=== PATIENT | female | born 1935 | race Caucasian/White ===

== ENCOUNTER 2016-12-07 15:43 | Inpatient (IN) | payer OTHER, BC ==
[2016-12-07 16:00] VITALS: BMI 21.5
[2016-12-07] MEDS ORDERED: ASPIRIN 81 MG CHEWABLE TABLETS PO ONE (16:05)
--- NOTE | 2016-12-07 16:05 | PDOC ---
History of Present Illness - History of Present Illness Initial Comments: 12/07/16 16:34 Patient is an 81 year old female with significant medical hx of paroxysmal AFib s/p ablations x 4 (currently on tikosynm, xeralto, and metropolol), HTN, and thyroid disease who has been sent to the ED from PMD's office for AFib. Today the patient was seen at her PMD's office for a regularly scheduled follow up appointment and was found to be in rapid AFib. The patient is s/p echocardiogram three weeks ago that revealed normal heart rate and rhythm. The patient denies any chest pain but endorses shortness of breath, lower extremity swelling, and dyspnea on exertion. Patient fevers, chills, cough, nausea, vomiting, diarrhea. <Karine Malave - Last Filed: 12/07/16 16:34> - General History Source: Patient Exam Limitations: No Limitations <Virginia Strickland - Last Filed: 12/08/16 13:00> - General Chief Complaint: Shortness of Breath Stated Complaint: SOB, CARDIAC (PCP SENT) Time Seen by Provider: 12/07/16 16:04 Past History <Karine Malave - Last Filed: 12/07/16 16:34> - Past Medical History Anemia: No Asthma: No Cancer: No Cardiac Disorders: Yes (ATRIAL FIBRILLATION) CVA: No COPD: No CHF: No Dementia: No Diabetes: No GI Disorders: No Disorders: No HTN: Yes Hypercholesterolemia: No Liver Disease: No Suicide Attempt (Hx): No Seizures: No Thyroid Disease: Yes (OFF MEDICINE) - Surgical History Abdominal Surgery: Yes (HERNIA REPAIR-RIGHT?) Appendectomy: Yes Cardiac Surgery: Yes (CARDIOVERSION) Cholecystectomy: No Lung Surgery: No Neurologic Surgery: No Orthopedic Surgery: No - Psycho/Social/Smoking Cessation Hx Anxiety: No Suicidal Ideation: No Smoking Status: Yes Smoking History: Former smoker Have you smoked in the past 12 months: No Number of Cigarettes Smoked Daily: 0 If you are a former smoker, when did you quit?: 15 years ago Information on smoking cessation initiated: No Hx Alcohol Use: No Drug/Substance Use Hx: No Substance Use Type: None Hx Substance Use Treatment: No <Virginia Strickland - Last Filed: 12/08/16 13:00> - Past Medical History Allergies/Adverse Reactions: Allergies Allergy/AdvReac Type Severity Reaction Status Date / Time Penicillins AdvReac Verified 12/07/16 15:55 Home Medications: Ambulatory Orders Acetaminophen/Caffeine/Butalb [Fioricet -] 1 tab PO Q4H 02/10/16 Albuterol Sulfate Inhaler - [Ventolin HFA Inhaler -] 1 - 2 inh PO QID 02/10/16 Alprazolam [Xanax] 0.25 mg PO QID 02/10/16 Dofetilide [Tikosyn] 500 mcg PO BID 02/10/16 Eplerenone 25 mg PO DAILY 02/10/16 Furosemide [Lasix -] 40 mg PO DAILY 02/10/16 Metoprolol Tartrate [Lopressor -] 50 mg PO BID 02/10/16 Quinapril HCl [Accupril -] 40 mg PO DAILY 02/10/16 Rivaroxaban [Xarelto -] 20 mg PO DAILY 02/10/16 Sodium Chloride Tablet - 452 mg PO TID 02/10/16 Review of Systems - Review of Systems Comments:: 12/07/16 16:37 GENERAL/CONSTITUTIONAL: No: fever, chills, weakness, loss of appetite. HEAD, EYES, EARS, NOSE AND THROAT: No: change in vision, ear pain, discharge, sore throat, throat swelling. CARDIOVASCULAR: No: chest pain, lightheadedness, palpitations, syncope RESPIRATORY: Yes: shortness of breath, dyspnea on exertion No: cough, wheezing, hemoptysis, stridor. GASTROINTESTINAL: No: nausea, vomiting, abdominal cramping, diarrhea, rectal bleeding, constipation. GENITOURINARY: No: dysuria, hematuria, frequency, urgency, flank pain. MUSCULOSKELETAL: Yes: lower extremity edema No: back pain, neck pain, joint pain , muscle pain SKIN AND BREASTS: No: lesions, pallor, rash or easy bruising. NEUROLOGIC: No: headache, vertigo, paresthesias, weakness ENDOCRINE: No: unexplained weight gain or loss HEMATOLOGIC/LYMPHATIC: No: anemia, easy bleeding, swelling nodes <Ananda,Karine - Last Filed: 12/07/16 16:34> *Physical Exam - Vital Signs Last Vital Signs Temp Pulse Resp BP Pulse Ox 123 H 20 141/66 94 L 12/07/16 15:55 12/07/16 15:55 12/07/16 15:55 12/07/16 15:55 - Physical Exam Comments: 12/07/16 16:39 GENERAL: The patient is in no acute distress. HEAD: Normal with no signs of trauma. EYES: PERRLA, EOMI, sclera anicteric, conjunctiva clear. ENT: Ears normal, nares patent, oropharynx clear without exudates. Moist mucous membranes. NECK: Normal range of motion, supple without lymphadenopathy, JVD, or masses. LUNGS: Bibasilar crackles. No wheezes. HEART: Irregularly irregular, normal S1 and S2 without murmur, rub or gallop. ABDOMEN: Soft, nontender, normoactive bowel sounds. No guarding, no rebound. EXTREMITIES: Normal range of motion. 3+ pitting edema lower extremities bilaterally. No clubbing or cyanosis. No erythema, or tenderness. NEUROLOGICAL: AAOx3. Cranial nerves II through XII grossly intact. Normal speech. No focal neurological deficits. MUSCULOSKELETAL: Back non-tender to palpation, no CVA tenderness SKIN: Warm, Dry, normal turgor, no rashes or lesions noted. <Karine Malave - Last Filed: 12/07/16 16:34> - Vital Signs Last Vital Signs Temp Pulse Resp BP Pulse Ox 123 H 20 141/66 94 L 12/07/16 15:55 12/07/16 15:55 12/07/16 15:55 12/07/16 15:55 <Virginia Strickland - Last Filed: 12/08/16 13:00> ED Treatment Course - LABORATORY CBC & Chemistry Diagram: 12/07/16 16:14 12/07/16 16:14 <Karine Malave - Last Filed: 12/07/16 16:34> - LABORATORY CBC & Chemistry Diagram: 12/08/16 09:20 12/08/16 09:20 <Virginia Strickland - Last Filed: 12/08/16 13:00> Medical Decision Making - Critical Care Time Total Critical Care Time (minutes): 35 Critical Care Statement: The care of this patient involved high complexity decision making to prevent further life threatening deterioration of the patient 's condition and/or to evalute & treat vital organ system(s) failure or risk of failure. - Medical Decision Making 12/07/16 16:05 A portion of this note was documented by scribe services under my direction. I have reviewed the details of the note, within reason, and agree with the documentation with the following case summary and management plan written by me. Nursing documentation reviewed and incorporated into medical decision making 12/08/16 12:56 This is an 81 yo F h/o paroxysmal AFib s/p ablations x 4 (currently on tikosynm , xeralto, and metropolol), HTN, and thyroid disease who has been sent to the ED from Director Translational's office due to AFib with RVR. She denies chest pain. Has noted shortness of breath and bilateral lower extremity edema. Patient fevers, chills, cough, nausea, vomiting, diarrhea. Will do labs Will do EKG Will do CXR Will re assess Will admit Laboratory Tests 12/07/16 16:14 WBC 8.6 Hgb 14.7 D Hct 43.1 Plt Count 223 Neutrophils % 70.6 Lymphocytes % 14.2 CMP: hemolyzed Will resend Pt seen in the ER by Dr Molina PT seen by Dr Barragan Given Lopressor 5mg IV PT remains tachycardiac Will give Cardizem 10 mg IV Pt admitted to Tele Dr Cooper to follow up CMP Pt remains tachycardiac, may need additional Cardizem or Cardizem drip <Virginia Strickland - Last Filed: 12/08/16 13:00> *DC/Admit/Observation/Transfer - Attestations Scribe Attestion: 12/07/16 16:41 Documentation prepared by Karine Malave, acting as medical supervisor for Virginia Strikcland MD. <Karine Malave - Last Filed: 12/07/16 16:34> - Discharge Dispostion Admit: Yes <Vigrinia Strickland - Last Filed: 12/08/16 13:00> Diagnosis at time of Disposition: Atrial fibrillation Qualifiers: Atrial fibrillation type: paroxysmal Qualified Code(s): I48.0 - Paroxysmal atrial fibrillation - Discharge Dispostion Condition at time of disposition: Stable - Referrals
[2016-12-07] MEDS ORDERED: ASPIRIN 81 MG CHEWABLE TABLETS ONE (16:31)
[2016-12-07 16:36] LABS: BASOPHIL 0.7 % (0-2.0); EOSINOPHIL 2.7 % (0-4.5); MCH 32.1 pg (25.7-33.7); MCHC 34.1 g/dl (32.0-36.0); MEAN CELL VOLUME 94.2 fl (80-96); NEUTROPHILS 70.6 % (42.8-82.8); PLATELET COUNT 223 K/MM3 (134-434); RDW 14.2 % (11.6-15.6); WHITE BLOOD COUNT 8.6 K/mm3 (4.0-10.0)
[2016-12-07 16:47] LABS: INR 1.38 (0.82-1.09); PROTHROMBIN TIME (PATIENT) 15.3 SEC (9.98-11.88)
--- NOTE | 2016-12-07 17:15 | CON.CARD ---
Consult Consult Specialty:: Cardiology Referred by:: Weston Molina MD Reason for Consultation:: Dyspnea, LE edema - History of Present Illness Chief Complaint: Dyspnea, LE edema, palpitations History of Present Illness: Patient is a 81 year old female with underlying history of atrial fibrillation with previous failed antiarrhythmic therapy (Sotalol) currently on Tikosyn, previous history of cardioversion, compliant with chronic anticoagulation, [id number] score of 4, ASHD, angina pectoris, HTN/HCVD, pulmonary HTN ( moderate in severity), hyponatremia related to SIADH, COPD, DJD and anxiety referred to ER for palpitations, dyspnea on exertion, fatigue, exercise intolerance, orthopnea and worsening lower extremity edema referable to recurrent AF with periods of rapid ventricular response and diastolic failure. She reports orthopnea, progressive bilateral LE edema, denies chest pain, near or true syncope, reports medication compliance. 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 Cardio/Vascular: Yes: AFIB, Pulmonary Hypertension, CAD, CHF, HTN Pulmonary: Yes: COPD Renal/: Yes: Other (hyponatremia due to SIADH) Psych: Yes: Anxiety - Past Surgical History Past Surgical History: Yes: Cataract Removal, , Hernia Repair, Appendectomy, Tonsillectomy - Alcohol/Substance Use Hx Alcohol Use: No History of Substance Use: reports: None - Smoking History Smoking history: Former smoker Have you smoked in the past 12 months: No Aproximately how many cigarettes per day: 0 If you are a former smoker, when did you quit?: 15 years ago - Social History ADL: Independent History of Recent Travel: No Home Medications - Allergies Allergies/Adverse Reactions: Allergies Allergy/AdvReac Type Severity Reaction Status Date / Time Penicillins AdvReac Verified 12/07/16 15:55 - Home Medications Home Medications: Ambulatory Orders Acetaminophen/Caffeine/Butalb [Fioricet -] 1 tab PO Q4H 02/10/16 Albuterol Sulfate Inhaler - [Ventolin HFA Inhaler -] 1 - 2 inh PO QID 02/10/16 Alprazolam [Xanax] 0.25 mg PO QID 02/10/16 Dofetilide [Tikosyn] 500 mcg PO BID 02/10/16 Eplerenone 25 mg PO DAILY 02/10/16 Furosemide [Lasix -] 40 mg PO DAILY 02/10/16 Metoprolol Tartrate [Lopressor -] 50 mg PO BID 02/10/16 Quinapril HCl [Accupril -] 40 mg PO DAILY 02/10/16 Rivaroxaban [Xarelto -] 20 mg PO DAILY 02/10/16 Sodium Chloride Tablet - 452 mg PO DAILY 02/10/16 Acetaminophen [Tylenol .Regular Strength -] 650 mg PO Q4H PRN #0 tablet Family Disease History - Family Disease History Family Disease History: Heart Disease: Mother, [place]: Father Review of Systems - Review of Systems Cardiovascular: reports: Chest Pain, Edema, Palpitations Respiratory: reports: Orthopnea, SOB on Exertion Vital Signs: Vital Signs Temperature 97.5 F L 12/07/16 16:55 Pulse Rate 111 H 12/07/16 16:55 Respiratory Rate 16 12/07/16 16:55 Blood Pressure 143/109 12/07/16 16:55 O2 Sat by Pulse Oximetry (%) 100 12/07/16 16:55 Constitutional: Yes: No Distress, Calm Neck: Yes: Supple Respiratory: Yes: Regular, Diminished Gastrointestinal: Yes: Normal Bowel Sounds, Soft Cardiovascular: Yes: Tachycardia, Pulse Irregular JVD: No Carotid Bruit: No Heart Sounds: Yes: S1, S2 Edema: Yes Edema: LLE: 3+, RLE: 3+ - Other Data Labs, Other Data: CBC, BMP 12/07/16 16:14 12/07/16 16:14 INR, PTT INR 1.38 (0.82-1.09) H 12/07/16 16:14 Troponin, BNP 12/07/16 16:14 Troponin I Cancelled B-Natriuretic Peptide Cancelled Troponin, BNP 12/07/16 16:14 Troponin I Cancelled B-Natriuretic Peptide Cancelled Afib @ 123 PVC Problem List - Problems (1) Atrial fibrillation Code(s): I48.91 - UNSPECIFIED ATRIAL FIBRILLATION Qualifiers: Atrial fibrillation type: paroxysmal Qualified Code(s): I48.0 - Paroxysmal atrial fibrillation (2) Coronary artery disease Code(s): I25.10 - ATHSCL HEART DISEASE OF [place] CORONARY ARTERY W/O ANG PCTRS Qualifiers: Coronary Disease-Associated Artery/Lesion type: [place] artery [place] vs. transplanted heart: [place] heart Associated angina: without angina Qualified Code(s): I25.10 - Atherosclerotic heart disease of [place] coronary artery without angina pectoris (3) Hypertensive cardiovascular disease Code(s): I11.9 - HYPERTENSIVE HEART DISEASE WITHOUT HEART FAILURE Qualifiers: Heart failure presence: with heart failure Qualified Code(s): I11.0 - Hypertensive heart disease with heart failure (4) Hyponatremia Code(s): E87.1 - HYPO-OSMOLALITY AND HYPONATREMIA (5) Pulmonary hypertension Code(s): I27.2 - OTHER SECONDARY PULMONARY HYPERTENSION (7) Acute on chronic diastolic heart failure Code(s): I50.33 - ACUTE ON CHRONIC DIASTOLIC (CONGESTIVE) HEART FAILURE Assessment/Plan 10/07/2015 Echo: Normal LV size and fxn, mild-mod MR, mod TR, mod pulm HTN, RVSP 53 mmHg 11/09/2016 Normal LV size with mild-mod decreased (global HK), biatrial enlargement, mild mitral valve prolapse, mod MR, mod-severe TR RVSP 51 mmHg 05/16/2016 Lexiscan MPI: Small anteroapical mild ischemia, normal LV fxn 1. Palpitations referable to recurrent paroxysmal atrial fibrillation with periods of rapid ventricular response [id number] score of 4, previous cardioversions 2. Acute on chronic LV diastolic dysfunction 3. Hyponatremia due to SIADH 4. CAD angina pectoris 5. HTN/HCVD 6. Pulmonary HTN (moderate) 7. COPD 8. Anxiety disorder PLAN: 1. Start Lasix 40 IV bid with monitor diuretic response, renal fxn and electrolytes 2. Continue Lopressor 50 bid 3. Continue Accupril 40 qd and Inspra 25 qd (not on hospital formulary) with monitor potassium levels 4. Continue Xarelto 20 qd (patient reports continued compliance), wrap legs 5. Continue Tikosyn 0.5 bid 6. Consider DCCV on Tikosyn if afib persists despite rate-control (confirms compliance with NOAC so YURI-guidance not required) 7. O2 to maintain saO2, BD 8. Thank you for consultative opportunity
[2016-12-07] MEDS ORDERED: METOPROLOL TARTRATE 5 MG/5 ML VIAL IVPUSH ONE (17:50)
--- NOTE | 2016-12-07 18:12 | HP ---
[id number] Complaint: Weakness, palpitations, atrial fibrillation History of Present Illness: 81 year old female with longstanding h/o AFib post several attempts at cardioversion (06/17/12, 10/28/13, 03/23/15/and last 02/11/16) on chronic anticoagulation with Xarelto and antiarrhythmic/rate control therapy with Tikosyn and Metoprolol. Was seen today by Dr Frank with complaints of weakness, fatigue and HERNÁNDEZ, and was found to be back in AFib with RVR. Sent to ER and is to be admitted for evaluation and therapy, including rate control, and possible re-attempt at cardioversion and possible eventual transfer for ablation therapy. No new chest discomfort, or pre-syncope. 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 Cardiovascular: Yes: AFIB, CAD, CHF (diastolic), HTN, Hyperlipdemia, Mitral Insufficiency, Pulmonary Hypertension, Other Pulmonary: Yes: COPD (former smoker) Renal/: Yes: Other (hyponatremia due to SIADH) Psych: Yes: Anxiety Musculoskeletal: Yes: Chronic low back pain, Osteoarthritis Endocrine: Yes: Hypothyroidism (borderline), SIADH - Past Surgical History Past Surgical History: Yes: Cataract Removal, , Hernia Repair, Appendectomy, Tonsillectomy - Smoking History Smoking history: Former smoker Have you smoked in the past 12 months: No Aproximately how many cigarettes per day: 0 If you are a former smoker, when did you quit?: 15 years ago - Alcohol/Substance Use Hx Alcohol Use: No History of Substance Use: reports: None - Social History ADL: Independent History of Recent Travel: No Home Medications - Allergies Allergies/Adverse Reactions: Allergies Allergy/AdvReac Type Severity Reaction Status Date / Time Penicillins AdvReac Verified 12/07/16 15:55 - Home Medications Home Medications: Ambulatory Orders Acetaminophen/Caffeine/Butalb [Fioricet -] 1 tab PO Q4H 02/10/16 Albuterol Sulfate Inhaler - [Ventolin HFA Inhaler -] 1 - 2 inh PO QID 02/10/16 Alprazolam [Xanax] 0.25 mg PO QID 02/10/16 Dofetilide [Tikosyn] 500 mcg PO BID 02/10/16 Eplerenone 25 mg PO DAILY 02/10/16 Furosemide [Lasix -] 40 mg PO DAILY 02/10/16 Metoprolol Tartrate [Lopressor -] 50 mg PO BID 02/10/16 Quinapril HCl [Accupril -] 40 mg PO DAILY 02/10/16 Rivaroxaban [Xarelto -] 20 mg PO DAILY 02/10/16 Sodium Chloride Tablet - 452 mg PO TID 02/10/16 Family Disease History - Family Disease History Family Disease History: Heart Disease: Mother, [place]: Father Review of Systems - Review of Systems Constitutional: reports: Lethargy, Weakness. denies: Fever, Night Sweats Eyes: reports: No Symptoms Cardiovascular: reports: Palpitations Respiratory: reports: SOB on Exertion Gastrointestinal: denies: Abdominal Pain Genitourinary: reports: No Symptoms Breasts: reports: No Symptoms Reported Musculoskeletal: reports: Back Pain Neurological: reports: Headache (chronic stable) Psychiatric: reports: Anxiety, Depression Physical Examination Vital Signs: Vital Signs Temperature 97.5 F L 12/07/16 16:55 Pulse Rate 111 H 12/07/16 16:55 Respiratory Rate 16 12/07/16 16:55 Blood Pressure 143/109 12/07/16 16:55 O2 Sat by Pulse Oximetry (%) 100 12/07/16 16:55 Constitutional: Yes: Well Nourished, Anxious Eyes: Yes: Other (pupils respond to light). No: Sclera Icterus HENT: Yes: WNL Neck: Yes: Supple Cardiovascular: Yes: Pulse Irregular (rapid rate) Respiratory: Yes: CTA Bilaterally. No: Rhonchi, Wheezes Gastrointestinal: Yes: Normal Bowel Sounds, Soft. No: Tenderness ...Rectal Exam: Yes: Deferred Edema: Yes (chronic mostlynon-pitting) Neurological: Yes: Alert, Oriented Labs: CBC, BMP 12/07/16 16:14 12/07/16 16:14 Imaging - Results Chest X-ray: Image Reviewed EKG: Image Reviewed Problem List - Problems (1) Atrial fibrillation Assessment/Plan: Rate control with pharmacologic intervention as per cardiology. Rhythm change with cardioversion and possible eventual ablation procedure Code(s): I48.91 - UNSPECIFIED ATRIAL FIBRILLATION Qualifiers: Atrial fibrillation type: paroxysmal Qualified Code(s): I48.0 - Paroxysmal atrial fibrillation (2) Acute on chronic diastolic heart failure Assessment/Plan: Chronic stable Little evidence for left sided CHF Edema is chronic and mostly non-pitting. May benefit from cautious increase in diuretic therapy. Pulmonary hypertension of note in regard to right sided CHF Code(s): I50.33 - ACUTE ON CHRONIC DIASTOLIC (CONGESTIVE) HEART FAILURE (3) Anxiety Assessment/Plan: Alprazolam as needed Code(s): F41.9 - ANXIETY DISORDER, UNSPECIFIED (4) COPD (chronic obstructive pulmonary disease) Assessment/Plan: Chronic stable Former smoker Code(s): J44.9 - CHRONIC OBSTRUCTIVE PULMONARY DISEASE, UNSPECIFIED (5) Coronary artery disease Assessment/Plan: Chronic stable Code(s): I25.10 - ATHSCL HEART DISEASE OF [place] CORONARY ARTERY W/O ANG PCTRS Qualifiers: Coronary Disease-Associated Artery/Lesion type: [place] artery [place] vs. transplanted heart: [place] heart Associated angina: without angina Qualified Code(s): I25.10 - Atherosclerotic heart disease of [place] coronary artery without angina pectoris (6) Edema extremities Assessment/Plan: As above Has chronic non-pitting edema as baseline. Possible new addition of edema from right sided CHF Code(s): R60.0 - LOCALIZED EDEMA (7) Hypertension Assessment/Plan: Stable Code(s): I10 - ESSENTIAL (PRIMARY) HYPERTENSION (8) Migraine Assessment/Plan: Chronic Will order Fioricet as needed Code(s): G43.909 - MIGRAINE, UNSP, NOT INTRACTABLE, WITHOUT STATUS MIGRAINOSUS (9) Pulmonary hypertension Assessment/Plan: Chronic finding To discuss with product manufacturing professional Code(s): I27.2 - OTHER SECONDARY PULMONARY HYPERTENSION (10) SIADH (syndrome of inappropriate ADH production) Assessment/Plan: Chronic stable Is on furosemide and oral NaCl pills (11) Tricuspid valve insufficiency, non-rheumatic Assessment/Plan: Monitor Code(s): I36.1 - NONRHEUMATIC TRICUSPID (VALVE) INSUFFICIENCY Assessment/Plan Plan as outlined above Full extensive problem list as per office records and old charts
[2016-12-07] MEDS ORDERED: METOPROLOL TARTRATE 5 MG/5 ML VIAL ONE (18:16)
[2016-12-07] MEDS ORDERED: METOPROLOL TARTRATE 50 MG TABLET (FP) ONE ×2 (18:16→22:11)
[2016-12-07] MEDS ORDERED: METOPROLOL TARTRATE 50 MG TABLET (FP) PO ONE (18:24)
[2016-12-07] MEDS ORDERED: ALBUTEROL SO4 6.7 GM HFA INHALER IH PRN (18:36)
[2016-12-07] MEDS ORDERED: dilTIAZem HCL 50 MG/10 ML - 10 ML VIAL IVPUSH ONE (18:36)
[2016-12-07 18:44] LABS: ALBUMIN 3.4 g/dl (3.4-5.0); ANION GAP 11 (8-16); BILIRUBIN,TOTAL 0.4 mg/dL (0.2-1.0); CALCIUM 8.4 mg/dL (8.5-10.1); CO2 31 mmol/L (21-32); CREATININE 0.6 mg/dL (0.55-1.02); GLUCOSE,RANDOM 110 mg/dL (74-106); SGOT/AST 51 U/L (15-37); SGPT/ALT 84 U/L (12-78); TOT PROT 5.8 g/dl (6.4-8.2)
[2016-12-07 18:47] LABS: ALK PHOS 85 U/L (45-117); TROPONIN I < 0.02 ng/ml (0.00-0.05)
[2016-12-07] MEDS ORDERED: dilTIAZem HCL 125 MG/25 ML - 25 ML VIAL ONE (19:36)
[2016-12-07] MEDS ORDERED: ALPRAZolam 0.25 MG TABLET ONE (22:11)
[2016-12-07] MEDS ORDERED: ACETAMINOPHEN/CAFFEINE/BUTALBITAL 1 TAB ONE (22:14)
[2016-12-07] MEDS ORDERED: ALBUTEROL SO4 2.5/IPRATROPIUM 0.5 INH SOL 3 ML VIAL.NEB. NEB ONE (22:16)
[2016-12-07] MEDS: ACETAMINOPHEN/CAFFEINE/BUTALBITAL 1 TAB PO PRN (22:17)
[2016-12-07] MEDS: METOPROLOL TARTRATE 50 MG TABLET (FP) PO SCH (22:17)
[2016-12-07] MEDS: ALPRAZolam 0.25 MG TABLET PO PRN (22:18)
[2016-12-08] MEDS ORDERED: ACETAMINOPHEN/CAFFEINE/BUTALBITAL 1 TAB ONE ×2 (06:25→11:29)
[2016-12-08] MEDS ORDERED: ALPRAZolam 0.25 MG TABLET ONE ×2 (06:26→11:30)
[2016-12-08] MEDS: SODIUM CHLORIDE 1 GM TABLET PO SCH ×3 (07:08→22:51)
[2016-12-08] MEDS: ACETAMINOPHEN/CAFFEINE/BUTALBITAL 1 TAB PO PRN ×4 (07:08→21:00)
[2016-12-08] MEDS: ALPRAZolam 0.25 MG TABLET PO PRN ×4 (07:08→20:59)
[2016-12-08] MEDS: DOFETILIDE 0.25 MG CAPSULE PO SCH ×3 (07:09→22:51)
[2016-12-08] MEDS: FUROSEMIDE 40 MG/4 ML INJECTABLE VIAL IVPB SCH ×2 (07:20→15:37)
[2016-12-08] MEDS ORDERED: FUROSEMIDE 40 MG/4 ML INJECTABLE VIAL ONE (07:23)
--- NOTE | 2016-12-08 09:20 | PN ---
Progress Note, Physician Chief Complaint: Dyspnea, weakness, palpitations, peripheral edema History of Present Illness: Please refer to initial HPI of Admission note. 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 Was sent to ER for admission to control rate and for possible cardioversion, and possible eventual transfer for ablation procedure therapy. Currently sitting up in bed, feeling better overall. Denies new chest discomfort, increased SOB or pre-syncope. Telemetry reveals persistence of AFib with RVR. - Current Medication List Current Medications: Active Medications Acetaminophen/Butalbital/Caffeine (Fioricet -) 1 tablet PO Q4H PRN PRN Reason: HEADACHE Last Admin: 12/08/16 07:08 Dose: 1 tablet Albuterol Sulfate (Ventolin Hfa Inhaler -) 2 puff IH Q6H PRN PRN Reason: SHORT OF BREATH/WHEEZING Last Admin: 12/07/16 23:33 Dose: 2 sprays(dnu) Alprazolam (Xanax -) 0.25 mg PO Q4H PRN PRN Reason: ANXIETY Last Admin: 12/08/16 07:08 Dose: 0.25 mg Dofetilide (Tikosyn (Restricted To Cardiology) -) 0.5 mg PO BID [facility] Last Admin: 12/08/16 07:09 Dose: Not Given Eplerenone (Eplerenone) 25 mg PO DAILY [facility] Furosemide (Lasix Injection -) 40 mg IVPB BIDLASIX [facility] Last Admin: 12/08/16 07:20 Dose: 40 mg Metoprolol Tartrate (Lopressor -) 50 mg PO BID [facility] Last Admin: 12/07/16 22:17 Dose: 50 mg Quinapril HCl (Accupril -) 40 mg PO DAILY [facility] Rivaroxaban (Xarelto -) 20 mg PO DAILY [facility] Sodium Chloride (Sodium Chloride Tablet -) 1 gm PO BID [facility] Last Admin: 12/08/16 07:08 Dose: Not Given - Objective Vital Signs: Vital Signs Temperature 98.2 F 12/08/16 06:13 Pulse Rate 107 H 12/08/16 07:20 Respiratory Rate 18 12/08/16 07:20 Blood Pressure 138/87 12/08/16 07:20 O2 Sat by Pulse Oximetry (%) 99 12/08/16 07:20 Constitutional: Yes: No Distress, Calm Eyes: No: Sclera Icterus Neck: Yes: Supple Cardiovascular: Yes: Pulse Irregular (with increased rate) Respiratory: Yes: Other (minimal dry rales at bases). No: Accessory Muscle Use , Cough, Rhonchi, Wheezes Gastrointestinal: Yes: Normal Bowel Sounds, Soft. No: Tenderness Edema: Yes (b/l mostly non-pitting) Neurological: Yes: Alert, Oriented Labs: INR, PTT INR 1.38 (0.82-1.09) H 12/07/16 16:14 - ....Imaging Chest X-ray: Image Reviewed Other: Other (telemetry reviewed) Problem List - Problems (1) Atrial fibrillation Assessment/Plan: Rate control with pharmacologic intervention as per cardiology. Rhythm change with cardioversion and possible eventual ablation procedure Discuss use of additional agents to control rate Code(s): I48.91 - UNSPECIFIED ATRIAL FIBRILLATION Qualifiers: Atrial fibrillation type: paroxysmal Qualified Code(s): I48.0 - Paroxysmal atrial fibrillation (2) Acute on chronic diastolic heart failure Assessment/Plan: Chronic stable Little evidence for left sided CHF Edema is chronic and mostly non-pitting. Continue cautious increase in diuretic therapy, with close monitoring of serum Na concentration in light of SIADH Pulmonary hypertension of note in regard to right sided CHF Elevated BNP at 1968 noted Code(s): I50.33 - ACUTE ON CHRONIC DIASTOLIC (CONGESTIVE) HEART FAILURE (3) Anxiety Assessment/Plan: Alprazolam as needed Appears calmer this AM Code(s): F41.9 - ANXIETY DISORDER, UNSPECIFIED (4) COPD (chronic obstructive pulmonary disease) Assessment/Plan: Chronic stable Former smoker O2 saturation excellent on supplemental O2 Code(s): J44.9 - CHRONIC OBSTRUCTIVE PULMONARY DISEASE, UNSPECIFIED (5) Coronary artery disease Assessment/Plan: Chronic stable Code(s): I25.10 - ATHSCL HEART DISEASE OF [place] CORONARY ARTERY W/O ANG PCTRS Qualifiers: Coronary Disease-Associated Artery/Lesion type: [place] artery [place] vs. transplanted heart: [place] heart Associated angina: without angina Qualified Code(s): I25.10 - Atherosclerotic heart disease of [place] coronary artery without angina pectoris (6) Edema extremities Assessment/Plan: As above Has chronic non-pitting edema as baseline. Possible new addition of edema from right sided CHF Monitor daily weights, I/O Monitor {Na+} Code(s): R60.0 - LOCALIZED EDEMA (7) Hypertension Assessment/Plan: Stable Code(s): I10 - ESSENTIAL (PRIMARY) HYPERTENSION (8) Migraine Assessment/Plan: Chronic Ordered Fioricet as needed Code(s): G43.909 - MIGRAINE, UNSP, NOT INTRACTABLE, WITHOUT STATUS MIGRAINOSUS (9) Pulmonary hypertension Assessment/Plan: Chronic finding To discuss with scrap shear operator Code(s): I27.2 - OTHER SECONDARY PULMONARY HYPERTENSION (10) SIADH (syndrome of inappropriate ADH production) Assessment/Plan: Chronic stable Is on furosemide and oral NaCl pills Monitor {Na+} daily (11) Tricuspid valve insufficiency, non-rheumatic Assessment/Plan: Monitor Code(s): I36.1 - NONRHEUMATIC TRICUSPID (VALVE) INSUFFICIENCY (12) Elevated LFTs Assessment/Plan: AST/ALT 51/84 Continue to monitor Possible passive congestion of the liver or drug reaction Mild decrease in albumin noted at 3.4 Code(s): R94.5 - ABNORMAL RESULTS OF LIVER FUNCTION STUDIES Assessment/Plan Continue current Rx. Cardiologic follow-up in regard to cardioversion and/or possible transfer for ablation therapy Full extensive problem list as per office notes and old charts
[2016-12-08] MEDS: METOPROLOL TARTRATE 50 MG TABLET (FP) PO SCH ×2 (09:27→22:51)
[2016-12-08] MEDS: RIVAROXABAN 20 MG TABLET PO SCH (09:28)
[2016-12-08] MEDS: QUINAPRIL HCL 40 MG TABLET (FP) PO SCH (09:28)
[2016-12-08] MEDS: EPLERENONE 25 MG TABLET PO SCH (09:28)
--- NOTE | 2016-12-08 09:28 | EKG ---
Test Reason : Blood Pressure : / mmHG Vent. Rate : 123 BPM Atrial Rate : 102 BPM P-R Int : 000 ms QRS Dur : 086 ms QT Int : 314 ms P-R-T Axes : 000 072 009 degrees QTc Int : 449 ms ATRIAL FIBRILLATION WITH RAPID VENTRICULAR RESPONSE ABNORMAL ECG Confirmed by RODNEY MORAN MD ([id number]) on 12/08/2016 9:28:24 AM Referred By: Confirmed By:RODNEY MORAN MD
[2016-12-08 09:34] LABS: BASOPHIL 0.5 % (0-2.0); MCH 32.4 pg (25.7-33.7); MCHC 34.1 g/dl (32.0-36.0); MEAN CELL VOLUME 95.2 fl (80-96); MEAN PLT VOLUME 7.4 fl (7.5-11.1); NEUTROPHILS 65.3 % (42.8-82.8); PLATELET COUNT 180 K/MM3 (134-434); WHITE BLOOD COUNT 6.4 K/mm3 (4.0-10.0)
[2016-12-08 09:56] LABS: ALBUMIN 3.7 g/dl (3.4-5.0); ANION GAP 5 (8-16); CALCIUM 8.4 mg/dL (8.5-10.1); CO2 33 mmol/L (21-32); GLUCOSE,RANDOM 175 mg/dL (74-106); MAGNESIUM 1.8 mg/dL (1.8-2.4)
[2016-12-08 10:00] LABS: ALK PHOS 95 U/L (45-117); BILIRUBIN,TOTAL 0.7 mg/dL (0.2-1.0); CREATININE 0.6 mg/dL (0.55-1.02); SGOT/AST 49 U/L (15-37); SGPT/ALT 90 U/L (12-78); TOT PROT 6.4 g/dl (6.4-8.2)
--- NOTE | 2016-12-08 10:57 | PN ---
Progress Note, Physician History of Present Illness: Palpitations, dyspnea, and orthopnea improving and lower extremity edema persists with diuresis and rate-control, currently afib in 90s. - Current Medication List Current Medications: Active Medications Acetaminophen/Butalbital/Caffeine (Fioricet -) 1 tablet PO Q4H PRN PRN Reason: HEADACHE Last Admin: 12/08/16 07:08 Dose: 1 tablet Albuterol Sulfate (Ventolin Hfa Inhaler -) 2 puff IH Q6H PRN PRN Reason: SHORT OF BREATH/WHEEZING Last Admin: 12/07/16 23:33 Dose: 2 sprays(dnu) Alprazolam (Xanax -) 0.25 mg PO Q4H PRN PRN Reason: ANXIETY Last Admin: 12/08/16 07:08 Dose: 0.25 mg Dofetilide (Tikosyn (Restricted To Cardiology) -) 0.5 mg PO BID [facility] Last Admin: 12/08/16 09:28 Dose: 0.5 mg Eplerenone (Eplerenone) 25 mg PO DAILY [facility] Last Admin: 12/08/16 09:28 Dose: 25 mg Furosemide (Lasix Injection -) 40 mg IVPB BIDLASIX [facility] Last Admin: 12/08/16 07:20 Dose: 40 mg Metoprolol Tartrate (Lopressor -) 50 mg PO BID [facility] Last Admin: 12/08/16 09:27 Dose: 50 mg Quinapril HCl (Accupril -) 40 mg PO DAILY [facility] Last Admin: 12/08/16 09:28 Dose: 40 mg Rivaroxaban (Xarelto -) 20 mg PO DAILY [facility] Last Admin: 12/08/16 09:28 Dose: 20 mg Sodium Chloride (Sodium Chloride Tablet -) 1 gm PO BID [facility] Last Admin: 12/08/16 09:28 Dose: 1 gm - Objective Vital Signs: Vital Signs Temperature 98.2 F 12/08/16 06:13 Pulse Rate 99 H 12/08/16 09:20 Respiratory Rate 18 12/08/16 09:20 Blood Pressure 121/79 12/08/16 09:20 O2 Sat by Pulse Oximetry (%) 97 12/08/16 09:20 Constitutional: Yes: No Distress, Calm Neck: Yes: Supple Cardiovascular: Yes: Pulse Irregular, Murmur (2/6 SM) Respiratory: Yes: Regular, Diminished, On Nasal O2, Rales Gastrointestinal: Yes: Normal Bowel Sounds, Soft Edema: Yes Edema: LLE: 3+, RLE: 3+ Labs: CBC, BMP 12/08/16 09:20 12/08/16 09:20 INR, PTT INR 1.38 (0.82-1.09) H 12/07/16 16:14 Problem List - Problems (1) Atrial fibrillation Code(s): I48.91 - UNSPECIFIED ATRIAL FIBRILLATION Qualifiers: Atrial fibrillation type: paroxysmal Qualified Code(s): I48.0 - Paroxysmal atrial fibrillation (2) Coronary artery disease Code(s): I25.10 - ATHSCL HEART DISEASE OF [place] CORONARY ARTERY W/O ANG PCTRS Qualifiers: Coronary Disease-Associated Artery/Lesion type: [place] artery [place] vs. transplanted heart: [place] heart Associated angina: without angina Qualified Code(s): I25.10 - Atherosclerotic heart disease of [place] coronary artery without angina pectoris (3) Hypertensive cardiovascular disease Code(s): I11.9 - HYPERTENSIVE HEART DISEASE WITHOUT HEART FAILURE Qualifiers: Heart failure presence: with heart failure Qualified Code(s): I11.0 - Hypertensive heart disease with heart failure (4) Hyponatremia Code(s): E87.1 - HYPO-OSMOLALITY AND HYPONATREMIA (5) Pulmonary hypertension Code(s): I27.2 - OTHER SECONDARY PULMONARY HYPERTENSION (7) Acute on chronic diastolic heart failure Code(s): I50.33 - ACUTE ON CHRONIC DIASTOLIC (CONGESTIVE) HEART FAILURE Assessment/Plan 10/07/2015 Echo: Normal LV size and fxn, mild-mod MR, mod TR, mod pulm HTN, RVSP 53 mmHg 11/09/2016 Normal LV size with mild-mod decreased (global HK), biatrial enlargement, mild mitral valve prolapse, mod MR, mod-severe TR RVSP 51 mmHg 05/16/2016 Lexiscan MPI: Small anteroapical mild ischemia, normal LV fxn 1. Palpitations referable to recurrent paroxysmal atrial fibrillation with periods of rapid ventricular response [id number] score of 4, previous cardioversions improving 2. Acute on chronic LV diastolic dysfunction improving 3. Hyponatremia due to SIADH 4. CAD angina pectoris 5. HTN/HCVD 6. Pulmonary HTN (moderate) 7. COPD 8. Anxiety disorder PLAN: 1. Continue Lasix 40 IV bid with monitor diuretic response, renal fxn and electrolytes 2. Continue Lopressor 50 bid 3. Continue Accupril 40 qd and Inspra 25 qd with monitor potassium levels 4. Continue Xarelto 20 qd (patient reports continued compliance), wrap legs 5. Continue Tikosyn 0.5 bid 6. Consider repeat DCCV on Tikosyn if afib persists despite rate-control ( confirms compliance with NOAC so YURI-guidance not required), eventual pulmonary vein isolation referral for more definitive solution 7. O2 to maintain saO2, BD as needed
[2016-12-09] MEDS: ACETAMINOPHEN/CAFFEINE/BUTALBITAL 1 TAB PO PRN ×4 (01:46→20:07)
[2016-12-09] MEDS: ALPRAZolam 0.25 MG TABLET PO PRN ×3 (01:46→14:47)
[2016-12-09] MEDS: FUROSEMIDE 40 MG/4 ML INJECTABLE VIAL IVPB SCH ×2 (06:20→13:23)
[2016-12-09 08:13] LABS: BASOPHIL 0.7 % (0-2.0); EOSINOPHIL 7.1 % (0-4.5); MCH 32.5 pg (25.7-33.7); MCHC 34.1 g/dl (32.0-36.0); MEAN CELL VOLUME 95.3 fl (80-96); MEAN PLT VOLUME 7.9 fl (7.5-11.1); NEUTROPHILS 51.5 % (42.8-82.8); PLATELET COUNT 180 K/MM3 (134-434); RDW 13.8 % (11.6-15.6); WHITE BLOOD COUNT 6.2 K/mm3 (4.0-10.0)
[2016-12-09 08:36] LABS: ALBUMIN 3.3 g/dl (3.4-5.0); ANION GAP 8 (8-16); BILIRUBIN,TOTAL 0.4 mg/dL (0.2-1.0); CALCIUM 8.3 mg/dL (8.5-10.1); CO2 34 mmol/L (21-32); CREATININE 0.7 mg/dL (0.55-1.02); GLUCOSE,RANDOM 91 mg/dL (74-106); SGOT/AST 47 U/L (15-37); SGPT/ALT 83 U/L (12-78); TOT PROT 5.8 g/dl (6.4-8.2)
[2016-12-09 08:37] LABS: ALK PHOS 88 U/L (45-117)
[2016-12-09] MEDS ORDERED: PT OWN MED DRAWER 7, Y5N ONE ×2 (09:52→21:04)
[2016-12-09] MEDS: QUINAPRIL HCL 40 MG TABLET (FP) PO SCH (09:56)
[2016-12-09] MEDS: RIVAROXABAN 20 MG TABLET PO SCH (09:58)
[2016-12-09] MEDS: SODIUM CHLORIDE 1 GM TABLET PO SCH ×2 (09:59→21:05)
[2016-12-09] MEDS: DOFETILIDE 0.25 MG CAPSULE PO SCH ×2 (10:07→21:06)
[2016-12-09] MEDS: EPLERENONE 25 MG TABLET PO SCH (11:06)
[2016-12-09] MEDS: METOPROLOL TARTRATE 50 MG TABLET (FP) PO SCH ×2 (11:06→21:05)
--- NOTE | 2016-12-09 12:01 | PN ---
Progress Note (short form) - Note Progress Note: Chief Complaint: Events noted, notes reviewed, dyspnea persists but improved, denies any chest pain, remains in atrial fibrillation with periods of rapid ventricular response History of Present Illness: Seen and examined on telemetry. Events noted, notes reviewed, dyspnea persists but improved, denies any chest pain, remains in atrial fibrillation with periods of rapid ventricular response Long discussion with the patient in reference to options of intervention including repeat cardioversion with continuation of current anti-arrhythmic therapy and outpatient evaluation for RFA, vs. proceeding with RFA evaluation at this point, patient prefers the initial approach Echocardiography 10/07/2015 revealed Normal LV size and function, mild-moderate MR, moderate TR, moderate degree of pulmonary HTN, RVSP 53 mmHg Echocardiography 11/09/2016 Normal LV size with mild-moderate decrease in LV-EF ( global HK), bi-atrial enlargement, mild mitral valve prolapse, moderate MR, moderate-severe TR, RVSP 51 mmHg Lexiscan MPI study 05/16/2016 revealed Small size dorota-apical defect mild ischemia, normal LV function - Current Medication List Current Medications Acetaminophen/Butalbital/Caffeine (Fioricet -) 1 tablet PO Q4H PRN PRN Reason: HEADACHE Last Admin: 12/09/16 09:57 Dose: 1 tablet Albuterol Sulfate (Ventolin Hfa Inhaler -) 2 puff IH Q6H PRN PRN Reason: SHORT OF BREATH/WHEEZING Last Admin: 12/07/16 23:33 Dose: 2 sprays(dnu) Alprazolam (Xanax -) 0.25 mg PO Q4H PRN PRN Reason: ANXIETY Last Admin: 12/09/16 09:57 Dose: 0.25 mg Dofetilide (Tikosyn (Restricted To Cardiology) -) 0.5 mg PO BID [facility] Last Admin: 12/09/16 10:07 Dose: 0.5 mg Eplerenone (Eplerenone) 25 mg PO DAILY [facility] Last Admin: 12/09/16 11:06 Dose: 25 mg Furosemide (Lasix Injection -) 40 mg IVPB BIDLASIX [facility] Last Admin: 12/09/16 06:20 Dose: 40 mg Metoprolol Tartrate (Lopressor -) 50 mg PO BID [facility] Last Admin: 12/09/16 11:06 Dose: 50 mg Quinapril HCl (Accupril -) 40 mg PO DAILY [facility] Last Admin: 12/09/16 09:56 Dose: Not Given Rivaroxaban (Xarelto -) 20 mg PO DAILY [facility] Last Admin: 12/09/16 09:58 Dose: 20 mg Sodium Chloride (Sodium Chloride Tablet -) 1 gm PO BID [facility] Last Admin: 12/09/16 09:59 Dose: 1 gm - Objective Vital Signs: Last Vital Signs Temp Pulse Resp BP Pulse Ox 97.3 F L 111 H 20 106/65 98 12/09/16 08:41 12/09/16 08:41 12/09/16 08:41 12/09/16 08:41 12/08/16 21:00 Constitutional: No Distress, Calm Neck: Supple Negative JVD No Bruit Cardiovascular: S1 S2 Irregularly Irregular Grade 2/6 SM Respiratory: Diminished Breath Sounds at the Bases Gastrointestinal: Soft Benign Normal Bowel Sounds Ext: 2-3 + Bilateral Edema Labs: CBC, BMP 12/09/16 06:05 12/09/16 06:05 INR, PTT INR 1.38 (0.82-1.09) H 12/07/16 16:14 Assessment/Plan ASSESSMENT: 1. Palpitations referable to recurrent paroxysmal atrial fibrillation with periods of rapid ventricular response [id number] score of 4, previous cardioversions 2. Acute on chronic class I-II NYHA classification LV failure related to LV diastolic/systolic dysfunction, resolving 3. CAD angina pectoris 4. HTN 5. Pulmonary HTN (moderate) 6. 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 Continue IV Lasix 40 IV with close monitoring of renal function 2. Continue Lopressor and may titrate dose as tolerated, hemodynamics permitting 3. Continue Accupril, hemodynamics permitting 4. Continue Inspra and tiatrate dosage as tolerated 5. Continue Xarelto 6. Continue Tikosyn with close monitoring of QTc 7. Plan to proceed with DCCV on Tikosyn if atrial fibrillation persists despite rate-control (confirms compliance with NOAC's so YURI-guidance not required) this coming week, eventual pulmonary vein isolation RFA referral for more definitive solution as outpatient Prosper Frank MD
--- NOTE | 2016-12-09 12:52 | PN ---
Progress Note, Physician History of Present Illness: Feeling a little better. Heart rate still tachy, but feeling less shortness of breath. Still with leg swelling, but states cannot wear antonietta stockings due to them cutting into her varicose veins when they only come up to her lower legs. - Current Medication List Current Medications: Active Medications Acetaminophen/Butalbital/Caffeine (Fioricet -) 1 tablet PO Q4H PRN PRN Reason: HEADACHE Last Admin: 12/09/16 09:57 Dose: 1 tablet Albuterol Sulfate (Ventolin Hfa Inhaler -) 2 puff IH Q6H PRN PRN Reason: SHORT OF BREATH/WHEEZING Last Admin: 12/07/16 23:33 Dose: 2 sprays(dnu) Alprazolam (Xanax -) 0.25 mg PO Q4H PRN PRN Reason: ANXIETY Last Admin: 12/09/16 09:57 Dose: 0.25 mg Dofetilide (Tikosyn (Restricted To Cardiology) -) 0.5 mg PO BID [facility] Last Admin: 12/09/16 10:07 Dose: 0.5 mg Eplerenone (Eplerenone) 25 mg PO DAILY [facility] Last Admin: 12/09/16 11:06 Dose: 25 mg Furosemide (Lasix Injection -) 40 mg IVPB BIDLASIX [facility] Last Admin: 12/09/16 06:20 Dose: 40 mg Metoprolol Tartrate (Lopressor -) 50 mg PO BID [facility] Last Admin: 12/09/16 11:06 Dose: 50 mg Quinapril HCl (Accupril -) 40 mg PO DAILY [facility] Last Admin: 12/09/16 09:56 Dose: Not Given Rivaroxaban (Xarelto -) 20 mg PO DAILY [facility] Last Admin: 12/09/16 09:58 Dose: 20 mg Sodium Chloride (Sodium Chloride Tablet -) 1 gm PO BID [facility] Last Admin: 12/09/16 09:59 Dose: 1 gm - Objective Vital Signs: Vital Signs Temperature 97.3 F L 12/09/16 08:41 Pulse Rate 111 H 12/09/16 08:41 Respiratory Rate 20 12/09/16 08:41 Blood Pressure 106/65 12/09/16 08:41 O2 Sat by Pulse Oximetry (%) 98 12/08/16 21:00 Constitutional: Yes: No Distress, Calm Eyes: Yes: Conjunctiva Clear, EOM Intact Neck: Yes: Supple, Trachea Midline Cardiovascular: Yes: Pulse Irregular, S1, S2. No: Murmur Respiratory: Yes: Regular, CTA Bilaterally. No: Rales, Rhonchi, Wheezes Gastrointestinal: Yes: Normal Bowel Sounds, Soft. No: Distention, Tenderness Edema: Yes Edema: LLE: 2+, RLE: 2+ Neurological: Yes: Alert, Oriented Labs: CBC, BMP 12/09/16 06:05 12/09/16 06:05 INR, PTT INR 1.38 (0.82-1.09) H 12/07/16 16:14 Assessment/Plan All Active Problems Acute on chronic diastolic heart failure (Acute) Elevated LFTs (Acute) Tricuspid valve insufficiency (Acute) Tricuspid valve insufficiency, non-rheumatic (Acute) Atrial fibrillation (Chronic) with RVR Anxiety (Chronic) COPD (chronic obstructive pulmonary disease) (Chronic) Coronary artery disease (Chronic) Diastolic dysfunction without heart failure (Chronic) Edema extremities (Chronic) Hypertension (Chronic) Hypertensive cardiovascular disease (Chronic) Hyponatremia (Chronic) Migraine (Chronic) Pulmonary hypertension (Chronic) SIADH (syndrome of inappropriate ADH production) (Chronic) -cont on diuretics, Tikosyn -possible cardioversion while here
[2016-12-10] MEDS: ACETAMINOPHEN/CAFFEINE/BUTALBITAL 1 TAB PO PRN ×6 (00:09→22:53)
[2016-12-10] MEDS: ALPRAZolam 0.25 MG TABLET PO PRN ×5 (06:00→22:54)
[2016-12-10] MEDS: FUROSEMIDE 40 MG/4 ML INJECTABLE VIAL IVPB SCH ×2 (06:00→14:27)
[2016-12-10] MEDS ORDERED: QUINAPRIL HCL 20 MG TABLET (FP) ONE (09:07)
[2016-12-10] MEDS ORDERED: PT OWN MED DRAWER 7, Y5N ONE (09:07)
[2016-12-10 09:10] LABS: ALBUMIN 3.7 g/dl (3.4-5.0); ALK PHOS 89 U/L (45-117); ANION GAP 10 (8-16); BILIRUBIN,TOTAL 0.6 mg/dL (0.2-1.0); CALCIUM 8.6 mg/dL (8.5-10.1); CO2 37 mmol/L (21-32); CREATININE 0.6 mg/dL (0.55-1.02); GLUCOSE,RANDOM 95 mg/dL (74-106); SGOT/AST 38 U/L (15-37); SGPT/ALT 75 U/L (12-78); TOT PROT 6.4 g/dl (6.4-8.2)
[2016-12-10] MEDS: QUINAPRIL HCL 40 MG TABLET (FP) PO SCH (09:33)
[2016-12-10] MEDS: EPLERENONE 25 MG TABLET PO SCH (09:34)
[2016-12-10] MEDS: SODIUM CHLORIDE 1 GM TABLET PO SCH ×2 (09:34→22:55)
[2016-12-10] MEDS: DOFETILIDE 0.25 MG CAPSULE PO SCH ×2 (09:34→22:55)
[2016-12-10] MEDS: RIVAROXABAN 20 MG TABLET PO SCH (09:34)
[2016-12-10] MEDS: METOPROLOL TARTRATE 50 MG TABLET (FP) PO SCH ×2 (09:42→22:54)
--- NOTE | 2016-12-10 09:42 | PN ---
Progress Note (short form) - Note Progress Note: Chief Complaint: Events noted, notes reviewed, dyspnea persists but improved, denies any chest pain, remains in atrial fibrillation with periods of rapid ventricular response History of Present Illness: Seen and examined on telemetry. Events noted, notes reviewed, dyspnea persists but improved, denies any chest pain, remains in atrial fibrillation with periods of rapid ventricular response Hypotension noted, asymptomatic Will plan to proceed with synchronized cardioversion in AM Endoscopy suite schedule permitting As outlined in yesterday's note plan to proceed with cardioversion with continuation of current anti-arrhythmic therapy and outpatient evaluation for RFA Echocardiography 10/07/2015 revealed Normal LV size and function, mild-moderate MR, moderate TR, moderate degree of pulmonary HTN, RVSP 53 mmHg Echocardiography 11/09/2016 Normal LV size with mild-moderate decrease in LV-EF ( global HK), bi-atrial enlargement, mild mitral valve prolapse, moderate MR, moderate-severe TR, RVSP 51 mmHg Lexiscan MPI study 05/16/2016 revealed Small size dorota-apical defect mild ischemia, normal LV function - Current Medication List Current Medications Acetaminophen/Butalbital/Caffeine (Fioricet -) 1 tablet PO Q4H PRN PRN Reason: HEADACHE Last Admin: 12/10/16 06:00 Dose: 1 tablet Albuterol Sulfate (Ventolin Hfa Inhaler -) 2 puff IH Q6H PRN PRN Reason: SHORT OF BREATH/WHEEZING Last Admin: 12/07/16 23:33 Dose: 2 sprays(dnu) Alprazolam (Xanax -) 0.25 mg PO Q4H PRN PRN Reason: ANXIETY Last Admin: 12/10/16 06:00 Dose: 0.25 mg Dofetilide (Tikosyn (Restricted To Cardiology) -) 0.5 mg PO BID [facility] Last Admin: 12/09/16 21:06 Dose: 0.5 mg Eplerenone (Eplerenone) 25 mg PO DAILY [facility] Last Admin: 12/09/16 11:06 Dose: 25 mg Furosemide (Lasix Injection -) 40 mg IVPB BIDLASIX [facility] Last Admin: 12/10/16 06:00 Dose: 40 mg Metoprolol Tartrate (Lopressor -) 50 mg PO BID [facility] Last Admin: 12/09/16 21:05 Dose: 50 mg Quinapril HCl (Accupril -) 40 mg PO DAILY [facility] Last Admin: 12/09/16 09:56 Dose: Not Given Rivaroxaban (Xarelto -) 20 mg PO DAILY [facility] Last Admin: 12/09/16 09:58 Dose: 20 mg Sodium Chloride (Sodium Chloride Tablet -) 1 gm PO BID [facility] Last Admin: 12/09/16 21:05 Dose: 1 gm Review of Systems Constitutional: denies Chills or Fever Respiratory: reports: Dyspnea but improved Cardiovascular: As noted above Gastrointestinal: denies Nausea, Vomiting, Diarrhea or Constipation or Abdominal Discomfort Genitourinary: No Symptoms Reported Musculoskeletal: No Symptoms Reported - Objective Vital Signs: Last Vital Signs Temp Pulse Resp BP Pulse Ox 98 F 108 H 20 112/67 98 12/10/16 05:38 12/10/16 05:38 12/10/16 05:38 12/10/16 05:38 12/09/16 20:46 Intake & Output 12/07/16 12/08/16 12/09/16 12/10/16 23:59 23:59 23:59 23:59 Intake Total 120 520 100 Balance 120 520 100 Weight 150 lb 150 lb Constitutional: No Distress, Calm Neck: Supple Negative JVD No Bruit Cardiovascular: S1 S2 Irregularly Irregular Grade 2/6 SM Respiratory: Diminished Breath Sounds at the Bases Gastrointestinal: Soft Benign Normal Bowel Sounds Ext: 2 + Bilateral Edema Labs: CBC, BMP 12/09/16 06:05 12/10/16 06:20 INR, PTT INR 1.38 (0.82-1.09) H 12/07/16 16:14 Assessment/Plan ASSESSMENT: 1. Palpitations referable to recurrent paroxysmal atrial fibrillation with periods of rapid ventricular response [id number] score of 4, previous cardioversions 2. Acute on chronic class I-II NYHA classification LV failure related to LV diastolic/systolic dysfunction, resolving 3. CAD angina pectoris 4. HTN, hypotension asymptomatic 5. Pulmonary HTN (moderate) 6. 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 Continue IV Lasix with close monitoring of renal function 2. Continue Lopressor 3. Continue Accupril but decrease dosage, administer hemodynamics permitting 4. Continue Inspra 5. Continue Xarelto 6. Continue Tikosyn with close monitoring of QTc 7. Plan to proceed with DCCV on Tikosyn since atrial fibrillation persists ( confirms compliance with NOAC's so YURI-guidance not required) this coming week, eventual pulmonary vein isolation RFA referral for more definitive solution as outpatient Prosper Frank MD
--- NOTE | 2016-12-10 10:10 | PN ---
Progress Note, Physician History of Present Illness: Feeling a little better, with less palpitations, improved shortness of breath. Legs still edematous - Current Medication List Current Medications: Active Medications Acetaminophen/Butalbital/Caffeine (Fioricet -) 1 tablet PO Q4H PRN PRN Reason: HEADACHE Last Admin: 12/10/16 06:00 Dose: 1 tablet Albuterol Sulfate (Ventolin Hfa Inhaler -) 2 puff IH Q6H PRN PRN Reason: SHORT OF BREATH/WHEEZING Last Admin: 12/07/16 23:33 Dose: 2 sprays(dnu) Alprazolam (Xanax -) 0.25 mg PO Q4H PRN PRN Reason: ANXIETY Last Admin: 12/10/16 06:00 Dose: 0.25 mg Dofetilide (Tikosyn (Restricted To Cardiology) -) 0.5 mg PO BID [facility] Last Admin: 12/10/16 09:34 Dose: 0.5 mg Eplerenone (Eplerenone) 25 mg PO DAILY [facility] Last Admin: 12/10/16 09:34 Dose: 25 mg Furosemide (Lasix Injection -) 40 mg IVPB BIDLASIX [facility] Last Admin: 12/10/16 06:00 Dose: 40 mg Metoprolol Tartrate (Lopressor -) 50 mg PO BID [facility] Quinapril HCl (Accupril -) 20 mg PO DAILY [facility] Rivaroxaban (Xarelto -) 20 mg PO DAILY [facility] Last Admin: 12/10/16 09:34 Dose: 20 mg Sodium Chloride (Sodium Chloride Tablet -) 1 gm PO BID [facility] Last Admin: 12/10/16 09:34 Dose: 1 gm - Objective Vital Signs: Vital Signs Temperature 98 F 12/10/16 05:38 Pulse Rate 108 H 12/10/16 05:38 Respiratory Rate 20 12/10/16 05:38 Blood Pressure 112/67 12/10/16 05:38 O2 Sat by Pulse Oximetry (%) 98 12/09/16 20:46 Constitutional: Yes: No Distress Cardiovascular: Yes: Pulse Irregular, S1, S2. No: Murmur Respiratory: Yes: Regular, CTA Bilaterally. No: Rales, Rhonchi, Wheezes Gastrointestinal: Yes: Normal Bowel Sounds, Soft. No: Distention, Tenderness Edema: Yes Edema: LLE: 2+, RLE: 2+ Neurological: Yes: Alert, Oriented Labs: CBC, BMP 12/09/16 06:05 12/10/16 06:20 INR, PTT INR 1.38 (0.82-1.09) H 12/07/16 16:14 Assessment/Plan All Active Problems Acute on chronic diastolic heart failure (Acute) Elevated LFTs (Acute) Tricuspid valve insufficiency (Acute) Tricuspid valve insufficiency, non-rheumatic (Acute) Atrial fibrillation (Chronic) with RVR Anxiety (Chronic) COPD (chronic obstructive pulmonary disease) (Chronic) Coronary artery disease (Chronic) Diastolic dysfunction without heart failure (Chronic) Edema extremities (Chronic) Hypertension (Chronic) Hypertensive cardiovascular disease (Chronic) Hyponatremia (Chronic) Migraine (Chronic) Pulmonary hypertension (Chronic) SIADH (syndrome of inappropriate ADH production) (Chronic) -cont on diuretics, Tikosyn -plan for DCCV per cardio
[2016-12-11] MEDS: FUROSEMIDE 40 MG/4 ML INJECTABLE VIAL IVPB SCH ×2 (06:12→13:07)
[2016-12-11] MEDS: ACETAMINOPHEN/CAFFEINE/BUTALBITAL 1 TAB PO PRN ×5 (06:23→23:59)
[2016-12-11] MEDS: ALPRAZolam 0.25 MG TABLET PO PRN ×5 (06:23→23:58)
--- NOTE | 2016-12-11 07:47 | PN ---
Progress Note (short form) - Note Progress Note: Chief Complaint: Events noted, notes reviewed, dyspnea persists but continues to improve, denies any chest pain, remains in atrial fibrillation with periods of rapid ventricular response History of Present Illness: Seen and examined on telemetry. Events noted, notes reviewed, dyspnea persists but continues to improve, denies any chest pain, remains in atrial fibrillation with periods of rapid ventricular response Unable to proceed with synchronized cardioversion this AM related to scheduling conflicts in the Endoscopy suite, will plan for tomorrow AM (Plan to proceed with cardioversion with continuation of current anti-arrhythmic therapy and outpatient evaluation for pulmonary vein isolation RFA) Echocardiography 10/07/2015 revealed Normal LV size and function, mild-moderate MR, moderate TR, moderate degree of pulmonary HTN, RVSP 53 mmHg Echocardiography 11/09/2016 Normal LV size with mild-moderate decrease in LV-EF ( global HK), bi-atrial enlargement, mild mitral valve prolapse, moderate MR, moderate-severe TR, RVSP 51 mmHg Lexiscan MPI study 05/16/2016 revealed Small size dorota-apical defect mild ischemia, normal LV function - Current Medication List Current Medications Acetaminophen/Butalbital/Caffeine (Fioricet -) 1 tablet PO Q4H PRN PRN Reason: HEADACHE Last Admin: 12/11/16 06:23 Dose: 1 tablet Albuterol Sulfate (Ventolin Hfa Inhaler -) 2 puff IH Q6H PRN PRN Reason: SHORT OF BREATH/WHEEZING Last Admin: 12/07/16 23:33 Dose: 2 sprays(dnu) Alprazolam (Xanax -) 0.25 mg PO Q4H PRN PRN Reason: ANXIETY Last Admin: 12/11/16 06:23 Dose: 0.25 mg Dofetilide (Tikosyn (Restricted To Cardiology) -) 0.5 mg PO BID [facility] Last Admin: 12/10/16 22:55 Dose: 0.5 mg Eplerenone (Eplerenone) 25 mg PO DAILY [facility] Last Admin: 12/10/16 09:34 Dose: 25 mg Furosemide (Lasix Injection -) 40 mg IVPB BIDLASIX [facility] Last Admin: 12/11/16 06:12 Dose: Not Given Metoprolol Tartrate (Lopressor -) 50 mg PO BID [facility] Last Admin: 12/10/16 22:54 Dose: 50 mg Quinapril HCl (Accupril -) 20 mg PO DAILY [facility] Rivaroxaban (Xarelto -) 20 mg PO DAILY [facility] Last Admin: 12/10/16 09:34 Dose: 20 mg Sodium Chloride (Sodium Chloride Tablet -) 1 gm PO BID [facility] Last Admin: 12/10/16 22:55 Dose: 1 gm Review of Systems Constitutional: denies Chills or Fever Respiratory: reports: Dyspnea Cardiovascular: As noted above Gastrointestinal: denies Nausea, Vomiting, Diarrhea or Constipation or Abdominal Discomfort Genitourinary: No Symptoms Reported Musculoskeletal: No Symptoms Reported - Objective Vital Signs: Last Vital Signs Temp Pulse Resp BP Pulse Ox 98.5 F 60 20 117/58 94 L 12/11/16 05:37 12/11/16 05:37 12/11/16 05:37 12/11/16 05:37 12/10/16 21:00 Intake & Output 12/08/16 12/09/16 12/10/16 12/11/16 23:59 23:59 23:59 23:59 Intake Total 120 520 900 50 Balance 120 520 900 50 Weight 150 lb Constitutional: No Distress, Calm Neck: Supple Negative JVD No Bruit Cardiovascular: S1 S2 Irregularly Irregular Grade 2/6 SM Respiratory: Diminished Breath Sounds at the Bases Gastrointestinal: Soft Benign Normal Bowel Sounds Ext: 2 + Bilateral Edema Labs: CBC, BMP 12/09/16 06:05 BMP pending from this AM Assessment/Plan ASSESSMENT: 1. Palpitations referable to recurrent paroxysmal atrial fibrillation with periods of rapid ventricular response [id number] score of 5, (prior cardioversions) 2. Acute on chronic class I-II NYHA classification LV failure related to LV diastolic/systolic dysfunction, resolving 3. CAD angina pectoris 4. HTN 5. Pulmonary HTN (moderate) 6. 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 Continue IV Lasix with close monitoring of renal function 2. Continue Lopressor 3. Continue Accupril, hemodynamics permitting 4. Continue Inspra and attempt to increase dosage as tolerated 5. Continue Xarelto 6. Continue Tikosyn with close monitoring of QTc 7. As outlined plan to proceed with DCCV on Tikosyn since atrial fibrillation persists (confirms compliance with NOAC's so YURI-guidance not required) tomorrow morning, eventual pulmonary vein isolation RFA referral for more definitive solution as outpatient Prosper Frank MD
[2016-12-11 07:53] LABS: ALBUMIN 3.4 g/dl (3.4-5.0); ALK PHOS 82 U/L (45-117); ANION GAP 8 (8-16); BILIRUBIN,TOTAL 0.4 mg/dL (0.2-1.0); CALCIUM 8.6 mg/dL (8.5-10.1); CO2 36 mmol/L (21-32); CREATININE 0.6 mg/dL (0.55-1.02); GLUCOSE,RANDOM 90 mg/dL (74-106); SGOT/AST 33 U/L (15-37); SGPT/ALT 62 U/L (12-78); TOT PROT 5.9 g/dl (6.4-8.2)
--- NOTE | 2016-12-11 08:15 | PN ---
Progress Note, Physician Chief Complaint: Dyspnea, weakness, palpitations, peripheral edema History of Present Illness: Please refer to initial HPI of Admission note. 81 year old female with h/o AFib , COPD dCHF with chronic non-pitting peripheral edema, pulmonary hypertension, post previous cardioversions, was found to be back in AFib at [employer] office, associated with fatigue increased HERNÁNDEZ and increased peripheral edema. Was sent to ER for admission to control rate and for possible cardioversion, and possible eventual transfer for ablation procedure therapy. Currently sitting up in bed, feeling better overall. Denies new chest discomfort, increased SOB or pre-syncope. Telemetry reveals persistence of AFib with improved control of ventricular response. Labs and cardiology notes reviewed. Cardioversion scheduled for tomorrow AM. - Current Medication List Current Medications: Active Medications Acetaminophen/Butalbital/Caffeine (Fioricet -) 1 tablet PO Q4H PRN PRN Reason: HEADACHE Last Admin: 12/11/16 06:23 Dose: 1 tablet Albuterol Sulfate (Ventolin Hfa Inhaler -) 2 puff IH Q6H PRN PRN Reason: SHORT OF BREATH/WHEEZING Last Admin: 12/07/16 23:33 Dose: 2 sprays(dnu) Alprazolam (Xanax -) 0.25 mg PO Q4H PRN PRN Reason: ANXIETY Last Admin: 12/11/16 06:23 Dose: 0.25 mg Dofetilide (Tikosyn (Restricted To Cardiology) -) 0.5 mg PO BID [facility] Last Admin: 12/10/16 22:55 Dose: 0.5 mg Eplerenone (Eplerenone) 25 mg PO BID [facility] Furosemide (Lasix Injection -) 40 mg IVPB BIDLASIX [facility] Last Admin: 12/11/16 06:12 Dose: Not Given Metoprolol Tartrate (Lopressor -) 50 mg PO BID [facility] Last Admin: 12/10/16 22:54 Dose: 50 mg Quinapril HCl (Accupril -) 20 mg PO DAILY [facility] Rivaroxaban (Xarelto -) 20 mg PO DAILY [facility] Last Admin: 12/10/16 09:34 Dose: 20 mg Sodium Chloride (Sodium Chloride Tablet -) 1 gm PO BID [facility] Last Admin: 12/10/16 22:55 Dose: 1 gm - Objective Vital Signs: Vital Signs Temperature 98.5 F 12/11/16 05:37 Pulse Rate 60 12/11/16 05:37 Respiratory Rate 20 12/11/16 05:37 Blood Pressure 117/58 12/11/16 05:37 O2 Sat by Pulse Oximetry (%) 94 L 12/10/16 21:00 Constitutional: Yes: No Distress, Calm Eyes: No: Sclera Icterus Neck: Yes: Supple Cardiovascular: Yes: Pulse Irregular Respiratory: Yes: Other (dry rales at bases). No: Rhonchi, Wheezes Gastrointestinal: Yes: Normal Bowel Sounds, Soft. No: Tenderness Edema: Yes (mostly non-pitting) Neurological: Yes: Alert, Oriented Labs: CBC, BMP 12/09/16 06:05 INR, PTT INR 1.38 (0.82-1.09) H 12/07/16 16:14 - ....Imaging Other: Other (telemetry reviewed) Problem List - Problems (1) Atrial fibrillation Assessment/Plan: Rate control with pharmacologic intervention as per cardiology. Rhythm change with cardioversion and possible eventual ablation procedure Discuss use of additional agents to control rate Code(s): I48.91 - UNSPECIFIED ATRIAL FIBRILLATION Qualifiers: Atrial fibrillation type: paroxysmal Qualified Code(s): I48.0 - Paroxysmal atrial fibrillation (2) Acute on chronic diastolic heart failure Assessment/Plan: Chronic stable Little evidence for left sided CHF Edema is chronic and mostly non-pitting. Continue cautious increase in diuretic therapy, with close monitoring of serum Na concentration in light of SIADH Pulmonary hypertension of note in regard to right sided CHF Elevated BNP at 1968 noted To consider increasing Inspra dose to mobilize more "third space" fluid. Quinapril dose decreased based on lower BP readings Code(s): I50.33 - ACUTE ON CHRONIC DIASTOLIC (CONGESTIVE) HEART FAILURE (3) Anxiety Assessment/Plan: Alprazolam as needed Remains calm this AM Code(s): F41.9 - ANXIETY DISORDER, UNSPECIFIED (4) COPD (chronic obstructive pulmonary disease) Assessment/Plan: Chronic stable Former smoker O2 saturation excellent on supplemental O2 Code(s): J44.9 - CHRONIC OBSTRUCTIVE PULMONARY DISEASE, UNSPECIFIED (5) Coronary artery disease Assessment/Plan: Chronic stable Code(s): I25.10 - ATHSCL HEART DISEASE OF [place] CORONARY ARTERY W/O ANG PCTRS Qualifiers: Coronary Disease-Associated Artery/Lesion type: [place] artery [place] vs. transplanted heart: [place] heart Associated angina: without angina Qualified Code(s): I25.10 - Atherosclerotic heart disease of [place] coronary artery without angina pectoris (6) Edema extremities Assessment/Plan: As above Has chronic non-pitting edema as baseline. Possible new addition of edema from right sided CHF Monitor daily weights, I/O Monitor {Na+} Code(s): R60.0 - LOCALIZED EDEMA (7) Hypertension Assessment/Plan: BPs low normal Quinapril dose halved 40>>20mg po daily Code(s): I10 - ESSENTIAL (PRIMARY) HYPERTENSION (8) Migraine Assessment/Plan: Chronic Ordered Fioricet as needed Code(s): G43.909 - MIGRAINE, UNSP, NOT INTRACTABLE, WITHOUT STATUS MIGRAINOSUS (9) Pulmonary hypertension Assessment/Plan: Chronic finding To discuss with electric gas appliances demonstrator Code(s): I27.2 - OTHER SECONDARY PULMONARY HYPERTENSION (10) SIADH (syndrome of inappropriate ADH production) Assessment/Plan: Chronic stable Is on furosemide and oral NaCl pills Monitor {Na+} daily (11) Tricuspid valve insufficiency, non-rheumatic Assessment/Plan: Monitor Code(s): I36.1 - NONRHEUMATIC TRICUSPID (VALVE) INSUFFICIENCY (12) Elevated LFTs Assessment/Plan: AST/ALT 51/84 Continue to monitor Possible passive congestion of the liver or drug reaction Follow closely Code(s): R94.5 - ABNORMAL RESULTS OF LIVER FUNCTION STUDIES Assessment/Plan Continue current Rx. Cardiologic follow-up in regard to cardioversion and/or possible transfer for ablation therapy Full extensive problem list as per office notes and old charts
[2016-12-11] MEDS: METOPROLOL TARTRATE 50 MG TABLET (FP) PO SCH ×2 (09:39→22:13)
[2016-12-11] MEDS: QUINAPRIL HCL 20 MG TABLET (FP) PO SCH (09:39)
[2016-12-11] MEDS: RIVAROXABAN 20 MG TABLET PO SCH (09:39)
[2016-12-11] MEDS: EPLERENONE 25 MG TABLET PO SCH ×2 (09:39→22:13)
[2016-12-11] MEDS: DOFETILIDE 0.25 MG CAPSULE PO SCH ×2 (09:40→22:14)
[2016-12-11] MEDS: SODIUM CHLORIDE 1 GM TABLET PO SCH ×2 (09:40→22:14)
[2016-12-12] MEDS: ACETAMINOPHEN/CAFFEINE/BUTALBITAL 1 TAB PO PRN ×2 (04:15→09:52)
[2016-12-12] MEDS: ALPRAZolam 0.25 MG TABLET PO PRN ×2 (04:15→09:52)
--- NOTE | 2016-12-12 07:18 | PN ---
Progress Note (short form) - Note Progress Note: Chief Complaint: Events noted, notes reviewed, dyspnea continues to improve, denies any chest pain, remains in atrial fibrillation with periods of rapid ventricular response History of Present Illness: Seen and examined on telemetry. Events noted, notes reviewed, dyspnea continues to improve, denies any chest pain, remains in atrial fibrillation with periods of rapid ventricular response Plan to proceed with synchronized cardioversion this AM (cardioversion with continuation of current anti-arrhythmic therapy and outpatient evaluation for pulmonary vein isolation RFA) Echocardiography 10/07/2015 revealed Normal LV size and function, mild-moderate MR, moderate TR, moderate degree of pulmonary HTN, RVSP 53 mmHg Echocardiography 11/09/2016 Normal LV size with mild-moderate decrease in LV-EF ( global HK), bi-atrial enlargement, mild mitral valve prolapse, moderate MR, moderate-severe TR, RVSP 51 mmHg Lexiscan MPI study 05/16/2016 revealed Small size dorota-apical defect mild ischemia, normal LV function - Current Medication List Current Medications Acetaminophen/Butalbital/Caffeine (Fioricet -) 1 tablet PO Q4H PRN PRN Reason: HEADACHE Last Admin: 12/12/16 04:15 Dose: 1 tablet Albuterol Sulfate (Ventolin Hfa Inhaler -) 2 puff IH Q6H PRN PRN Reason: SHORT OF BREATH/WHEEZING Last Admin: 12/07/16 23:33 Dose: 2 sprays(dnu) Alprazolam (Xanax -) 0.25 mg PO Q4H PRN PRN Reason: ANXIETY Last Admin: 12/12/16 04:15 Dose: 0.25 mg Dofetilide (Tikosyn (Restricted To Cardiology) -) 0.5 mg PO BID [facility] Last Admin: 12/11/16 22:14 Dose: 0.5 mg Eplerenone (Eplerenone) 25 mg PO BID [facility] Last Admin: 12/11/16 22:13 Dose: 25 mg Furosemide (Lasix Injection -) 40 mg IVPB BIDLASIX [facility] Last Admin: 12/11/16 13:07 Dose: 40 mg Metoprolol Tartrate (Lopressor -) 50 mg PO BID [facility] Last Admin: 12/11/16 22:13 Dose: 50 mg Quinapril HCl (Accupril -) 20 mg PO DAILY [facility] Last Admin: 12/11/16 09:39 Dose: 20 mg Rivaroxaban (Xarelto -) 20 mg PO DAILY [facility] Last Admin: 12/11/16 09:39 Dose: 20 mg Sodium Chloride (Sodium Chloride Tablet -) 1 gm PO BID [facility] Last Admin: 12/11/16 22:14 Dose: 1 gm Review of Systems Constitutional: denies Chills or Fever Respiratory: reports: Dyspnea Cardiovascular: As noted above Gastrointestinal: denies Nausea, Vomiting, Diarrhea or Constipation or Abdominal Discomfort Genitourinary: No Symptoms Reported Musculoskeletal: No Symptoms Reported - Objective Vital Signs: Last Vital Signs Temp Pulse Resp BP Pulse Ox 98.2 F 106 H 20 99/59 94 L 12/12/16 04:19 12/12/16 04:19 12/12/16 04:19 12/12/16 04:19 12/11/16 21:00 Intake & Output 12/09/16 12/10/16 12/11/16 12/12/16 23:59 23:59 23:59 23:59 Intake Total 520 900 290 30 Balance 520 900 290 30 Constitutional: No Distress, Calm Neck: Supple Negative JVD No Bruit Cardiovascular: S1 S2 Irregularly Irregular Grade 2/6 SM Respiratory: Diminished Breath Sounds at the Bases Gastrointestinal: Soft Benign Normal Bowel Sounds Ext: 2 + Bilateral Edema Labs: Blood test pending from this AM Assessment/Plan ASSESSMENT: 1. Palpitations referable to recurrent paroxysmal atrial fibrillation with periods of rapid ventricular response [id number] score of 5, (prior cardioversions) for repeat cardioversion 2. Acute on chronic class I-II NYHA classification LV failure related to LV diastolic/systolic dysfunction, resolving 3. CAD angina pectoris 4. HTN 5. Pulmonary HTN (moderate) 6. 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 Continue IV Lasix and PO Inspra with close monitoring of renal function 2. Continue Lopressor 3. Continue Accupril, hemodynamics permitting 4. Continue Xarelto 5. Continue Tikosyn with close monitoring of QTc 6. As outlined plan to proceed with DCCV on Tikosyn since atrial fibrillation persists (confirms compliance with NOAC's so YURI-guidance not required) today, eventual pulmonary vein isolation RFA referral for more definitive solution as outpatient Prosper Frank MD
[2016-12-12 07:21] LABS: ALBUMIN 3.1 g/dl (3.4-5.0); ANION GAP 6 (8-16); BILIRUBIN,TOTAL 0.5 mg/dL (0.2-1.0); CALCIUM 8.5 mg/dL (8.5-10.1); CO2 36 mmol/L (21-32); CREATININE 0.6 mg/dL (0.55-1.02); GLUCOSE,RANDOM 93 mg/dL (74-106); SGOT/AST 38 U/L (15-37); SGPT/ALT 66 U/L (12-78); TOT PROT 5.5 g/dl (6.4-8.2)
[2016-12-12 07:22] LABS: ALK PHOS 79 U/L (45-117)
[2016-12-12 07:24] LABS: BASOPHIL 0.8 % (0-2.0); EOSINOPHIL 7.4 % (0-4.5); MCH 32.6 pg (25.7-33.7); MCHC 34.2 g/dl (32.0-36.0); MEAN CELL VOLUME 95.2 fl (80-96); MEAN PLT VOLUME 8.1 fl (7.5-11.1); PLATELET COUNT 171 K/MM3 (134-434); WHITE BLOOD COUNT 5.8 K/mm3 (4.0-10.0)
[2016-12-12 08:43] VITALS: TEMP 97.5
--- NOTE | 2016-12-12 08:51 | DS ---
Physical Examination Vital Signs: Vital Signs Temperature 97.5 F L 12/12/16 08:34 Pulse Rate 67 12/12/16 08:34 Respiratory Rate 16 12/12/16 08:34 Blood Pressure 104/62 12/12/16 08:34 O2 Sat by Pulse Oximetry (%) 100 12/12/16 08:34 Constitutional: Yes: Well Nourished, Calm Eyes: No: Sclera Icterus Cardiovascular: Yes: Regular Rate and Rhythm Respiratory: Yes: CTA Bilaterally Gastrointestinal: Yes: Normal Bowel Sounds, Soft Edema: Yes (chronic non-pitting) Neurological: Yes: Alert, Oriented Labs: CBC, BMP 12/12/16 05:35 12/12/16 05:35 Discharge Summary Reason For Visit: ATRIAL FIBRILATION Current Active Problems Acute on chronic diastolic heart failure (Chronic) Atrial fibrillation (Chronic) Tricuspid valve insufficiency (Chronic) Tricuspid valve insufficiency, non-rheumatic (Chronic) Hospital Course: Please refer to daily n otes Admitted with recurrence of AFib (post 4 previous cardioversions) with associated symptoms of dyspnea fatigue and increased peripheral edema. Successful cardioversion this AM Back in [facility]. Stable for discharge To consider evaluation for RFA procedure as outpatient Condition: Good - Instructions Diet, Activity, Other Instructions: Regular diet as tolerated Follow-up with forensic social worker Referrals: Renny Molina MD [Primary Care Provider] - Disposition: HOME - Home Medications Comprehensive Discharge Medication List: Ambulatory Orders Acetaminophen/Caffeine/Butalb [Fioricet -] 1 tab PO Q4H 02/10/16 Albuterol Sulfate Inhaler - [Ventolin HFA Inhaler -] 1 - 2 inh PO QID 02/10/16 Alprazolam [Xanax] 0.25 mg PO QID 02/10/16 Dofetilide [Tikosyn] 500 mcg PO BID 02/10/16 Eplerenone 25 mg PO DAILY 02/10/16 Furosemide [Lasix -] 40 mg PO DAILY 02/10/16 Metoprolol Tartrate [Lopressor -] 50 mg PO BID 02/10/16 Quinapril HCl [Accupril -] 40 mg PO DAILY 02/10/16 Rivaroxaban [Xarelto -] 20 mg PO DAILY 02/10/16 Sodium Chloride Tablet - 452 mg PO TID 02/10/16
[2016-12-12] MEDS ORDERED: PT OWN MED DRAWER 7, Y5N ONE (09:19)
[2016-12-12 09:49] VITALS: BP 134/68; PULSE 76
[2016-12-12] MEDS: FUROSEMIDE 40 MG/4 ML INJECTABLE VIAL IVPB SCH (09:50)
[2016-12-12] MEDS: RIVAROXABAN 20 MG TABLET PO SCH (09:52)
[2016-12-12] MEDS: QUINAPRIL HCL 20 MG TABLET (FP) PO SCH (09:52)
[2016-12-12] MEDS: SODIUM CHLORIDE 1 GM TABLET PO SCH (09:53)
[2016-12-12] MEDS: EPLERENONE 25 MG TABLET PO SCH (09:53)
[2016-12-12] MEDS: METOPROLOL TARTRATE 50 MG TABLET (FP) PO SCH (09:53)
[2016-12-12] MEDS: DOFETILIDE 0.25 MG CAPSULE PO SCH (09:54)
--- NOTE | 2016-12-12 12:41 | EKG ---
Test Reason : Blood Pressure : / mmHG Vent. Rate : 068 BPM Atrial Rate : 068 BPM P-R Int : 150 ms QRS Dur : 084 ms QT Int : 400 ms P-R-T Axes : 080 062 057 degrees QTc Int : 425 ms NORMAL SINUS RHYTHM POSSIBLE LEFT ATRIAL ENLARGEMENT BORDERLINE ECG WHEN COMPARED WITH ECG OF 07-DEC-2016 15:52, SINUS RHYTHM HAS REPLACED ATRIAL FIBRILLATION VENT. RATE HAS DECREASED BY 55 BPM NON-SPECIFIC CHANGE IN ST SEGMENT IN INFERIOR LEADS CLINICAL CORRELATION IS RECOMMENDED Confirmed by SOFIYA SMITH, HUA ([id number]) on 12/12/2016 12:41:10 PM Referred By: Confirmed By:HUA ARRIAZA MD
== END 2016-12-12 12:02 | disposition home or self-care (01) | DRG 308 ==
LOC: JER 15:43 → JERBED 18:39 → UNDOADMIN 18:39 → J4W 12-08 13:55
PROVIDERS: ADMIT Internal Medicine; ATTEND Internal Medicine
PROC: 5A2204Z Restoration of Cardiac Rhythm, Single (ICD-10-PCS; principal; 2016-12-12 08:00)
DX: I48.0 Paroxysmal atrial fibrillation (principal); I50.33 Acute on chronic diastolic (congestive) heart failure; E87.1 Hypo-osmolality and hyponatremia; I11.0 Hypertensive heart disease with heart failure; I25.119 Atherosclerotic heart disease of native coronary artery with unspecified angina pectoris; I27.2 Other secondary pulmonary hypertension; J44.9 Chronic obstructive pulmonary disease, unspecified; F41.9 Anxiety disorder, unspecified; Z87.891 Personal history of nicotine dependence; I36.1 Nonrheumatic tricuspid (valve) insufficiency
CPT/HCPCS: 36415; 71010-TC; 80053; 82550; 83735; 83880; 84484; 85025; 85610; 93005; 93010; 99284-25

== ENCOUNTER 2017-04-12 11:41 | Inpatient (IN) | payer OTHER, BC ==
--- NOTE | 2017-04-12 12:07 | PDOC ---
Attending Attestation - Resident Resident Name: Lyle Field - ED Attending Attestation I have performed the following: I have examined & evaluated the patient, The case was reviewed & discussed with the resident, I agree w/resident's findings & plan, Exceptions are as noted - HPI HPI: 04/12/17 12:52 81yo F hx AF on xarelto, dofetilide, and metoprolol s/p multiple cardioversion attempts (most recently 11/2016), dCHF, CAD, COPD on 2L at night, former smoker, hypothyroid p/w SOB x 3 days. SOB is at rest and exertional. ET is reduced to walking to the bathroom. Denies coughing, CP, palpitations, fevers, chills, N/V/ D, dysuria. Has LE edema at baseline but feels it is now worse. Has been using home O2 throughout the day. Reports compliance with medications including lasix. No recent medication changes. Cards: Dr. Jha PMD: Dr. Alcantara - Physicial Exam PE: 04/12/17 12:58 GENERAL: Awake, alert, and fully oriented, in no acute distress. Speaking in full sentences. HEAD: No signs of trauma EYES: PERRLA, EOMI, sclera anicteric, conjunctiva clear ENT: Auricles normal inspection, hearing grossly normal, nares patent, oropharynx clear without exudates. Moist mucosa NECK: Normal ROM, supple, no lymphadenopathy, JVD, or masses LUNGS: Breath sounds mildly diminished throughout, clear to auscultation bilaterally. No wheezes, and no crackles. No work of breathing HEART: Regular rate and rhythm, normal S1 and S2, no murmurs, rubs or gallops ABDOMEN: Soft, nontender, normoactive bowel sounds. No guarding, no rebound. No masses EXTREMITIES: Normal range of motion, no edema. No clubbing or cyanosis. No cords, erythema, or tenderness. 2+ LE edema, symmetrically to the knees b/l NEUROLOGICAL: Normal speech, cranial nerves intact, negative pronator drift, 5/ 5 strength in all 4 extremities, normal sensation to light touch in all 4 extremities, normal cerebellar exam, normal gait, normal reflexes and tone SKIN: Warm, Dry, normal turgor, no rashes or lesions noted. 04/12/17 15:18 Twelve-lead EKG was performed and reviewed by me. Normal sinus rhythm rate of 65.+ Respiratory variation however P wave precedes every QRS. Normal axis. No ST elevations. No T-wave inversions. - Medical Decision Making 04/12/17 12:59 81yo F hx AF on xarelto s/p multiple cardioversion attempts, dCHF, CAD, COPD on 2L at night, former smoker, hypothyroid p/w SOB. Concern for COPD exacerbation + /- CHF exacerbation -labs -CXR -likely admit
--- NOTE | 2017-04-12 13:07 | PDOC ---
History of Present Illness - General Chief Complaint: Shortness of Breath Stated Complaint: SOB, CHEST PAIN Time Seen by Provider: 04/12/17 12:01 - History of Present Illness Initial Comments: 04/12/17 12:52 81F w/ hx of a-fib on xarelto, dofetilide, and metoprolol s/p multiple attempts at cardioversion (most recently 11/2016), diastolic heart failure, CAD, HTN, and COPD presenting with several days of dyspnea. She reports being in her USOH until a few days ago when she became SOB at rest, she had to use her home O2 (2L ) for a longer period of time, and her lower extremity edema has worsened. She denies chest pain, palpitations, cough, wheezing, fevers, chills, recent medication changes, sick contacts, n/v/d/c, dysuria, and frequency. Of note, she had a UTI 3 weeks ago, for which she was treated with 5 days of an antibiotic (pt does not know its name) with resolution of symptoms. 04/12/17 13:13 Past History - Past Medical History Allergies/Adverse Reactions: Allergies Allergy/AdvReac Type Severity Reaction Status Date / Time Penicillins AdvReac Verified 04/12/17 11:47 Home Medications: Ambulatory Orders Acetaminophen/Caffeine/Butalb [Fioricet -] 1 tab PO Q4H PRN 02/10/16 Albuterol Sulfate Inhaler - [Ventolin HFA Inhaler -] 1 - 2 inh PO QID PRN Alprazolam [Xanax] 0.25 mg PO QID PRN 02/10/16 Dofetilide [Tikosyn] 500 mcg PO BID 02/10/16 Eplerenone 25 mg PO BID 02/10/16 Furosemide [Lasix -] 40 mg PO DAILY 02/10/16 Metoprolol Tartrate [Lopressor -] 50 mg PO BID 02/10/16 Quinapril HCl [Accupril -] 40 mg PO BID 02/10/16 Rivaroxaban [Xarelto -] 20 mg PO DAILY 02/10/16 Sodium Chloride Tablet - 452 mg PO TID 02/10/16 Timolol 0.5% [Timoptic 0.5%] 1 drop OD AM 04/12/17 Anemia: No Asthma: No Cancer: No Cardiac Disorders: Yes (ATRIAL FIBRILLATION, CARDIOVERSIONS) CVA: No COPD: No CHF: No Dementia: No Diabetes: No GI Disorders: No Disorders: No HTN: Yes Hypercholesterolemia: No Liver Disease: No Suicide Attempt (Hx): No Seizures: No Thyroid Disease: Yes (OFF MEDICINE) Other medical history: LOW NA Comment:: 04/12/17 13:07 PMH: migraine, anxiety, OA, hypothyroidism, HLD PSH: cataract removal, , hernia repair, appendectomy, tonsillectomy Meds: as shown in triage report Allergies: PCN and ciprofloxacin Social Hx: 40 pack year smoking history, denies alcohol and drug use - Surgical History Abdominal Surgery: Yes (HERNIA REPAIR-RIGHT) Appendectomy: Yes Cardiac Surgery: No (CARDIOVERSION) Cholecystectomy: No Lung Surgery: No Neurologic Surgery: No Orthopedic Surgery: No - Psycho/Social/Smoking Cessation Hx Anxiety: No Suicidal Ideation: No Smoking Status: Yes Smoking History: Former smoker Have you smoked in the past 12 months: No Number of Cigarettes Smoked Daily: 0 If you are a former smoker, when did you quit?: 15 years ago Information on smoking cessation initiated: No Hx Alcohol Use: No Drug/Substance Use Hx: No Substance Use Type: None Hx Substance Use Treatment: No Review of Systems - Review of Systems Comments:: 04/12/17 13:09 GENERAL: No fever, chills, night sweats, or weakness. HEAD, EYES, EARS, NOSE AND THROAT: No change in vision, ear pain, or sore throat CARDIOVASCULAR: No chest pain or palpitations RESPIRATORY: No cough, wheezing, or hemoptysis. GASTROINTESTINAL: No nausea, vomiting, diarrhea, constipation, or blood in the stool. GENITOURINARY: No dysuria, frequency, or urgency MUSCULOSKELETAL: No joint or muscle swelling or pain. SKIN: No rashes or pruritis ENDOCRINE: No increased thirst. No abnormal weight change NEUROLOGIC: No headache, dizziness, loss of consciousness, or change in strength /sensation. *Physical Exam - Vital Signs Last Vital Signs Temp Pulse Resp BP Pulse Ox 97.5 F L 62 18 128/51 94 L 04/12/17 11:50 04/12/17 11:50 04/12/17 11:50 04/12/17 11:50 04/12/17 11:50 - Physical Exam Comments: 04/12/17 13:11 GENERAL: Awake, alert, and fully oriented, in no acute distress HEAD: normocephalic, atraumatic HEENT: PERRLA, EOMI, sclera anicteric, conjunctiva clear, hearing grossly normal , nares patent, oropharynx clear without exudate, moist mucosa NECK: Normal ROM, supple, no lymphadenopathy, JVD, or masses HEART: Regular rate and rhythm, no murmurs, rubs or gallops, peripheral pulses normal and equal bilaterally. LUNGS: decreased air flow diffusely, no wheezing or rales heard ABDOMEN: Soft, nontender, nondistended, normoactive bowel sounds. No guarding, no rebound. No masses EXTREMITIES: 2+ pitting edema b/l in the lower extremities SKIN: Warm, dry, no rashes or lesions noted. NEUROLOGICAL: Cranial nerves II through XII grossly intact. Normal speech, normal gait, no focal sensorimotor deficits ED Treatment Course - LABORATORY CBC & Chemistry Diagram: 04/12/17 13:12 04/12/17 14:14 - RADIOLOGY Radiology Studies Ordered: Category Date Time Status CHEST X-RAY PORTABLE* [RAD] Stat Radiology 04/12/17 12:40 Ordered Medical Decision Making - Medical Decision Making 04/12/17 13:13 81F w/ hx of a-fib on xarelto, dofetilide, and metoprolol s/p multiple attempts at cardioversion (most recently 11/2016), diastolic heart failure, CAD, HTN, and COPD presenting with acute dyspnea and increased LE edema. Exam notable for LE edema and decreased lung sounds. Differential includes CHF exacerbation vs. COPD exacerbation vs. a-fib CBC: wnl CMP: hyponatremia, hypochloremia EkG: possible left atrial enlargement troponin: negative BNP: 500 CXR: no acute pathology UA: negative TSH: pending 04/12/17 15:27 04/12/17 18:10 *DC/Admit/Observation/Transfer Diagnosis at time of Disposition: Hyponatremia - Discharge Dispostion Condition at time of disposition: Stable Admit: Yes Decision to Admit order Date/Time: 04/12/17 18:07 - Referrals Referrals: Renny Molina MD [Primary Care Provider] - - Attestations Physician Attestion: 04/12/17 18:08 I, Dr. Lyle Field, attest that this document has been prepared under my direction and personally reviewed by me in its entirety. I further attest, that it accurately reflects all work, treatment, procedures and medical decision -making performed by me.
[2017-04-12 13:30] LABS: BASOPHIL 0.7 % (0-2.0); EOSINOPHIL 6.9 % (0-4.5); MCH 32.3 pg (25.7-33.7); MCHC 34.5 g/dl (32.0-36.0); MEAN CELL VOLUME 93.8 fl (80-96); MEAN PLT VOLUME 8.1 fl (7.5-11.1); NEUTROPHILS 65.5 % (42.8-82.8); PLATELET COUNT 257 K/MM3 (134-434); RDW 14.4 % (11.6-15.6); WHITE BLOOD COUNT 9.9 K/mm3 (4.0-10.0)
--- NOTE | 2017-04-12 15:05 | EKG ---
Test Reason : Blood Pressure : / mmHG Vent. Rate : 065 BPM Atrial Rate : 065 BPM P-R Int : 120 ms QRS Dur : 082 ms QT Int : 418 ms P-R-T Axes : 079 055 060 degrees QTc Int : 434 ms SINUS RHYTHM WITH MARKED SINUS ARRHYTHMIA POSSIBLE LEFT ATRIAL ENLARGEMENT BORDERLINE ECG WHEN COMPARED WITH ECG OF 12-DEC-2016 08:34, NONSPECIFIC T WAVE ABNORMALITY NO LONGER EVIDENT IN INFERIOR LEADS Confirmed by DMITRY SMITH, SURAJ ([id number]) on 04/12/2017 3:04:42 PM Referred By: Confirmed By:SURAJ ANDRES MD
[2017-04-12 15:29] LABS: ALBUMIN 3.6 g/dl (3.4-5.0); ANION GAP 5 (8-16); BILIRUBIN,TOTAL 0.5 mg/dL (0.2-1.0); CALCIUM 8.8 mg/dL (8.5-10.1); CO2 35 mmol/L (21-32); CREATININE 0.5 mg/dL (0.55-1.02); GLUCOSE,RANDOM 101 mg/dL (74-106); SGOT/AST 24 U/L (15-37); SGPT/ALT 26 U/L (12-78)
[2017-04-12 15:33] LABS: ALK PHOS 90 U/L (45-117); CPK 94 IU/L (26-192); TOT PROT 6.7 g/dl (6.4-8.2); TROPONIN I < 0.02 ng/ml (0.00-0.05)
[2017-04-12] MEDS ORDERED: SODIUM CHLORIDE 500 ML IV STA (16:09)
[2017-04-12] MEDS ORDERED: ALPRAZolam 0.25 MG TABLET PO ONE (16:54)
[2017-04-12] MEDS ORDERED: ALPRAZolam 0.25 MG TABLET ONE (17:50)
[2017-04-12] MEDS ORDERED: ACETAMINOPHEN/CAFFEINE/BUTALBITAL 1 TAB PO PRN ×2 (18:46→20:36)
--- NOTE | 2017-04-12 20:15 | HP ---
Admitting History and Physical - Primary Care Physician PCP: Renny Molina - Admission Chief Complaint: Can't breathe History of Present Illness: 81 year old female with h/o a-fib, dCHF, COPD on home O2 2L admitted to med- surg for worsening shortness of breath x 2 days. Patient states she's short of breath at baseline due to underlying COPD and CHF and normally uses 2 L O2 at night. However, her symptom has been progressively getting worse in the last 2 days in that she's been using 2L O2 during the day but still no relief. Denies chest pain, palpitation, fever, chills, cough, dizziness, syncope, urinary or bowel symptom. 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 Cardiovascular: Yes: AFIB, CAD, CHF (diastolic), HTN, Hyperlipdemia, Mitral Insufficiency, Pulmonary Hypertension, Other Pulmonary: Yes: COPD (former smoker) Renal/: Yes: Other (hyponatremia due to SIADH) Psych: Yes: Anxiety Musculoskeletal: Yes: Chronic low back pain, Osteoarthritis Endocrine: Yes: Hypothyroidism (borderline), SIADH - Past Surgical History Past Surgical History: Yes: Cataract Removal, , Hernia Repair, Appendectomy, Tonsillectomy - Smoking History Smoking history: Former smoker Have you smoked in the past 12 months: No Aproximately how many cigarettes per day: 0 If you are a former smoker, when did you quit?: 15 years ago - Alcohol/Substance Use Hx Alcohol Use: No History of Substance Use: reports: None - Social History ADL: Independent History of Recent Travel: No Home Medications - Allergies Allergies/Adverse Reactions: Allergies Allergy/AdvReac Type Severity Reaction Status Date / Time Penicillins AdvReac Verified 04/12/17 11:47 - Home Medications Home Medications: Ambulatory Orders Acetaminophen/Caffeine/Butalb [Fioricet -] 1 tab PO Q4H PRN 02/10/16 Albuterol Sulfate Inhaler - [Ventolin HFA Inhaler -] 1 - 2 inh PO QID PRN Alprazolam [Xanax] 0.25 mg PO QID PRN 02/10/16 Dofetilide [Tikosyn] 500 mcg PO BID 02/10/16 Eplerenone 25 mg PO BID 02/10/16 Furosemide [Lasix -] 40 mg PO DAILY 02/10/16 Metoprolol Tartrate [Lopressor -] 50 mg PO BID 02/10/16 Quinapril HCl [Accupril -] 40 mg PO BID 02/10/16 Rivaroxaban [Xarelto -] 20 mg PO DAILY 02/10/16 Sodium Chloride Tablet - 452 mg PO TID 02/10/16 Timolol 0.5% [Timoptic 0.5%] 1 drop OD AM 04/12/17 Family Disease History - Family Disease History Family Disease History: Heart Disease: Mother, [place]: Father Review of Systems - Review of Systems Constitutional: reports: Lethargy, Loss of Appetite Eyes: reports: No Symptoms HENT: reports: No Symptoms Neck: reports: No Symptoms Cardiovascular: reports: Shortness of Breath. denies: Chest Pain Respiratory: reports: Orthopnea, SOB, SOB on Exertion Gastrointestinal: reports: No Symptoms Genitourinary: reports: No Symptoms Breasts: reports: No Symptoms Reported Musculoskeletal: reports: Other (LE swelling) Neurological: reports: No Symptoms Endocrine: reports: No Symptoms Hematology/Lymphatic: reports: No Symptoms Psychiatric: reports: No Symptoms Physical Examination Vital Signs: Vital Signs Temperature 97.5 F L 04/12/17 11:50 Pulse Rate 62 04/12/17 11:50 Respiratory Rate 18 04/12/17 11:50 Blood Pressure 128/51 04/12/17 11:50 O2 Sat by Pulse Oximetry (%) 97 04/12/17 13:30 Constitutional: Yes: Anxious, Mild Distress Eyes: Yes: WNL Cardiovascular: Yes: Regular Rate and Rhythm, S1, S2. No: JVD Respiratory: Yes: CTA Bilaterally, On Nasal O2 (2L), Poor Air Entry Gastrointestinal: Yes: WNL, Normal Bowel Sounds, Soft Edema: Yes Edema: LLE: 1+, RLE: 1+ Peripheral Pulses WNL: No Integumentary: Yes: Venous Stasis Changes Neurological: Yes: Alert, Oriented Imaging - Results Chest X-ray: Image Reviewed EKG: Image Reviewed Assessment/Plan COPD exacerbation - Cont. supplemental O2 - Albuterol neb Q4H CHARMAINE + Q6H PRN - Solumedrol 40mg IV Q6H - Azithromycin 500mg PO daily A-fib - Rate and rhythm controlled - s/p multiple cardioversions - Cont. xarelto and tikosyn CHF, diastolic - Stable - Hold lasix and eplernone h/o CAD - Fully anti-coagulated HTN - Cont. diuretics Migraine - Cont. fioricet Anxiety - Cont. xanax SIADH - Hold lasix and eplernone due to worsening hyponatremia - Cont. oral salt pills FEN - No IVF - Chronic hyponatremia, cont. to monitor lytes - Regular diet Prophylaxis - DVT: on ac - GI: not indicated Dispo - Med-surg observation Javier Lopez, Medicine PGY2 Pager: [phone] Visit type - Emergency Visit Emergency Visit: Yes ED Registration Date: 04/12/17 Care time: The patient presented to the Emergency Department on the above date and was hospitalized for further evaluation of their emergent condition. - New Patient This patient is new to me today: Yes Date on this admission: 04/12/17 - Critical Care Critical Care patient: No
[2017-04-12] MEDS ORDERED: ALBUTEROL SO4 6.7 GM HFA INHALER IH PRN (20:36)
[2017-04-12] MEDS ORDERED: ALPRAZolam 0.25 MG TABLET PO PRN (20:36)
[2017-04-12] MEDS ORDERED: ALBUTEROL SO4 0.083% IH SOL 2.5 MG/3 ML VIAL.NEB. NEB PRN ×2 (20:37→21:01)
[2017-04-12] MEDS ORDERED: ACETAMINOPHEN 325 MG TABLET (FP) PO PRN (20:37)
[2017-04-12] MEDS ORDERED: FUROSEMIDE 40 MG TABLET (FP) PO SCH (20:45)
[2017-04-12] MEDS ORDERED: AZITHROMYCIN 250 MG TABLET (FP) ONE (20:59)
[2017-04-12] MEDS ORDERED: FUROSEMIDE 40 MG TABLET (FP) ONE (20:59)
[2017-04-12] MEDS ORDERED: ALBUTEROL SO4 2.5/IPRATROPIUM 0.5 INH SOL 3 ML VIAL.NEB. NEB PRN (21:01)
[2017-04-12] MEDS: AZITHROMYCIN 250 MG TABLET (FP) PO SCH (21:02)
[2017-04-12] MEDS ORDERED: ALBUTEROL SO4 0.083% IH SOL 2.5 MG/3 ML VIAL.NEB. NEB SCH (22:00)
[2017-04-12] MEDS ORDERED: DOFETILIDE 0.5 MG CAPSULE PO SCH (22:00)
--- NOTE | 2017-04-12 22:12 | PN ---
Teaching Attending Note Name of Resident: Javier Lopez ATTENDING PHYSICIAN STATEMENT I saw and evaluated the patient. I reviewed the resident's note and discussed the case with the resident. I agree with the resident's findings and plan as documented. SUBJECTIVE: 81 yo female presenting to ED with complaint of persistent/progressive dyspnea over the past 2 days and admitted with Acute Exacerbation of COPD complicated by acute on chronic hyponatremia in the setting of known multiple comorbidities including chronic atrial fibrillation, diastolic CHF, CAD, and HTN. OBJECTIVE: - Vital Signs Temp: 97.5F BP: 128/51 HR: 62 RR: 18 spO2: 94-97% 2L NC - Physical Examination General: Alert in NAD. Speaking in full sentences. HEENT: Atraumatic ; No oropharyngeal lesions noted Neck: No JVD or thyromegaly CV: Irregularly irregular, S1 and S2 Pulm: Diminished bilaterally w/ slight expiratory wheezing noted in right upper lobe Abd: NTTP, ND, BS+ Ext: Symmetrical 1-2+ edema bilateral lower extremities - Imaging CXR reviewed ( No infiltrate or evidence of volume overload ) - Labs Renal function normal and at baseline Na: 126 ( Baseline 130-132 ) H/H: 13.5/39 ; Mild eosinophilia on differential 6-7% BNP < 500 Troponin, TSH, LFTs unremarkable ASSESSMENT: Acute Exacerbation of COPD ( No ABG performed on admission so unclear if acute on chronic respiratory failure ) Acute on Chronic Hyponatremia in setting of hx SIADH Chronic Atrial Fibrillation - NOAC chronic AC Diastolic CHF - Not currently decompensated Essential HTN - Controlled Chronic Hypothyroidism - Controlled h/o CAD PLAN: Admit to telemetry for observation and management of above. Confirm and continue home medication regimen holding outpatient lasix at this time Supplemental O2 to maintain spO2 91-92% given patient presumed chronic retainer of CO2 ( Current O2 demand c/w baseline 2L NC ) Duonebs q4h scheduled and Albuterol q2h prn ; Azithromycin PO for duration of 7- 10d ; PO Prednisone 40mg qD for total of 5 days Compression stockings for bilateral LE's , OOB to chair as tolerated Trend electrolytes ; Obtain ABG if O2 demand suddenly increases DISPOSITION: Anticipate discharge in 24-48h assuming continual improvement of respiratory status w/ treatment plan as above and per primary attending discretion. Ensure patient has no need for additional home services Update Vaccinations
[2017-04-12 22:13] VITALS: BMI 20.9
[2017-04-12] MEDS: methylPREDNISolone NA SUCC 40 MG/1 ML VIAL IVPB SCH (22:25)
[2017-04-12] MEDS: METOPROLOL TARTRATE 50 MG TABLET (FP) PO SCH (22:25)
[2017-04-12] MEDS: QUINAPRIL HCL 40 MG TABLET (FP) PO SCH (22:26)
[2017-04-12] MEDS: SODIUM CHLORIDE 1 GM TABLET PO SCH (22:27)
[2017-04-12] MEDS: DOFETILIDE 0.25 MG CAPSULE PO SCH (22:29)
[2017-04-13] MEDS: ALPRAZolam 0.25 MG TABLET PO PRN ×5 (00:15→22:13)
[2017-04-13] MEDS: methylPREDNISolone NA SUCC 40 MG/1 ML VIAL IVPB SCH ×2 (02:43→09:43)
[2017-04-13] MEDS: SODIUM CHLORIDE 1 GM TABLET PO SCH ×3 (06:02→22:14)
[2017-04-13 06:17] LABS: URINE APPEARANCE CLEAR; URINE BILIRUBIN NEGATIVE (NEGATIVE); URINE BLOOD 1+ (NEGATIVE); URINE COLOR LTYELLOW; URINE GLUCOSE (UA) NEGATIVE (NEGATIVE); URINE KETONE NEGATIVE (NEGATIVE); URINE LEUK ESTERASE NEGATIVE (NEGATIVE); URINE NITRITE NEGATIVE (NEGATIVE); URINE PROTEIN NEGATIVE (NEGATIVE); URINE UROBILINOGEN NEGATIVE mg/dL (0.2-1.0)
[2017-04-13 06:30] LABS: URINE MUCUS RARE; URINE RBC 2 /hpf (0-3); URINE WBC 1 /hpf (3-5)
[2017-04-13] MEDS ORDERED: PT OWN MED DRAWER 7, Y5N ONE ×4 (06:32→21:49)
[2017-04-13] MEDS ORDERED: TIMOLOL 0.5% OPHTHALMIC SOL 5 ML BOTTLE OD SCH (07:00)
[2017-04-13 08:31] LABS: ALBUMIN 3.4 g/dl (3.4-5.0); ANION GAP 6 (8-16); CALCIUM 8.8 mg/dL (8.5-10.1); CO2 34 mmol/L (21-32); GLUCOSE,RANDOM 162 mg/dL (74-106)
[2017-04-13 08:34] LABS: ALK PHOS 88 U/L (45-117); BILIRUBIN,TOTAL 0.5 mg/dL (0.2-1.0); CREATININE 0.5 mg/dL (0.55-1.02); PHOSPHOROUS 3.2 mg/dL (2.5-4.9); SGOT/AST 21 U/L (15-37); SGPT/ALT 26 U/L (12-78); TOT PROT 6.3 g/dl (6.4-8.2)
[2017-04-13] MEDS: ACETAMINOPHEN/CAFFEINE/BUTALBITAL 1 TAB PO PRN ×3 (09:43→22:14)
[2017-04-13] MEDS: METOPROLOL TARTRATE 50 MG TABLET (FP) PO SCH ×2 (09:46→22:13)
[2017-04-13] MEDS: QUINAPRIL HCL 40 MG TABLET (FP) PO SCH ×2 (09:46→22:14)
[2017-04-13] MEDS: DOFETILIDE 0.25 MG CAPSULE PO SCH ×2 (09:47→22:15)
--- NOTE | 2017-04-13 09:58 | CON.CARD ---
Consult Consult Specialty:: Cardiology Referred by:: Manuel Sanchez MD Reason for Consultation:: Paroxysmal afib - History of Present Illness Chief Complaint: Dyspnea History of Present Illness: Patient is a 81 year old female with underlying history of atrial fibrillation with previous failed antiarrhythmic therapy (Sotalol) currently on Tikosyn, previous history of cardioversion, compliant with chronic anticoagulation, [id number] score of 4, ASHD, angina pectoris, HTN/HCVD, pulmonary HTN ( moderate in severity), hyponatremia related to SIADH, COPD with h/o flares, DJD and anxiety referred to ER for progressive dyspnea over the past 2 days referable to Acute Exacerbation of COPD complicated by acute on chronic hyponatremia. She denies chest pain, palpitations, fatigue, orthopnea or worsening lower extremity edema, near or true syncope, she reports medication compliance. 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 Cardio/Vascular: Yes: AFIB, CAD, CHF (diastolic), HTN, Hyperlipdemia, Mitral Insufficiency, Pulmonary Hypertension, Other Pulmonary: Yes: COPD (former smoker) Renal/: Yes: Other (hyponatremia due to SIADH) Psych: Yes: Anxiety Musculoskeletal: Yes: Chronic low back pain, Osteoarthritis Endocrine: Yes: Hypothyroidism (borderline), SIADH - Past Surgical History Past Surgical History: Yes: Cataract Removal, , Hernia Repair, Appendectomy, Tonsillectomy - Alcohol/Substance Use Hx Alcohol Use: No History of Substance Use: reports: None - Smoking History Smoking history: Former smoker Have you smoked in the past 12 months: No Aproximately how many cigarettes per day: 0 If you are a former smoker, when did you quit?: 15 years ago - Social History ADL: Independent History of Recent Travel: No Home Medications - Allergies Allergies/Adverse Reactions: Allergies Allergy/AdvReac Type Severity Reaction Status Date / Time Penicillins AdvReac Verified 04/12/17 11:47 - Home Medications Home Medications: Ambulatory Orders Acetaminophen/Caffeine/Butalb [Fioricet -] 1 tab PO Q4H PRN 02/10/16 Albuterol Sulfate Inhaler - [Ventolin HFA Inhaler -] 1 - 2 inh PO QID PRN Alprazolam [Xanax] 0.25 mg PO QID PRN 02/10/16 Dofetilide [Tikosyn] 500 mcg PO BID 02/10/16 Eplerenone 25 mg PO BID 02/10/16 Furosemide [Lasix -] 40 mg PO DAILY 02/10/16 Metoprolol Tartrate [Lopressor -] 50 mg PO BID 02/10/16 Quinapril HCl [Accupril -] 40 mg PO BID 02/10/16 Rivaroxaban [Xarelto -] 20 mg PO DAILY 02/10/16 Sodium Chloride Tablet - 452 mg PO TID 02/10/16 Timolol 0.5% [Timoptic 0.5%] 1 drop OD AM 04/12/17 Family Disease History - Family Disease History Family Disease History: Heart Disease: Mother, [place]: Father Review of Systems - Review of Systems Cardiovascular: reports: Shortness of Breath Respiratory: reports: SOB Vital Signs: Vital Signs Temperature 97.6 F 04/13/17 08:31 Pulse Rate 83 04/13/17 08:31 Respiratory Rate 20 04/13/17 08:31 Blood Pressure 151/74 04/13/17 08:31 O2 Sat by Pulse Oximetry (%) 98 04/13/17 04:38 Constitutional: Yes: No Distress, Calm Neck: Yes: Supple Respiratory: Yes: Regular, Diminished, On Nasal O2 Gastrointestinal: Yes: Normal Bowel Sounds, Soft Cardiovascular: Yes: Regular Rate and Rhythm JVD: No Carotid Bruit: No Heart Sounds: Yes: S1, S2 Murmur: Yes: Systolic Murmur, Grade 2 Edema: Yes Edema: LLE: 1+, RLE: 1+ - Other Data Labs, Other Data: CBC, BMP 04/13/17 06:40 NSR @ 65 LAE Problem List - Problems (1) Hyponatremia Code(s): E87.1 - HYPO-OSMOLALITY AND HYPONATREMIA (2) Atrial fibrillation Code(s): I48.91 - UNSPECIFIED ATRIAL FIBRILLATION Qualifiers: Atrial fibrillation type: paroxysmal Qualified Code(s): I48.0 - Paroxysmal atrial fibrillation (3) COPD (chronic obstructive pulmonary disease) Code(s): J44.9 - CHRONIC OBSTRUCTIVE PULMONARY DISEASE, UNSPECIFIED Qualifiers : COPD type: COPD with acute exacerbation Qualified Code(s): J44.1 - Chronic obstructive pulmonary disease with (acute) exacerbation (4) Coronary artery disease Code(s): I25.10 - ATHSCL HEART DISEASE OF [place] CORONARY ARTERY W/O ANG PCTRS Qualifiers: Coronary Disease-Associated Artery/Lesion type: [place] artery [place] vs. transplanted heart: [place] heart Associated angina: without angina Qualified Code(s): I25.10 - Atherosclerotic heart disease of [place] coronary artery without angina pectoris (5) Diastolic dysfunction without heart failure Code(s): I51.9 - HEART DISEASE, UNSPECIFIED (6) Edema extremities Code(s): R60.0 - LOCALIZED EDEMA (7) Hypertensive cardiovascular disease Code(s): I11.9 - HYPERTENSIVE HEART DISEASE WITHOUT HEART FAILURE Qualifiers: Heart failure presence: without heart failure Qualified Code(s): I11.9 - Hypertensive heart disease without heart failure (8) Pulmonary hypertension Code(s): I27.2 - OTHER SECONDARY PULMONARY HYPERTENSION Assessment/Plan 10/07/2015 Echo: Normal LV size and fxn, mild-mod MR, mod TR, mod pulm HTN, RVSP 53 mmHg 11/09/2016 Normal LV size with mild-mod decreased (global HK), biatrial enlargement, mild mitral valve prolapse, mod MR, mod-severe TR RVSP 51 mmHg 05/16/2016 Lexiscan MPI: Small anteroapical mild ischemia, normal LV fxn 1. Acute Exacerbation of COPD 2. Paroxysmal atrial fibrillation with periods of rapid ventricular response [id number] score of 5, (prior cardioversions) 3. Chronic LV diastolic/systolic dysfunction 4. CAD angina pectoris 5. HTN 6. Pulmonary HTN (moderate) 7. Acute on Chronic Hyponatremia in setting of SIADH PLAN: 1. BD, IV steroids with GI protection, empiric abx, O2 to maintain saO2>90%, compression therapy of legs 2. Continue Lopressor 50 bid, Accupril 40 bid, Xarelto 20 qd, Aldactone 25 bid, Tikosyn 500 bid (QTc 434 msec), hold Lasix for now and monitor sodium levels 3. Continue Accupril, hemodynamics permitting 4. Eventual pulmonary vein isolation RFA referral for more definitive solution of PAF as outpatient 5. Thank you for consultative opportunity
[2017-04-13] MEDS: RIVAROXABAN 20 MG TABLET PO SCH (12:08)
[2017-04-13] MEDS: PANTOPRAZOLE 20 MG TABLET (FP) PO SCH (12:08)
[2017-04-13] MEDS: AZITHROMYCIN 250 MG TABLET (FP) PO SCH (12:08)
--- NOTE | 2017-04-13 12:34 | CON.PULM ---
Consult Consult Specialty:: PULMONARY Referred by:: FRANCOISE Reason for Consultation:: COPD - History of Present Illness Chief Complaint: SOB History of Present Illness: 81yo F hx AF on xarelto, dofetilide, and metoprolol s/p multiple cardioversion attempts (most recently 11/2016), dCHF, CAD, COPD on 2L at night, former smoker, hypothyroid p/w SOB x 3 days. SOB is at rest and exertional. Denies coughing, CP, palpitations, fevers, chills, N/V/D, dysuria. Has LE edema at baseline but feels it is now worse. Has been using home O2 throughout the day. Reports compliance with medications including lasix. No recent medication changes. Uses only ventolin inhaler. - History Source History Provided By: Patient, Medical Record Limitations to Obtaining History: No Limitations - Past Medical History [employer]: Yes: Migraine. No: Alzheimer's Cardio/Vascular: Yes: AFIB, CAD, CHF (diastolic), HTN, Hyperlipdemia, Mitral Insufficiency, Pulmonary Hypertension, Other Pulmonary: Yes: COPD (former smoker) Renal/: Yes: Other (hyponatremia due to SIADH) Psych: Yes: Anxiety Musculoskeletal: Yes: Chronic low back pain, Osteoarthritis Endocrine: Yes: Hypothyroidism (borderline), SIADH - Past Surgical History Past Surgical History: Yes: Cataract Removal, , Hernia Repair, Appendectomy, Tonsillectomy - Alcohol/Substance Use Hx Alcohol Use: No History of Substance Use: reports: None - Smoking History Smoking history: Former smoker Have you smoked in the past 12 months: No Aproximately how many cigarettes per day: 0 If you are a former smoker, when did you quit?: 15 years ago - Social History ADL: Independent History of Recent Travel: No Home Medications - Allergies Allergies/Adverse Reactions: Allergies Allergy/AdvReac Type Severity Reaction Status Date / Time Penicillins AdvReac Verified 04/12/17 11:47 - Home Medications Home Medications: Ambulatory Orders Acetaminophen/Caffeine/Butalb [Fioricet -] 1 tab PO Q4H PRN 02/10/16 Albuterol Sulfate Inhaler - [Ventolin HFA Inhaler -] 1 - 2 inh PO QID PRN Alprazolam [Xanax] 0.25 mg PO QID PRN 02/10/16 Dofetilide [Tikosyn] 500 mcg PO BID 02/10/16 Eplerenone 25 mg PO BID 02/10/16 Furosemide [Lasix -] 40 mg PO DAILY 02/10/16 Metoprolol Tartrate [Lopressor -] 50 mg PO BID 02/10/16 Quinapril HCl [Accupril -] 40 mg PO BID 02/10/16 Rivaroxaban [Xarelto -] 20 mg PO DAILY 02/10/16 Sodium Chloride Tablet - 452 mg PO TID 02/10/16 Timolol 0.5% [Timoptic 0.5%] 1 drop OD AM 04/12/17 Family Disease History - Family Disease History Family Disease History: Heart Disease: Mother, CA: Father Review of Systems - Review of Systems Constitutional: denies: Fever Eyes: denies: Blurred Vision HENT: denies: Difficult Swallowing Neck: denies: Decreased ROM Cardiovascular: denies: Chest Pain Respiratory: reports: Cough, Exercise Intolerance, SOB on Exertion. denies: Hemoptysis, Wheezing Gastrointestinal: denies: Abdominal Pain Genitourinary: denies: Burning Breasts: reports: No Symptoms Reported Musculoskeletal: reports: No Symptoms Neurological: reports: No Symptoms Physical Exam Vital Sings: Vital Signs Temperature 97.6 F 04/13/17 08:31 Pulse Rate 83 04/13/17 08:31 Respiratory Rate 20 04/13/17 12:00 Blood Pressure 151/74 04/13/17 08:31 O2 Sat by Pulse Oximetry (%) 98 04/13/17 12:00 Constitutional: Yes: Calm Eyes: Yes: EOM Intact HENT: Yes: Normocephalic Neck: Yes: Trachea Midline Cardiovascular: Yes: S1, S2 Respiratory: Yes: Diminished Gastrointestinal: Yes: Normal Bowel Sounds Edema: LLE: 3+, RLE: 3+ Neurological: Yes: Alert Psychiatric: Yes: Alert Labs: CBC, BMP 04/13/17 06:40 rest reviewed Imaging - Results Chest X-ray: Report Reviewed, Image Reviewed EKG: Report Reviewed, Image Reviewed Problem List - Problems (1) Hyponatremia Code(s): E87.1 - HYPO-OSMOLALITY AND HYPONATREMIA (2) Acute on chronic diastolic heart failure Code(s): I50.33 - ACUTE ON CHRONIC DIASTOLIC (CONGESTIVE) HEART FAILURE (3) Atrial fibrillation Code(s): I48.91 - UNSPECIFIED ATRIAL FIBRILLATION Qualifiers: Atrial fibrillation type: paroxysmal Qualified Code(s): I48.0 - Paroxysmal atrial fibrillation (4) COPD (chronic obstructive pulmonary disease) Code(s): J44.9 - CHRONIC OBSTRUCTIVE PULMONARY DISEASE, UNSPECIFIED Qualifiers : COPD type: COPD with acute exacerbation Qualified Code(s): J44.1 - Chronic obstructive pulmonary disease with (acute) exacerbation (5) Coronary artery disease Code(s): I25.10 - ATHSCL HEART DISEASE OF [place] CORONARY ARTERY W/O ANG PCTRS Qualifiers: Coronary Disease-Associated Artery/Lesion type: [place] artery [place] vs. transplanted heart: [place] heart Associated angina: without angina Qualified Code(s): I25.10 - Atherosclerotic heart disease of [place] coronary artery without angina pectoris (6) Diastolic dysfunction without heart failure Code(s): I51.9 - HEART DISEASE, UNSPECIFIED Assessment/Plan A/E COPD HYPONATREMIA PULMONARY HTN AF/ANTICOAGULATION/ASHD/DJD WILL ADD DALIRESP/DAILY SPIRIVA/CONTINUE YOLANDA/ADD ICS/LABA. TAPER SOLUMEDROL WILL FOLLOW Mirna BHATTI MD
--- NOTE | 2017-04-13 13:52 | PN ---
Progress Note, Physician Chief Complaint: Patient complains of shortness of breath. No cp or n/v. - Current Medication List Current Medications: Active Medications Acetaminophen (Tylenol -) 650 mg PO Q4H PRN PRN Reason: FEVER OR PAIN Acetaminophen/Butalbital/Caffeine (Fioricet -) 1 tablet PO Q4H PRN PRN Reason: HEADACHE Last Admin: 04/13/17 09:43 Dose: 1 tablet Albuterol Sulfate (Ventolin Hfa Inhaler -) 2 puff IH QID PRN PRN Reason: ASTHMA Albuterol Sulfate (Ventolin 0.083% Nebulizer Soln -) 1 amp NEB Q2H PRN PRN Reason: SHORT OF BREATH/WHEEZING Alprazolam (Xanax -) 0.25 mg PO Q4H PRN PRN Reason: ANXIETY Last Admin: 04/13/17 09:43 Dose: 0.25 mg Azithromycin (Zithromax -) 500 mg PO DAILY [facility] Last Admin: 04/13/17 12:08 Dose: 500 mg Dofetilide (Tikosyn (Restricted To Cardiology) -) 0.5 mg PO BID [facility] Last Admin: 04/13/17 09:47 Dose: 0.5 mg Eplerenone (Eplerenone) 25 mg PO BID [facility] Methylprednisolone Sodium Succinate (Solu-Medrol -) 40 mg IVPB Q8H-IV [facility] Metoprolol Tartrate (Lopressor -) 50 mg PO BID [facility] Last Admin: 04/13/17 09:46 Dose: 50 mg Pantoprazole Sodium (Protonix -) 20 mg PO DAILY [facility] Last Admin: 04/13/17 12:08 Dose: 20 mg Quinapril HCl (Accupril -) 40 mg PO BID [facility] Last Admin: 04/13/17 09:46 Dose: 40 mg Rivaroxaban (Xarelto -) 20 mg PO DAILY [facility] Last Admin: 04/13/17 12:08 Dose: 20 mg Fluticasone/Salmeterol (Advair 100mcg/50mcg -) 1 puff IH BID [facility] Sodium Chloride (Sodium Chloride Tablet -) 0.5 gm PO TID [facility] Last Admin: 04/13/17 06:02 Dose: 0.5 gm Timolol Maleate (Timoptic 0.5%) 1 drop OD AM [facility] Last Admin: 04/13/17 06:03 Dose: 1 drop Tiotropium [place] (Spiriva -) 1 puff IH DAILY [facility] - Objective Vital Signs: Vital Signs Temperature 36.4 C 04/13/17 08:31 Pulse Rate 83 04/13/17 08:31 Respiratory Rate 20 04/13/17 12:00 Blood Pressure 151/74 04/13/17 08:31 O2 Sat by Pulse Oximetry (%) 98 04/13/17 12:00 Constitutional: Yes: Well Nourished, No Distress, Calm Cardiovascular: Yes: Regular Rate and Rhythm. No: Gallop, Murmur, Rub Respiratory: Yes: Regular, CTA Bilaterally, On Nasal O2, Poor Air Entry. No: Rales, Rhonchi, Wheezes Gastrointestinal: Yes: Normal Bowel Sounds, Soft. No: Distention, Tenderness Extremities: Yes: WNL Edema: No Labs: CBC, BMP 04/13/17 06:40 Problem List - Problems (1) COPD (chronic obstructive pulmonary disease) Assessment/Plan: -appreciate pulmonary assistance -placed on solumedrol -continue zithromax -continue bronchodilators Code(s): J44.9 - CHRONIC OBSTRUCTIVE PULMONARY DISEASE, UNSPECIFIED Qualifiers : COPD type: COPD with acute exacerbation Qualified Code(s): J44.1 - Chronic obstructive pulmonary disease with (acute) exacerbation (2) Diastolic dysfunction without heart failure Assessment/Plan: -appreciate cardiology assistance -not in exacerbation -continue eplerenone Code(s): I51.9 - HEART DISEASE, UNSPECIFIED (3) SIADH (syndrome of inappropriate ADH production) Assessment/Plan: -low sodium -on salt tablets -monitor -if does not improve, consult nephrology (4) Atrial fibrillation Assessment/Plan: -continue lopressor and xarelto Code(s): I48.91 - UNSPECIFIED ATRIAL FIBRILLATION Qualifiers: Atrial fibrillation type: paroxysmal Qualified Code(s): I48.0 - Paroxysmal atrial fibrillation (5) Coronary artery disease Assessment/Plan: -quiescent -continue home regimen Code(s): I25.10 - ATHSCL HEART DISEASE OF [place] CORONARY ARTERY W/O ANG PCTRS Qualifiers: Coronary Disease-Associated Artery/Lesion type: [place] artery [place] vs. transplanted heart: [place] heart Associated angina: without angina Qualified Code(s): I25.10 - Atherosclerotic heart disease of [place] coronary artery without angina pectoris (6) Hypertension Assessment/Plan: -controlled Code(s): I10 - ESSENTIAL (PRIMARY) HYPERTENSION
[2017-04-13] MEDS: FLUTICASONE/SALMETEROL 100 MCG/50 MCG DISKUS IH SCH ×2 (15:14→22:13)
[2017-04-13] MEDS: TIOTROPIUM BROMIDE 18 MCG/INH (DEVICE W/ 5 CAPSULES) IH SCH (15:16)
[2017-04-14] MEDS: methylPREDNISolone NA SUCC 40 MG/1 ML VIAL IVPB SCH ×3 (02:17→21:45)
[2017-04-14] MEDS: ALPRAZolam 0.25 MG TABLET PO PRN ×5 (02:17→21:45)
[2017-04-14] MEDS: ACETAMINOPHEN/CAFFEINE/BUTALBITAL 1 TAB PO PRN ×5 (02:17→21:45)
[2017-04-14] MEDS ORDERED: PT OWN MED DRAWER 7, Y5N ONE ×4 (05:56→21:42)
[2017-04-14] MEDS: TIMOLOL 0.5% OPHTHALMIC SOL 5 ML BOTTLE OU SCH (06:27)
[2017-04-14] MEDS: SODIUM CHLORIDE 1 GM TABLET PO SCH ×3 (06:28→21:46)
[2017-04-14 09:05] LABS: BASOPHIL 0.2 % (0-2.0); MCH 32.2 pg (25.7-33.7); MCHC 34.1 g/dl (32.0-36.0); MEAN CELL VOLUME 94.5 fl (80-96); MEAN PLT VOLUME 7.8 fl (7.5-11.1); NEUTROPHILS 83.8 % (42.8-82.8); PLATELET COUNT 233 K/MM3 (134-434); WHITE BLOOD COUNT 9.9 K/mm3 (4.0-10.0)
[2017-04-14 09:22] LABS: ANION GAP 6 (8-16); CALCIUM 8.8 mg/dL (8.5-10.1); CO2 36 mmol/L (21-32); CREATININE 0.5 mg/dL (0.55-1.02); GLUCOSE,RANDOM 128 mg/dL (74-106); MAGNESIUM 2.2 mg/dL (1.8-2.4); PHOSPHOROUS 3.1 mg/dL (2.5-4.9)
[2017-04-14] MEDS: METOPROLOL TARTRATE 50 MG TABLET (FP) PO SCH ×2 (09:34→21:45)
[2017-04-14] MEDS: PANTOPRAZOLE 20 MG TABLET (FP) PO SCH (09:34)
[2017-04-14] MEDS: EPLERENONE 25 MG TABLET PO SCH ×2 (09:35→21:46)
[2017-04-14] MEDS: QUINAPRIL HCL 40 MG TABLET (FP) PO SCH ×2 (09:37→21:46)
[2017-04-14] MEDS: TIOTROPIUM BROMIDE 18 MCG/INH (DEVICE W/ 5 CAPSULES) IH SCH (09:38)
[2017-04-14] MEDS: FLUTICASONE/SALMETEROL 100 MCG/50 MCG DISKUS IH SCH ×2 (09:38→21:46)
[2017-04-14] MEDS: RIVAROXABAN 20 MG TABLET PO SCH (09:39)
[2017-04-14] MEDS: AZITHROMYCIN 250 MG TABLET (FP) PO SCH (09:40)
[2017-04-14] MEDS: DOFETILIDE 0.25 MG CAPSULE PO SCH ×2 (09:42→21:46)
--- NOTE | 2017-04-14 11:23 | PN ---
Physical Exam: SUBJECTIVE: Patient seen and examined OBJECTIVE: Vital Signs Period Temp Pulse Resp BP Sys/[place] Pulse Ox Last 24 Hr 97.2 F-98 F 60-91 17-20 112-135/60-75 95-97 GENERAL: The patient is awake, alert, and fully oriented, in no acute distress. HEAD: Normal with no signs of trauma. EYES: PERRL, extraocular movements intact, sclera anicteric, conjunctiva clear. No ptosis. ENT: Ears normal, nares patent, oropharynx clear without exudates, moist mucous membranes. NECK: Trachea midline, full range of motion, supple. LUNGS: Breath sounds equal, clear to auscultation bilaterally, no wheezes, no crackles, no accessory muscle use. HEART: Regular rate and rhythm, S1, S2 without murmur, rub or gallop. ABDOMEN: Soft, nontender, nondistended, normoactive bowel sounds, no guarding, no rebound, no hepatosplenomegaly, no masses. EXTREMITIES: 2+ pulses, warm, well-perfused, no edema. NEUROLOGICAL: Cranial nerves II through XII grossly intact. Normal speech, gait not observed. PSYCH: Normal mood, normal affect. SKIN: Warm, dry, normal turgor, no rashes or lesions noted Laboratory Results - last 24 hr 04/14/17 04/14/17 07:46 07:46 WBC 9.9 RBC 4.07 Hgb 13.1 Hct 38.5 MCV 94.5 MCH 32.2 MCHC 34.1 RDW 14.0 Plt Count 233 MPV 7.8 Neutrophils % 83.8 H D Lymphocytes % 8.5 D Monocytes % 7.5 Eosinophils % 0.0 D Basophils % 0.2 Sodium 128 L Potassium 4.9 Chloride 86 L Carbon Dioxide 36 H Anion Gap 6 L BUN 15 Creatinine 0.5 L Random Glucose 128 H D Calcium 8.8 Phosphorus 3.1 Magnesium 2.2 Active Medications Generic Name Dose Route Start Last Admin Trade Name Freq PRN Reason Stop Dose Admin Acetaminophen 650 mg 04/12/17 20:37 Tylenol - PO Q4H PRN FEVER OR PAIN Acetaminophen/Butalbital/Caffeine 1 tablet 04/13/17 07:51 04/14/17 10:35 Fioricet - PO 1 tablet Q4H PRN Administration HEADACHE Albuterol Sulfate 2 puff 04/12/17 20:36 Ventolin Hfa Inhaler - IH QID PRN ASTHMA Albuterol Sulfate 1 amp 04/12/17 21:01 Ventolin 0.083% Nebulizer Soln - NEB Q2H PRN SHORT OF BREATH/WHEEZING Alprazolam 0.25 mg 04/12/17 18:46 04/14/17 10:35 Xanax - PO 0.25 mg Q4H PRN Administration ANXIETY Azithromycin 500 mg 04/12/17 20:45 04/14/17 09:40 Zithromax - PO 500 mg DAILY [facility] Administration Dofetilide 0.5 mg 04/12/17 22:00 04/14/17 09:42 Tikosyn (Restricted To Cardiology) - PO 0.5 mg BID [facility] Administration Eplerenone 25 mg 04/12/17 22:00 04/14/17 09:35 Eplerenone PO 25 mg BID [facility] Administration Methylprednisolone Sodium Succinate 40 mg 04/13/17 18:00 04/14/17 09:36 Solu-Medrol - IVPB 04/14/17 22:00 40 mg Q8H-IV [facility] Administration Methylprednisolone Sodium Succinate 40 mg 04/15/17 10:00 Solu-Medrol - IVPB BID [facility] Metoprolol Tartrate 50 mg 04/12/17 22:00 04/14/17 09:34 Lopressor - PO 50 mg BID [facility] Administration Pantoprazole Sodium 20 mg 04/13/17 11:00 04/14/17 09:34 Protonix - PO 20 mg DAILY [facility] Administration Quinapril HCl 40 mg 04/12/17 22:00 04/14/17 09:37 Accupril - PO 40 mg BID [facility] Administration Rivaroxaban 20 mg 04/13/17 10:00 04/14/17 09:39 Xarelto - PO 20 mg DAILY [facility] Administration Fluticasone/Salmeterol 1 puff 04/13/17 13:45 04/14/17 09:38 Advair 100mcg/50mcg - IH 1 puff BID [facility] Administration Sodium Chloride 0.5 gm 04/12/17 22:00 04/14/17 06:28 Sodium Chloride Tablet - PO 0.5 gm TID [facility] Administration Timolol Maleate 1 drop 04/13/17 20:40 04/14/17 06:27 Timoptic 0.5% OU 1 drop AM [facility] Administration Tiotropium [place] 1 puff 04/13/17 13:00 04/14/17 09:38 Spiriva - IH 1 puff DAILY [facility] Administration ASSESSMENT/PLAN: This 81 year old female with initial presentatin with SOB and oxygen demand requirements, having an uneventful night. States she feels much better although she is frustrated with leaving on the nasal cannula continiously. Problem List - Problems (1) COPD (chronic obstructive pulmonary disease) Assessment/Plan: -appreciate pulmonary assistance -placed on solumedrol and weaning from Q8 to Q12 started tomorrow -continue zithromax (day 2/5) -continue oxygen and monitor pulse ox -continue bronchodilators Code(s): J44.9 - CHRONIC OBSTRUCTIVE PULMONARY DISEASE, UNSPECIFIED Qualifiers : COPD type: COPD with acute exacerbation Qualified Code(s): J44.1 - Chronic obstructive pulmonary disease with (acute) exacerbation (2) Diastolic dysfunction without heart failure Assessment/Plan: -appreciate cardiology assistance -not in exacerbation -continue eplerenone Code(s): I51.9 - HEART DISEASE, UNSPECIFIED (3) SIADH (syndrome of inappropriate ADH production) Assessment/Plan: -low sodium -on salt tablets (trending upward Na) -monitor -if does not improve, consult nephrology (4) Atrial fibrillation Assessment/Plan: -continue lopressor and xarelto Code(s): I48.91 - UNSPECIFIED ATRIAL FIBRILLATION Qualifiers: Atrial fibrillation type: paroxysmal Qualified Code(s): I48.0 - Paroxysmal atrial fibrillation (5) Coronary artery disease Assessment/Plan: -quiescent -continue home regimen Code(s): I25.10 - ATHSCL HEART DISEASE OF [place] CORONARY ARTERY W/O ANG PCTRS Qualifiers: Coronary Disease-Associated Artery/Lesion type: [place] artery [place] vs. transplanted heart: [place] heart Associated angina: without angina Qualified Code(s): I25.10 - Atherosclerotic heart disease of [place] coronary artery without angina pectoris (6) Hypertension Assessment/Plan: -controlled Code(s): I10 - ESSENTIAL (PRIMARY) HYPERTENSION Visit type - Emergency Visit Emergency Visit: No - New Patient This patient is new to me today: Yes Date on this admission: 04/14/17 - Critical Care Critical Care patient: No - Discharge Referral Referred to [facility] Med P.C.: No
--- NOTE | 2017-04-14 13:27 | PN ---
Progress Note (short form) - Note Progress Note: PULMONARY States breathing is improving but not at baseline. No cough or wheezing. Last Vital Signs Temp Pulse Resp BP Pulse Ox 97.2 F L 80 18 112/68 97 04/14/17 08:05 04/14/17 08:05 04/14/17 08:05 04/14/17 08:05 04/14/17 08:20 Gen: NAD at rest Heart: RRR Lung: distant breath sounds, no wheezes Abd: soft, nontender Ext: no edema CBC, BMP 04/14/17 07:46 04/14/17 07:46 Active Medications Acetaminophen (Tylenol -) 650 mg PO Q4H PRN PRN Reason: FEVER OR PAIN Acetaminophen/Butalbital/Caffeine (Fioricet -) 1 tablet PO Q4H PRN PRN Reason: HEADACHE Last Admin: 04/14/17 10:35 Dose: 1 tablet Albuterol Sulfate (Ventolin Hfa Inhaler -) 2 puff IH QID PRN PRN Reason: ASTHMA Albuterol Sulfate (Ventolin 0.083% Nebulizer Soln -) 1 amp NEB Q2H PRN PRN Reason: SHORT OF BREATH/WHEEZING Alprazolam (Xanax -) 0.25 mg PO Q4H PRN PRN Reason: ANXIETY Last Admin: 04/14/17 10:35 Dose: 0.25 mg Azithromycin (Zithromax -) 500 mg PO DAILY [facility] Last Admin: 04/14/17 09:40 Dose: 500 mg Dofetilide (Tikosyn (Restricted To Cardiology) -) 0.5 mg PO BID [facility] Last Admin: 04/14/17 09:42 Dose: 0.5 mg Eplerenone (Eplerenone) 25 mg PO BID [facility] Last Admin: 04/14/17 09:35 Dose: 25 mg Methylprednisolone Sodium Succinate (Solu-Medrol -) 40 mg IVPB Q8H-IV [facility] Stop: 04/14/17 22:00 Last Admin: 04/14/17 09:36 Dose: 40 mg Methylprednisolone Sodium Succinate (Solu-Medrol -) 40 mg IVPB BID [facility] Metoprolol Tartrate (Lopressor -) 50 mg PO BID [facility] Last Admin: 04/14/17 09:34 Dose: 50 mg Pantoprazole Sodium (Protonix -) 20 mg PO DAILY [facility] Last Admin: 04/14/17 09:34 Dose: 20 mg Quinapril HCl (Accupril -) 40 mg PO BID [facility] Last Admin: 04/14/17 09:37 Dose: 40 mg Rivaroxaban (Xarelto -) 20 mg PO DAILY [facility] Last Admin: 04/14/17 09:39 Dose: 20 mg Fluticasone/Salmeterol (Advair 100mcg/50mcg -) 1 puff IH BID [facility] Last Admin: 04/14/17 09:38 Dose: 1 puff Sodium Chloride (Sodium Chloride Tablet -) 0.5 gm PO TID [facility] Last Admin: 04/14/17 06:28 Dose: 0.5 gm Timolol Maleate (Timoptic 0.5%) 1 drop OU AM [facility] Last Admin: 04/14/17 06:27 Dose: 1 drop Tiotropium [place] (Spiriva -) 1 puff IH DAILY [facility] Last Admin: 04/14/17 09:38 Dose: 1 puff A/P Acute COPD Exacerbation Hyponatremia Atrial Fibrillation LV Diastolic Dysfunction CAD - will decrease medrol to q12h - if continues to improve, can change medrol to prednisone 40mg daily and taper as outpt - inhaled bronchodilators - O2 as needed - rate controlled - continue anticoagulation - PFTs as outpt
[2017-04-15] MEDS: ACETAMINOPHEN/CAFFEINE/BUTALBITAL 1 TAB PO PRN ×5 (02:51→22:15)
[2017-04-15] MEDS: ALPRAZolam 0.25 MG TABLET PO PRN ×5 (02:51→22:13)
[2017-04-15] MEDS: TIMOLOL 0.5% OPHTHALMIC SOL 5 ML BOTTLE OU SCH (06:13)
[2017-04-15] MEDS: SODIUM CHLORIDE 1 GM TABLET PO SCH ×3 (06:13→22:11)
[2017-04-15 08:54] LABS: BASOPHIL 0.2 % (0-2.0); EOSINOPHIL 0.3 % (0-4.5); MCHC 33.9 g/dl (32.0-36.0); MEAN CELL VOLUME 94.4 fl (80-96); MEAN PLT VOLUME 7.8 fl (7.5-11.1); NEUTROPHILS 72.7 % (42.8-82.8); PLATELET COUNT 238 K/MM3 (134-434); RDW 14.3 % (11.6-15.6); WHITE BLOOD COUNT 9.9 K/mm3 (4.0-10.0)
[2017-04-15 09:19] LABS: ALBUMIN 3.3 g/dl (3.4-5.0); ALK PHOS 77 U/L (45-117); ANION GAP 6 (8-16); BILIRUBIN,TOTAL 0.7 mg/dL (0.2-1.0); CALCIUM 8.8 mg/dL (8.5-10.1); CO2 35 mmol/L (21-32); CREATININE 0.5 mg/dL (0.55-1.02); GLUCOSE,RANDOM 93 mg/dL (74-106); SGOT/AST 25 U/L (15-37); SGPT/ALT 28 U/L (12-78); TOT PROT 6.1 g/dl (6.4-8.2)
[2017-04-15] MEDS: PANTOPRAZOLE 20 MG TABLET (FP) PO SCH (09:48)
[2017-04-15] MEDS: FLUTICASONE/SALMETEROL 100 MCG/50 MCG DISKUS IH SCH ×2 (09:48→22:11)
[2017-04-15] MEDS: methylPREDNISolone NA SUCC 40 MG/1 ML VIAL IVPB SCH ×2 (09:48→22:12)
[2017-04-15] MEDS: METOPROLOL TARTRATE 50 MG TABLET (FP) PO SCH ×2 (09:48→22:12)
[2017-04-15] MEDS: QUINAPRIL HCL 40 MG TABLET (FP) PO SCH ×2 (09:49→22:12)
[2017-04-15] MEDS: RIVAROXABAN 20 MG TABLET PO SCH (09:50)
[2017-04-15] MEDS: AZITHROMYCIN 250 MG TABLET (FP) PO SCH (09:50)
[2017-04-15] MEDS: DOFETILIDE 0.25 MG CAPSULE PO SCH ×2 (09:51→22:13)
[2017-04-15] MEDS: TIOTROPIUM BROMIDE 18 MCG/INH (DEVICE W/ 5 CAPSULES) IH SCH (09:52)
[2017-04-15] MEDS: EPLERENONE 25 MG TABLET PO SCH ×2 (09:53→22:14)
[2017-04-15] MEDS ORDERED: methylPREDNISolone NA SUCC 40 MG/1 ML VIAL IVPB SCH (10:00)
[2017-04-15] MEDS ORDERED: PT OWN MED DRAWER 7, Y5N ONE ×3 (10:19→22:10)
--- NOTE | 2017-04-15 11:12 | PN ---
Progress Note (short form) - Note Progress Note: PULMONARY Feels better. No cough or wheezing. Wants to go home. Last Vital Signs Temp Pulse Resp BP Pulse Ox 97.8 F 66 20 157/59 95 04/15/17 08:45 04/15/17 08:45 04/15/17 08:45 04/15/17 08:45 04/15/17 00:00 Gen: NAD at rest Heart: RRR Lung: distant breath sounds, no wheezes Abd: soft, nontender Ext: no edema CBC, BMP 04/15/17 07:35 04/15/17 07:35 Active Medications Acetaminophen (Tylenol -) 650 mg PO Q4H PRN PRN Reason: FEVER OR PAIN Acetaminophen/Butalbital/Caffeine (Fioricet -) 1 tablet PO Q4H PRN PRN Reason: HEADACHE Last Admin: 04/15/17 07:43 Dose: 1 tablet Albuterol Sulfate (Ventolin Hfa Inhaler -) 2 puff IH QID PRN PRN Reason: ASTHMA Albuterol Sulfate (Ventolin 0.083% Nebulizer Soln -) 1 amp NEB Q2H PRN PRN Reason: SHORT OF BREATH/WHEEZING Alprazolam (Xanax -) 0.25 mg PO Q4H PRN PRN Reason: ANXIETY Last Admin: 04/15/17 07:44 Dose: 0.25 mg Azithromycin (Zithromax -) 500 mg PO DAILY [facility] Last Admin: 04/15/17 09:50 Dose: 500 mg Dofetilide (Tikosyn (Restricted To Cardiology) -) 0.5 mg PO BID [facility] Last Admin: 04/15/17 09:51 Dose: 0.5 mg Eplerenone (Eplerenone) 25 mg PO BID [facility] Last Admin: 04/15/17 09:53 Dose: 25 mg Methylprednisolone Sodium Succinate (Solu-Medrol -) 40 mg IVPB BID [facility] Last Admin: 04/15/17 09:48 Dose: 40 mg Metoprolol Tartrate (Lopressor -) 50 mg PO BID [facility] Last Admin: 04/15/17 09:48 Dose: 50 mg Pantoprazole Sodium (Protonix -) 20 mg PO DAILY [facility] Last Admin: 04/15/17 09:48 Dose: 20 mg Quinapril HCl (Accupril -) 40 mg PO BID [facility] Last Admin: 04/15/17 09:49 Dose: 40 mg Rivaroxaban (Xarelto -) 20 mg PO DAILY [facility] Last Admin: 04/15/17 09:50 Dose: 20 mg Fluticasone/Salmeterol (Advair 100mcg/50mcg -) 1 puff IH BID [facility] Last Admin: 04/15/17 09:48 Dose: 1 puff Sodium Chloride (Sodium Chloride Tablet -) 0.5 gm PO TID [facility] Last Admin: 04/15/17 06:13 Dose: 0.5 gm Timolol Maleate (Timoptic 0.5%) 1 drop OU AM [facility] Last Admin: 04/15/17 06:13 Dose: 1 drop Tiotropium [place] (Spiriva -) 1 puff IH DAILY [facility] Last Admin: 04/15/17 09:52 Dose: 1 puff A/P Acute COPD Exacerbation Hyponatremia Atrial Fibrillation LV Diastolic Dysfunction CAD - will change steroids to PO prednisone 40mg daily, taper by 10mg q3 days until off - inhaled bronchodilators - O2 as needed - rate controlled - continue anticoagulation - will need PFTs as outpt - can discharge home from pulmonary standpoint but may need f/u for hyponatremia
--- NOTE | 2017-04-15 14:06 | PN ---
Physical Exam: SUBJECTIVE: Patient seen and examined. Feels well. Admits to drinking too much tea today and not restricting her fluids. OBJECTIVE: Vital Signs Period Temp Pulse Resp BP Sys/[place] Pulse Ox Last 24 Hr 97.5 F-98.3 F 65-75 18-20 119-157/58-75 95-95 GENERAL: The patient is awake, alert, and fully oriented, in no acute distress. HEAD: Normal with no signs of trauma. LUNGS: Breath sounds equal, clear to auscultation bilaterally, no wheezes, no crackles, no accessory muscle use. HEART: Regular rate and rhythm, S1, S2 without murmur, rub or gallop. ABDOMEN: Soft, nontender, nondistended, normoactive bowel sounds, no guarding, no rebound EXTREMITIES: 2+ pulses, warm, well-perfused, no edema. NEUROLOGICAL: Cranial nerves II through XII grossly intact. Normal speech, gait not observed. Laboratory Results - last 24 hr 04/15/17 04/15/17 07:35 07:35 WBC 9.9 RBC 3.95 Hgb 12.7 Hct 37.3 MCV 94.4 MCH 32.0 MCHC 33.9 RDW 14.3 Plt Count 238 MPV 7.8 Neutrophils % 72.7 Lymphocytes % 15.3 D Monocytes % 11.5 H Eosinophils % 0.3 D Basophils % 0.2 Sodium 129 L Potassium 4.7 Chloride 88 L Carbon Dioxide 35 H Anion Gap 6 L BUN 20 H D Creatinine 0.5 L Creat Clearance w eGFR > 60 Random Glucose 93 D Calcium 8.8 Total Bilirubin 0.7 D AST 25 ALT 28 Alkaline Phosphatase 77 Total Protein 6.1 L Albumin 3.3 L Active Medications Generic Name Dose Route Start Last Admin Trade Name Freq PRN Reason Stop Dose Admin Acetaminophen 650 mg 04/12/17 20:37 Tylenol - PO Q4H PRN FEVER OR PAIN Acetaminophen/Butalbital/Caffeine 1 tablet 04/13/17 07:51 04/15/17 13:31 Fioricet - PO 1 tablet Q4H PRN Administration HEADACHE Albuterol Sulfate 2 puff 04/12/17 20:36 Ventolin Hfa Inhaler - IH QID PRN ASTHMA Albuterol Sulfate 1 amp 04/12/17 21:01 Ventolin 0.083% Nebulizer Soln - NEB Q2H PRN SHORT OF BREATH/WHEEZING Alprazolam 0.25 mg 04/12/17 18:46 04/15/17 13:31 Xanax - PO 0.25 mg Q4H PRN Administration ANXIETY Azithromycin 500 mg 04/12/17 20:45 04/15/17 09:50 Zithromax - PO 500 mg DAILY CHARMAINE Administration Dofetilide 0.5 mg 04/12/17 22:00 04/15/17 09:51 Tikosyn (Restricted To Cardiology) - PO 0.5 mg BID CHARMAINE Administration Eplerenone 25 mg 04/12/17 22:00 04/15/17 09:53 Eplerenone PO 25 mg BID CHARMAINE Administration Methylprednisolone Sodium Succinate 40 mg 04/14/17 22:00 04/15/17 09:48 Solu-Medrol - IVPB 40 mg BID CHARMAINE Administration Metoprolol Tartrate 50 mg 04/12/17 22:00 04/15/17 09:48 Lopressor - PO 50 mg BID CHARMAINE Administration Pantoprazole Sodium 20 mg 04/13/17 11:00 04/15/17 09:48 Protonix - PO 20 mg DAILY CHARMAINE Administration Quinapril HCl 40 mg 04/12/17 22:00 04/15/17 09:49 Accupril - PO 40 mg BID CHARMAINE Administration Rivaroxaban 20 mg 04/13/17 10:00 04/15/17 09:50 Xarelto - PO 20 mg DAILY CHARMAINE Administration Fluticasone/Salmeterol 1 puff 04/13/17 13:45 04/15/17 09:48 Advair 100mcg/50mcg - IH 1 puff BID CHARMAINE Administration Sodium Chloride 0.5 gm 04/12/17 22:00 04/15/17 13:32 Sodium Chloride Tablet - PO 0.5 gm TID CHARMAINE Administration Timolol Maleate 1 drop 04/13/17 20:40 04/15/17 06:13 Timoptic 0.5% OU 1 drop AM CHARMAINE Administration Tiotropium [place] 1 puff 04/13/17 13:00 04/15/17 09:52 Spiriva - IH 1 puff DAILY CHARMAINE Administration ASSESSMENT/PLAN 81 year-old female with a PMH of HTN,HLD, CAD, afib, diastolic heart failure, COPD on home O2, hyponatremia secondary to SIADH, hypothyroidism, and anxiety. Admitted for COPD exacerbation and hyponatremia. Acute on chronic COPD --Solumedrol decreased to BID; if continues to improve, can change medrol to prednisone 40mg daily and taper as outpatient --continue inhaled bronchodilators, nebs --finish 5 day course azithromycin (04/16 last dose) Chronic diastolic/systolic heart dysfunction --continue lopressor, eplerone Paroxysmal afib with periods of RVR --continue lopressor, dofetilide --continue Xarelto Hyponatremia secondary to SIADH --Na 129 --continue sodium tabs --reinforced fluid restriction with patient Hypertension --continue lopressor, quinapril, eplerone Hyperlipidemia --not on statin at home Coronary artery disease --continue lopressor, quinapril Hypothyroidism --TSH wnl --on mo meds Anxiety --continue Xanax DVT prophylaxis: on Xarelto Visit type - Emergency Visit Emergency Visit: Yes ED Registration Date: 04/13/17 Care time: The patient presented to the Emergency Department on the above date and was hospitalized for further evaluation of their emergent condition. - New Patient This patient is new to me today: Yes Date on this admission: 04/15/17 - Critical Care Critical Care patient: No
--- NOTE | 2017-04-15 14:47 | PN ---
Progress Note, Physician History of Present Illness: Dyspnea improving, denies cough or wheezing. - Current Medication List Current Medications: Active Medications Acetaminophen (Tylenol -) 650 mg PO Q4H PRN PRN Reason: FEVER OR PAIN Acetaminophen/Butalbital/Caffeine (Fioricet -) 1 tablet PO Q4H PRN PRN Reason: HEADACHE Last Admin: 04/15/17 13:31 Dose: 1 tablet Albuterol Sulfate (Ventolin Hfa Inhaler -) 2 puff IH QID PRN PRN Reason: ASTHMA Albuterol Sulfate (Ventolin 0.083% Nebulizer Soln -) 1 amp NEB Q2H PRN PRN Reason: SHORT OF BREATH/WHEEZING Alprazolam (Xanax -) 0.25 mg PO Q4H PRN PRN Reason: ANXIETY Last Admin: 04/15/17 13:31 Dose: 0.25 mg Azithromycin (Zithromax -) 500 mg PO DAILY [facility] Last Admin: 04/15/17 09:50 Dose: 500 mg Dofetilide (Tikosyn (Restricted To Cardiology) -) 0.5 mg PO BID [facility] Last Admin: 04/15/17 09:51 Dose: 0.5 mg Eplerenone (Eplerenone) 25 mg PO BID [facility] Last Admin: 04/15/17 09:53 Dose: 25 mg Methylprednisolone Sodium Succinate (Solu-Medrol -) 40 mg IVPB BID [facility] Last Admin: 04/15/17 09:48 Dose: 40 mg Metoprolol Tartrate (Lopressor -) 50 mg PO BID [facility] Last Admin: 04/15/17 09:48 Dose: 50 mg Pantoprazole Sodium (Protonix -) 20 mg PO DAILY [facility] Last Admin: 04/15/17 09:48 Dose: 20 mg Quinapril HCl (Accupril -) 40 mg PO BID [facility] Last Admin: 04/15/17 09:49 Dose: 40 mg Rivaroxaban (Xarelto -) 20 mg PO DAILY [facility] Last Admin: 04/15/17 09:50 Dose: 20 mg Fluticasone/Salmeterol (Advair 100mcg/50mcg -) 1 puff IH BID [facility] Last Admin: 04/15/17 09:48 Dose: 1 puff Sodium Chloride (Sodium Chloride Tablet -) 0.5 gm PO TID [facility] Last Admin: 04/15/17 13:32 Dose: 0.5 gm Timolol Maleate (Timoptic 0.5%) 1 drop OU AM [facility] Last Admin: 04/15/17 06:13 Dose: 1 drop Tiotropium [place] (Spiriva -) 1 puff IH DAILY [facility] Last Admin: 04/15/17 09:52 Dose: 1 puff - Objective Vital Signs: Vital Signs Temperature 97.8 F 04/15/17 08:45 Pulse Rate 66 04/15/17 08:45 Respiratory Rate 20 04/15/17 08:45 Blood Pressure 157/59 04/15/17 08:45 O2 Sat by Pulse Oximetry (%) 95 04/15/17 08:00 Constitutional: Yes: No Distress, Calm Neck: Yes: Supple Cardiovascular: Yes: Regular Rate and Rhythm Respiratory: Yes: Regular, Diminished Gastrointestinal: Yes: Normal Bowel Sounds, Soft Edema: No Labs: CBC, BMP 04/15/17 07:35 04/15/17 07:35 Problem List - Problems (1) Hyponatremia Code(s): E87.1 - HYPO-OSMOLALITY AND HYPONATREMIA (2) Atrial fibrillation Code(s): I48.91 - UNSPECIFIED ATRIAL FIBRILLATION Qualifiers: Atrial fibrillation type: paroxysmal Qualified Code(s): I48.0 - Paroxysmal atrial fibrillation (3) COPD (chronic obstructive pulmonary disease) Code(s): J44.9 - CHRONIC OBSTRUCTIVE PULMONARY DISEASE, UNSPECIFIED Qualifiers : COPD type: COPD with acute exacerbation Qualified Code(s): J44.1 - Chronic obstructive pulmonary disease with (acute) exacerbation (4) Coronary artery disease Code(s): I25.10 - ATHSCL HEART DISEASE OF [place] CORONARY ARTERY W/O ANG PCTRS Qualifiers: Coronary Disease-Associated Artery/Lesion type: [place] artery [place] vs. transplanted heart: [place] heart Associated angina: without angina Qualified Code(s): I25.10 - Atherosclerotic heart disease of [place] coronary artery without angina pectoris (5) Diastolic dysfunction without heart failure Code(s): I51.9 - HEART DISEASE, UNSPECIFIED (6) Edema extremities Code(s): R60.0 - LOCALIZED EDEMA (7) Hypertensive cardiovascular disease Code(s): I11.9 - HYPERTENSIVE HEART DISEASE WITHOUT HEART FAILURE Qualifiers: Heart failure presence: without heart failure Qualified Code(s): I11.9 - Hypertensive heart disease without heart failure (8) Pulmonary hypertension Code(s): I27.2 - OTHER SECONDARY PULMONARY HYPERTENSION Assessment/Plan 10/07/2015 Echo: Normal LV size and fxn, mild-mod MR, mod TR, mod pulm HTN, RVSP 53 mmHg 11/09/2016 Normal LV size with mild-mod decreased (global HK), biatrial enlargement, mild mitral valve prolapse, mod MR, mod-severe TR RVSP 51 mmHg 05/16/2016 Lexiscan MPI: Small anteroapical mild ischemia, normal LV fxn 1. Acute Exacerbation of COPD improving 2. Paroxysmal atrial fibrillation with periods of rapid ventricular response [id number] score of 5, (prior cardioversions) 3. Chronic LV diastolic/systolic dysfunction 4. CAD angina pectoris 5. HTN 6. Pulmonary HTN (moderate) 7. Acute on Chronic Hyponatremia in setting of SIADH PLAN: 1. BD, oral steroid taper with GI protection, empiric abx, O2 to maintain saO2> 90%, compression therapy of legs 2. Continue Lopressor 50 bid, Accupril 40 bid, Xarelto 20 qd, Eplerenone 25 bid , Tikosyn 500 bid (QTc 434 msec), hold Lasix for now and monitor sodium levels 3. Eventual pulmonary vein isolation RFA referral for more definitive solution of PAF as outpatient 4. PFTs as outpatient, d/c planning
[2017-04-16] MEDS: ALPRAZolam 0.25 MG TABLET PO PRN ×2 (05:21→09:17)
[2017-04-16] MEDS: SODIUM CHLORIDE 1 GM TABLET PO SCH (05:22)
[2017-04-16] MEDS: ACETAMINOPHEN/CAFFEINE/BUTALBITAL 1 TAB PO PRN (05:22)
[2017-04-16] MEDS: TIMOLOL 0.5% OPHTHALMIC SOL 5 ML BOTTLE OU SCH (06:03)
[2017-04-16 06:16] VITALS: TEMP 97.6
[2017-04-16] MEDS ORDERED: ACETAMINOPHEN/CAFFEINE/BUTALBITAL 1 TAB PO PRN (09:09)
[2017-04-16] MEDS: PANTOPRAZOLE 20 MG TABLET (FP) PO SCH (09:17)
[2017-04-16] MEDS: METOPROLOL TARTRATE 50 MG TABLET (FP) PO SCH (09:17)
[2017-04-16] MEDS: EPLERENONE 25 MG TABLET PO SCH (09:18)
[2017-04-16] MEDS: RIVAROXABAN 20 MG TABLET PO SCH (09:19)
[2017-04-16] MEDS: DOFETILIDE 0.25 MG CAPSULE PO SCH (09:19)
[2017-04-16] MEDS: FLUTICASONE/SALMETEROL 100 MCG/50 MCG DISKUS IH SCH (09:20)
[2017-04-16] MEDS: TIOTROPIUM BROMIDE 18 MCG/INH (DEVICE W/ 5 CAPSULES) IH SCH (09:20)
[2017-04-16] MEDS: QUINAPRIL HCL 40 MG TABLET (FP) PO SCH (09:20)
[2017-04-16] MEDS: methylPREDNISolone NA SUCC 40 MG/1 ML VIAL IVPB SCH (09:20)
[2017-04-16 10:20] LABS: ANION GAP 8 (8-16); CALCIUM 9.1 mg/dL (8.5-10.1); CO2 35 mmol/L (21-32); CREATININE 0.6 mg/dL (0.55-1.02); GLUCOSE,RANDOM 165 mg/dL (74-106)
--- NOTE | 2017-04-16 10:55 | DS ---
Physical Examination Vital Signs: Vital Signs Temperature 36.4 C 04/16/17 06:00 Pulse Rate 68 04/16/17 06:00 Respiratory Rate 18 04/16/17 06:00 Blood Pressure 114/76 04/16/17 06:00 O2 Sat by Pulse Oximetry (%) 96 04/16/17 00:00 Labs: CBC, BMP 04/15/17 07:35 04/16/17 08:50 Discharge Summary Reason For Visit: HYPONATREMIA Current Active Problems Hyponatremia (Chronic) Condition: Good - Instructions Diet, Activity, Other Instructions: resume previous diet and activity. begin prednisone and spiriva on 04/17 Referrals: Eddie Guy MD [Staff Physician] - Renny Molina MD [Primary Care Provider] - Disposition: HOME - Home Medications Comprehensive Discharge Medication List: Ambulatory Orders Acetaminophen/Caffeine/Butalb [Fioricet -] 1 tab PO Q4H PRN 02/10/16 Albuterol Sulfate Inhaler - [Ventolin HFA Inhaler -] 1 - 2 inh PO QID PRN Alprazolam [Xanax] 0.25 mg PO QID PRN 02/10/16 Dofetilide [Tikosyn] 500 mcg PO BID 02/10/16 Eplerenone 25 mg PO BID 02/10/16 Furosemide [Lasix -] 40 mg PO DAILY 02/10/16 Metoprolol Tartrate [Lopressor -] 50 mg PO BID 02/10/16 Quinapril HCl [Accupril -] 40 mg PO BID 02/10/16 Rivaroxaban [Xarelto -] 20 mg PO DAILY 02/10/16 Sodium Chloride Tablet - 452 mg PO TID 02/10/16 Timolol 0.5% [Timoptic 0.5%] 1 drop OD AM 04/12/17 Prednisone [Deltasone -] 5 mg PO ASDIR #32 tab 04/16/17 Salmeterol/Fluticasone [Advair 100Mcg/50Mcg -] 1 puff IH BID #1 inhaler Tiotropium [place] [Spiriva] 1 puff IH DAILY #1 inh 04/16/17
--- NOTE | 2017-04-16 11:42 | PN ---
Progress Note, Physician History of Present Illness: Dyspnea improving, denies cough or wheezing. - Current Medication List Current Medications: Active Medications Acetaminophen (Tylenol -) 650 mg PO Q4H PRN PRN Reason: FEVER OR PAIN Acetaminophen/Butalbital/Caffeine (Fioricet -) 1 tablet PO Q4H PRN PRN Reason: FEVER OR PAIN Last Admin: 04/16/17 09:16 Dose: 1 tablet Albuterol Sulfate (Ventolin Hfa Inhaler -) 2 puff IH QID PRN PRN Reason: ASTHMA Albuterol Sulfate (Ventolin 0.083% Nebulizer Soln -) 1 amp NEB Q2H PRN PRN Reason: SHORT OF BREATH/WHEEZING Alprazolam (Xanax -) 0.25 mg PO Q4H PRN PRN Reason: ANXIETY Last Admin: 04/16/17 09:17 Dose: 0.25 mg Dofetilide (Tikosyn (Restricted To Cardiology) -) 0.5 mg PO BID [facility] Last Admin: 04/16/17 09:19 Dose: 0.5 mg Eplerenone (Eplerenone) 25 mg PO BID [facility] Last Admin: 04/16/17 09:18 Dose: 25 mg Methylprednisolone Sodium Succinate (Solu-Medrol -) 40 mg IVPB BID [facility] Last Admin: 04/16/17 09:20 Dose: 40 mg Metoprolol Tartrate (Lopressor -) 50 mg PO BID [facility] Last Admin: 04/16/17 09:17 Dose: 50 mg Pantoprazole Sodium (Protonix -) 20 mg PO DAILY [facility] Last Admin: 04/16/17 09:17 Dose: 20 mg Quinapril HCl (Accupril -) 40 mg PO BID [facility] Last Admin: 04/16/17 09:20 Dose: 40 mg Rivaroxaban (Xarelto -) 20 mg PO DAILY [facility] Last Admin: 04/16/17 09:19 Dose: 20 mg Fluticasone/Salmeterol (Advair 100mcg/50mcg -) 1 puff IH BID [facility] Last Admin: 04/16/17 09:20 Dose: 1 puff Sodium Chloride (Sodium Chloride Tablet -) 0.5 gm PO TID [facility] Last Admin: 04/16/17 05:22 Dose: 0.5 gm Timolol Maleate (Timoptic 0.5%) 1 drop OU AM [facility] Last Admin: 04/16/17 06:03 Dose: 1 drop Tiotropium [place] (Spiriva -) 1 puff IH DAILY [facility] Last Admin: 04/16/17 09:20 Dose: 1 puff - Objective Vital Signs: Vital Signs Temperature 97.6 F 04/16/17 06:00 Pulse Rate 68 04/16/17 06:00 Respiratory Rate 18 04/16/17 06:00 Blood Pressure 114/76 04/16/17 06:00 O2 Sat by Pulse Oximetry (%) 96 04/16/17 00:00 Constitutional: Yes: No Distress, Calm, Thin Neck: Yes: Supple Cardiovascular: Yes: Regular Rate and Rhythm Respiratory: Yes: Regular, Diminished, On Nasal O2 Gastrointestinal: Yes: Normal Bowel Sounds, Soft Edema: No Labs: CBC, BMP 04/15/17 07:35 04/16/17 08:50 Problem List - Problems (1) Hyponatremia Code(s): E87.1 - HYPO-OSMOLALITY AND HYPONATREMIA (2) Atrial fibrillation Code(s): I48.91 - UNSPECIFIED ATRIAL FIBRILLATION Qualifiers: Atrial fibrillation type: paroxysmal Qualified Code(s): I48.0 - Paroxysmal atrial fibrillation (3) COPD (chronic obstructive pulmonary disease) Code(s): J44.9 - CHRONIC OBSTRUCTIVE PULMONARY DISEASE, UNSPECIFIED Qualifiers : COPD type: COPD with acute exacerbation Qualified Code(s): J44.1 - Chronic obstructive pulmonary disease with (acute) exacerbation (4) Coronary artery disease Code(s): I25.10 - ATHSCL HEART DISEASE OF [place] CORONARY ARTERY W/O ANG PCTRS Qualifiers: Coronary Disease-Associated Artery/Lesion type: [place] artery [place] vs. transplanted heart: [place] heart Associated angina: without angina Qualified Code(s): I25.10 - Atherosclerotic heart disease of [place] coronary artery without angina pectoris (5) Diastolic dysfunction without heart failure Code(s): I51.9 - HEART DISEASE, UNSPECIFIED (6) Edema extremities Code(s): R60.0 - LOCALIZED EDEMA (7) Hypertensive cardiovascular disease Code(s): I11.9 - HYPERTENSIVE HEART DISEASE WITHOUT HEART FAILURE Qualifiers: Heart failure presence: without heart failure Qualified Code(s): I11.9 - Hypertensive heart disease without heart failure (8) Pulmonary hypertension Code(s): I27.2 - OTHER SECONDARY PULMONARY HYPERTENSION Assessment/Plan 10/07/2015 Echo: Normal LV size and fxn, mild-mod MR, mod TR, mod pulm HTN, RVSP 53 mmHg 11/09/2016 Normal LV size with mild-mod decreased (global HK), biatrial enlargement, mild mitral valve prolapse, mod MR, mod-severe TR RVSP 51 mmHg 05/16/2016 Lexiscan MPI: Small anteroapical mild ischemia, normal LV fxn 1. Acute Exacerbation of COPD improving 2. Paroxysmal atrial fibrillation with periods of rapid ventricular response [id number] score of 5, (prior cardioversions) 3. Chronic LV diastolic/systolic dysfunction 4. CAD angina pectoris 5. HTN 6. Pulmonary HTN (moderate) 7. Acute on Chronic Hyponatremia in setting of SIADH PLAN: 1. BD, oral steroid taper with GI protection, empiric abx, O2 to maintain saO2> 90%, compression therapy of legs 2. Continue Lopressor 50 bid, Accupril 40 bid, Xarelto 20 qd, Eplerenone 25 bid , Tikosyn 500 bid (QTc 434 msec), hold Lasix for now and monitor sodium levels 3. Eventual pulmonary vein isolation RFA referral for more definitive solution of PAF as outpatient 4. PFTs as outpatient, d/c planning
[2017-04-16 12:43] VITALS: BP 162/91; PULSE 71
[2017-04-17] MEDS ORDERED: predniSONE 20 MG TABLET (UD) PO SCH (10:00)
== END 2017-04-16 12:20 | disposition home health service (06) | DRG 644 ==
LOC: JER 11:41 → JERBED 18:08 → J6S 21:47 → OBSVTOIN 04-13 13:50
PROVIDERS: ADMIT Internal Medicine; ATTEND Internal Medicine
DX: E22.2 Syndrome of inappropriate secretion of antidiuretic hormone (principal); J44.1 Chronic obstructive pulmonary disease with (acute) exacerbation; I25.110 Atherosclerotic heart disease of native coronary artery with unstable angina pectoris; I50.32 Chronic diastolic (congestive) heart failure; G43.809 Other migraine, not intractable, without status migrainosus; F41.8 Other specified anxiety disorders; I48.0 Paroxysmal atrial fibrillation; E78.5 Hyperlipidemia, unspecified; I08.1 Rheumatic disorders of both mitral and tricuspid valves; I27.2 Other secondary pulmonary hypertension; M54.5 Low back pain; E03.9 Hypothyroidism, unspecified; R60.0 Localized edema; E87.8 Other disorders of electrolyte and fluid balance, not elsewhere classified; M19.90 Unspecified osteoarthritis, unspecified site; I11.0 Hypertensive heart disease with heart failure; Z87.891 Personal history of nicotine dependence; Z99.81 Dependence on supplemental oxygen; Z79.01 Long term (current) use of anticoagulants
CPT/HCPCS: 36415; 71010-TC; 80048; 80053; 81003; 81015; 83735; 83880; 84100; 84443; 84484; 85025; 93005; 93010; 99283-25; G0378

== ENCOUNTER 2018-02-28 06:57 | Day surgery (SDC) | payer OTHER, BC ==
[2018-02-26 15:22] VITALS: BMI 22.9
[2018-02-28] MEDS ORDERED: ePHEDrine SULFATE 50 MG/1 ML AMPULE ONE (08:07)
[2018-02-28] MEDS ORDERED: PROPOFOL 20 ML ONE ×4 (08:07→08:08)
[2018-02-28 09:10] VITALS: TEMP 97.7
[2018-02-28 09:47] VITALS: BP 108/63; PULSE 61
--- NOTE | 2018-02-28 11:25 | EKG ---
Test Reason : Blood Pressure : / mmHG Vent. Rate : 062 BPM Atrial Rate : 062 BPM P-R Int : 144 ms QRS Dur : 088 ms QT Int : 428 ms P-R-T Axes : 082 048 054 degrees QTc Int : 434 ms NORMAL SINUS RHYTHM POSSIBLE LEFT ATRIAL ENLARGEMENT BORDERLINE ECG WHEN COMPARED WITH ECG OF 12-APR-2017 11:51, NO SIGNIFICANT CHANGE WAS FOUND Confirmed by SURAJ ANDRES MD ([id number]) on 02/28/2018 11:25:35 AM Referred By: Confirmed By:SURAJ ANDRES MD
== END 2018-02-28 10:07 | disposition home or self-care (01) ==
LOC: JASU-ENDO 06:57
PROVIDERS: ATTEND Internal Medicine
PROC: 5A2204Z Restoration of Cardiac Rhythm, Single (ICD-10-PCS; 2018-02-28)
PROC: B246ZZ4 Ultrasonography of Right and Left Heart, Transesophageal (ICD-10-PCS; principal; 2018-02-28 08:00)
DX: I48.91 Unspecified atrial fibrillation (principal)
CPT/HCPCS: 92960; 93005; 93010; 93312

== ENCOUNTER 2018-04-23 09:55 | Inpatient (IN) | payer OTHER, BC ==
--- NOTE | 2018-04-23 16:47 | HP ---
Admitting History and Physical - Primary Care Physician PCP: Renny Molina - Admission Chief Complaint: med adjustment History of Present Illness: Ms. Hoffman is an 82 year old female with pmh of HTN, CHF, CAD, Mitral/ tricuspid regugitation, COPD, pulmonary htn(moderate), hyponatremia related to SIADH, Anxiety, Afib s/p multiple failed cardioversions (06/17/12, 10/28/13, , 02/11/16. 12/12/16, 02/28/18) on Xarelto, previous failed antiarrhythmic therapy (Sotalol) currently on Tikosyn and Metoprolol. Pt was sent over today for direct admission by Dr. Frank for adjusting medications for afib and siadh. Per outpt records by cardiology, considering to initiate amiodarone and correction of hyponatremia utilizing Samsca/Tolvaptan therapy. Pt reports she feels well, denies any chest pain/discomfort, sob, n/v/d, unilateral weakness, fever/chills, rash, recent medication changes. She has severe non pitting edema of her lower extremities, which she's had for over a year per pt. Otherwise, denies any current complaints. History Source: Patient Limitations to Obtaining History: No Limitations - Past Medical History MOLD HOISTER: Yes: Migraine. No: Alzheimer's Cardiovascular: Yes: AFIB, CAD, CHF (diastolic), HTN, Hyperlipdemia, Mitral Insufficiency, Pulmonary Hypertension, Other Pulmonary: Yes: COPD (former smoker) Renal/: Yes: Other (hyponatremia due to SIADH) Psych: Yes: Anxiety Musculoskeletal: Yes: Chronic low back pain, Osteoarthritis Endocrine: Yes: Hypothyroidism (borderline), SIADH - Past Surgical History Past Surgical History: Yes: Cataract Removal, , Hernia Repair, Appendectomy, Tonsillectomy - Smoking History Smoking history: Former smoker Have you smoked in the past 12 months: No Aproximately how many cigarettes per day: 0 If you are a former smoker, when did you quit?: 15 years ago - Alcohol/Substance Use Hx Alcohol Use: No History of Substance Use: reports: None - Social History Usual Living Arrangement: Yes: With Spouse ADL: Independent History of Recent Travel: No Home Medications - Allergies Allergies/Adverse Reactions: Allergies Allergy/AdvReac Type Severity Reaction Status Date / Time lidocaine Allergy Verified 02/26/18 15:03 Penicillins AdvReac Verified 04/12/17 11:47 - Home Medications Home Medications: Ambulatory Orders Acetaminophen/Caffeine/Butalb [Fioricet -] 1 tab PO Q4H PRN 02/10/16 Albuterol Sulfate Inhaler - [Ventolin HFA Inhaler -] 1 - 2 inh PO QID PRN Alprazolam [Xanax] 0.25 mg PO QID PRN 02/10/16 Dofetilide [Tikosyn] 500 mcg PO BID 02/10/16 Eplerenone 25 mg PO DAILY 02/10/16 Furosemide [Lasix -] 40 mg PO DAILY 02/10/16 Metoprolol Tartrate [Lopressor -] 100 mg PO TID 02/10/16 Quinapril HCl [Accupril -] 40 mg PO BID 02/10/16 Rivaroxaban [Xarelto -] 20 mg PO DAILY 02/10/16 Sodium Chloride Tablet - 452 mg PO TID 02/10/16 Salmeterol/Fluticasone [Advair 100Mcg/50Mcg -] 1 puff IH BID #1 inhaler Tiotropium [place] [Spiriva] 1 puff IH DAILY #1 inh 04/16/17 L.acidoph,Paracasei, B.lactis [Probiotic] 1 each PO DAILY 02/26/18 Fred-3/Dha/Epa/Fish Oil [Fred-3 EC Softgel] 1 each PO DAILY 02/26/18 Travoprost [Travatan Z] 2.5 ml OU DAILY 02/28/18 Family Disease History - Family Disease History Family Disease History: Heart Disease: Mother, CA: Father Review of Systems Findings/Remarks: as per hpi Physical Examination Vital Signs: Vital Signs Temperature 97.7 F 04/23/18 15:55 Pulse Rate 118 H 04/23/18 15:55 Respiratory Rate 22 04/23/18 15:55 Blood Pressure 118/70 04/23/18 15:55 O2 Sat by Pulse Oximetry (%) Constitutional: Yes: Well Nourished, No Distress, Calm Cardiovascular: Yes: Pulse Irregular, Murmur Respiratory: Yes: Regular, CTA Bilaterally. No: Accessory Muscle Use, Rales, SOB, Tachypnea, Wheezes Gastrointestinal: Yes: WNL, Normal Bowel Sounds, Soft. No: Distention, Tenderness Renal/: Yes: WNL Musculoskeletal: Yes: WNL Edema: Yes (severe, non pitting ) Integumentary: Yes: WNL Neurological: Yes: WNL, Alert, Oriented Psychiatric: Yes: WNL, Alert, Oriented Imaging - Results Chest X-ray: Report Reviewed Problem List - Problems (1) SIADH (syndrome of inappropriate ADH production) Assessment/Plan: presents w/ chronic hyponatremia, severe b/l LE edema continue lasix serum osm low/urine osm pending plan to start Samsca per cardiology nephrology consulted monitor (2) Hyponatremia Assessment/Plan: hypervolemic hypotonic hyponatremia 2/2 SIADH pt asymptomatic continue Na tablets nephrology following as above Code(s): E87.1 - HYPO-OSMOLALITY AND HYPONATREMIA (3) Edema extremities Assessment/Plan: chronic continue lasix Code(s): R60.0 - LOCALIZED EDEMA (4) CAD (coronary artery disease) Assessment/Plan: no acute ACS cardiology following Code(s): I25.10 - ATHSCL HEART DISEASE OF [place] CORONARY ARTERY W/O ANG PCTRS Qualifiers: [place] vs. transplanted heart: [place] heart (5) CHF (congestive heart failure) Assessment/Plan: stable continue lasix, eplerenone O2 prn Code(s): I50.9 - HEART FAILURE, UNSPECIFIED Qualifiers: Heart failure type: combined systolic and diastolic Heart failure chronicity: chronic Qualified Code(s): I50.42 - Chronic combined systolic ( congestive) and diastolic (congestive) heart failure (6) Afib Assessment/Plan: [id number] 5 Anticoagulated on xarelto rate control- metoprolol, tokosyn cardiology following Code(s): I48.91 - UNSPECIFIED ATRIAL FIBRILLATION Qualifiers: Atrial fibrillation type: paroxysmal Qualified Code(s): I48.0 - Paroxysmal atrial fibrillation (7) COPD (chronic obstructive pulmonary disease) Assessment/Plan: stable continue inhalers O2 prn monitor Code(s): J44.9 - CHRONIC OBSTRUCTIVE PULMONARY DISEASE, UNSPECIFIED (8) Anxiety Assessment/Plan: controlled xanax prn Code(s): F41.9 - ANXIETY DISORDER, UNSPECIFIED (9) Pulmonary hypertension Assessment/Plan: chronic followed by cardiology Code(s): I27.2 - OTHER SECONDARY PULMONARY HYPERTENSION * DO NOT USE * (10) Tricuspid valve insufficiency Assessment/Plan: moderate in severity cardiology following monitor Code(s): I07.1 - RHEUMATIC TRICUSPID INSUFFICIENCY Qualifiers: Cardiac valve disease etiology: nonrheumatic Qualified Code(s): I36.1 - Nonrheumatic tricuspid (valve) insufficiency (11) Hypertension Assessment/Plan: controlled continue current management Code(s): I10 - ESSENTIAL (PRIMARY) HYPERTENSION Qualifiers: Hypertension type: essential hypertension Qualified Code(s): I10 - Essential (primary) hypertension (12) Degenerative disc disease Assessment/Plan: chronic ambulate as tolerated Code(s): [id number] - Qualifiers: Spinal region: lumbosacral Qualified Code(s): M51.37 - Other intervertebral disc degeneration, lumbosacral region (13) Migraine Assessment/Plan: chronic fiorecet prn Code(s): G43.909 - MIGRAINE, UNSP, NOT INTRACTABLE, WITHOUT STATUS MIGRAINOSUS
[2018-04-23] MEDS ORDERED: ALPRAZolam 0.25 MG TABLET PO PRN (16:49)
[2018-04-23] MEDS ORDERED: ALBUTEROL SO4 8 GM HFA INHALER IH PRN (16:49)
[2018-04-23] MEDS: ACETAMINOPHEN/CAFFEINE/BUTALBITAL 1 TAB PO PRN ×2 (17:41→21:42)
[2018-04-23] MEDS: RIVAROXABAN 20 MG TABLET PO SCH (17:52)
[2018-04-23] MEDS ORDERED: SODIUM CHLORIDE 1 GM TABLET PO ONE (18:45)
[2018-04-23 19:54] LABS: BASO % 0.5 % (0-2.0); EOS % 2.9 % (0-4.5); HEMATOCRIT 39.6 % (32.4-45.2); HEMOGLOBIN 13.5 GM/dL (10.7-15.3); LYMPH % 23.3 % (8-40); MCH 31.8 pg (25.7-33.7); MCHC 34.1 g/dl (32.0-36.0); MEAN CELL VOLUME 93.4 fl (80-96); MEAN PLT VOLUME 7.7 fl (7.5-11.1); NEUT % 57.3 % (42.8-82.8); PLATELET COUNT 235 K/MM3 (134-434); RBC 4.24 M/mm3 (3.60-5.2); RDW 14.6 % (11.6-15.6); WHITE BLOOD COUNT 6.4 K/mm3 (4.0-10.0)
[2018-04-23 20:08] LABS: INR 1.16 (0.83-1.09); PROTHROMBIN TIME (PATIENT) 13.1 SEC (9.7-13.0)
[2018-04-23 20:20] LABS: PHOSPHOROUS 2.9 mg/dL (2.5-4.9)
[2018-04-23 20:28] LABS: N-TERMINAL BNP 1703.79 pg/ml (5-450)
[2018-04-23 20:29] LABS: ALBUMIN 3.4 g/dl (3.4-5.0); ALK PHOS 77 U/L (45-117); ANION GAP 7 MMOL/L (8-16); BILIRUBIN,TOTAL 0.4 mg/dL (0.2-1.0); BLOOD UREA NITROGEN 17 mg/dL (7-18); CALCIUM 8.7 mg/dL (8.5-10.1); CHLORIDE 88 mmol/L (98-107); CO2 32 mmol/L (21-32); CREATININE 0.7 mg/dL (0.55-1.02); GLUCOSE,RANDOM 132 mg/dL (74-106); POTASSIUM 4.2 mmol/L (3.5-5.1); SGOT/AST 29 U/L (15-37); SGPT/ALT 48 U/L (12-78); SODIUM 127 mmol/L (136-145)
[2018-04-23] MEDS ORDERED: QUINAPRIL HCL 20 MG TABLET (FP) ONE (21:28)
[2018-04-23] MEDS: QUINAPRIL HCL 40 MG TABLET (FP) PO SCH (21:33)
[2018-04-23] MEDS: METOPROLOL TARTRATE 50 MG TABLET (FP) PO SCH (21:34)
[2018-04-23] MEDS: FLUTICASONE/SALMETEROL 100 MCG/50 MCG DISKUS IH SCH (21:34)
[2018-04-23] MEDS: DOFETILIDE 0.125 MG CAPSULE PO SCH (21:35)
[2018-04-23] MEDS: LATANOPROST 0.005% OPHTH SOLN 2.5ML BOTTLE OU SCH (21:36)
[2018-04-23] MEDS: ALPRAZolam 0.25 MG TABLET PO PRN (21:42)
[2018-04-23] MEDS ORDERED: SODIUM CHLORIDE 1 GM TABLET PO SCH (22:00)
[2018-04-24] MEDS: ALPRAZolam 0.25 MG TABLET PO PRN ×7 (01:59→23:04)
[2018-04-24] MEDS: ACETAMINOPHEN/CAFFEINE/BUTALBITAL 1 TAB PO PRN ×6 (01:59→23:03)
[2018-04-24] MEDS: METOPROLOL TARTRATE 50 MG TABLET (FP) PO SCH ×3 (06:41→22:43)
[2018-04-24 06:42] LABS: BASO % 0.9 % (0-2.0); EOS % 4.6 % (0-4.5); HEMATOCRIT 40.4 % (32.4-45.2); HEMOGLOBIN 13.7 GM/dL (10.7-15.3); LYMPH % 23.6 % (8-40); MCH 31.6 pg (25.7-33.7); MCHC 33.9 g/dl (32.0-36.0); MEAN CELL VOLUME 93.2 fl (80-96); MEAN PLT VOLUME 7.9 fl (7.5-11.1); NEUT % 53.9 % (42.8-82.8); PLATELET COUNT 207 K/MM3 (134-434); RBC 4.33 M/mm3 (3.60-5.2); RDW 14.4 % (11.6-15.6)
[2018-04-24 07:19] LABS: ANION GAP 6 MMOL/L (8-16); BLOOD UREA NITROGEN 17 mg/dL (7-18); CALCIUM 8.7 mg/dL (8.5-10.1); CHLORIDE 88 mmol/L (98-107); CO2 32 mmol/L (21-32); CREATININE 0.6 mg/dL (0.55-1.02); GLUCOSE,RANDOM 97 mg/dL (74-106); POTASSIUM 4.2 mmol/L (3.5-5.1); SODIUM 126 mmol/L (136-145)
[2018-04-24] MEDS ORDERED: EPLERENONE 25 MG TABLET PO SCH (08:00)
[2018-04-24] MEDS ORDERED: QUINAPRIL HCL 20 MG TABLET (FP) ONE (08:53)
[2018-04-24] MEDS ORDERED: POLYETHYLENE GLYCOL 3350 119 GM BTL PO PRN (09:05)
[2018-04-24] MEDS: QUINAPRIL HCL 40 MG TABLET (FP) PO SCH ×2 (09:16→22:44)
[2018-04-24] MEDS: DOFETILIDE 0.125 MG CAPSULE PO SCH (09:17)
[2018-04-24] MEDS: FUROSEMIDE 40 MG TABLET (FP) PO SCH (09:18)
[2018-04-24] MEDS: FLUTICASONE/SALMETEROL 100 MCG/50 MCG DISKUS IH SCH ×2 (09:21→22:42)
[2018-04-24] MEDS ORDERED: SODIUM CHLORIDE 1 GM TABLET PO SCH (10:00)
[2018-04-24] MEDS ORDERED: TIOTROPIUM BROMIDE 2.5 MCG (SPIRIVA) RESPIMAT INHALER IH SCH (10:00)
--- NOTE | 2018-04-24 10:46 | EKG ---
Test Reason : Blood Pressure : / mmHG Vent. Rate : 103 BPM Atrial Rate : 187 BPM P-R Int : 000 ms QRS Dur : 084 ms QT Int : 348 ms P-R-T Axes : 000 046 001 degrees QTc Int : 455 ms ATRIAL FIBRILLATION WITH RAPID VENTRICULAR RESPONSE ABNORMAL ECG WHEN COMPARED WITH ECG OF 28-FEB-2018 08:42, ATRIAL FIBRILLATION HAS REPLACED SINUS RHYTHM VENT. RATE HAS INCREASED BY 41 BPM NONSPECIFIC T WAVE ABNORMALITY NOW EVIDENT IN INFERIOR LEADS Confirmed by OLIVE LARSEN MD ([id number]) on 04/24/2018 10:46:37 AM Referred By: Confirmed By:OLIVE LARSEN MD
--- NOTE | 2018-04-24 11:35 | PN ---
Progress Note, Physician Chief Complaint: Pt sitting in chair in no acute distress. Inquires regarding plan. Denies any chest pain, sob, n/v/d - Current Medication List Current Medications: Active Medications Acetaminophen/Butalbital/Caffeine (Fioricet -) 1 tablet PO Q4H PRN PRN Reason: HEADACHE Last Admin: 04/24/18 10:48 Dose: 1 tablet Albuterol Sulfate (Ventolin Hfa Inhaler -) 2 puff IH Q6H PRN PRN Reason: ASTHMA Alprazolam (Xanax -) 0.5 mg PO Q4H PRN PRN Reason: ANXIETY Dofetilide (Tikosyn (Restricted To Cardiology) -) 0.5 mg PO BID [facility] Last Admin: 04/24/18 09:17 Dose: 0.5 mg Eplerenone (Eplerenone) 25 mg PO DAILY@0800 [facility] Last Admin: 04/24/18 09:15 Dose: 25 mg Furosemide (Lasix -) 40 mg PO DAILY [facility] Last Admin: 04/24/18 09:18 Dose: 40 mg Latanoprost (Xalatan 0.005% Eye Drops -) 1 drop OU HS [facility] Last Admin: 04/23/18 21:36 Dose: Not Given Metoprolol Tartrate (Lopressor -) 100 mg PO TID [facility] Last Admin: 04/24/18 06:41 Dose: 100 mg Polyethylene Glycol (Miralax (For Daily Use) -) 17 gm PO DAILY PRN PRN Reason: CONSTIPATION Last Admin: 04/24/18 09:20 Dose: 17 gm Quinapril HCl (Accupril -) 40 mg PO BID [facility] Last Admin: 04/24/18 09:16 Dose: 40 mg Rivaroxaban (Xarelto -) 20 mg PO DAILY@1800 [facility] Last Admin: 04/23/18 17:52 Dose: Not Given Fluticasone/Salmeterol (Advair 100mcg/50mcg -) 1 puff IH BID [facility] Last Admin: 04/24/18 09:21 Dose: 1 puff Sodium Chloride (Sodium Chloride Tablet -) 1 gm PO DAILY [facility] Last Admin: 04/24/18 09:15 Dose: 1 gm Tiotropium [place] (Spiriva Respimat) 2 puff IH DAILY [facility] Last Admin: 04/24/18 09:15 Dose: Not Given - Objective Vital Signs: Vital Signs Temperature 97.4 F L 04/24/18 06:00 Pulse Rate 98 H 04/24/18 06:00 Respiratory Rate 20 04/24/18 06:00 Blood Pressure 138/75 04/24/18 06:00 O2 Sat by Pulse Oximetry (%) 99 04/23/18 21:00 Constitutional: Yes: Well Nourished, No Distress, Calm Cardiovascular: Yes: Pulse Irregular, Murmur Respiratory: Yes: WNL, Regular, CTA Bilaterally. No: Rales, Rhonchi, SOB, Tachypnea, Wheezes Gastrointestinal: Yes: WNL, Normal Bowel Sounds, Soft. No: Distention, Tenderness Genitourinary: Yes: WNL Edema: Yes (severe non pitting les ) Integumentary: Yes: WNL Neurological: Yes: WNL, Alert, Oriented Psychiatric: Yes: WNL, Alert, Oriented Labs: CBC, BMP 04/24/18 05:30 04/24/18 05:30 INR, PTT INR 1.16 (0.83-1.09) H 04/23/18 19:00 Problem List - Problems (2) Edema extremities Code(s): R60.0 - LOCALIZED EDEMA (3) CAD (coronary artery disease) Code(s): I25.10 - ATHSCL HEART DISEASE OF [place] CORONARY ARTERY W/O ANG PCTRS Qualifiers: [place] vs. transplanted heart: [place] heart (4) CHF (congestive heart failure) Code(s): I50.9 - HEART FAILURE, UNSPECIFIED Qualifiers: Heart failure type: combined systolic and diastolic Heart failure chronicity: chronic Qualified Code(s): I50.42 - Chronic combined systolic ( congestive) and diastolic (congestive) heart failure (5) Afib Code(s): I48.91 - UNSPECIFIED ATRIAL FIBRILLATION Qualifiers: Atrial fibrillation type: paroxysmal Qualified Code(s): I48.0 - Paroxysmal atrial fibrillation (6) COPD (chronic obstructive pulmonary disease) Code(s): J44.9 - CHRONIC OBSTRUCTIVE PULMONARY DISEASE, UNSPECIFIED Qualifiers: COPD type: unspecified COPD Qualified Code(s): J44.9 - Chronic obstructive pulmonary disease, unspecified (7) Hyponatremia Code(s): E87.1 - HYPO-OSMOLALITY AND HYPONATREMIA (8) Anxiety Code(s): F41.9 - ANXIETY DISORDER, UNSPECIFIED (9) Pulmonary hypertension Code(s): I27.2 - OTHER SECONDARY PULMONARY HYPERTENSION * DO NOT USE * (10) Tricuspid valve insufficiency Code(s): I07.1 - RHEUMATIC TRICUSPID INSUFFICIENCY Qualifiers: Cardiac valve disease etiology: nonrheumatic Qualified Code(s): I36.1 - Nonrheumatic tricuspid (valve) insufficiency (11) Hypertension Code(s): I10 - ESSENTIAL (PRIMARY) HYPERTENSION Qualifiers: Hypertension type: essential hypertension Qualified Code(s): I10 - Essential (primary) hypertension (12) Degenerative disc disease Code(s): [id number] - Qualifiers: Spinal region: lumbosacral Qualified Code(s): M51.37 - Other intervertebral disc degeneration, lumbosacral region (13) Migraine Code(s): G43.909 - MIGRAINE, UNSP, NOT INTRACTABLE, WITHOUT STATUS MIGRAINOSUS Assessment/Plan (1) SIADH (syndrome of inappropriate ADH production) Assessment/Plan: presents w/ chronic hyponatremia, severe b/l LE edema continue lasix serum osm low/urine osm pending nephrology consulted monitor (2) Hyponatremia Assessment/Plan: hypervolemic hypotonic hyponatremia 2/2 SIADH pt asymptomatic d/c salt tabs plan to start samsca tomorrow nephrology following as above Code(s): E87.1 - HYPO-OSMOLALITY AND HYPONATREMIA (3) Edema extremities Assessment/Plan: chronic continue lasix Code(s): R60.0 - LOCALIZED EDEMA (4) CAD (coronary artery disease) Assessment/Plan: no acute ACS cardiology following Code(s): I25.10 - ATHSCL HEART DISEASE OF [place] CORONARY ARTERY W/O ANG PCTRS Qualifiers: [place] vs. transplanted heart: [place] heart (5) CHF (congestive heart failure) Assessment/Plan: stable continue lasix, eplerenone O2 prn Code(s): I50.9 - HEART FAILURE, UNSPECIFIED Qualifiers: Heart failure type: combined systolic and diastolic Heart failure chronicity: chronic Qualified Code(s): I50.42 - Chronic combined systolic ( congestive) and diastolic (congestive) heart failure (6) Afib Assessment/Plan: [id number] 5 Anticoagulated on xarelto rate control- metoprolol, tokosyn cardiology following Code(s): I48.91 - UNSPECIFIED ATRIAL FIBRILLATION Qualifiers: Atrial fibrillation type: paroxysmal Qualified Code(s): I48.0 - Paroxysmal atrial fibrillation (7) COPD (chronic obstructive pulmonary disease) Assessment/Plan: stable continue inhalers O2 prn monitor Code(s): J44.9 - CHRONIC OBSTRUCTIVE PULMONARY DISEASE, UNSPECIFIED (8) Anxiety Assessment/Plan: controlled xanax prn Code(s): F41.9 - ANXIETY DISORDER, UNSPECIFIED (9) Pulmonary hypertension Assessment/Plan: chronic followed by cardiology Code(s): I27.2 - OTHER SECONDARY PULMONARY HYPERTENSION * DO NOT USE * (10) Tricuspid valve insufficiency Assessment/Plan: moderate in severity cardiology following monitor Code(s): I07.1 - RHEUMATIC TRICUSPID INSUFFICIENCY Qualifiers: Cardiac valve disease etiology: nonrheumatic Qualified Code(s): I36.1 - Nonrheumatic tricuspid (valve) insufficiency (11) Hypertension Assessment/Plan: controlled continue current management Code(s): I10 - ESSENTIAL (PRIMARY) HYPERTENSION Qualifiers: Hypertension type: essential hypertension Qualified Code(s): I10 - Essential (primary) hypertension (12) Degenerative disc disease Assessment/Plan: chronic ambulate as tolerated Code(s): [id number] - Qualifiers: Spinal region: lumbosacral Qualified Code(s): M51.37 - Other intervertebral disc degeneration, lumbosacral region (13) Migraine Assessment/Plan: chronic fiorecet prn Code(s): G43.909 - MIGRAINE, UNSP, NOT INTRACTABLE, WITHOUT STATUS MIGRAINOSUS
--- NOTE | 2018-04-24 12:45 | CON.CARD ---
Consult Consult Specialty:: Cardiology Referred by:: Weston Molina MD Reason for Consultation:: PAF with recurrence h/o cardioversion - History of Present Illness Chief Complaint: Weakness and fatigue, LE swelling and heaviness History of Present Illness: Patient is a 82 year old female with underlying history of atrial fibrillation with previous failed antiarrhythmic therapy (Sotalol) currently on Tikosyn, previous history of cardioversion, compliant with chronic anticoagulation, [id number] score of 4, ASHD, angina pectoris, HTN/HCVD, diastolic dysfunction with h/o failure, pulmonary HTN (moderate in severity), hyponatremia related to SIADH, COPD, DJD and anxiety referred to ER for palpitations, dyspnea on exertion, fatigue, exercise intolerance, and worsening lower extremity edema referable to recurrent AF with periods of rapid ventricular response and diastolic failure. She reports fatigue, progressive bilateral LE edema, denies chest pain, orthopnea, near or true syncope, reports medication compliance. - History Source History Provided By: Patient Limitations to Obtaining History: No Limitations - Past Medical History [employer]: Yes: Migraine. No: Alzheimer's Cardio/Vascular: Yes: AFIB, CAD, CHF (diastolic), HTN, Hyperlipdemia, Mitral Insufficiency, Pulmonary Hypertension, Other Pulmonary: Yes: COPD (former smoker) Renal/: Yes: Other (hyponatremia due to SIADH) Psych: Yes: Anxiety Musculoskeletal: Yes: Chronic low back pain, Osteoarthritis Endocrine: Yes: Hypothyroidism (borderline), SIADH - Past Surgical History Past Surgical History: Yes: Cataract Removal, , Hernia Repair, Appendectomy, Tonsillectomy - Alcohol/Substance Use Hx Alcohol Use: No History of Substance Use: reports: None - Smoking History Smoking history: Former smoker Have you smoked in the past 12 months: No Aproximately how many cigarettes per day: 0 If you are a former smoker, when did you quit?: 15 years ago - Social History ADL: Independent History of Recent Travel: No Home Medications - Allergies Allergies/Adverse Reactions: Allergies Allergy/AdvReac Type Severity Reaction Status Date / Time lidocaine Allergy Verified 02/26/18 15:03 Penicillins AdvReac Verified 04/12/17 11:47 - Home Medications Home Medications: Ambulatory Orders Acetaminophen/Caffeine/Butalb [Fioricet -] 1 tab PO Q4H PRN 02/10/16 Albuterol Sulfate Inhaler - [Ventolin HFA Inhaler -] 1 - 2 inh PO QID PRN Alprazolam [Xanax] 0.25 mg PO QID PRN 02/10/16 Dofetilide [Tikosyn] 500 mcg PO BID 02/10/16 Eplerenone 25 mg PO DAILY 02/10/16 Furosemide [Lasix -] 40 mg PO DAILY 02/10/16 Metoprolol Tartrate [Lopressor -] 100 mg PO TID 02/10/16 Quinapril HCl [Accupril -] 40 mg PO BID 02/10/16 Rivaroxaban [Xarelto -] 20 mg PO DAILY 02/10/16 Sodium Chloride Tablet - 452 mg PO TID 02/10/16 Salmeterol/Fluticasone [Advair 100Mcg/50Mcg -] 1 puff IH BID #1 inhaler Tiotropium [place] [Spiriva] 1 puff IH DAILY #1 inh 04/16/17 L.acidoph,Paracasei, B.lactis [Probiotic] 1 each PO DAILY 02/26/18 Glenn-3/Dha/Epa/Fish Oil [Glenn-3 EC Softgel] 1 each PO DAILY 02/26/18 Travoprost [Travatan Z] 2.5 ml OU DAILY 02/28/18 Family Disease History - Family Disease History Family Disease History: Heart Disease: Mother, [place]: Father Review of Systems - Review of Systems Cardiovascular: reports: Edema, Palpitations, Shortness of Breath Respiratory: reports: Exercise Intolerance, Orthopnea Vital Signs: Vital Signs Temperature 97.6 F 04/24/18 07:00 Pulse Rate 95 H 04/24/18 07:00 Respiratory Rate 18 04/24/18 07:00 Blood Pressure 137/87 04/24/18 07:00 O2 Sat by Pulse Oximetry (%) 98 04/24/18 09:00 Constitutional: Yes: No Distress, Calm Neck: Yes: Supple Respiratory: Yes: Regular, Diminished Gastrointestinal: Yes: Normal Bowel Sounds, Soft Cardiovascular: Yes: Pulse Irregular JVD: No Carotid Bruit: No Heart Sounds: Yes: S1, S2 Murmur: Yes: Systolic Murmur, Grade 2 Edema: Yes Edema: LLE: 2+, RLE: 2+ - Other Data Labs, Other Data: CBC, BMP 04/24/18 05:30 04/24/18 05:30 INR, PTT INR 1.16 (0.83-1.09) H 04/23/18 19:00 Troponin, BNP 04/23/18 19:00 B-Natriuretic Peptide 1703.79 H Troponin, BNP 04/23/18 19:00 B-Natriuretic Peptide 1703.79 H Afib @ 103 Imaging - Results Chest X-ray: Report Reviewed (NAD) Problem List - Problems (1) CAD (coronary artery disease) Code(s): I25.10 - ATHSCL HEART DISEASE OF [place] CORONARY ARTERY W/O ANG PCTRS Qualifiers: [place] vs. transplanted heart: [place] heart (2) Acute on chronic diastolic heart failure Code(s): I50.33 - ACUTE ON CHRONIC DIASTOLIC (CONGESTIVE) HEART FAILURE (3) Atrial fibrillation Code(s): I48.91 - UNSPECIFIED ATRIAL FIBRILLATION Qualifiers: Atrial fibrillation type: paroxysmal Qualified Code(s): I48.0 - Paroxysmal atrial fibrillation (4) COPD (chronic obstructive pulmonary disease) Code(s): J44.9 - CHRONIC OBSTRUCTIVE PULMONARY DISEASE, UNSPECIFIED Qualifiers: COPD type: unspecified COPD Qualified Code(s): J44.9 - Chronic obstructive pulmonary disease, unspecified (5) Edema extremities Code(s): R60.0 - LOCALIZED EDEMA (6) Hypertensive cardiovascular disease Code(s): I11.9 - HYPERTENSIVE HEART DISEASE WITHOUT HEART FAILURE Qualifiers: Heart failure presence: with heart failure Heart failure type: diastolic Heart failure chronicity: acute on chronic Qualified Code(s): I11.0 - Hypertensive heart disease with heart failure; I50.33 - Acute on chronic diastolic (congestive) heart failure (7) Hyponatremia Code(s): E87.1 - HYPO-OSMOLALITY AND HYPONATREMIA (8) Pulmonary hypertension Code(s): I27.2 - OTHER SECONDARY PULMONARY HYPERTENSION * DO NOT USE * Assessment/Plan Echo: 11/15/2017 Normal LV size and fxn LVEF 65-70%, borderline LISA, normal RV size and fxn, mild AR, mild MVP (posterior leaflet) with mod MR, mod-severe TR RVSP 56 mmHg 1. Recurrent paroxysmal atrial fibrillation with periods of rapid ventricular response [id number] score of 5, (prior cardioversions) 2. Acute on chronic class I-II NYHA classification LV failure related to LV diastolic/systolic dysfunction 3. CAD angina pectoris 4. HTN 5. Pulmonary HTN (moderate) 6. 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 Continue Lasix 40 qd with close monitoring of renal function 2. Continue Lopressor 100 tid 3. Continue Accupril 40 qd hemodynamics permitting 4. Continue Inspra 25 qd and attempt to increase dosage as tolerated 5. Continue Xarelto 20 qd 6. Change Tikosyn to amio 200 bid, failed sotalol in past 7. Consider repeat DCCV on amiodarone if atrial fibrillation persists (confirms compliance with NOAC's so YURI-guidance not required), eventual pulmonary vein isolation RFA referral for more definitive solution as outpatient, but patient hesitant 8. Trial of Samsca for treatment of hyponatremia, NaCl tablets d/mya, renal input appreciated 9. Thank you for consultative opportunity
--- NOTE | 2018-04-24 14:43 | CONSULT ---
Consult - text type - Consultation Consultation Note: Renal Consult for Hyponatremia This is a 82 year old woman with Hx of chronic hyponatremia, Afib, CHF ( diastolic dysfunction), Hypertension, CAD, Pulmonary hypertension who presents for CHF/Hyponatremia. Pt reports worsening LE edema over the past several weeks. Reports that she has been compliant with her fluid restriction and has been on salt tabs TID at home. No confusion, lethargy, weakness, N/V/D. Making urine. Also on Lasix at home. PMhx: as above Allergies: NKDA Family Hx: [place] Social Hx: Former smoker ROS: as per HPI, all other pertinent ros negative Home Medications Medication Instructions Recorded Acetaminophen/Caffeine/Butalb 1 tab PO Q4H PRN 02/10/16 [Fioricet -] Albuterol Sulfate Inhaler - 1 - 2 inh PO QID PRN 02/10/16 [Ventolin HFA Inhaler -] Alprazolam [Xanax] 0.25 mg PO QID PRN 02/10/16 Dofetilide [Tikosyn] 500 mcg PO BID 02/10/16 Eplerenone 25 mg PO DAILY 02/10/16 Furosemide [Lasix -] 40 mg PO DAILY 02/10/16 Metoprolol Tartrate [Lopressor -] 100 mg PO TID 02/10/16 Quinapril HCl [Accupril -] 40 mg PO BID 02/10/16 Rivaroxaban [Xarelto -] 20 mg PO DAILY 02/10/16 Sodium Chloride Tablet - 452 mg PO TID 02/10/16 Salmeterol/Fluticasone [Advair 1 puff IH BID #1 inhaler 04/16/17 100Mcg/50Mcg -] Tiotropium [place] [Spiriva] 1 puff IH DAILY #1 inh 04/16/17 L.acidoph,Paracasei, B.lactis 1 each PO DAILY 02/26/18 [Probiotic] [place]-3/Dha/Epa/Fish Oil [[place]-3 1 each PO DAILY 02/26/18 EC Softgel] Travoprost [Travatan Z] 2.5 ml OU DAILY 02/28/18 Vital Signs Temperature 97.6 F 04/24/18 07:00 Pulse Rate 95 H 04/24/18 07:00 Respiratory Rate 18 04/24/18 07:00 Blood Pressure 137/87 04/24/18 07:00 O2 Sat by Pulse Oximetry (%) 98 04/24/18 09:00 Intake & Output 04/21/18 04/22/18 04/23/18 04/24/18 23:59 23:59 23:59 23:59 Intake Total 310 260 Balance 310 260 Weight 66.224 kg 66.86 kg NAD awake and alert MMM, No JVD, Neck supple RRR, No M/R CTA, no rales soft NT/ND + LE edema CBC, BMP 04/24/18 05:30 04/24/18 05:30 Current Medications Acetaminophen/Butalbital/Caffeine (Fioricet -) 1 tablet PO Q4H PRN PRN Reason: HEADACHE Last Admin: 04/24/18 10:48 Dose: 1 tablet Albuterol Sulfate (Ventolin Hfa Inhaler -) 2 puff IH Q6H PRN PRN Reason: ASTHMA Alprazolam (Xanax -) 0.5 mg PO Q4H PRN PRN Reason: ANXIETY Amiodarone HCl (Cordarone -) 200 mg PO BID [facility] Eplerenone (Eplerenone) 25 mg PO DAILY@0800 [facility] Last Admin: 04/24/18 09:15 Dose: 25 mg Furosemide (Lasix -) 40 mg PO DAILY [facility] Last Admin: 04/24/18 09:18 Dose: 40 mg Latanoprost (Xalatan 0.005% Eye Drops -) 1 drop OU HS [facility] Last Admin: 04/23/18 21:36 Dose: Not Given Metoprolol Tartrate (Lopressor -) 100 mg PO TID [facility] Last Admin: 04/24/18 06:41 Dose: 100 mg Polyethylene Glycol (Miralax (For Daily Use) -) 17 gm PO DAILY PRN PRN Reason: CONSTIPATION Last Admin: 04/24/18 09:20 Dose: 17 gm Quinapril HCl (Accupril -) 40 mg PO BID [facility] Last Admin: 04/24/18 09:16 Dose: 40 mg Rivaroxaban (Xarelto -) 20 mg PO DAILY@1800 [facility] Last Admin: 04/23/18 17:52 Dose: Not Given Fluticasone/Salmeterol (Advair 100mcg/50mcg -) 1 puff IH BID [facility] Last Admin: 04/24/18 09:21 Dose: 1 puff Sodium Chloride (Sodium Chloride Tablet -) 1 gm PO DAILY [facility] Last Admin: 04/24/18 09:15 Dose: 1 gm Tolvaptan (Samsca (Restricted To Nephrology/Cardiology)) 15 mg PO DAILY [facility] 82 year old woman with Hx of chronic hyponatremia, Afib, CHF (diastolic dysfunction), Hypertension, CAD, Pulmonary hypertension who presents for CHF/ Hyponatremia. #Hypervolemic Hyponatremia #CHF #Afib #HTN Will plan to start Tolvaptan tomorrow in AM Discontinue fluid restriction D/c Salt tabs Continue Lasix 40mg Daily Hold Epleronne for now Trend Serum Na Q8h on day one of eplerone Ideally titrate Lasix to achieve evolemia Case discussed with cardiology Thank you Will follow Herminio Payne DO
[2018-04-24] MEDS: RIVAROXABAN 20 MG TABLET PO SCH (19:03)
[2018-04-24] MEDS: LATANOPROST 0.005% OPHTH SOLN 2.5ML BOTTLE OU SCH (22:43)
[2018-04-24] MEDS: AMIODARONE HCL 200 MG TABLET (FP) PO SCH (22:43)
[2018-04-25] MEDS: ACETAMINOPHEN/CAFFEINE/BUTALBITAL 1 TAB PO PRN ×5 (03:11→21:23)
[2018-04-25] MEDS: ALPRAZolam 0.25 MG TABLET PO PRN ×6 (03:15→21:30)
[2018-04-25] MEDS: METOPROLOL TARTRATE 50 MG TABLET (FP) PO SCH ×3 (05:44→21:22)
[2018-04-25 07:18] LABS: BASO % 0.6 % (0-2.0); EOS % 4.6 % (0-4.5); HEMATOCRIT 38.4 % (32.4-45.2); HEMOGLOBIN 12.9 GM/dL (10.7-15.3); LYMPH % 18.3 % (8-40); MCH 31.4 pg (25.7-33.7); MCHC 33.5 g/dl (32.0-36.0); MEAN CELL VOLUME 93.7 fl (80-96); MEAN PLT VOLUME 7.9 fl (7.5-11.1); MONO % 17.6 % (3.8-10.2); NEUT % 58.9 % (42.8-82.8); PLATELET COUNT 195 K/MM3 (134-434); RDW 14.4 % (11.6-15.6); WHITE BLOOD COUNT 6.7 K/mm3 (4.0-10.0)
[2018-04-25 08:12] LABS: CHLORIDE 90 mmol/L (98-107); POTASSIUM 4.3 mmol/L (3.5-5.1); SODIUM 127 mmol/L (136-145)
[2018-04-25 08:19] LABS: ANION GAP 6 MMOL/L (8-16); BLOOD UREA NITROGEN 20 mg/dL (7-18); CALCIUM 8.5 mg/dL (8.5-10.1); CO2 31 mmol/L (21-32); CREATININE 0.7 mg/dL (0.55-1.02); GLUCOSE,RANDOM 89 mg/dL (74-106)
[2018-04-25] MEDS ORDERED: PT OWN MED DRAWER 7, Y5N ONE ×2 (08:44→21:19)
[2018-04-25] MEDS ORDERED: QUINAPRIL HCL 20 MG TABLET (FP) ONE (08:44)
[2018-04-25] MEDS: QUINAPRIL HCL 40 MG TABLET (FP) PO SCH ×2 (09:34→21:23)
[2018-04-25] MEDS: FUROSEMIDE 40 MG TABLET (FP) PO SCH (09:35)
[2018-04-25] MEDS: AMIODARONE HCL 200 MG TABLET (FP) PO SCH ×2 (09:35→21:22)
[2018-04-25] MEDS: FLUTICASONE/SALMETEROL 100 MCG/50 MCG DISKUS IH SCH ×2 (09:36→21:22)
[2018-04-25] MEDS: TOLVAPTAN 15 MG TABLET PO SCH (09:37)
--- NOTE | 2018-04-25 10:25 | PN ---
Progress Note, Physician History of Present Illness: Palpitations, dyspnea on exertion, fatigue, exercise intolerance, and worsening lower extremity edema referable to recurrent AF with periods of rapid ventricular response and diastolic failure. She reports fatigue, progressive bilateral LE edema, denies chest pain, orthopnea, near or true syncope, reports medication compliance, did not tolerate compression therapy with AMAYA-wraps, episodes of rapid afib despite antiarrhythmic and rate-control agents. - Current Medication List Current Medications: Active Medications Acetaminophen/Butalbital/Caffeine (Fioricet -) 1 tablet PO Q4H PRN PRN Reason: HEADACHE Last Admin: 04/25/18 06:52 Dose: 1 tablet Albuterol Sulfate (Ventolin Hfa Inhaler -) 2 puff IH Q6H PRN PRN Reason: ASTHMA Alprazolam (Xanax -) 0.5 mg PO Q4H PRN PRN Reason: ANXIETY Last Admin: 04/25/18 06:52 Dose: 0.25 mg Amiodarone HCl (Cordarone -) 200 mg PO BID [facility] Last Admin: 04/25/18 09:35 Dose: 200 mg Furosemide (Lasix -) 40 mg PO DAILY [facility] Last Admin: 04/25/18 09:35 Dose: 40 mg Latanoprost (Xalatan 0.005% Eye Drops -) 1 drop OU HS [facility] Last Admin: 04/24/18 22:43 Dose: Not Given Metoprolol Tartrate (Lopressor -) 100 mg PO TID [facility] Last Admin: 04/25/18 05:44 Dose: 100 mg Polyethylene Glycol (Miralax (For Daily Use) -) 17 gm PO DAILY PRN PRN Reason: CONSTIPATION Last Admin: 04/24/18 09:20 Dose: 17 gm Quinapril HCl (Accupril -) 40 mg PO BID [facility] Last Admin: 04/25/18 09:34 Dose: 40 mg Rivaroxaban (Xarelto -) 20 mg PO DAILY@1800 [facility] Last Admin: 04/24/18 19:03 Dose: 20 mg Fluticasone/Salmeterol (Advair 100mcg/50mcg -) 1 puff IH BID [facility] Last Admin: 04/25/18 09:36 Dose: 1 puff Tolvaptan (Samsca (Restricted To Nephrology/Cardiology)) 15 mg PO DAILY [facility] Last Admin: 04/25/18 09:37 Dose: 15 mg - Objective Vital Signs: Vital Signs Temperature 97.5 F L 04/25/18 08:09 Pulse Rate 86 04/25/18 08:09 Respiratory Rate 18 04/25/18 08:11 Blood Pressure 107/69 04/25/18 08:09 O2 Sat by Pulse Oximetry (%) 98 04/25/18 08:11 Constitutional: Yes: No Distress, Calm Neck: Yes: Supple Cardiovascular: Yes: Tachycardia, Pulse Irregular Respiratory: Yes: Regular, Diminished Gastrointestinal: Yes: Normal Bowel Sounds, Soft Edema: Yes Edema: LLE: 3+, RLE: 3+ Labs: CBC, BMP 04/25/18 05:30 04/25/18 05:30 INR, PTT INR 1.16 (0.83-1.09) H 04/23/18 19:00 - ....Imaging EKG: Report Reviewed (Tele: Episodes of rapid afib) Problem List - Problems (1) CAD (coronary artery disease) Code(s): I25.10 - ATHSCL HEART DISEASE OF [place] CORONARY ARTERY W/O ANG PCTRS Qualifiers: [place] vs. transplanted heart: [place] heart (2) Acute on chronic diastolic heart failure Code(s): I50.33 - ACUTE ON CHRONIC DIASTOLIC (CONGESTIVE) HEART FAILURE (3) Atrial fibrillation Code(s): I48.91 - UNSPECIFIED ATRIAL FIBRILLATION Qualifiers: Atrial fibrillation type: paroxysmal Qualified Code(s): I48.0 - Paroxysmal atrial fibrillation (4) COPD (chronic obstructive pulmonary disease) Code(s): J44.9 - CHRONIC OBSTRUCTIVE PULMONARY DISEASE, UNSPECIFIED Qualifiers: COPD type: unspecified COPD Qualified Code(s): J44.9 - Chronic obstructive pulmonary disease, unspecified (5) Edema extremities Code(s): R60.0 - LOCALIZED EDEMA (6) Hypertensive cardiovascular disease Code(s): I11.9 - HYPERTENSIVE HEART DISEASE WITHOUT HEART FAILURE Qualifiers: Heart failure presence: with heart failure Heart failure type: diastolic Heart failure chronicity: acute on chronic Qualified Code(s): I11.0 - Hypertensive heart disease with heart failure; I50.33 - Acute on chronic diastolic (congestive) heart failure (7) Hyponatremia Code(s): E87.1 - HYPO-OSMOLALITY AND HYPONATREMIA (8) Pulmonary hypertension Code(s): I27.2 - OTHER SECONDARY PULMONARY HYPERTENSION * DO NOT USE * Assessment/Plan Echo: 11/15/2017 Normal LV size and fxn LVEF 65-70%, borderline LISA, normal RV size and fxn, mild AR, mild MVP (posterior leaflet) with mod MR, mod-severe TR RVSP 56 mmHg 1. Recurrent paroxysmal atrial fibrillation with periods of rapid ventricular response [id number] score of 5, (prior cardioversions) 2. Acute on chronic class I-II NYHA classification LV failure related to LV diastolic/systolic dysfunction 3. CAD angina pectoris 4. HTN 5. Pulmonary HTN (moderate) 6. COPD 7. Hyponatremia due to SIADH, hypervolemia PLAN: 1. Continue Lasix 40 qd with close monitoring of renal function 2. Continue Lopressor 100 tid 3. Continue Accupril 40 qd hemodynamics permitting 4. Continue Xarelto 20 qd 5. Continue amio 200 bid, failed sotalol and Tikosyn in past 6. Plan for repeat DCCV on amiodarone as atrial fibrillation persists (confirms compliance with NOAC's so YURI-guidance not required), eventual pulmonary vein isolation RFA referral for more definitive solution as outpatient, but patient hesitant 7. Trial of Samsca for treatment of hyponatremia, NaCl tablets and fluid restriction d/mya, eplerenone held for now, renal input appreciated
[2018-04-25] MEDS: POLYETHYLENE GLYCOL 3350 119 GM BTL PO SCH (11:22)
[2018-04-25 11:35] LABS: ANISOCYTOSIS 0; MACROCYTOSIS 0; PLATELET ESTIMATE NORMAL
--- NOTE | 2018-04-25 11:40 | PN ---
Progress Note, Physician Chief Complaint: Pt sitting in chair in no acute distress. feels well. Denies any chest pain, sob , n/v/d - Current Medication List Current Medications: Active Medications Acetaminophen/Butalbital/Caffeine (Fioricet -) 1 tablet PO Q4H PRN PRN Reason: HEADACHE Last Admin: 04/25/18 11:22 Dose: 1 tablet Albuterol Sulfate (Ventolin Hfa Inhaler -) 2 puff IH Q6H PRN PRN Reason: ASTHMA Alprazolam (Xanax -) 0.5 mg PO Q4H PRN PRN Reason: ANXIETY Last Admin: 04/25/18 11:22 Dose: 0.5 mg Amiodarone HCl (Cordarone -) 200 mg PO BID [facility] Last Admin: 04/25/18 09:35 Dose: 200 mg Docusate Sodium (Colace -) 100 mg PO TID [facility] Furosemide (Lasix -) 40 mg PO DAILY [facility] Last Admin: 04/25/18 09:35 Dose: 40 mg Latanoprost (Xalatan 0.005% Eye Drops -) 1 drop OU HS [facility] Last Admin: 04/24/18 22:43 Dose: Not Given Metoprolol Tartrate (Lopressor -) 100 mg PO TID [facility] Last Admin: 04/25/18 05:44 Dose: 100 mg Polyethylene Glycol (Miralax (For Daily Use) -) 17 gm PO DAILY [facility] Last Admin: 04/25/18 11:22 Dose: 17 grams Quinapril HCl (Accupril -) 40 mg PO BID [facility] Last Admin: 04/25/18 09:34 Dose: 40 mg Rivaroxaban (Xarelto -) 20 mg PO DAILY@1800 [facility] Last Admin: 04/24/18 19:03 Dose: 20 mg Fluticasone/Salmeterol (Advair 100mcg/50mcg -) 1 puff IH BID [facility] Last Admin: 04/25/18 09:36 Dose: 1 puff Tolvaptan (Samsca (Restricted To Nephrology/Cardiology)) 15 mg PO DAILY [facility] Last Admin: 04/25/18 09:37 Dose: 15 mg - Objective Vital Signs: Vital Signs Temperature 97.5 F L 04/25/18 08:09 Pulse Rate 86 04/25/18 08:09 Respiratory Rate 18 04/25/18 08:11 Blood Pressure 107/69 04/25/18 08:09 O2 Sat by Pulse Oximetry (%) 98 04/25/18 08:11 Constitutional: Yes: Well Nourished, No Distress, Calm Cardiovascular: Yes: Pulse Irregular, Murmur Respiratory: Yes: WNL, Regular, CTA Bilaterally. No: Accessory Muscle Use, Rales, Rhonchi, SOB, Stridor, Tachypnea Gastrointestinal: Yes: WNL, Normal Bowel Sounds, Soft. No: Distention, Tenderness Genitourinary: Yes: WNL Edema: Yes (non pitting severe LES) Neurological: Yes: WNL, Alert, Oriented Psychiatric: Yes: WNL, Alert, Oriented Labs: CBC, BMP 04/25/18 05:30 04/25/18 05:30 INR, PTT INR 1.16 (0.83-1.09) H 04/23/18 19:00 Problem List - Problems (2) Edema extremities Code(s): R60.0 - LOCALIZED EDEMA (3) CAD (coronary artery disease) Code(s): I25.10 - ATHSCL HEART DISEASE OF [place] CORONARY ARTERY W/O ANG PCTRS Qualifiers: [place] vs. transplanted heart: [place] heart (4) CHF (congestive heart failure) Code(s): I50.9 - HEART FAILURE, UNSPECIFIED Qualifiers: Heart failure type: combined systolic and diastolic Heart failure chronicity: chronic Qualified Code(s): I50.42 - Chronic combined systolic ( congestive) and diastolic (congestive) heart failure (5) Afib Code(s): I48.91 - UNSPECIFIED ATRIAL FIBRILLATION Qualifiers: Atrial fibrillation type: paroxysmal Qualified Code(s): I48.0 - Paroxysmal atrial fibrillation (6) COPD (chronic obstructive pulmonary disease) Code(s): J44.9 - CHRONIC OBSTRUCTIVE PULMONARY DISEASE, UNSPECIFIED Qualifiers: COPD type: unspecified COPD Qualified Code(s): J44.9 - Chronic obstructive pulmonary disease, unspecified (7) Hyponatremia Code(s): E87.1 - HYPO-OSMOLALITY AND HYPONATREMIA (8) Anxiety Code(s): F41.9 - ANXIETY DISORDER, UNSPECIFIED (9) Pulmonary hypertension Code(s): I27.2 - OTHER SECONDARY PULMONARY HYPERTENSION * DO NOT USE * (10) Tricuspid valve insufficiency Code(s): I07.1 - RHEUMATIC TRICUSPID INSUFFICIENCY Qualifiers: Cardiac valve disease etiology: nonrheumatic Qualified Code(s): I36.1 - Nonrheumatic tricuspid (valve) insufficiency (11) Hypertension Code(s): I10 - ESSENTIAL (PRIMARY) HYPERTENSION Qualifiers: Hypertension type: essential hypertension Qualified Code(s): I10 - Essential (primary) hypertension (12) Degenerative disc disease Code(s): [id number] - Qualifiers: Spinal region: lumbosacral Qualified Code(s): M51.37 - Other intervertebral disc degeneration, lumbosacral region (13) Migraine Code(s): G43.909 - MIGRAINE, UNSP, NOT INTRACTABLE, WITHOUT STATUS MIGRAINOSUS Assessment/Plan (1) SIADH (syndrome of inappropriate ADH production) Assessment/Plan: Na level at baseline for pt continue Samsca per nephrology Avoid fluid restriction continue lasix nephrology following (2) Hyponatremia Assessment/Plan: hypervolemic hypotonic hyponatremia 2/2 SIADH pt asymptomatic as above Code(s): E87.1 - HYPO-OSMOLALITY AND HYPONATREMIA (3) Edema extremities Assessment/Plan: chronic continue lasix Code(s): R60.0 - LOCALIZED EDEMA (4) CAD (coronary artery disease) Assessment/Plan: no acute ACS cardiology following Code(s): I25.10 - ATHSCL HEART DISEASE OF [place] CORONARY ARTERY W/O ANG PCTRS Qualifiers: [place] vs. transplanted heart: [place] heart (5) CHF (congestive heart failure) Assessment/Plan: stable continue lasix eplerenone d/c'd O2 prn Code(s): I50.9 - HEART FAILURE, UNSPECIFIED Qualifiers: Heart failure type: combined systolic and diastolic Heart failure chronicity: chronic Qualified Code(s): I50.42 - Chronic combined systolic ( congestive) and diastolic (congestive) heart failure (6) Afib Assessment/Plan: [id number] 5 Anticoagulated on xarelto rate control- metoprolol amiodarone started cardiology following- plan for cardioversion tomorrow Code(s): I48.91 - UNSPECIFIED ATRIAL FIBRILLATION Qualifiers: Atrial fibrillation type: paroxysmal Qualified Code(s): I48.0 - Paroxysmal atrial fibrillation (7) COPD (chronic obstructive pulmonary disease) Assessment/Plan: stable continue inhalers O2 prn monitor Code(s): J44.9 - CHRONIC OBSTRUCTIVE PULMONARY DISEASE, UNSPECIFIED (8) Anxiety Assessment/Plan: controlled xanax prn Code(s): F41.9 - ANXIETY DISORDER, UNSPECIFIED (9) Pulmonary hypertension Assessment/Plan: chronic followed by cardiology Code(s): I27.2 - OTHER SECONDARY PULMONARY HYPERTENSION * DO NOT USE * (10) Tricuspid valve insufficiency Assessment/Plan: moderate in severity cardiology following monitor Code(s): I07.1 - RHEUMATIC TRICUSPID INSUFFICIENCY Qualifiers: Cardiac valve disease etiology: nonrheumatic Qualified Code(s): I36.1 - Nonrheumatic tricuspid (valve) insufficiency (11) Hypertension Assessment/Plan: controlled continue current management Code(s): I10 - ESSENTIAL (PRIMARY) HYPERTENSION Qualifiers: Hypertension type: essential hypertension Qualified Code(s): I10 - Essential (primary) hypertension (12) Degenerative disc disease Assessment/Plan: chronic ambulate as tolerated Code(s): [id number] - Qualifiers: Spinal region: lumbosacral Qualified Code(s): M51.37 - Other intervertebral disc degeneration, lumbosacral region (13) Migraine Assessment/Plan: chronic fiorecet prn Code(s): G43.909 - MIGRAINE, UNSP, NOT INTRACTABLE, WITHOUT STATUS MIGRAINOSUS Dispo: Home when cleared by Cardiology and Nephrology
--- NOTE | 2018-04-25 12:45 | PN ---
Progress Note (short form) - Note Progress Note: Renal Follow up for Hyponatremia Pt seen and examined at the bedside no acute complaints no sob, cp, abd pain s/p samsca this AM making urine legs remains swollen Vital Signs Temperature 97.5 F L 04/25/18 08:09 Pulse Rate 86 04/25/18 08:09 Respiratory Rate 18 04/25/18 08:11 Blood Pressure 107/69 04/25/18 08:09 O2 Sat by Pulse Oximetry (%) 98 04/25/18 08:11 Intake & Output 04/22/18 04/23/18 04/24/18 04/25/18 23:59 23:59 23:59 23:59 Intake Total 310 750 370 Balance 310 750 370 Weight 66.224 kg 66.86 kg 66.735 kg NAD awake and alert MMM, No JVD, Neck supple RRR, No M/R CTA, no rales soft NT/ND + LE edema CBC, BMP 04/25/18 05:30 04/25/18 05:30 Current Medications Acetaminophen/Butalbital/Caffeine (Fioricet -) 1 tablet PO Q4H PRN PRN Reason: HEADACHE Last Admin: 04/25/18 11:22 Dose: 1 tablet Albuterol Sulfate (Ventolin Hfa Inhaler -) 2 puff IH Q6H PRN PRN Reason: ASTHMA Alprazolam (Xanax -) 0.5 mg PO Q4H PRN PRN Reason: ANXIETY Last Admin: 04/25/18 11:22 Dose: 0.5 mg Amiodarone HCl (Cordarone -) 200 mg PO BID [facility] Last Admin: 04/25/18 09:35 Dose: 200 mg Docusate Sodium (Colace -) 100 mg PO TID [facility] Furosemide (Lasix -) 40 mg PO DAILY [facility] Last Admin: 04/25/18 09:35 Dose: 40 mg Latanoprost (Xalatan 0.005% Eye Drops -) 1 drop OU HS [facility] Last Admin: 04/24/18 22:43 Dose: Not Given Metoprolol Tartrate (Lopressor -) 100 mg PO TID [facility] Last Admin: 04/25/18 05:44 Dose: 100 mg Polyethylene Glycol (Miralax (For Daily Use) -) 17 gm PO DAILY [facility] Last Admin: 04/25/18 11:22 Dose: 17 grams Quinapril HCl (Accupril -) 40 mg PO BID [facility] Last Admin: 04/25/18 09:34 Dose: 40 mg Rivaroxaban (Xarelto -) 20 mg PO DAILY@1800 [facility] Last Admin: 04/24/18 19:03 Dose: 20 mg Fluticasone/Salmeterol (Advair 100mcg/50mcg -) 1 puff IH BID [facility] Last Admin: 04/25/18 09:36 Dose: 1 puff Tolvaptan (Samsca (Restricted To Nephrology/Cardiology)) 15 mg PO DAILY [facility] Last Admin: 04/25/18 09:37 Dose: 15 mg 82 year old woman with Hx of chronic hyponatremia, Afib, CHF (diastolic dysfunction), Hypertension, CAD, Pulmonary hypertension who presents for CHF/ Hyponatremia. #Hypervolemic Hyponatremia #CHF #Afib #HTN s/p Tolvaptan 15mg this am pt advised to drink water as per thirst and not to limit water intake continue Lasix orally once daily Trend serum Na Q8h today Goal rate of increase ideally 6-8 in 24 hours once serum Na is WNL, can titrate Lasix to achieve improvement in edema Thank you Will follow Herminio Payne DO
[2018-04-25] MEDS: DOCUSATE SODIUM 100 MG CAPSULE (FP) PO SCH ×2 (13:47→21:29)
[2018-04-25 16:54] LABS: ANION GAP 9 MMOL/L (8-16); BLOOD UREA NITROGEN 18 mg/dL (7-18); CALCIUM 8.8 mg/dL (8.5-10.1); CHLORIDE 93 mmol/L (98-107); CO2 28 mmol/L (21-32); GLUCOSE,RANDOM 88 mg/dL (74-106); POTASSIUM 4.4 mmol/L (3.5-5.1); SODIUM 130 mmol/L (136-145)
[2018-04-25 16:56] LABS: CREATININE 0.9 mg/dL (0.55-1.02)
[2018-04-25] MEDS: RIVAROXABAN 20 MG TABLET PO SCH (17:28)
[2018-04-25] MEDS: LATANOPROST 0.005% OPHTH SOLN 2.5ML BOTTLE OU SCH (21:23)
[2018-04-26] MEDS: ACETAMINOPHEN/CAFFEINE/BUTALBITAL 1 TAB PO PRN ×6 (01:32→22:32)
[2018-04-26] MEDS: ALPRAZolam 0.25 MG TABLET PO PRN ×6 (01:33→22:32)
[2018-04-26] MEDS: DOCUSATE SODIUM 100 MG CAPSULE (FP) PO SCH ×3 (05:53→21:52)
[2018-04-26] MEDS: METOPROLOL TARTRATE 50 MG TABLET (FP) PO SCH ×3 (05:54→21:52)
[2018-04-26 06:58] LABS: BASO % 0.8 % (0-2.0); EOS % 4.4 % (0-4.5); HEMATOCRIT 42.9 % (32.4-45.2); HEMOGLOBIN 14.6 GM/dL (10.7-15.3); LYMPH % 23.6 % (8-40); MCH 31.9 pg (25.7-33.7); MEAN CELL VOLUME 93.9 fl (80-96); MEAN PLT VOLUME 7.7 fl (7.5-11.1); MONO % 13.8 % (3.8-10.2); NEUT % 57.4 % (42.8-82.8); PLATELET COUNT 228 K/MM3 (134-434); RBC 4.57 M/mm3 (3.60-5.2); RDW 14.9 % (11.6-15.6); WHITE BLOOD COUNT 6.3 K/mm3 (4.0-10.0)
[2018-04-26 07:29] LABS: ANION GAP 7 MMOL/L (8-16); BLOOD UREA NITROGEN 19 mg/dL (7-18); CALCIUM 9.1 mg/dL (8.5-10.1); CHLORIDE 94 mmol/L (98-107); CO2 33 mmol/L (21-32); CREATININE 0.8 mg/dL (0.55-1.02); GLUCOSE,RANDOM 96 mg/dL (74-106); POTASSIUM 4.9 mmol/L (3.5-5.1); SODIUM 134 mmol/L (136-145)
[2018-04-26] MEDS ORDERED: QUINAPRIL HCL 20 MG TABLET (FP) ONE ×2 (09:07→21:46)
--- NOTE | 2018-04-26 10:01 | PN ---
Progress Note, Physician History of Present Illness: Palpitations, dyspnea on exertion, fatigue, exercise intolerance, and worsening lower extremity edema referable to recurrent AF with periods of rapid ventricular response and diastolic failure. Still with episodes of rapid afib despite antiarrhythmic and rate-control agents. - Current Medication List Current Medications: Active Medications Acetaminophen/Butalbital/Caffeine (Fioricet -) 1 tablet PO Q4H PRN PRN Reason: HEADACHE Last Admin: 04/26/18 05:35 Dose: 1 tablet Albuterol Sulfate (Ventolin Hfa Inhaler -) 2 puff IH Q6H PRN PRN Reason: ASTHMA Alprazolam (Xanax -) 0.5 mg PO Q4H PRN PRN Reason: ANXIETY Last Admin: 04/26/18 05:36 Dose: 0.5 mg Amiodarone HCl (Cordarone -) 200 mg PO BID [facility] Last Admin: 04/25/18 21:22 Dose: 200 mg Docusate Sodium (Colace -) 100 mg PO TID [facility] Last Admin: 04/26/18 05:53 Dose: Not Given Furosemide (Lasix -) 40 mg PO DAILY [facility] Last Admin: 04/25/18 09:35 Dose: 40 mg Latanoprost (Xalatan 0.005% Eye Drops -) 1 drop OU HS [facility] Last Admin: 04/25/18 21:23 Dose: Not Given Metoprolol Tartrate (Lopressor -) 100 mg PO TID [facility] Last Admin: 04/26/18 05:54 Dose: Not Given Polyethylene Glycol (Miralax (For Daily Use) -) 17 gm PO DAILY [facility] Last Admin: 04/25/18 11:22 Dose: 17 grams Quinapril HCl (Accupril -) 40 mg PO BID [facility] Last Admin: 04/25/18 21:23 Dose: 40 mg Rivaroxaban (Xarelto -) 20 mg PO DAILY@1800 [facility] Last Admin: 04/25/18 17:28 Dose: 20 mg Fluticasone/Salmeterol (Advair 100mcg/50mcg -) 1 puff IH BID [facility] Last Admin: 04/25/18 21:22 Dose: 1 puff Tolvaptan (Samsca (Restricted To Nephrology/Cardiology)) 15 mg PO DAILY [facility] Last Admin: 04/25/18 09:37 Dose: 15 mg - Objective Vital Signs: Vital Signs Temperature 98 F 04/26/18 06:00 Pulse Rate 75 04/26/18 06:00 Respiratory Rate 18 04/26/18 06:00 Blood Pressure 108/68 04/26/18 06:00 O2 Sat by Pulse Oximetry (%) 95 04/25/18 21:00 Constitutional: Yes: No Distress, Calm Neck: Yes: Supple Cardiovascular: Yes: Tachycardia, Pulse Irregular Respiratory: Yes: Regular, Diminished Gastrointestinal: Yes: Normal Bowel Sounds, Soft Edema: Yes Edema: LLE: 3+, RLE: 3+ Labs: CBC, BMP 04/26/18 05:35 04/26/18 05:35 INR, PTT INR 1.16 (0.83-1.09) H 04/23/18 19:00 - ....Imaging EKG: Report Reviewed (Tele: Afib with RVR) Problem List - Problems (1) CAD (coronary artery disease) Code(s): I25.10 - ATHSCL HEART DISEASE OF [place] CORONARY ARTERY W/O ANG PCTRS Qualifiers: [place] vs. transplanted heart: [place] heart (2) Acute on chronic diastolic heart failure Code(s): I50.33 - ACUTE ON CHRONIC DIASTOLIC (CONGESTIVE) HEART FAILURE (3) Atrial fibrillation Code(s): I48.91 - UNSPECIFIED ATRIAL FIBRILLATION Qualifiers: Atrial fibrillation type: paroxysmal Qualified Code(s): I48.0 - Paroxysmal atrial fibrillation (4) COPD (chronic obstructive pulmonary disease) Code(s): J44.9 - CHRONIC OBSTRUCTIVE PULMONARY DISEASE, UNSPECIFIED Qualifiers: COPD type: unspecified COPD Qualified Code(s): J44.9 - Chronic obstructive pulmonary disease, unspecified (5) Edema extremities Code(s): R60.0 - LOCALIZED EDEMA (6) Hypertensive cardiovascular disease Code(s): I11.9 - HYPERTENSIVE HEART DISEASE WITHOUT HEART FAILURE Qualifiers: Heart failure presence: with heart failure Heart failure type: diastolic Heart failure chronicity: acute on chronic Qualified Code(s): I11.0 - Hypertensive heart disease with heart failure; I50.33 - Acute on chronic diastolic (congestive) heart failure (7) Hyponatremia Code(s): E87.1 - HYPO-OSMOLALITY AND HYPONATREMIA (8) Pulmonary hypertension Code(s): I27.2 - OTHER SECONDARY PULMONARY HYPERTENSION * DO NOT USE * (10) History of cardioversion Code(s): Z98.890 - OTHER SPECIFIED POSTPROCEDURAL STATES (11) Migraine Code(s): G43.909 - MIGRAINE, UNSP, NOT INTRACTABLE, WITHOUT STATUS MIGRAINOSUS Qualifiers: Migraine type: unspecified Assessment/Plan Echo: 11/15/2017 Normal LV size and fxn LVEF 65-70%, borderline LISA, normal RV size and fxn, mild AR, mild MVP (posterior leaflet) with mod MR, mod-severe TR RVSP 56 mmHg 1. Recurrent paroxysmal atrial fibrillation with periods of rapid ventricular response [id number] score of 5, (prior cardioversions) 2. Acute on chronic class I-II NYHA classification LV failure related to LV diastolic/systolic dysfunction 3. CAD angina pectoris 4. HTN 5. Pulmonary HTN (moderate) 6. COPD 7. Hyponatremia due to SIADH, hypervolemia improving PLAN: 1. Continue Lasix 40 qd with close monitoring of renal function 2. Continue Lopressor 100 tid 3. Continue Accupril 40 bid hemodynamics permitting 4. Continue Xarelto 20 qd 5. Continue amio 200 bid, failed sotalol and Tikosyn in past 6. Plan for repeat DCCV on amiodarone today as atrial fibrillation persists ( confirms compliance with NOAC's so YURI-guidance not required), eventual pulmonary vein isolation RFA referral for more definitive solution as outpatient , but patient hesitant 7. Samsca 15 qd for treatment of hyponatremia, NaCl tablets and fluid restriction d/mya, eplerenone held for now, renal input appreciated
--- NOTE | 2018-04-26 10:14 | PN ---
Progress Note, Physician Chief Complaint: Pt sitting in chair in no acute distress. feels well. awaiting procedure today. Denies any chest pain, sob, n/v/d - Current Medication List Current Medications: Active Medications Acetaminophen/Butalbital/Caffeine (Fioricet -) 1 tablet PO Q4H PRN PRN Reason: HEADACHE Last Admin: 04/26/18 05:35 Dose: 1 tablet Albuterol Sulfate (Ventolin Hfa Inhaler -) 2 puff IH Q6H PRN PRN Reason: ASTHMA Alprazolam (Xanax -) 0.5 mg PO Q4H PRN PRN Reason: ANXIETY Last Admin: 04/26/18 05:36 Dose: 0.5 mg Amiodarone HCl (Cordarone -) 200 mg PO BID [facility] Last Admin: 04/25/18 21:22 Dose: 200 mg Docusate Sodium (Colace -) 100 mg PO TID [facility] Last Admin: 04/26/18 05:53 Dose: Not Given Furosemide (Lasix -) 40 mg PO DAILY [facility] Last Admin: 04/25/18 09:35 Dose: 40 mg Latanoprost (Xalatan 0.005% Eye Drops -) 1 drop OU HS [facility] Last Admin: 04/25/18 21:23 Dose: Not Given Metoprolol Tartrate (Lopressor -) 100 mg PO TID [facility] Last Admin: 04/26/18 05:54 Dose: Not Given Polyethylene Glycol (Miralax (For Daily Use) -) 17 gm PO DAILY [facility] Last Admin: 04/25/18 11:22 Dose: 17 grams Quinapril HCl (Accupril -) 40 mg PO BID [facility] Last Admin: 04/25/18 21:23 Dose: 40 mg Rivaroxaban (Xarelto -) 20 mg PO DAILY@1800 [facility] Last Admin: 04/25/18 17:28 Dose: 20 mg Fluticasone/Salmeterol (Advair 100mcg/50mcg -) 1 puff IH BID [facility] Last Admin: 04/25/18 21:22 Dose: 1 puff Tolvaptan (Samsca (Restricted To Nephrology/Cardiology)) 15 mg PO DAILY [facility] Last Admin: 04/25/18 09:37 Dose: 15 mg - Objective Vital Signs: Vital Signs Temperature 97.6 F 04/26/18 10:00 Pulse Rate 96 H 04/26/18 10:00 Respiratory Rate 18 04/26/18 10:00 Blood Pressure 107/56 04/26/18 10:00 O2 Sat by Pulse Oximetry (%) 96 04/26/18 09:00 Constitutional: Yes: Well Nourished, No Distress, Calm Cardiovascular: Yes: Tachycardia, Pulse Irregular, Murmur. No: Rub Respiratory: Yes: WNL, Regular, CTA Bilaterally. No: Accessory Muscle Use, Rales, Rhonchi, SOB, Tachypnea, Wheezes Gastrointestinal: Yes: WNL, Normal Bowel Sounds, Soft. No: Distention, Tenderness Genitourinary: Yes: WNL Musculoskeletal: Yes: WNL Extremities: Yes: WNL Edema: Yes (non pitting severe LES) Neurological: Yes: WNL, Alert, Oriented Psychiatric: Yes: WNL, Alert, Oriented Labs: CBC, BMP 04/26/18 05:35 04/26/18 05:35 INR, PTT INR 1.16 (0.83-1.09) H 04/23/18 19:00 Problem List - Problems (2) Edema extremities Code(s): R60.0 - LOCALIZED EDEMA (3) CAD (coronary artery disease) Code(s): I25.10 - ATHSCL HEART DISEASE OF [place] CORONARY ARTERY W/O ANG PCTRS Qualifiers: [place] vs. transplanted heart: [place] heart (4) CHF (congestive heart failure) Code(s): I50.9 - HEART FAILURE, UNSPECIFIED Qualifiers: Heart failure type: combined systolic and diastolic Heart failure chronicity: chronic Qualified Code(s): I50.42 - Chronic combined systolic ( congestive) and diastolic (congestive) heart failure (5) Afib Code(s): I48.91 - UNSPECIFIED ATRIAL FIBRILLATION Qualifiers: Atrial fibrillation type: paroxysmal Qualified Code(s): I48.0 - Paroxysmal atrial fibrillation (6) COPD (chronic obstructive pulmonary disease) Code(s): J44.9 - CHRONIC OBSTRUCTIVE PULMONARY DISEASE, UNSPECIFIED Qualifiers: COPD type: unspecified COPD Qualified Code(s): J44.9 - Chronic obstructive pulmonary disease, unspecified (7) Hyponatremia Code(s): E87.1 - HYPO-OSMOLALITY AND HYPONATREMIA (8) Anxiety Code(s): F41.9 - ANXIETY DISORDER, UNSPECIFIED (9) Pulmonary hypertension Code(s): I27.2 - OTHER SECONDARY PULMONARY HYPERTENSION * DO NOT USE * (10) Tricuspid valve insufficiency Code(s): I07.1 - RHEUMATIC TRICUSPID INSUFFICIENCY Qualifiers: Cardiac valve disease etiology: nonrheumatic Qualified Code(s): I36.1 - Nonrheumatic tricuspid (valve) insufficiency (11) Hypertension Code(s): I10 - ESSENTIAL (PRIMARY) HYPERTENSION Qualifiers: Hypertension type: essential hypertension Qualified Code(s): I10 - Essential (primary) hypertension (12) Degenerative disc disease Code(s): [id number] - Qualifiers: Spinal region: lumbosacral Qualified Code(s): M51.37 - Other intervertebral disc degeneration, lumbosacral region (13) Migraine Code(s): G43.909 - MIGRAINE, UNSP, NOT INTRACTABLE, WITHOUT STATUS MIGRAINOSUS Qualifiers: Migraine type: unspecified Assessment/Plan (1) SIADH (syndrome of inappropriate ADH production) Assessment/Plan: Na level improved continue Samsca per nephrology Avoid fluid restriction continue lasix nephrology following (2) Hyponatremia Assessment/Plan: hypervolemic hypotonic hyponatremia 2/2 SIADH pt asymptomatic as above Code(s): E87.1 - HYPO-OSMOLALITY AND HYPONATREMIA (3) Edema extremities Assessment/Plan: chronic continue lasix Code(s): R60.0 - LOCALIZED EDEMA (4) CAD (coronary artery disease) Assessment/Plan: no acute ACS cardiology following Code(s): I25.10 - ATHSCL HEART DISEASE OF [place] CORONARY ARTERY W/O ANG PCTRS Qualifiers: [place] vs. transplanted heart: [place] heart (5) CHF (congestive heart failure) Assessment/Plan: stable continue lasix eplerenone on hold per cardiology O2 prn Code(s): I50.9 - HEART FAILURE, UNSPECIFIED Qualifiers: Heart failure type: combined systolic and diastolic Heart failure chronicity: chronic Qualified Code(s): I50.42 - Chronic combined systolic ( congestive) and diastolic (congestive) heart failure (6) Afib Assessment/Plan: [id number] Anticoagulated on xarelto rate control- metoprolol amiodarone cardiology following- plan for cardioversion today Code(s): I48.91 - UNSPECIFIED ATRIAL FIBRILLATION Qualifiers: Atrial fibrillation type: paroxysmal Qualified Code(s): I48.0 - Paroxysmal atrial fibrillation (7) COPD (chronic obstructive pulmonary disease) Assessment/Plan: stable continue inhalers O2 prn monitor Code(s): J44.9 - CHRONIC OBSTRUCTIVE PULMONARY DISEASE, UNSPECIFIED (8) Anxiety Assessment/Plan: controlled xanax prn Code(s): F41.9 - ANXIETY DISORDER, UNSPECIFIED (9) Pulmonary hypertension Assessment/Plan: chronic followed by cardiology Code(s): I27.2 - OTHER SECONDARY PULMONARY HYPERTENSION * DO NOT USE * (10) Tricuspid valve insufficiency Assessment/Plan: moderate in severity cardiology following monitor Code(s): I07.1 - RHEUMATIC TRICUSPID INSUFFICIENCY Qualifiers: Cardiac valve disease etiology: nonrheumatic Qualified Code(s): I36.1 - Nonrheumatic tricuspid (valve) insufficiency (11) Hypertension Assessment/Plan: controlled continue current management Code(s): I10 - ESSENTIAL (PRIMARY) HYPERTENSION Qualifiers: Hypertension type: essential hypertension Qualified Code(s): I10 - Essential (primary) hypertension (12) Degenerative disc disease Assessment/Plan: chronic ambulate as tolerated Code(s): [id number] - Qualifiers: Spinal region: lumbosacral Qualified Code(s): M51.37 - Other intervertebral disc degeneration, lumbosacral region (13) Migraine Assessment/Plan: chronic fiorecet prn Code(s): G43.909 - MIGRAINE, UNSP, NOT INTRACTABLE, WITHOUT STATUS MIGRAINOSUS Dispo: Home w/ VNS when cleared by Cardiology and Nephrology
[2018-04-26] MEDS: FLUTICASONE/SALMETEROL 100 MCG/50 MCG DISKUS IH SCH ×2 (10:21→21:53)
[2018-04-26] MEDS: AMIODARONE HCL 200 MG TABLET (FP) PO SCH ×2 (10:21→21:52)
[2018-04-26] MEDS: FUROSEMIDE 40 MG TABLET (FP) PO SCH (10:21)
[2018-04-26] MEDS: POLYETHYLENE GLYCOL 3350 119 GM BTL PO SCH (10:22)
[2018-04-26] MEDS: QUINAPRIL HCL 40 MG TABLET (FP) PO SCH ×2 (10:22→21:53)
[2018-04-26] MEDS: TOLVAPTAN 15 MG TABLET PO SCH (11:33)
[2018-04-26 11:49] LABS: ANISOCYTOSIS 0; MACROCYTOSIS 0; PLATELET ESTIMATE NORMAL
--- NOTE | 2018-04-26 13:06 | PN ---
Progress Note (short form) - Note Progress Note: Procedure Note: DC Cardioversion Indication: Persistent atrial fibrillation with RVR After risks and benefits of DCCV reviewed, compliance with anticoagulation affirmed by patient, informed consent obtained and time out reviewed, patient underwent deep sedation with Propofol administered by anesthesia. She then underwent successful DCCV with 120J synchronized discharge. Post-DCCV ECG confirms re-establishment of NSR Recommendations: Continue amio 200 bid, Lopressor 100 tid, Xarelto 20 qPM Complications: None Problem List - Problems (1) CAD (coronary artery disease) Code(s): I25.10 - ATHSCL HEART DISEASE OF [place] CORONARY ARTERY W/O ANG PCTRS Qualifiers: [place] vs. transplanted heart: [place] heart (2) Acute on chronic diastolic heart failure Code(s): I50.33 - ACUTE ON CHRONIC DIASTOLIC (CONGESTIVE) HEART FAILURE (3) Atrial fibrillation Code(s): I48.91 - UNSPECIFIED ATRIAL FIBRILLATION Qualifiers: Atrial fibrillation type: paroxysmal Qualified Code(s): I48.0 - Paroxysmal atrial fibrillation (4) COPD (chronic obstructive pulmonary disease) Code(s): J44.9 - CHRONIC OBSTRUCTIVE PULMONARY DISEASE, UNSPECIFIED Qualifiers: COPD type: unspecified COPD Qualified Code(s): J44.9 - Chronic obstructive pulmonary disease, unspecified (5) Edema extremities Code(s): R60.0 - LOCALIZED EDEMA (6) Hypertensive cardiovascular disease Code(s): I11.9 - HYPERTENSIVE HEART DISEASE WITHOUT HEART FAILURE Qualifiers: Heart failure presence: with heart failure Heart failure type: diastolic Heart failure chronicity: acute on chronic Qualified Code(s): I11.0 - Hypertensive heart disease with heart failure; I50.33 - Acute on chronic diastolic (congestive) heart failure (7) Hyponatremia Code(s): E87.1 - HYPO-OSMOLALITY AND HYPONATREMIA (8) Pulmonary hypertension Code(s): I27.2 - OTHER SECONDARY PULMONARY HYPERTENSION * DO NOT USE * (10) History of cardioversion Code(s): Z98.890 - OTHER SPECIFIED POSTPROCEDURAL STATES (11) Migraine Code(s): G43.909 - MIGRAINE, UNSP, NOT INTRACTABLE, WITHOUT STATUS MIGRAINOSUS Qualifiers: Migraine type: unspecified
--- NOTE | 2018-04-26 14:41 | EKG ---
Test Reason : Blood Pressure : / mmHG Vent. Rate : 057 BPM Atrial Rate : 057 BPM P-R Int : 114 ms QRS Dur : 084 ms QT Int : 434 ms P-R-T Axes : 081 046 052 degrees QTc Int : 422 ms SINUS BRADYCARDIA OTHERWISE NORMAL ECG WHEN COMPARED WITH ECG OF 23-APR-2018 18:56, SINUS RHYTHM HAS REPLACED ATRIAL FIBRILLATION VENT. RATE HAS DECREASED BY 46 BPM Confirmed by OLIVE LARSEN MD ([id number]) on 04/26/2018 2:40:39 PM Referred By: SOFIYA HEREDIA Confirmed By:OLIVE LARSEN MD
[2018-04-26] MEDS ORDERED: FUROSEMIDE 40 MG/4 ML INJECTABLE VIAL IVPUSH SCH (16:00)
[2018-04-26 16:34] LABS: ANION GAP 8 MMOL/L (8-16); BLOOD UREA NITROGEN 17 mg/dL (7-18); CALCIUM 8.9 mg/dL (8.5-10.1); CHLORIDE 97 mmol/L (98-107); CO2 30 mmol/L (21-32); CREATININE 0.7 mg/dL (0.55-1.02); GLUCOSE,RANDOM 113 mg/dL (74-106); SODIUM 135 mmol/L (136-145)
[2018-04-26 16:36] LABS: POTASSIUM 4.3 mmol/L (3.5-5.1)
--- NOTE | 2018-04-26 16:47 | PN ---
Progress Note (short form) - Note Progress Note: Renal Follow up for Hyponatremia Pt seen and examined at the bedside no acute complaints no sob, cp, abd pain s/p 2nd dose of samsca this AM Vital Signs Temperature 98 F 04/26/18 15:09 Pulse Rate 65 04/26/18 15:09 Respiratory Rate 18 04/26/18 15:09 Blood Pressure 96/58 04/26/18 15:09 O2 Sat by Pulse Oximetry (%) 100 04/26/18 13:39 Intake & Output 04/23/18 04/24/18 04/25/18 04/26/18 23:59 23:59 23:59 23:59 Intake Total 310 750 750 230 Balance 310 750 750 230 Weight 66.224 kg 66.86 kg 66.735 kg 65.136 kg NAD awake and alert MMM, No JVD, Neck supple RRR, No M/R CTA, no rales soft NT/ND + LE edema CBC, BMP 04/26/18 05:35 04/26/18 15:45 Current Medications Acetaminophen/Butalbital/Caffeine (Fioricet -) 1 tablet PO Q4H PRN PRN Reason: HEADACHE Last Admin: 04/26/18 14:33 Dose: 1 tablet Albuterol Sulfate (Ventolin Hfa Inhaler -) 2 puff IH Q6H PRN PRN Reason: ASTHMA Alprazolam (Xanax -) 0.5 mg PO Q4H PRN PRN Reason: ANXIETY Last Admin: 04/26/18 14:32 Dose: 0.25 mg Amiodarone HCl (Cordarone -) 200 mg PO BID [facility] Last Admin: 04/26/18 10:21 Dose: 200 mg Docusate Sodium (Colace -) 100 mg PO TID [facility] Last Admin: 04/26/18 14:32 Dose: 100 mg Furosemide (Lasix Injection -) 40 mg IVPUSH DAILY [facility] Last Admin: 04/26/18 16:03 Dose: 40 mg Latanoprost (Xalatan 0.005% Eye Drops -) 1 drop OU HS [facility] Last Admin: 04/25/18 21:23 Dose: Not Given Metoprolol Tartrate (Lopressor -) 100 mg PO TID [facility] Last Admin: 04/26/18 16:03 Dose: Not Given Polyethylene Glycol (Miralax (For Daily Use) -) 17 gm PO DAILY [facility] Last Admin: 04/26/18 10:22 Dose: Not Given Quinapril HCl (Accupril -) 40 mg PO BID [facility] Last Admin: 04/26/18 10:22 Dose: 40 mg Rivaroxaban (Xarelto -) 20 mg PO DAILY@1800 [facility] Last Admin: 04/25/18 17:28 Dose: 20 mg Fluticasone/Salmeterol (Advair 100mcg/50mcg -) 1 puff IH BID [facility] Last Admin: 04/26/18 10:21 Dose: 1 puff Tolvaptan (Samsca (Restricted To Nephrology/Cardiology)) 15 mg PO DAILY [facility] Last Admin: 04/26/18 11:33 Dose: 15 mg 82 year old woman with Hx of chronic hyponatremia, Afib, CHF (diastolic dysfunction), Hypertension, CAD, Pulmonary hypertension who presents for CHF/ Hyponatremia. #Hypervolemic Hyponatremia #CHF #Afib #HTN Continue Tolvaptan daily serum na now WNL will give IV Lasix today to improve edema trend serum na Q12h oral water intake as per thirst Cardioversion as per cardiology Herminio Payne DO
[2018-04-26] MEDS: RIVAROXABAN 20 MG TABLET PO SCH (18:30)
[2018-04-26] MEDS: LATANOPROST 0.005% OPHTH SOLN 2.5ML BOTTLE OU SCH (22:19)
[2018-04-27] MEDS: ACETAMINOPHEN/CAFFEINE/BUTALBITAL 1 TAB PO PRN ×5 (02:51→20:14)
[2018-04-27] MEDS: ALPRAZolam 0.25 MG TABLET PO PRN ×5 (02:51→20:14)
[2018-04-27] MEDS: DOCUSATE SODIUM 100 MG CAPSULE (FP) PO SCH ×3 (06:47→21:41)
[2018-04-27 07:20] LABS: BASO % 0.4 % (0-2.0); EOS % 3.9 % (0-4.5); HEMATOCRIT 37.2 % (32.4-45.2); HEMOGLOBIN 12.6 GM/dL (10.7-15.3); LYMPH % 13.3 % (8-40); MCH 31.5 pg (25.7-33.7); MCHC 33.8 g/dl (32.0-36.0); MEAN CELL VOLUME 93.4 fl (80-96); MEAN PLT VOLUME 8.1 fl (7.5-11.1); MONO % 17.1 % (3.8-10.2); NEUT % 65.3 % (42.8-82.8); PLATELET COUNT 185 K/MM3 (134-434); RBC 3.99 M/mm3 (3.60-5.2); WHITE BLOOD COUNT 7.4 K/mm3 (4.0-10.0)
[2018-04-27 07:53] LABS: ANION GAP 8 MMOL/L (8-16); BLOOD UREA NITROGEN 30 mg/dL (7-18); CALCIUM 8.6 mg/dL (8.5-10.1); CHLORIDE 94 mmol/L (98-107); CO2 32 mmol/L (21-32); CREATININE 1.1 mg/dL (0.55-1.02); GLUCOSE,RANDOM 104 mg/dL (74-106); POTASSIUM 4.1 mmol/L (3.5-5.1); SODIUM 134 mmol/L (136-145)
[2018-04-27] MEDS: FLUTICASONE/SALMETEROL 100 MCG/50 MCG DISKUS IH SCH ×2 (10:00→21:51)
[2018-04-27] MEDS ORDERED: FUROSEMIDE 40 MG TABLET (FP) PO SCH (10:00)
[2018-04-27] MEDS ORDERED: PT OWN MED DRAWER 7, Y5N ONE (10:01)
[2018-04-27] MEDS: AMIODARONE HCL 200 MG TABLET (FP) PO SCH ×2 (10:13→21:40)
[2018-04-27] MEDS: FUROSEMIDE 40 MG/4 ML INJECTABLE VIAL IVPUSH SCH (10:14)
[2018-04-27] MEDS: POLYETHYLENE GLYCOL 3350 119 GM BTL PO SCH (10:14)
[2018-04-27] MEDS: TOLVAPTAN 15 MG TABLET PO SCH (10:20)
[2018-04-27] MEDS: METOPROLOL TARTRATE 50 MG TABLET (FP) PO SCH ×2 (10:29→21:40)
--- NOTE | 2018-04-27 11:08 | PN ---
Progress Note (short form) - Note Progress Note: Renal Follow up for Hyponatremia Pt seen and examined at the bedside feels fatigued no cp, abd pain, N/V/D Vital Signs Temperature 97.5 F L 04/27/18 06:00 Pulse Rate 58 L 04/27/18 06:00 Respiratory Rate 18 04/27/18 06:00 Blood Pressure 104/50 04/27/18 06:00 O2 Sat by Pulse Oximetry (%) 94 L 04/26/18 21:00 Intake & Output 04/24/18 04/25/18 04/26/18 04/27/18 23:59 23:59 23:59 23:59 Intake Total 750 750 240 0 Balance 750 750 240 0 Weight 66.86 kg 66.735 kg 65.136 kg 64.319 kg NAD awake and alert MMM, No JVD, Neck supple RRR, No M/R CTA, no rales soft NT/ND + LE edema CBC, BMP 04/27/18 05:25 04/27/18 05:25 Current Medications Acetaminophen/Butalbital/Caffeine (Fioricet -) 1 tablet PO Q4H PRN PRN Reason: HEADACHE Last Admin: 04/27/18 10:55 Dose: 1 tablet Albuterol Sulfate (Ventolin Hfa Inhaler -) 2 puff IH Q6H PRN PRN Reason: ASTHMA Alprazolam (Xanax -) 0.5 mg PO Q4H PRN PRN Reason: ANXIETY Last Admin: 04/27/18 10:57 Dose: 0.25 mg Amiodarone HCl (Cordarone -) 200 mg PO BID [facility] Last Admin: 04/27/18 10:13 Dose: 200 mg Docusate Sodium (Colace -) 100 mg PO TID [facility] Last Admin: 04/27/18 06:47 Dose: 100 mg Furosemide (Lasix Injection -) 40 mg IVPUSH DAILY [facility] Last Admin: 04/27/18 10:14 Dose: 40 mg Latanoprost (Xalatan 0.005% Eye Drops -) 1 drop OU HS [facility] Last Admin: 04/26/18 22:19 Dose: Not Given Metoprolol Tartrate (Lopressor -) 100 mg PO BID [facility] Last Admin: 04/27/18 10:29 Dose: Not Given Polyethylene Glycol (Miralax (For Daily Use) -) 17 gm PO DAILY [facility] Last Admin: 04/27/18 10:14 Dose: Not Given Rivaroxaban (Xarelto -) 20 mg PO DAILY@1800 [facility] Last Admin: 04/26/18 18:30 Dose: 20 mg Fluticasone/Salmeterol (Advair 100mcg/50mcg -) 1 puff IH BID [facility] Last Admin: 04/27/18 10:00 Dose: 1 puff Tolvaptan (Samsca (Restricted To Nephrology/Cardiology)) 15 mg PO DAILY [facility] Last Admin: 04/27/18 10:20 Dose: 15 mg 82 year old woman with Hx of chronic hyponatremia, Afib, CHF (diastolic dysfunction), Hypertension, CAD, Pulmonary hypertension who presents for CHF/ Hyponatremia. #Hypervolemic Hyponatremia #CHF #Afib #HTN Serum Na stable, continue tolvaptan oral water intake as per thirst Cr noted to have increased to 1.1 BP marginal, will hold Qunipril for the time being will continue IV Lasix daily trend BMP daily Cardiology follow up Herminio Payne DO
--- NOTE | 2018-04-27 11:14 | PN ---
Progress Note (short form) - Note Progress Note: No palpitations No chest pain or SOB Feels very fatigued. O/E Heart regular Lungs clear Ext no edema Laboratory Results - last 24 hr 04/26/18 04/26/18 04/27/18 05:35 15:45 05:25 WBC 7.4 RBC 3.99 Hgb 12.6 Hct 37.2 MCV 93.4 MCH 31.5 MCHC 33.8 RDW 15.0 Plt Count 185 MPV 8.1 Absolute Neuts (auto) 4.8 Neutrophils % 65.3 Neutrophils % (Manual) 56.5 Band Neutrophils % 0.0 Lymphocytes % 13.3 D Lymphocytes % (Manual) 28.7 Monocytes % 17.1 H Monocytes % (Manual) 9 Eosinophils % 3.9 Eosinophils % (Manual) 4.6 H Basophils % 0.4 Basophils % (Manual) 0.9 Myelocytes % (Man) 0 D Promyelocytes % (Man) 0 Blast Cells % (Manual) 0 Nucleated RBC % 0 Metamyelocytes 0 Hypochromia 0 Platelet Estimate Normal Polychromasia 0 Poikilocytosis 0 Anisocytosis 0 Microcytosis 0 Macrocytosis 0 Sodium 135 L Potassium 4.3 Chloride 97 L Carbon Dioxide 30 Anion Gap 8 BUN 17 Creatinine 0.7 Creat Clearance w eGFR > 60 Random Glucose 113 H Calcium 8.9 04/27/18 05:25 WBC RBC Hgb Hct MCV MCH MCHC RDW Plt Count MPV Absolute Neuts (auto) Neutrophils % Neutrophils % (Manual) Band Neutrophils % Lymphocytes % Lymphocytes % (Manual) Monocytes % Monocytes % (Manual) Eosinophils % Eosinophils % (Manual) Basophils % Basophils % (Manual) Myelocytes % (Man) Promyelocytes % (Man) Blast Cells % (Manual) Nucleated RBC % Metamyelocytes Hypochromia Platelet Estimate Polychromasia Poikilocytosis Anisocytosis Microcytosis Macrocytosis Sodium 134 L Potassium 4.1 Chloride 94 L Carbon Dioxide 32 Anion Gap 8 BUN 30 H Creatinine 1.1 H Creat Clearance w eGFR 47.55 Random Glucose 104 Calcium 8.6 Vital Signs Period Temp Pulse Resp BP Sys/[place] Pulse Ox Last 24 Hr 97.5 F-98 F 58-65 16-18 72-119/50-66 94-100 Current Medications Acetaminophen/Butalbital/Caffeine (Fioricet -) 1 tablet PO Q4H PRN PRN Reason: HEADACHE Last Admin: 04/27/18 10:55 Dose: 1 tablet Albuterol Sulfate (Ventolin Hfa Inhaler -) 2 puff IH Q6H PRN PRN Reason: ASTHMA Alprazolam (Xanax -) 0.5 mg PO Q4H PRN PRN Reason: ANXIETY Last Admin: 04/27/18 10:57 Dose: 0.25 mg Amiodarone HCl (Cordarone -) 200 mg PO BID [facility] Last Admin: 04/27/18 10:13 Dose: 200 mg Docusate Sodium (Colace -) 100 mg PO TID [facility] Last Admin: 04/27/18 06:47 Dose: 100 mg Furosemide (Lasix Injection -) 40 mg IVPUSH DAILY [facility] Last Admin: 04/27/18 10:14 Dose: 40 mg Latanoprost (Xalatan 0.005% Eye Drops -) 1 drop OU HS [facility] Last Admin: 04/26/18 22:19 Dose: Not Given Metoprolol Tartrate (Lopressor -) 100 mg PO BID [facility] Last Admin: 04/27/18 10:29 Dose: Not Given Polyethylene Glycol (Miralax (For Daily Use) -) 17 gm PO DAILY [facility] Last Admin: 04/27/18 10:14 Dose: Not Given Rivaroxaban (Xarelto -) 20 mg PO DAILY@1800 [facility] Last Admin: 04/26/18 18:30 Dose: 20 mg Fluticasone/Salmeterol (Advair 100mcg/50mcg -) 1 puff IH BID [facility] Last Admin: 04/27/18 10:00 Dose: 1 puff Tolvaptan (Samsca (Restricted To Nephrology/Cardiology)) 15 mg PO DAILY [facility] Last Admin: 04/27/18 10:20 Dose: 15 mg Assessment/Plan (1) SIADH (syndrome of inappropriate ADH production) Assessment/Plan: Improved and stable on Samsca (2) Hyponatremia Assessment/Plan: Resolved Code(s): E87.1 - HYPO-OSMOLALITY AND HYPONATREMIA (3) Edema extremities Assessment/Plan: chronic continue lasix Code(s): R60.0 - LOCALIZED EDEMA (4) CAD (coronary artery disease) Assessment/Plan: no acute ACS cardiology following Code(s): I25.10 - ATHSCL HEART DISEASE OF [place] CORONARY ARTERY W/O ANG PCTRS Qualifiers: [place] vs. transplanted heart: [place] heart (5) CHF (congestive heart failure) Assessment/Plan: stable continue lasix O2 prn Code(s): I50.9 - HEART FAILURE, UNSPECIFIED Qualifiers: Heart failure type: combined systolic and diastolic Heart failure chronicity: chronic Qualified Code(s): I50.42 - Chronic combined systolic ( congestive) and diastolic (congestive) heart failure (6) Afib Assessment/Plan: s/p Cardioversion and is doing OK Code(s): I48.91 - UNSPECIFIED ATRIAL FIBRILLATION Qualifiers: Atrial fibrillation type: paroxysmal Qualified Code(s): I48.0 - Paroxysmal atrial fibrillation (7) COPD (chronic obstructive pulmonary disease) Assessment/Plan: stable continue inhalers O2 prn monitor Code(s): J44.9 - CHRONIC OBSTRUCTIVE PULMONARY DISEASE, UNSPECIFIED (8) Anxiety Assessment/Plan: controlled xanax prn Code(s): F41.9 - ANXIETY DISORDER, UNSPECIFIED (9) Pulmonary hypertension Assessment/Plan: chronic followed by cardiology Code(s): I27.2 - OTHER SECONDARY PULMONARY HYPERTENSION * DO NOT USE * (10) Tricuspid valve insufficiency Assessment/Plan: moderate in severity cardiology following monitor Code(s): I07.1 - RHEUMATIC TRICUSPID INSUFFICIENCY Qualifiers: Cardiac valve disease etiology: nonrheumatic Qualified Code(s): I36.1 - Nonrheumatic tricuspid (valve) insufficiency (11) Hypertension Assessment/Plan: controlled continue current management Code(s): I10 - ESSENTIAL (PRIMARY) HYPERTENSION Qualifiers: Hypertension type: essential hypertension Qualified Code(s): I10 - Essential (primary) hypertension (12) Degenerative disc disease Assessment/Plan: chronic ambulate as tolerated Code(s): [id number] -
[2018-04-27] MEDS: RIVAROXABAN 20 MG TABLET PO SCH (17:54)
[2018-04-27] MEDS: LATANOPROST 0.005% OPHTH SOLN 2.5ML BOTTLE OU SCH (21:41)
[2018-04-28] MEDS: ACETAMINOPHEN/CAFFEINE/BUTALBITAL 1 TAB PO PRN ×6 (00:31→21:26)
[2018-04-28] MEDS: ALPRAZolam 0.25 MG TABLET PO PRN ×6 (00:32→21:29)
[2018-04-28] MEDS: DOCUSATE SODIUM 100 MG CAPSULE (FP) PO SCH ×3 (06:21→21:26)
[2018-04-28 07:37] LABS: BASO % 0.4 % (0-2.0); EOS % 5.9 % (0-4.5); HEMATOCRIT 38.4 % (32.4-45.2); HEMOGLOBIN 12.9 GM/dL (10.7-15.3); LYMPH % 18.3 % (8-40); MCH 31.6 pg (25.7-33.7); MCHC 33.6 g/dl (32.0-36.0); MEAN CELL VOLUME 93.9 fl (80-96); MONO % 15.1 % (3.8-10.2); NEUT % 60.3 % (42.8-82.8); PLATELET COUNT 196 K/MM3 (134-434); RBC 4.09 M/mm3 (3.60-5.2); RDW 14.5 % (11.6-15.6); WHITE BLOOD COUNT 6.9 K/mm3 (4.0-10.0)
[2018-04-28 08:05] LABS: CHLORIDE 94 mmol/L (98-107); POTASSIUM 4.2 mmol/L (3.5-5.1); SODIUM 134 mmol/L (136-145)
[2018-04-28 08:59] LABS: ANION GAP 7 MMOL/L (8-16); BLOOD UREA NITROGEN 28 mg/dL (7-18); CALCIUM 8.6 mg/dL (8.5-10.1); CO2 33 mmol/L (21-32); CREATININE 0.9 mg/dL (0.55-1.02); GLUCOSE,RANDOM 85 mg/dL (74-106); MAGNESIUM 1.9 mg/dL (1.8-2.4); PHOSPHOROUS 4.2 mg/dL (2.5-4.9)
[2018-04-28] MEDS ORDERED: PT OWN MED DRAWER 7, Y5N ONE (09:04)
[2018-04-28] MEDS: METOPROLOL TARTRATE 50 MG TABLET (FP) PO SCH ×2 (09:13→21:26)
[2018-04-28] MEDS: AMIODARONE HCL 200 MG TABLET (FP) PO SCH ×2 (09:13→21:26)
[2018-04-28] MEDS: FUROSEMIDE 40 MG/4 ML INJECTABLE VIAL IVPUSH SCH (09:14)
[2018-04-28] MEDS: TOLVAPTAN 15 MG TABLET PO SCH (09:15)
[2018-04-28] MEDS: POLYETHYLENE GLYCOL 3350 119 GM BTL PO SCH (09:34)
[2018-04-28] MEDS: FLUTICASONE/SALMETEROL 100 MCG/50 MCG DISKUS IH SCH ×2 (09:37→21:26)
--- NOTE | 2018-04-28 12:24 | PN ---
Progress Note (short form) - Note Progress Note: Feels better The legs are still swollen No palpitations O/E Heart regular Lungs clear Abd soft Ext b/l +1 edema+ Vital Signs Period Temp Pulse Resp BP Sys/[place] Pulse Ox Last 24 Hr 97.4 F-98.5 F 60-67 18-18 100-144/54-76 96 Current Medications Acetaminophen/Butalbital/Caffeine (Fioricet -) 1 tablet PO Q4H PRN PRN Reason: HEADACHE Last Admin: 04/28/18 09:10 Dose: 1 tablet Albuterol Sulfate (Ventolin Hfa Inhaler -) 2 puff IH Q6H PRN PRN Reason: ASTHMA Alprazolam (Xanax -) 0.5 mg PO Q4H PRN PRN Reason: ANXIETY Last Admin: 04/28/18 09:12 Dose: 0.25 mg Amiodarone HCl (Cordarone -) 200 mg PO BID [facility] Last Admin: 04/28/18 09:13 Dose: 200 mg Docusate Sodium (Colace -) 100 mg PO TID [facility] Last Admin: 04/28/18 06:21 Dose: 100 mg Furosemide (Lasix Injection -) 40 mg IVPUSH DAILY [facility] Last Admin: 04/28/18 09:14 Dose: 40 mg Latanoprost (Xalatan 0.005% Eye Drops -) 1 drop OU HS [facility] Last Admin: 04/27/18 21:41 Dose: Not Given Metoprolol Tartrate (Lopressor -) 100 mg PO BID [facility] Last Admin: 04/28/18 09:13 Dose: 100 mg Polyethylene Glycol (Miralax (For Daily Use) -) 17 gm PO DAILY [facility] Last Admin: 04/28/18 09:34 Dose: 17 grams Rivaroxaban (Xarelto -) 20 mg PO DAILY@1800 [facility] Last Admin: 04/27/18 17:54 Dose: 20 mg Fluticasone/Salmeterol (Advair 100mcg/50mcg -) 1 puff IH BID [facility] Last Admin: 04/28/18 09:37 Dose: 1 puff Tolvaptan (Samsca (Restricted To Nephrology/Cardiology)) 15 mg PO DAILY [facility] Last Admin: 04/28/18 09:15 Dose: 15 mg Laboratory Results - last 24 hr 04/28/18 04/28/18 05:30 05:30 WBC 6.9 RBC 4.09 Hgb 12.9 Hct 38.4 MCV 93.9 MCH 31.6 MCHC 33.6 RDW 14.5 Plt Count 196 MPV 8.0 Absolute Neuts (auto) 4.2 Neutrophils % 60.3 Lymphocytes % 18.3 D Monocytes % 15.1 H Eosinophils % 5.9 H Basophils % 0.4 Nucleated RBC % 0 Sodium 134 L Potassium 4.2 Chloride 94 L Carbon Dioxide 33 H Anion Gap 7 L BUN 28 H Creatinine 0.9 Creat Clearance w eGFR 59.94 Random Glucose 85 Calcium 8.6 Phosphorus 4.2 Magnesium 1.9 Assessment/Plan (1) SIADH (syndrome of inappropriate ADH production) Assessment/Plan: Improved and stable on Samsca (2) Hyponatremia Assessment/Plan: Resolved Code(s): E87.1 - HYPO-OSMOLALITY AND HYPONATREMIA (3) Edema extremities Assessment/Plan: chronic continue lasix Code(s): R60.0 - LOCALIZED EDEMA (4) CAD (coronary artery disease) Assessment/Plan: no acute ACS cardiology following Code(s): I25.10 - ATHSCL HEART DISEASE OF [place] CORONARY ARTERY W/O ANG PCTRS Qualifiers: [place] vs. transplanted heart: [place] heart (5) CHF (congestive heart failure) Assessment/Plan: stable continue lasix O2 prn Code(s): I50.9 - HEART FAILURE, UNSPECIFIED Qualifiers: Heart failure type: combined systolic and diastolic Heart failure chronicity: chronic Qualified Code(s): I50.42 - Chronic combined systolic ( congestive) and diastolic (congestive) heart failure (6) Afib Assessment/Plan: s/p Cardioversion and is doing OK Code(s): I48.91 - UNSPECIFIED ATRIAL FIBRILLATION Qualifiers: Atrial fibrillation type: paroxysmal Qualified Code(s): I48.0 - Paroxysmal atrial fibrillation (7) COPD (chronic obstructive pulmonary disease) Assessment/Plan: stable continue inhalers O2 prn monitor Code(s): J44.9 - CHRONIC OBSTRUCTIVE PULMONARY DISEASE, UNSPECIFIED (8) Anxiety Assessment/Plan: controlled xanax prn Code(s): F41.9 - ANXIETY DISORDER, UNSPECIFIED (9) Pulmonary hypertension Assessment/Plan: chronic followed by cardiology Code(s): I27.2 - OTHER SECONDARY PULMONARY HYPERTENSION * DO NOT USE * (10) Tricuspid valve insufficiency Assessment/Plan: moderate in severity cardiology following monitor Code(s): I07.1 - RHEUMATIC TRICUSPID INSUFFICIENCY Qualifiers: Cardiac valve disease etiology: nonrheumatic Qualified Code(s): I36.1 - Nonrheumatic tricuspid (valve) insufficiency (11) Hypertension Assessment/Plan: controlled continue current management Code(s): I10 - ESSENTIAL (PRIMARY) HYPERTENSION Qualifiers: Hypertension type: essential hypertension Qualified Code(s): I10 - Essential (primary) hypertension (12) Degenerative disc disease Assessment/Plan: chronic ambulate as tolerated Code(s): [id number] -
[2018-04-28] MEDS ORDERED: FUROSEMIDE 40 MG/4 ML INJECTABLE VIAL IVPUSH ONE ×2 (13:00→14:00)
--- NOTE | 2018-04-28 13:00 | PN ---
Progress Note, Physician History of Present Illness: Remains in SR post DCCV. Palpitations, fatigue, HERNÁNDEZ resolved. - Current Medication List Current Medications: Active Medications Acetaminophen/Butalbital/Caffeine (Fioricet -) 1 tablet PO Q4H PRN PRN Reason: HEADACHE Last Admin: 04/28/18 09:10 Dose: 1 tablet Albuterol Sulfate (Ventolin Hfa Inhaler -) 2 puff IH Q6H PRN PRN Reason: ASTHMA Alprazolam (Xanax -) 0.5 mg PO Q4H PRN PRN Reason: ANXIETY Last Admin: 04/28/18 09:12 Dose: 0.25 mg Amiodarone HCl (Cordarone -) 200 mg PO BID [facility] Last Admin: 04/28/18 09:13 Dose: 200 mg Docusate Sodium (Colace -) 100 mg PO TID [facility] Last Admin: 04/28/18 06:21 Dose: 100 mg Furosemide (Lasix Injection -) 40 mg IVPUSH DAILY [facility] Last Admin: 04/28/18 09:14 Dose: 40 mg Furosemide (Lasix Injection -) 20 mg IVPUSH ONCE ONE Stop: 04/28/18 14:01 Latanoprost (Xalatan 0.005% Eye Drops -) 1 drop OU HS [facility] Last Admin: 04/27/18 21:41 Dose: Not Given Metoprolol Tartrate (Lopressor -) 100 mg PO BID [facility] Last Admin: 04/28/18 09:13 Dose: 100 mg Polyethylene Glycol (Miralax (For Daily Use) -) 17 gm PO DAILY [facility] Last Admin: 04/28/18 09:34 Dose: 17 grams Rivaroxaban (Xarelto -) 20 mg PO DAILY@1800 [facility] Last Admin: 04/27/18 17:54 Dose: 20 mg Fluticasone/Salmeterol (Advair 100mcg/50mcg -) 1 puff IH BID [facility] Last Admin: 04/28/18 09:37 Dose: 1 puff Tolvaptan (Samsca (Restricted To Nephrology/Cardiology)) 15 mg PO DAILY [facility] Last Admin: 04/28/18 09:15 Dose: 15 mg - Objective Vital Signs: Vital Signs Temperature 97.9 F 04/28/18 10:00 Pulse Rate 67 04/28/18 10:00 Respiratory Rate 18 04/28/18 10:00 Blood Pressure 144/76 04/28/18 10:00 O2 Sat by Pulse Oximetry (%) 96 04/28/18 09:00 Constitutional: Yes: No Distress, Calm, Thin Neck: Yes: Supple Cardiovascular: Yes: Regular Rate and Rhythm Respiratory: Yes: Regular, Diminished Gastrointestinal: Yes: Normal Bowel Sounds, Soft Edema: Yes Edema: LLE: 2+, RLE: 2+ Labs: CBC, BMP 04/28/18 05:30 04/28/18 05:30 INR, PTT INR 1.16 (0.83-1.09) H 04/23/18 19:00 - ....Imaging EKG: Report Reviewed (Tele: NSR) Problem List - Problems (1) CAD (coronary artery disease) Code(s): I25.10 - ATHSCL HEART DISEASE OF [place] CORONARY ARTERY W/O ANG PCTRS Qualifiers: [place] vs. transplanted heart: [place] heart (2) Acute on chronic diastolic heart failure Code(s): I50.33 - ACUTE ON CHRONIC DIASTOLIC (CONGESTIVE) HEART FAILURE (3) Atrial fibrillation Code(s): I48.91 - UNSPECIFIED ATRIAL FIBRILLATION Qualifiers: Atrial fibrillation type: paroxysmal Qualified Code(s): I48.0 - Paroxysmal atrial fibrillation (4) COPD (chronic obstructive pulmonary disease) Code(s): J44.9 - CHRONIC OBSTRUCTIVE PULMONARY DISEASE, UNSPECIFIED Qualifiers: COPD type: unspecified COPD Qualified Code(s): J44.9 - Chronic obstructive pulmonary disease, unspecified (5) Edema extremities Code(s): R60.0 - LOCALIZED EDEMA (6) Hypertensive cardiovascular disease Code(s): I11.9 - HYPERTENSIVE HEART DISEASE WITHOUT HEART FAILURE Qualifiers: Heart failure presence: with heart failure Heart failure type: diastolic Heart failure chronicity: acute on chronic Qualified Code(s): I11.0 - Hypertensive heart disease with heart failure; I50.33 - Acute on chronic diastolic (congestive) heart failure (7) Hyponatremia Code(s): E87.1 - HYPO-OSMOLALITY AND HYPONATREMIA (8) Pulmonary hypertension Code(s): I27.2 - OTHER SECONDARY PULMONARY HYPERTENSION * DO NOT USE * (10) History of cardioversion Code(s): Z98.890 - OTHER SPECIFIED POSTPROCEDURAL STATES (11) Migraine Code(s): G43.909 - MIGRAINE, UNSP, NOT INTRACTABLE, WITHOUT STATUS MIGRAINOSUS Qualifiers: Migraine type: unspecified Assessment/Plan Echo: 11/15/2017 Normal LV size and fxn LVEF 65-70%, borderline LISA, normal RV size and fxn, mild AR, mild MVP (posterior leaflet) with mod MR, mod-severe TR RVSP 56 mmHg 1. Recurrent paroxysmal atrial fibrillation with periods of rapid ventricular response [id number] score of 5 -> NSR post cardioversion 2. Acute on chronic class I-II NYHA classification LV failure related to LV diastolic/systolic dysfunction 3. CAD angina pectoris 4. HTN 5. Pulmonary HTN (moderate) 6. COPD 7. Hyponatremia due to SIADH, hypervolemia improving PLAN: 1. Continue Lasix 40 IV qd with close monitoring of renal function 2. Continue Lopressor 100 bid 3. Continue Accupril 40 bid hemodynamics permitting 4. Continue Xarelto 20 qd 5. Continue amio 200 bid, failed sotalol and Tikosyn in past 6. Plan for repeat DCCV on amiodarone today as atrial fibrillation persists ( confirms compliance with NOAC's so YURI-guidance not required), eventual pulmonary vein isolation RFA referral for more definitive solution as outpatient , but patient hesitant 7. Samsca 15 qd for treatment of hyponatremia, NaCl tablets and fluid restriction d/mya, eplerenone held for now, renal input appreciated
--- NOTE | 2018-04-28 14:21 | PN ---
Progress Note (short form) - Note Progress Note: Renal Follow up for Hyponatremia Pt seen and examined at the bedside continues to have fatigue no sob, cp, abd pain, N/V/D making more urine now Vital Signs Temperature 97.9 F 04/28/18 10:00 Pulse Rate 67 04/28/18 10:00 Respiratory Rate 18 04/28/18 10:00 Blood Pressure 144/76 04/28/18 10:00 O2 Sat by Pulse Oximetry (%) 96 04/28/18 09:00 Intake & Output 04/25/18 04/26/18 04/27/18 04/28/18 23:59 23:59 23:59 23:59 Intake Total 750 240 20 610 Balance 750 240 20 610 Weight 66.735 kg 65.136 kg 64.319 kg 64.501 kg NAD awake and alert MMM, No JVD, Neck supple RRR, No M/R CTA, no rales soft NT/ND + LE edema CBC, BMP 04/28/18 05:30 04/28/18 05:30 Current Medications Acetaminophen/Butalbital/Caffeine (Fioricet -) 1 tablet PO Q4H PRN PRN Reason: HEADACHE Last Admin: 04/28/18 13:27 Dose: 1 tablet Albuterol Sulfate (Ventolin Hfa Inhaler -) 2 puff IH Q6H PRN PRN Reason: ASTHMA Alprazolam (Xanax -) 0.5 mg PO Q4H PRN PRN Reason: ANXIETY Last Admin: 04/28/18 13:28 Dose: 0.25 mg Amiodarone HCl (Cordarone -) 200 mg PO BID [facility] Last Admin: 04/28/18 09:13 Dose: 200 mg Docusate Sodium (Colace -) 100 mg PO TID [facility] Last Admin: 04/28/18 13:27 Dose: 100 mg Furosemide (Lasix Injection -) 40 mg IVPUSH DAILY [facility] Last Admin: 04/28/18 09:14 Dose: 40 mg Latanoprost (Xalatan 0.005% Eye Drops -) 1 drop OU HS [facility] Last Admin: 04/27/18 21:41 Dose: Not Given Metoprolol Tartrate (Lopressor -) 100 mg PO BID [facility] Last Admin: 04/28/18 09:13 Dose: 100 mg Polyethylene Glycol (Miralax (For Daily Use) -) 17 gm PO DAILY [facility] Last Admin: 04/28/18 09:34 Dose: 17 grams Rivaroxaban (Xarelto -) 20 mg PO DAILY@1800 [facility] Last Admin: 04/27/18 17:54 Dose: 20 mg Fluticasone/Salmeterol (Advair 100mcg/50mcg -) 1 puff IH BID [facility] Last Admin: 04/28/18 09:37 Dose: 1 puff Tolvaptan (Samsca (Restricted To Nephrology/Cardiology)) 15 mg PO DAILY [facility] Last Admin: 04/28/18 09:15 Dose: 15 mg 82 year old woman with Hx of chronic hyponatremia, Afib, CHF (diastolic dysfunction), Hypertension, CAD, Pulmonary hypertension who presents for CHF/ Hyponatremia. #Hypervolemic Hyponatremia #CHF #Afib #HTN Serum Na stable, continue tolvaptan Continue IV Lasix for management of edema Will give extra 20mg IV this afternoon trend renal function, weights Cardiology follow up Herminio Payne DO
[2018-04-28] MEDS: RIVAROXABAN 20 MG TABLET PO SCH (17:28)
[2018-04-28] MEDS: LATANOPROST 0.005% OPHTH SOLN 2.5ML BOTTLE OU SCH (21:26)
[2018-04-29] MEDS: ALPRAZolam 0.25 MG TABLET PO PRN ×5 (05:31→21:43)
[2018-04-29] MEDS: ACETAMINOPHEN/CAFFEINE/BUTALBITAL 1 TAB PO PRN ×5 (05:31→21:43)
[2018-04-29] MEDS: DOCUSATE SODIUM 100 MG CAPSULE (FP) PO SCH ×3 (05:31→21:43)
[2018-04-29 07:11] LABS: BASO % 0.7 % (0-2.0); EOS % 8.8 % (0-4.5); HEMATOCRIT 38.1 % (32.4-45.2); HEMOGLOBIN 12.9 GM/dL (10.7-15.3); LYMPH % 19.8 % (8-40); MCH 31.8 pg (25.7-33.7); MCHC 33.9 g/dl (32.0-36.0); MEAN CELL VOLUME 93.7 fl (80-96); MEAN PLT VOLUME 7.1 fl (7.5-11.1); MONO % 17.5 % (3.8-10.2); NEUT % 53.2 % (42.8-82.8); PLATELET COUNT 207 K/MM3 (134-434); RBC 4.07 M/mm3 (3.60-5.2); RDW 14.9 % (11.6-15.6); WHITE BLOOD COUNT 6.3 K/mm3 (4.0-10.0)
[2018-04-29 08:05] LABS: CHLORIDE 95 mmol/L (98-107); POTASSIUM 3.7 mmol/L (3.5-5.1); SODIUM 136 mmol/L (136-145)
[2018-04-29 08:32] LABS: ANION GAP 9 MMOL/L (8-16); BLOOD UREA NITROGEN 25 mg/dL (7-18); CALCIUM 8.7 mg/dL (8.5-10.1); CO2 32 mmol/L (21-32); CREATININE 0.8 mg/dL (0.55-1.02); GLUCOSE,RANDOM 126 mg/dL (74-106); PHOSPHOROUS 3.1 mg/dL (2.5-4.9)
[2018-04-29] MEDS: TORSEMIDE 20 MG TABLET (FP) PO SCH (09:32)
[2018-04-29] MEDS: AMIODARONE HCL 200 MG TABLET (FP) PO SCH ×2 (09:33→21:43)
[2018-04-29] MEDS: METOPROLOL TARTRATE 50 MG TABLET (FP) PO SCH ×2 (09:33→21:43)
[2018-04-29] MEDS: TOLVAPTAN 15 MG TABLET PO SCH (09:34)
[2018-04-29] MEDS: FLUTICASONE/SALMETEROL 100 MCG/50 MCG DISKUS IH SCH (09:40)
[2018-04-29] MEDS: POLYETHYLENE GLYCOL 3350 119 GM BTL PO SCH (10:00)
--- NOTE | 2018-04-29 12:06 | PN ---
Progress Note (short form) - Note Progress Note: Renal Follow up for Hyponatremia Pt seen and examined at the bedside feels depressed no sob, cp, abd pain, N/V/D making urine Vital Signs Temperature 98.4 F 04/29/18 10:00 Pulse Rate 64 04/29/18 10:00 Respiratory Rate 18 04/29/18 10:00 Blood Pressure 153/77 04/29/18 10:00 O2 Sat by Pulse Oximetry (%) 98 04/28/18 21:00 Intake & Output 04/26/18 04/27/18 04/28/18 04/29/18 23:59 23:59 23:59 23:59 Intake Total 683 20 5557 260 Balance 554 52 5602 260 Weight 65.136 kg 64.319 kg 64.501 kg 64.41 kg NAD awake and alert MMM, No JVD, Neck supple RRR, No M/R CTA, no rales soft NT/ND + LE edema CBC, BMP 04/29/18 05:30 04/29/18 05:30 Current Medications Acetaminophen/Butalbital/Caffeine (Fioricet -) 1 tablet PO Q4H PRN PRN Reason: HEADACHE Last Admin: 04/29/18 09:31 Dose: 1 tablet Albuterol Sulfate (Ventolin Hfa Inhaler -) 2 puff IH Q6H PRN PRN Reason: ASTHMA Alprazolam (Xanax -) 0.5 mg PO Q4H PRN PRN Reason: ANXIETY Last Admin: 04/29/18 09:32 Dose: 0.25 mg Amiodarone HCl (Cordarone -) 200 mg PO BID [facility] Last Admin: 04/29/18 09:33 Dose: 200 mg Docusate Sodium (Colace -) 100 mg PO TID [facility] Last Admin: 04/29/18 05:31 Dose: 100 mg Latanoprost (Xalatan 0.005% Eye Drops -) 1 drop OU HS [facility] Last Admin: 04/28/18 21:26 Dose: Not Given Metoprolol Tartrate (Lopressor -) 100 mg PO BID [facility] Last Admin: 04/29/18 09:33 Dose: 100 mg Polyethylene Glycol (Miralax (For Daily Use) -) 17 gm PO DAILY [facility] Last Admin: 04/29/18 10:00 Dose: Not Given Rivaroxaban (Xarelto -) 20 mg PO DAILY@1800 [facility] Last Admin: 04/28/18 17:28 Dose: 20 mg Fluticasone/Salmeterol (Advair 100mcg/50mcg -) 1 puff IH BID [facility] Last Admin: 04/29/18 09:40 Dose: 1 puff Tolvaptan (Samsca (Restricted To Nephrology/Cardiology)) 15 mg PO DAILY [facility] Last Admin: 04/29/18 09:34 Dose: 15 mg Torsemide (Demadex -) 40 mg PO DAILY [facility] Last Admin: 04/29/18 09:32 Dose: 40 mg 82 year old woman with Hx of chronic hyponatremia, Afib, CHF (diastolic dysfunction), Hypertension, CAD, Pulmonary hypertension who presents for CHF/ Hyponatremia. #Hypervolemic Hyponatremia #CHF #Afib #HTN Serum Na stable, continue tolvaptan change diuretics to torsemide if renal function, Na stable can consider discharge in 24 hours Cardiology following Herminio Payne DO
--- NOTE | 2018-04-29 12:51 | PN ---
Progress Note, Physician History of Present Illness: Remains in SR post DCCV. Palpitations, fatigue, HERNÁNDEZ resolved. - Current Medication List Current Medications: Active Medications Acetaminophen/Butalbital/Caffeine (Fioricet -) 1 tablet PO Q4H PRN PRN Reason: HEADACHE Last Admin: 04/29/18 09:31 Dose: 1 tablet Albuterol Sulfate (Ventolin Hfa Inhaler -) 2 puff IH Q6H PRN PRN Reason: ASTHMA Alprazolam (Xanax -) 0.5 mg PO Q4H PRN PRN Reason: ANXIETY Last Admin: 04/29/18 09:32 Dose: 0.25 mg Amiodarone HCl (Cordarone -) 200 mg PO BID [facility] Last Admin: 04/29/18 09:33 Dose: 200 mg Docusate Sodium (Colace -) 100 mg PO TID [facility] Last Admin: 04/29/18 05:31 Dose: 100 mg Latanoprost (Xalatan 0.005% Eye Drops -) 1 drop OU HS [facility] Last Admin: 04/28/18 21:26 Dose: Not Given Metoprolol Tartrate (Lopressor -) 100 mg PO BID [facility] Last Admin: 04/29/18 09:33 Dose: 100 mg Polyethylene Glycol (Miralax (For Daily Use) -) 17 gm PO DAILY [facility] Last Admin: 04/29/18 10:00 Dose: Not Given Rivaroxaban (Xarelto -) 20 mg PO DAILY@1800 [facility] Last Admin: 04/28/18 17:28 Dose: 20 mg Fluticasone/Salmeterol (Advair 100mcg/50mcg -) 1 puff IH BID [facility] Last Admin: 04/29/18 09:40 Dose: 1 puff Tolvaptan (Samsca (Restricted To Nephrology/Cardiology)) 15 mg PO DAILY [facility] Last Admin: 04/29/18 09:34 Dose: 15 mg Torsemide (Demadex -) 40 mg PO DAILY [facility] Last Admin: 04/29/18 09:32 Dose: 40 mg - Objective Vital Signs: Vital Signs Temperature 98.4 F 04/29/18 10:00 Pulse Rate 64 04/29/18 10:00 Respiratory Rate 18 04/29/18 10:00 Blood Pressure 153/77 04/29/18 10:00 O2 Sat by Pulse Oximetry (%) 98 04/28/18 21:00 Constitutional: Yes: No Distress, Calm Neck: Yes: Supple Cardiovascular: Yes: Regular Rate and Rhythm Respiratory: Yes: Regular, CTA Bilaterally Gastrointestinal: Yes: Normal Bowel Sounds, Soft Edema: Yes Labs: CBC, BMP 04/29/18 05:30 04/29/18 05:30 INR, PTT INR 1.16 (0.83-1.09) H 04/23/18 19:00 - ....Imaging EKG: Report Reviewed (Tele: SR) Problem List - Problems (1) CAD (coronary artery disease) Code(s): I25.10 - ATHSCL HEART DISEASE OF [place] CORONARY ARTERY W/O ANG PCTRS Qualifiers: [place] vs. transplanted heart: [place] heart (2) Acute on chronic diastolic heart failure Code(s): I50.33 - ACUTE ON CHRONIC DIASTOLIC (CONGESTIVE) HEART FAILURE (3) Atrial fibrillation Code(s): I48.91 - UNSPECIFIED ATRIAL FIBRILLATION Qualifiers: Atrial fibrillation type: paroxysmal Qualified Code(s): I48.0 - Paroxysmal atrial fibrillation (4) COPD (chronic obstructive pulmonary disease) Code(s): J44.9 - CHRONIC OBSTRUCTIVE PULMONARY DISEASE, UNSPECIFIED Qualifiers: COPD type: unspecified COPD Qualified Code(s): J44.9 - Chronic obstructive pulmonary disease, unspecified (5) Edema extremities Code(s): R60.0 - LOCALIZED EDEMA (6) Hypertensive cardiovascular disease Code(s): I11.9 - HYPERTENSIVE HEART DISEASE WITHOUT HEART FAILURE Qualifiers: Heart failure presence: with heart failure Heart failure type: diastolic Heart failure chronicity: acute on chronic Qualified Code(s): I11.0 - Hypertensive heart disease with heart failure; I50.33 - Acute on chronic diastolic (congestive) heart failure (7) Hyponatremia Code(s): E87.1 - HYPO-OSMOLALITY AND HYPONATREMIA (8) Pulmonary hypertension Code(s): I27.2 - OTHER SECONDARY PULMONARY HYPERTENSION * DO NOT USE * (10) History of cardioversion Code(s): Z98.890 - OTHER SPECIFIED POSTPROCEDURAL STATES (11) Migraine Code(s): G43.909 - MIGRAINE, UNSP, NOT INTRACTABLE, WITHOUT STATUS MIGRAINOSUS Qualifiers: Migraine type: unspecified Assessment/Plan Echo: 11/15/2017 Normal LV size and fxn LVEF 65-70%, borderline LISA, normal RV size and fxn, mild AR, mild MVP (posterior leaflet) with mod MR, mod-severe TR RVSP 56 mmHg 1. Recurrent paroxysmal atrial fibrillation with periods of rapid ventricular response [id number] score of 5 -> NSR post cardioversion 2. Acute on chronic class I-II NYHA classification LV failure related to LV diastolic/systolic dysfunction 3. CAD angina pectoris 4. HTN 5. Pulmonary HTN (moderate) 6. COPD 7. Hyponatremia due to SIADH, hypervolemia improving PLAN: 1. Changed Lasix 40 IV to Demadex 40 qd with close monitoring of renal function and electrolytes 2. Continue Lopressor 100 bid 3. Continue Accupril 40 bid hemodynamics permitting 4. Continue Xarelto 20 qd 5. Continue amio 200 bid, failed sotalol and Tikosyn in past 6. Pulmonary vein isolation RFA referral for more definitive solution as outpatient, but patient hesitant 7. Samsca 15 qd for treatment of hyponatremia, NaCl tablets and fluid restriction d/mya, eplerenone held for now, renal input appreciated
--- NOTE | 2018-04-29 13:41 | PN ---
Progress Note, Physician Chief Complaint: No new complaints - Current Medication List Current Medications: Active Medications Acetaminophen/Butalbital/Caffeine (Fioricet -) 1 tablet PO Q4H PRN PRN Reason: HEADACHE Last Admin: 04/29/18 09:31 Dose: 1 tablet Albuterol Sulfate (Ventolin Hfa Inhaler -) 2 puff IH Q6H PRN PRN Reason: ASTHMA Alprazolam (Xanax -) 0.5 mg PO Q4H PRN PRN Reason: ANXIETY Last Admin: 04/29/18 09:32 Dose: 0.25 mg Amiodarone HCl (Cordarone -) 200 mg PO BID [facility] Last Admin: 04/29/18 09:33 Dose: 200 mg Docusate Sodium (Colace -) 100 mg PO TID [facility] Last Admin: 04/29/18 05:31 Dose: 100 mg Latanoprost (Xalatan 0.005% Eye Drops -) 1 drop OU HS [facility] Last Admin: 04/28/18 21:26 Dose: Not Given Metoprolol Tartrate (Lopressor -) 100 mg PO BID [facility] Last Admin: 04/29/18 09:33 Dose: 100 mg Polyethylene Glycol (Miralax (For Daily Use) -) 17 gm PO DAILY [facility] Last Admin: 04/29/18 10:00 Dose: Not Given Rivaroxaban (Xarelto -) 20 mg PO DAILY@1800 [facility] Last Admin: 04/28/18 17:28 Dose: 20 mg Fluticasone/Salmeterol (Advair 100mcg/50mcg -) 1 puff IH BID [facility] Last Admin: 04/29/18 09:40 Dose: 1 puff Tolvaptan (Samsca (Restricted To Nephrology/Cardiology)) 15 mg PO DAILY [facility] Last Admin: 04/29/18 09:34 Dose: 15 mg Torsemide (Demadex -) 40 mg PO DAILY [facility] Last Admin: 04/29/18 09:32 Dose: 40 mg - Objective Vital Signs: Vital Signs Temperature 98.4 F 04/29/18 10:00 Pulse Rate 64 04/29/18 10:00 Respiratory Rate 18 04/29/18 10:00 Blood Pressure 153/77 04/29/18 10:00 O2 Sat by Pulse Oximetry (%) 98 04/28/18 21:00 Constitutional: Yes: Well Nourished, No Distress, Calm Cardiovascular: Yes: Pulse Irregular, Murmur Respiratory: Yes: WNL, Regular, CTA Bilaterally. No: Accessory Muscle Use, Rales, Rhonchi, SOB, Stridor, Tachypnea Gastrointestinal: Yes: WNL, Normal Bowel Sounds, Soft. No: Distention, Tenderness Genitourinary: Yes: WNL Edema: Yes (non pitting severe LES) Neurological: Yes: WNL, Alert, Oriented Psychiatric: Yes: WNL, Alert, Oriented Labs: CBC, BMP 04/29/18 05:30 04/29/18 05:30 INR, PTT INR 1.16 (0.83-1.09) H 04/23/18 19:00 Problem List - Problems (1) SIADH (syndrome of inappropriate ADH production) Assessment/Plan: Improved on current management Sr Na is 136 F/U BMP in am (2) CAD (coronary artery disease) Assessment/Plan: Asymptomatic no active issue Code(s): I25.10 - ATHSCL HEART DISEASE OF [place] CORONARY ARTERY W/O ANG PCTRS Qualifiers: [place] vs. transplanted heart: [place] heart (3) Afib Assessment/Plan: Rate controlled on amiodarone cont AC Code(s): I48.91 - UNSPECIFIED ATRIAL FIBRILLATION Qualifiers: Atrial fibrillation type: paroxysmal Qualified Code(s): I48.0 - Paroxysmal atrial fibrillation (4) Edema extremities Assessment/Plan: Chronic on Lasix Code(s): R60.0 - LOCALIZED EDEMA (5) Hypertension Assessment/Plan: Well controlled Code(s): I10 - ESSENTIAL (PRIMARY) HYPERTENSION Qualifiers: Hypertension type: essential hypertension Qualified Code(s): I10 - Essential (primary) hypertension
[2018-04-29] MEDS: RIVAROXABAN 20 MG TABLET PO SCH (17:47)
[2018-04-29] MEDS ORDERED: PT OWN MED DRAWER 7, Y5N ONE (20:53)
[2018-04-29] MEDS: LATANOPROST 0.005% OPHTH SOLN 2.5ML BOTTLE OU SCH (21:44)
[2018-04-30] MEDS: ALPRAZolam 0.25 MG TABLET PO PRN ×3 (02:37→10:36)
[2018-04-30] MEDS: ACETAMINOPHEN/CAFFEINE/BUTALBITAL 1 TAB PO PRN ×3 (02:37→10:30)
[2018-04-30] MEDS: DOCUSATE SODIUM 100 MG CAPSULE (FP) PO SCH ×2 (06:19→14:08)
[2018-04-30 07:14] LABS: ANION GAP 11 MMOL/L (8-16); BLOOD UREA NITROGEN 27 mg/dL (7-18); CALCIUM 8.6 mg/dL (8.5-10.1); CHLORIDE 94 mmol/L (98-107); CO2 32 mmol/L (21-32); CREATININE 0.9 mg/dL (0.55-1.02); GLUCOSE,RANDOM 81 mg/dL (74-106); MAGNESIUM 1.9 mg/dL (1.8-2.4); PHOSPHOROUS 4.1 mg/dL (2.5-4.9); POTASSIUM 3.6 mmol/L (3.5-5.1); SODIUM 137 mmol/L (136-145)
[2018-04-30 09:19] VITALS: BP 122/56; PULSE 64; TEMP 98
[2018-04-30] MEDS ORDERED: PT OWN MED DRAWER 7, Y5N ONE (10:11)
[2018-04-30] MEDS: TOLVAPTAN 15 MG TABLET PO SCH (10:29)
[2018-04-30] MEDS: AMIODARONE HCL 200 MG TABLET (FP) PO SCH (10:29)
[2018-04-30] MEDS: METOPROLOL TARTRATE 50 MG TABLET (FP) PO SCH (10:29)
[2018-04-30] MEDS: TORSEMIDE 20 MG TABLET (FP) PO SCH (10:29)
[2018-04-30] MEDS: FLUTICASONE/SALMETEROL 100 MCG/50 MCG DISKUS IH SCH (10:31)
[2018-04-30] MEDS: POLYETHYLENE GLYCOL 3350 119 GM BTL PO SCH (11:31)
--- NOTE | 2018-04-30 11:32 | PN ---
Progress Note (short form) - Note Progress Note: Chief Complaint: Events noted, notes reviewed, denies any chest pain, dyspnea persists but improved, sinus rhythm is maintained History of Present Illness: Seen and examined on telemetry. Events noted, notes reviewed, denies any chest pain, dyspnea persists but improved, sinus rhythm is maintained Plan to D/C home today on current therapy and F/U in the office Echocardiography 11/15/2017: Normal LV size and function LVEF 65-70%, borderline LISA, normal RV size and function, mild AR, mild MVP (posterior leaflet) with mod MR, mod-severe TR RVSP 56 mmHg Echocardiography 10/07/2015 revealed Normal LV size and function, mild-moderate MR, moderate TR, moderate degree of pulmonary HTN, RVSP 53 mmHg Echocardiography 11/09/2016 Normal LV size with mild-moderate decrease in LV-EF ( global HK), bi-atrial enlargement, mild mitral valve prolapse, moderate MR, moderate-severe TR, RVSP 51 mmHg Lexiscan MPI study 05/16/2016 revealed Small size [place]-apical defect mild ischemia, normal LV function - Current Medication List Current Medications Acetaminophen/Butalbital/Caffeine (Fioricet -) 1 tablet PO Q4H PRN PRN Reason: HEADACHE Last Admin: 04/30/18 10:30 Dose: 1 tablet Albuterol Sulfate (Ventolin Hfa Inhaler -) 2 puff IH Q6H PRN PRN Reason: ASTHMA Alprazolam (Xanax -) 0.5 mg PO Q4H PRN PRN Reason: ANXIETY Last Admin: 04/30/18 10:36 Dose: 0.25 mg Amiodarone HCl (Cordarone -) 200 mg PO BID [facility] Last Admin: 04/30/18 10:29 Dose: 200 mg Docusate Sodium (Colace -) 100 mg PO TID [facility] Last Admin: 04/30/18 06:19 Dose: 100 mg Latanoprost (Xalatan 0.005% Eye Drops -) 1 drop OU HS [facility] Last Admin: 04/29/18 21:44 Dose: Not Given Metoprolol Tartrate (Lopressor -) 100 mg PO BID [facility] Last Admin: 04/30/18 10:29 Dose: 100 mg Polyethylene Glycol (Miralax (For Daily Use) -) 17 gm PO DAILY [facility] Last Admin: 04/30/18 11:31 Dose: Not Given Rivaroxaban (Xarelto -) 20 mg PO DAILY@1800 [facility] Last Admin: 04/29/18 17:47 Dose: 20 mg Fluticasone/Salmeterol (Advair 100mcg/50mcg -) 1 puff IH BID [facility] Last Admin: 04/30/18 10:31 Dose: 1 puff Tolvaptan (Samsca (Restricted To Nephrology/Cardiology)) 15 mg PO DAILY [facility] Last Admin: 04/30/18 10:29 Dose: 15 mg Torsemide (Demadex -) 40 mg PO DAILY [facility] Last Admin: 04/30/18 10:29 Dose: 40 mg Review of Systems Constitutional: denies Chills or Fever Respiratory: reports: Dyspnea but improved Cardiovascular: As noted above Gastrointestinal: denies Nausea, Vomiting, Diarrhea or Constipation or Abdominal Discomfort Genitourinary: No Symptoms Reported Musculoskeletal: No Symptoms Reported - Objective Vital Signs: Last Vital Signs Temp Pulse Resp BP Pulse Ox 98 F 64 18 122/56 95 04/30/18 09:00 04/30/18 09:00 04/30/18 09:00 04/30/18 09:00 04/29/18 09:00 Intake & Output 04/27/18 04/28/18 04/29/18 04/30/18 23:59 23:59 23:59 23:59 Intake Total 20 1590 260 Balance 20 1590 260 Weight 141 lb 12.8 oz 142 lb 3.2 oz 142 lb 141 lb 12.8 oz Constitutional: No Distress, Calm Neck: Supple Negative JVD No Bruit Cardiovascular: S1 S2 regular rate and rhythm Grade 2/6 SM Respiratory: Diminished Breath Sounds at the Bases Gastrointestinal: Soft Benign Normal Bowel Sounds Ext: 1-2 + Bilateral Edema Labs: CBC, BMP 04/29/18 05:30 04/30/18 05:30 Hepatic Panel Total Bilirubin 0.4 mg/dL (0.2-1.0) 04/23/18 19:00 AST 29 U/L (15-37) 04/23/18 19:00 ALT 48 U/L (12-78) 04/23/18 19:00 Alkaline Phosphatase 77 U/L (45-117) 04/23/18 19:00 Albumin 3.4 g/dl (3.4-5.0) 04/23/18 19:00 Assessment/Plan ASSESSMENT: 1. Paroxysmal atrial fibrillation [id number] score of 5, (prior cardioversions ) post repeat cardioversion with therapy adjustment 2. Acute on chronic class I-II NYHA classification LV failure related to LV diastolic/systolic dysfunction, compensated/euvolemic 3. CAD angina pectoris 4. HTN 5. Pulmonary HTN (moderate) 6. COPD 7. Hyponatremia due to SIADH, improved with Samsca therapy initiation PLAN: 1. Continue Demadex 2. Continue Lopressor 3. Continue Amiodarone and reduce dosage next week to 200 mg daily 4. Continue Xarelto 5. Continue Samsca as per renal service 6. To resume Accupril therapy hemodynamics permitting (as outpatient) 7. Eventual pulmonary vein isolation RFA referral for more definitive solution as outpatient, if patient agreeable Prosper Frank MD
--- NOTE | 2018-04-30 12:42 | DS ---
Physical Examination Vital Signs: Vital Signs Temperature 98 F 04/30/18 09:00 Pulse Rate 64 04/30/18 09:00 Respiratory Rate 18 04/30/18 09:00 Blood Pressure 122/56 04/30/18 09:00 O2 Sat by Pulse Oximetry (%) 95 04/30/18 09:00 Constitutional: Yes: Well Nourished, No Distress Cardiovascular: Yes: WNL, Regular Rate and Rhythm. No: Rub Respiratory: Yes: WNL, Regular, CTA Bilaterally. No: Accessory Muscle Use, Rhonchi, SOB, Tachypnea, Wheezes Gastrointestinal: Yes: WNL, Normal Bowel Sounds, Soft. No: Distention, Tenderness Musculoskeletal: Yes: WNL Extremities: Yes: WNL Edema: Yes (non pitting moderate) Neurological: Yes: WNL, Alert, Oriented ...Motor Strength: WNL Psychiatric: Yes: WNL, Alert, Oriented Labs: CBC, BMP 04/29/18 05:30 04/30/18 05:30 Discharge Summary Reason For Visit: MEDICATION ADJUSTMENT, COPD, A-FIB Current Active Problems Encounter for cardioversion procedure (Acute) Afib (Chronic) CAD (coronary artery disease) (Chronic) CHF (congestive heart failure) (Chronic) Degenerative disc disease (Chronic) Edema extremities (Chronic) History of cardioversion (Chronic) Hyponatremia (Chronic) Hospital Course: Ms. Hoffman is an 82 year old female with pmh of HTN, CHF, CAD, Mitral/ tricuspid regugitation, COPD, pulmonary htn(moderate), hyponatremia related to SIADH, Anxiety, Afib s/p multiple failed cardioversions (06/17/12, 10/28/13, , 02/11/16. 12/12/16, 02/28/18) on Xarelto, previous failed Sotalol and Tikosyn therapy who was admitted for afib rate control w/ amiodarone, cardioversion, and control of SIADH with Samsca. Pt also w/ progressive LE edema, and HERNÁNDEZ which has improved since admission. Pt s/p cardioversion, in SR now, BP stable. Hold Accupril for now, to be started outpt per hemodynamics. Continue Amiodarone , hold epeleronone per cardiology. Pt started on Samsca here by nephrology, Na level wnl, continue torsemide. Pt has been cleared by Cardiology and Nephrology for discharge home. Follow up closely as recommended. Check BMP in 3 days. Otherwise, pt is medically stable for discharge home. Condition: Good - Instructions Diet, Activity, Other Instructions: Medications as directed HOLD Eplerenone for now until resumed by cardiology resume Accupril if BP stable (as outpatient) directed by PCP, HOLD for now considering BP running on the low side Reduce Amiodarone to 200mg daily starting 05/06/18 per cardiology maintain adequate hydration Check blood work-BMP in 3 days with PCP f/u closely as directed Referrals: Prosper Frank MD [Staff Physician] - 1 Week Renny Molina MD [Staff Physician] - 1 Week Herminio Payne MD [Staff Physician] - 1 Week Disposition: VNS/HOME HEALTH CARE - Home Medications Comprehensive Discharge Medication List: Ambulatory Orders Acetaminophen/Caffeine/Butalb [Fioricet -] 1 tab PO Q4H PRN 02/10/16 Albuterol Sulfate Inhaler - [Ventolin HFA Inhaler -] 1 - 2 inh PO QID PRN Alprazolam [Xanax] 0.25 mg PO QID PRN 02/10/16 Quinapril HCl [Accupril -] 40 mg PO BID 02/10/16 Rivaroxaban [Xarelto -] 20 mg PO DAILY 02/10/16 Salmeterol/Fluticasone [Advair 100Mcg/50Mcg -] 1 puff IH BID #1 inhaler [employer]iot[employer] [Spiriva] 1 puff IH DAILY #1 inh 04/16/17 L.acidoph,Paracasei, B.lactis [Probiotic] 1 each PO DAILY 02/26/18 Swanquarter-3/Dha/Epa/Fish Oil [Swanquarter-3 EC Softgel] 1 each PO DAILY 02/26/18 Travoprost [Travatan Z] 2.5 ml OU DAILY 02/28/18 Amiodarone HCl [Cordarone -] 200 mg PO BID #60 tablet 04/30/18 Docusate Sodium [Colace -] 100 mg PO TID capsule 04/30/18 Metoprolol Tartrate [Lopressor -] 100 mg PO BID #60 tablet 04/30/18 Tolvaptan [Samsca (Restricted To Nephrology/Cardiology)] 7.5 mg PO DAILY #14 tab 04/30/18 Torsemide [Demadex -] 40 mg PO DAILY #30 tablet 04/30/18
--- NOTE | 2018-04-30 15:08 | PN ---
Progress Note (short form) - Note Progress Note: Renal Follow up for Hyponatremia Pt seen and examined at the bedside no acute complaints happy she is going home making urine no sob, cp, abd pain, N/V/D Vital Signs Temperature 98 F 04/30/18 09:00 Pulse Rate 64 04/30/18 09:00 Respiratory Rate 18 04/30/18 09:00 Blood Pressure 122/56 04/30/18 09:00 O2 Sat by Pulse Oximetry (%) 95 04/30/18 09:00 Intake & Output 04/27/18 04/28/18 04/29/18 04/30/18 23:59 23:59 23:59 23:59 Intake Total 20 1590 260 Balance 20 1590 260 Weight 64.319 kg 64.501 kg 64.41 kg 64.319 kg NAD awake and alert MMM, No JVD, Neck supple RRR, No M/R CTA, no rales soft NT/ND + LE edema CBC, BMP 04/29/18 05:30 04/30/18 05:30 82 year old woman with Hx of chronic hyponatremia, Afib, CHF (diastolic dysfunction), Hypertension, CAD, Pulmonary hypertension who presents for CHF/ Hyponatremia. #Hypervolemic Hyponatremia #CHF #Afib #HTN Serum Na stable, weights improved since admission renal function stable continue tolvaptan 7..5mg daily, torsemide 40mg daily will need repeat bmp in 2-3 days to follow up in our office next week Cardiology follow up as outpatient Herminio Payne DO
== END 2018-04-30 14:46 | disposition home health service (06) | DRG 643 ==
LOC: J4W 14:57
PROVIDERS: ADMIT Specialist; ATTEND Specialist
PROC: 5A2204Z Restoration of Cardiac Rhythm, Single (ICD-10-PCS; principal; 2018-04-26 12:00)
DX: E22.2 Syndrome of inappropriate secretion of antidiuretic hormone (principal); I50.41 Acute combined systolic (congestive) and diastolic (congestive) heart failure; I48.1 Persistent atrial fibrillation; E87.1 Hypo-osmolality and hyponatremia; J44.9 Chronic obstructive pulmonary disease, unspecified; F41.9 Anxiety disorder, unspecified; I11.0 Hypertensive heart disease with heart failure; I25.119 Atherosclerotic heart disease of native coronary artery with unspecified angina pectoris; I27.20 Pulmonary hypertension, unspecified
CPT/HCPCS: 36415; 71045-TC-FY; 80048; 80053; 83735; 83880; 83930; 83935; 84100; 84300; 84443; 85025; 85027; 85610; 93005; 93010

== ENCOUNTER 2020-11-12 21:55 | Inpatient (IN) | payer OTHER, BC ==
[2020-11-12 22:04] VITALS: BMI 20.5
[2020-11-12] MEDS ORDERED: ACETAMINOPHEN 325 MG TABLET (FP) PO ONE (23:59)
[2020-11-13 01:41] LABS: INR 1.05 (0.83-1.09); PROTHROMBIN TIME (PATIENT) 12.9 SEC (9.7-13.0)
[2020-11-13 01:44] LABS: ACTIVATED PTT 27.9 SECONDS (25.2-36.5)
[2020-11-13 01:45] LABS: POTASSIUM 4.2 mmol/L (3.5-5.1)
[2020-11-13 01:47] LABS: CALCIUM 9.6 mg/dL (8.5-10.1)
[2020-11-13 01:48] LABS: ALBUMIN 3.8 g/dl (3.4-5.0); BLOOD UREA NITROGEN 22.8 mg/dL (7-18)
[2020-11-13 01:53] LABS: BILIRUBIN,TOTAL 0.6 mg/dL (0.2-1); TOT PROT 6.9 g/dl (6.4-8.2)
[2020-11-13 02:05] LABS: BASO % 0.2 % (0-2.0); EOS % 0.4 % (0-4.5); HEMATOCRIT 38.3 % (32.4-45.2); HEMOGLOBIN 12.9 GM/dL (10.7-15.3); LYMPH % 7.5 % (8-40); MCH 32.5 pg (25.7-33.7); MCHC 33.5 g/dl (32.0-36.0); MEAN CELL VOLUME 96.8 fl (80-96); MEAN PLT VOLUME 7.8 fl (7.5-11.1); MONO % 9.3 % (3.8-10.2); NEUT % 82.6 % (42.8-82.8); PLATELET COUNT 262 K/MM3 (134-434); RBC 3.96 M/mm3 (3.60-5.2); RDW 14.5 % (11.6-15.6); WHITE BLOOD COUNT 13.8 K/mm3 (4.0-10.0)
[2020-11-13] MEDS ORDERED: ALBUTEROL SO4 HFA INHALER IH ONE (05:50)
[2020-11-13] MEDS ORDERED: HEPARIN NA (PORCINE) 5,000 UNITS/ML 1ML VIAL SQ SCH (06:00)
[2020-11-13] MEDS: ALBUTEROL SO4 HFA INHALER IH PRN (06:00)
[2020-11-13] MEDS ORDERED: HEPARIN NA (PORCINE) 5,000 UNITS/ML 1ML VIAL ONE (06:04)
[2020-11-13 06:48] LABS: BASO % 0.9 % (0-2.0); EOS % 0.2 % (0-4.5); HEMATOCRIT 39.7 % (32.4-45.2); HEMOGLOBIN 13.2 GM/dL (10.7-15.3); LYMPH % 2.9 % (8-40); MCH 32.4 pg (25.7-33.7); MCHC 33.3 g/dl (32.0-36.0); MEAN CELL VOLUME 97.2 fl (80-96); MEAN PLT VOLUME 7.4 fl (7.5-11.1); MONO % 8.9 % (3.8-10.2); NEUT % 87.1 % (42.8-82.8); PLATELET COUNT 243 K/MM3 (134-434); RBC 4.08 M/mm3 (3.60-5.2); RDW 14.8 % (11.6-15.6); WHITE BLOOD COUNT 16.7 K/mm3 (4.0-10.0)
[2020-11-13 07:08] LABS: POTASSIUM 4.1 mmol/L (3.5-5.1)
[2020-11-13 07:10] LABS: ALBUMIN 3.8 g/dl (3.4-5.0); BLOOD UREA NITROGEN 22.7 mg/dL (7-18); CALCIUM 9.2 mg/dL (8.5-10.1); MAGNESIUM 2.1 mg/dL (1.8-2.4)
[2020-11-13 07:15] LABS: BILIRUBIN,TOTAL 0.7 mg/dL (0.2-1); PHOSPHOROUS 3.9 mg/dL (2.5-4.9)
[2020-11-13 07:16] LABS: TOT PROT 6.8 g/dl (6.4-8.2)
[2020-11-13] MEDS ORDERED: ACETAMINOPHEN/CAFFEINE/BUTALBITAL 1 TAB ONE ×2 (09:56→17:19)
[2020-11-13] MEDS ORDERED: ALPRAZolam 0.25 MG TABLET ONE ×2 (09:57→17:20)
[2020-11-13] MEDS ORDERED: ENOXAPARIN NA (PORCINE) 40 MG/0.4 ML DISP.SYRIN SQ SCH (10:00)
[2020-11-13] MEDS: ALPRAZolam 0.25 MG TABLET PO PRN ×2 (10:00→22:18)
[2020-11-13] MEDS ORDERED: ALBUTEROL SO4 HFA INHALER IH PRN (10:07)
[2020-11-13] MEDS: QUINAPRIL HCL 40 MG TABLET PO SCH ×2 (10:15→22:18)
[2020-11-13] MEDS ORDERED: LEVOTHYROXINE NA 50 MCG TABLET (FP) PO SCH (10:15)
[2020-11-13] MEDS ORDERED: TORSEMIDE 20 MG TABLET (FP) PO SCH (10:15)
[2020-11-13] MEDS: RIVAROXABAN 20 MG TABLET PO SCH (10:15)
[2020-11-13] MEDS: METOPROLOL TARTRATE 50 MG TABLET (FP) PO SCH ×2 (10:15→22:18)
[2020-11-13] MEDS: FLUTICASONE/SALMETEROL 100 MCG/50 MCG DISKUS IH SCH ×2 (10:15→22:18)
[2020-11-13] MEDS: AMIODARONE HCL 200 MG TABLET PO SCH ×2 (10:15→22:18)
[2020-11-13] MEDS: ACETAMINOPHEN/CAFFEINE/BUTALBITAL 1 TAB PO PRN (10:28)
[2020-11-13] MEDS ORDERED: LEVOTHYROXINE NA 25 MCG TABLET (FP) ONE (10:41)
[2020-11-13] MEDS ORDERED: METOPROLOL TARTRATE 50 MG TABLET (FP) ONE (10:41)
[2020-11-13] MEDS ORDERED: AMIODARONE HCL 200 MG TABLET ONE (10:41)
[2020-11-13] MEDS: TORSEMIDE 20 MG TABLET (FP) PO SCH ×2 (14:00→14:19)
[2020-11-13 14:26] LABS: URINE APPEARANCE CLEAR; URINE BILIRUBIN NEGATIVE (NEGATIVE); URINE COLOR YELLOW; URINE GLUCOSE (UA) NEGATIVE (NEGATIVE); URINE KETONE NEGATIVE (NEGATIVE); URINE LEUK ESTERASE NEGATIVE (NEGATIVE); URINE NITRITE NEGATIVE (NEGATIVE); URINE PROTEIN NEGATIVE (NEGATIVE); URINE UROBILINOGEN 0.2 mg/dL (0.2-1.0)
[2020-11-14] MEDS: TORSEMIDE 20 MG TABLET (FP) PO SCH (05:46)
[2020-11-14] MEDS: ALPRAZolam 0.25 MG TABLET PO PRN ×2 (05:47→18:25)
[2020-11-14] MEDS: ACETAMINOPHEN/CAFFEINE/BUTALBITAL 1 TAB PO PRN ×2 (05:47→18:50)
[2020-11-14] MEDS: LEVOTHYROXINE NA 50 MCG TABLET (FP) PO SCH (06:40)
[2020-11-14] MEDS: RIVAROXABAN 20 MG TABLET PO SCH (09:15)
[2020-11-14] MEDS: FLUTICASONE/SALMETEROL 100 MCG/50 MCG DISKUS IH SCH ×2 (09:15→21:35)
[2020-11-14] MEDS: QUINAPRIL HCL 40 MG TABLET PO SCH (09:16)
[2020-11-14] MEDS: AMIODARONE HCL 200 MG TABLET PO SCH ×2 (09:16→21:35)
[2020-11-14] MEDS: METOPROLOL TARTRATE 50 MG TABLET (FP) PO SCH ×2 (09:16→21:35)
[2020-11-14] MEDS: SODIUM CHLORIDE 1,000 ML IV SCH (10:34)
[2020-11-14 11:48] LABS: BASO % 0.2 % (0-2.0); HEMATOCRIT 24.5 % (32.4-45.2); HEMOGLOBIN 8.4 GM/dL (10.7-15.3); MCH 33.6 pg (25.7-33.7); MCHC 34.3 g/dl (32.0-36.0); MEAN CELL VOLUME 97.9 fl (80-96); MEAN PLT VOLUME 7.3 fl (7.5-11.1); MONO % 14.5 % (3.8-10.2); NEUT % 73.3 % (42.8-82.8); PLATELET COUNT 138 K/MM3 (134-434); RDW 14.8 % (11.6-15.6); WHITE BLOOD COUNT 7.4 K/mm3 (4.0-10.0)
[2020-11-14 12:02] LABS: POTASSIUM 3.2 mmol/L (3.5-5.1)
[2020-11-14 12:06] LABS: MAGNESIUM 1.7 mg/dL (1.8-2.4)
[2020-11-14 12:07] LABS: BLOOD UREA NITROGEN 18.7 mg/dL (7-18)
[2020-11-14 12:08] LABS: CREATININE 0.8 mg/dL (0.55-1.3)
[2020-11-14 12:10] LABS: BILIRUBIN,TOTAL 0.5 mg/dL (0.2-1)
[2020-11-14 12:25] LABS: ALBUMIN 2.3 g/dl (3.4-5.0); CALCIUM 7.1 mg/dL (8.5-10.1); TOT PROT 4.4 g/dl (6.4-8.2)
[2020-11-14] MEDS: ALBUTEROL SO4 HFA INHALER IH PRN (14:52)
[2020-11-14 16:08] LABS: BASO % 0.4 % (0-2.0); EOS % 4.6 % (0-4.5); HEMATOCRIT 33.3 % (32.4-45.2); HEMOGLOBIN 11.2 GM/dL (10.7-15.3); LYMPH % 6.6 % (8-40); MCH 32.9 pg (25.7-33.7); MCHC 33.7 g/dl (32.0-36.0); MEAN CELL VOLUME 97.5 fl (80-96); MEAN PLT VOLUME 8.1 fl (7.5-11.1); MONO % 14.1 % (3.8-10.2); NEUT % 74.3 % (42.8-82.8); PLATELET COUNT 190 K/MM3 (134-434); RBC 3.42 M/mm3 (3.60-5.2); RDW 14.6 % (11.6-15.6); WHITE BLOOD COUNT 10.9 K/mm3 (4.0-10.0)
[2020-11-14 16:25] LABS: BLOOD UREA NITROGEN 20.8 mg/dL (7-18)
[2020-11-14 16:28] LABS: CREATININE 0.9 mg/dL (0.55-1.3)
[2020-11-14 16:29] LABS: BILIRUBIN,TOTAL 0.4 mg/dL (0.2-1)
[2020-11-14 16:30] LABS: TOT PROT 5.6 g/dl (6.4-8.2)
[2020-11-14 16:31] LABS: ALBUMIN 2.9 g/dl (3.4-5.0); CALCIUM 8.4 mg/dL (8.5-10.1); POTASSIUM 3.9 mmol/L (3.5-5.1)
[2020-11-15] MEDS: ALPRAZolam 0.25 MG TABLET PO PRN ×4 (01:46→22:05)
[2020-11-15] MEDS: ACETAMINOPHEN/CAFFEINE/BUTALBITAL 1 TAB PO PRN ×4 (01:46→22:04)
[2020-11-15] MEDS: LEVOTHYROXINE NA 50 MCG TABLET (FP) PO SCH (06:26)
[2020-11-15 08:09] LABS: BASO % 0.6 % (0-2.0); EOS % 6.2 % (0-4.5); HEMATOCRIT 34.5 % (32.4-45.2); HEMOGLOBIN 11.7 GM/dL (10.7-15.3); LYMPH % 9.8 % (8-40); MCH 33.2 pg (25.7-33.7); MEAN CELL VOLUME 97.6 fl (80-96); MEAN PLT VOLUME 7.7 fl (7.5-11.1); NEUT % 67.4 % (42.8-82.8); PLATELET COUNT 187 K/MM3 (134-434); RBC 3.54 M/mm3 (3.60-5.2); RDW 14.9 % (11.6-15.6); WHITE BLOOD COUNT 9.6 K/mm3 (4.0-10.0)
[2020-11-15] MEDS: ALBUTEROL SO4 HFA INHALER IH PRN (08:13)
[2020-11-15 08:34] LABS: POTASSIUM 4.1 mmol/L (3.5-5.1)
[2020-11-15 08:37] LABS: CALCIUM 8.4 mg/dL (8.5-10.1)
[2020-11-15 08:38] LABS: ALBUMIN 2.8 g/dl (3.4-5.0); BLOOD UREA NITROGEN 14.5 mg/dL (7-18)
[2020-11-15 08:41] LABS: CREATININE 0.7 mg/dL (0.55-1.3)
[2020-11-15 08:43] LABS: BILIRUBIN,TOTAL 0.6 mg/dL (0.2-1); TOT PROT 5.6 g/dl (6.4-8.2)
[2020-11-15] MEDS ORDERED: QUINAPRIL HCL 20 MG TABLET PO SCH (10:00)
[2020-11-15] MEDS: AMIODARONE HCL 200 MG TABLET PO SCH ×2 (10:17→22:05)
[2020-11-15] MEDS: RIVAROXABAN 20 MG TABLET PO SCH (10:17)
[2020-11-15] MEDS: FLUTICASONE/SALMETEROL 100 MCG/50 MCG DISKUS IH SCH ×2 (10:17→22:28)
[2020-11-15] MEDS: METOPROLOL TARTRATE 50 MG TABLET (FP) PO SCH ×2 (10:17→22:05)
[2020-11-15] MEDS: SODIUM CHLORIDE 1,000 ML IV SCH (15:11)
[2020-11-15] MEDS: TORSEMIDE 20 MG TABLET (FP) PO SCH (15:11)
[2020-11-15] MEDS ORDERED: PT OWN MED DRAWER 7, Y5N ONE (22:33)
[2020-11-16] MEDS: ACETAMINOPHEN/CAFFEINE/BUTALBITAL 1 TAB PO PRN ×3 (04:55→21:23)
[2020-11-16] MEDS: ALPRAZolam 0.25 MG TABLET PO PRN ×3 (05:26→21:22)
[2020-11-16] MEDS: LEVOTHYROXINE NA 50 MCG TABLET (FP) PO SCH (06:49)
[2020-11-16] MEDS: TORSEMIDE 20 MG TABLET (FP) PO SCH ×2 (06:49→14:09)
[2020-11-16] MEDS ORDERED: ALBUTEROL SO4 HFA INHALER IH PRN (07:09)
[2020-11-16] MEDS: SODIUM CHLORIDE 1,000 ML IV SCH ×2 (07:15→17:07)
[2020-11-16 07:52] LABS: BASO % 0.5 % (0-2.0); EOS % 7.9 % (0-4.5); HEMATOCRIT 32.8 % (32.4-45.2); HEMOGLOBIN 11.3 GM/dL (10.7-15.3); LYMPH % 9.3 % (8-40); MCH 33.5 pg (25.7-33.7); MCHC 34.5 g/dl (32.0-36.0); MEAN CELL VOLUME 97.2 fl (80-96); MEAN PLT VOLUME 7.7 fl (7.5-11.1); MONO % 16.4 % (3.8-10.2); NEUT % 65.9 % (42.8-82.8); PLATELET COUNT 196 K/MM3 (134-434); RBC 3.37 M/mm3 (3.60-5.2); RDW 14.9 % (11.6-15.6); WHITE BLOOD COUNT 8.2 K/mm3 (4.0-10.0)
[2020-11-16 08:46] LABS: POTASSIUM 4.2 mmol/L (3.5-5.1)
[2020-11-16 08:54] LABS: BLOOD UREA NITROGEN 14.2 mg/dL (7-18)
[2020-11-16 08:57] LABS: ALBUMIN 2.3 g/dl (3.4-5.0)
[2020-11-16 08:59] LABS: CREATININE 0.6 mg/dL (0.55-1.3)
[2020-11-16 09:02] LABS: BILIRUBIN,TOTAL 0.4 mg/dL (0.2-1); TOT PROT 4.8 g/dl (6.4-8.2)
[2020-11-16 11:04] LABS: ANISOCYTOSIS 0; MACROCYTOSIS 1+; OVALOCYTE 1+; PLATELET ESTIMATE NORMAL
[2020-11-16] MEDS: QUINAPRIL HCL 20 MG TABLET PO SCH (11:29)
[2020-11-16] MEDS: METOPROLOL TARTRATE 50 MG TABLET (FP) PO SCH ×2 (11:30→21:23)
[2020-11-16] MEDS: AMIODARONE HCL 200 MG TABLET PO SCH ×2 (11:31→21:24)
[2020-11-16] MEDS: FLUTICASONE/SALMETEROL 100 MCG/50 MCG DISKUS IH SCH ×2 (11:31→21:24)
[2020-11-16] MEDS: RIVAROXABAN 20 MG TABLET PO SCH (17:08)
[2020-11-17] MEDS: SODIUM CHLORIDE 1,000 ML IV SCH (03:09)
[2020-11-17] MEDS: ACETAMINOPHEN/CAFFEINE/BUTALBITAL 1 TAB PO PRN ×2 (04:40→18:51)
[2020-11-17] MEDS: ALPRAZolam 0.25 MG TABLET PO PRN ×3 (04:40→21:00)
[2020-11-17] MEDS: TORSEMIDE 20 MG TABLET (FP) PO SCH ×2 (07:09→14:57)
[2020-11-17] MEDS: LEVOTHYROXINE NA 50 MCG TABLET (FP) PO SCH (07:09)
[2020-11-17 08:03] LABS: POTASSIUM 3.8 mmol/L (3.5-5.1)
[2020-11-17 08:04] LABS: BASO % 0.6 % (0-2.0); EOS % 6.4 % (0-4.5); HEMATOCRIT 31.7 % (32.4-45.2); HEMOGLOBIN 10.9 GM/dL (10.7-15.3); LYMPH % 12.2 % (8-40); MCH 33.5 pg (25.7-33.7); MCHC 34.4 g/dl (32.0-36.0); MEAN CELL VOLUME 97.4 fl (80-96); MEAN PLT VOLUME 7.9 fl (7.5-11.1); MONO % 17.8 % (3.8-10.2); PLATELET COUNT 205 K/MM3 (134-434); RBC 3.25 M/mm3 (3.60-5.2); RDW 14.6 % (11.6-15.6); WHITE BLOOD COUNT 7.5 K/mm3 (4.0-10.0)
[2020-11-17 08:19] LABS: ALBUMIN 2.4 g/dl (3.4-5.0); CALCIUM 8.2 mg/dL (8.5-10.1)
[2020-11-17 08:20] LABS: MAGNESIUM 1.8 mg/dL (1.8-2.4)
[2020-11-17 08:23] LABS: CREATININE 0.6 mg/dL (0.55-1.3)
[2020-11-17 08:24] LABS: BILIRUBIN,TOTAL 0.4 mg/dL (0.2-1); TOT PROT 4.7 g/dl (6.4-8.2)
[2020-11-17] MEDS: AMIODARONE HCL 200 MG TABLET PO SCH (09:42)
[2020-11-17] MEDS: QUINAPRIL HCL 20 MG TABLET PO SCH (09:43)
[2020-11-17] MEDS: METOPROLOL TARTRATE 50 MG TABLET (FP) PO SCH ×2 (09:43→21:00)
[2020-11-17] MEDS: FLUTICASONE/SALMETEROL 100 MCG/50 MCG DISKUS IH SCH ×2 (09:45→20:59)
[2020-11-17] MEDS ORDERED: MULTIVIT-MINERALS ORAL LIQUID PO SCH (10:00)
[2020-11-17 16:45] LABS: ANISOCYTOSIS 1+; MACROCYTOSIS 0; OVALOCYTE 1+; PLATELET ESTIMATE NORMAL
[2020-11-17] MEDS: RIVAROXABAN 20 MG TABLET PO SCH (18:17)
[2020-11-18] MEDS: ACETAMINOPHEN/CAFFEINE/BUTALBITAL 1 TAB PO PRN (03:18)
[2020-11-18 06:17] VITALS: BP 112/49; PULSE 71; TEMP 97.5
[2020-11-18] MEDS: TORSEMIDE 20 MG TABLET (FP) PO SCH (06:35)
[2020-11-18] MEDS: LEVOTHYROXINE NA 50 MCG TABLET (FP) PO SCH (06:35)
[2020-11-18] MEDS ORDERED: AMIODARONE HCL 200 MG TABLET PO SCH (10:00)
[2020-11-18] MEDS ORDERED: MULTIVITAMINS (DAILY MVI) TABLET (FP) PO SCH (10:00)
[2020-11-18] MEDS: METOPROLOL TARTRATE 50 MG TABLET (FP) PO SCH (10:11)
[2020-11-18] MEDS ORDERED: PT OWN MED DRAWER 7, Y5N ONE (10:14)
[2020-11-18] MEDS: QUINAPRIL HCL 20 MG TABLET PO SCH (10:32)
[2020-11-18] MEDS: FLUTICASONE/SALMETEROL 100 MCG/50 MCG DISKUS IH SCH ×2 (10:52→10:53)
[2020-11-18] MEDS: SODIUM CHLORIDE 1,000 ML IV SCH (10:53)
== END 2020-11-18 15:00 | disposition home health service (06) | DRG 556 ==
LOC: JER 21:55 → JERBED 11-13 04:03 → INTOOBSV 11-13 04:03 → J6WEST-2 11-13 21:58 → J8W 11-15 19:36 → OBSVTOIN 11-16 10:18 → INTOOBSV 11-16 10:18 → UNDODISOB 11-17 17:35
PROVIDERS: ADMIT Internal Medicine; ATTEND Nurse Practitioner Acute Care
DX: R26.2 Difficulty in walking, not elsewhere classified (principal); J96.10 Chronic respiratory failure, unspecified whether with hypoxia or hypercapnia; I13.0 Hypertensive heart and chronic kidney disease with heart failure and stage 1 through stage 4 chronic kidney disease, or unspecified chronic kidney disease; I50.42 Chronic combined systolic (congestive) and diastolic (congestive) heart failure; E22.2 Syndrome of inappropriate secretion of antidiuretic hormone; J44.9 Chronic obstructive pulmonary disease, unspecified; I27.9 Pulmonary heart disease, unspecified; I48.91 Unspecified atrial fibrillation; I27.20 Pulmonary hypertension, unspecified; N18.9 Chronic kidney disease, unspecified; S00.83XA Contusion of other part of head, initial encounter; S05.12XA Contusion of eyeball and orbital tissues, left eye, initial encounter; L89.152 Pressure ulcer of sacral region, stage 2; I08.1 Rheumatic disorders of both mitral and tricuspid valves; I25.10 Atherosclerotic heart disease of native coronary artery without angina pectoris; F41.9 Anxiety disorder, unspecified; W18.39XA Other fall on same level, initial encounter; Y92.098 Other place in other non-institutional residence as the place of occurrence of the external cause; M54.5 Low back pain; I65.22 Occlusion and stenosis of left carotid artery
CPT/HCPCS: 36415; 70450-TC; 70486-TC; 70496-TC; 70498-TC; 71250-TC; 72125-TC; 73523-TC-FY; 73552-TC-LT-FY; 80053; 80061; 81003; 82550; 82553; 82607; 83605; 83721; 83735; 84100; 84439; 84443; 84484; 85025; 85610; 85730; 86480; 87040; 87086; 93005; 93010; 93880-TC; 94010; 97116-GP; 97162-GP; 99285-25; C9803; G0378; J1644; U0003

== ENCOUNTER 2021-02-04 19:46 | Observation (INO) | payer OTHER, BC ==
[2021-02-04] MEDS ORDERED: CALAMINE 8% TOPICAL LOTION 177 ML BOTTLE TP ONE (20:50)
[2021-02-04] MEDS ORDERED: ACETAMINOPHEN 500 MG TABLET (FP) PO ONE (20:50)
[2021-02-04] MEDS ORDERED: ACETAMINOPHEN 325 MG TABLET (FP) ONE (21:01)
[2021-02-04 21:46] LABS: BASO % 0.5 % (0-2.0); EOS % 2.1 % (0-4.5); HEMATOCRIT 37.7 % (32.4-45.2); HEMOGLOBIN 12.8 GM/dL (10.7-15.3); LYMPH % 14.9 % (8-40); MCH 32.5 pg (25.7-33.7); MEAN CELL VOLUME 95.6 fl (80-96); MEAN PLT VOLUME 7.7 fl (7.5-11.1); MONO % 14.2 % (3.8-10.2); NEUT % 68.3 % (42.8-82.8); PLATELET COUNT 243 K/MM3 (134-434); RBC 3.95 M/mm3 (3.60-5.2); RDW 14.6 % (11.6-15.6); WHITE BLOOD COUNT 7.3 K/mm3 (4.0-10.0)
[2021-02-04 21:55] LABS: CALCIUM 8.8 mg/dL (8.5-10.1)
[2021-02-04 21:56] LABS: ALBUMIN 3.2 g/dl (3.4-5.0); BLOOD UREA NITROGEN 23.6 mg/dL (7-18)
[2021-02-04 21:59] LABS: CREATININE 0.8 mg/dL (0.55-1.3)
[2021-02-04 22:01] LABS: BILIRUBIN,TOTAL 0.3 mg/dL (0.2-1); TOT PROT 6.2 g/dl (6.4-8.2)
[2021-02-04 22:10] LABS: INR 1.13 (0.83-1.09); PROTHROMBIN TIME (PATIENT) 13.8 SEC (9.7-13.0)
[2021-02-04 22:13] LABS: ACTIVATED PTT 27.8 SECONDS (25.2-36.5)
[2021-02-04] MEDS ORDERED: VANCOMYCIN 1 GM in D5W (PRE-DOCKED) 1,000 MG/250 ML IVPB ONE (22:23)
[2021-02-04] MEDS ORDERED: CEFTRIAXONE 1 GM in DEXTROSE 5%-WATER - 100 ML IVPB ONE (22:23)
[2021-02-04] MEDS ORDERED: CEFTRIAXONE 1 GM/50 ML BAG ONE (22:31)
[2021-02-04] MEDS ORDERED: VANCOMYCIN 1 GRAM (PRE-DOCKED) 1,000 MG/250 ML BAG IVPB ONE (22:31)
[2021-02-05] MEDS ORDERED: ALBUTEROL SO4 HFA INHALER IH PRN (02:02)
[2021-02-05] MEDS: ACETAMINOPHEN/CAFFEINE/BUTALBITAL 1 TAB PO PRN ×3 (04:34→17:41)
[2021-02-05] MEDS: ALPRAZolam 0.25 MG TABLET PO PRN ×4 (04:37→21:30)
[2021-02-05] MEDS: TORSEMIDE 20 MG TABLET (FP) PO SCH ×2 (06:02→13:13)
[2021-02-05 06:35] VITALS: BMI 20.8
[2021-02-05] MEDS ORDERED: LEVOTHYROXINE NA 50 MCG TABLET (FP) PO SCH (07:00)
[2021-02-05] MEDS ORDERED: QUINAPRIL HCL 20 MG TABLET ONE (09:28)
[2021-02-05] MEDS: MULTIVITAMINS THER W-MINERALS COMBO TABLET (FP) PO SCH (09:40)
[2021-02-05] MEDS: FLUTICASONE/SALMETEROL 100 MCG/50 MCG DISKUS IH SCH ×2 (09:41→21:37)
[2021-02-05] MEDS ORDERED: ENOXAPARIN NA (PORCINE) 40 MG/0.4 ML DISP.SYRIN SQ SCH (10:00)
[2021-02-05] MEDS ORDERED: AMIODARONE HCL 200 MG TABLET PO SCH (10:00)
[2021-02-05] MEDS ORDERED: METOPROLOL TARTRATE 50 MG TABLET (FP) PO SCH (10:00)
[2021-02-05] MEDS ORDERED: QUINAPRIL HCL 40 MG TABLET PO SCH (10:00)
[2021-02-05] MEDS ORDERED: TORSEMIDE 20 MG TABLET (FP) PO ONE (12:11)
[2021-02-05] MEDS: RIVAROXABAN 20 MG TABLET PO SCH (17:13)
[2021-02-05] MEDS: ACETAMINOPHEN 325 MG TABLET (FP) PO PRN (21:29)
[2021-02-05] MEDS ORDERED: METOPROLOL TARTRATE 25 MG TABLET (FP) PO SCH (22:00)
[2021-02-05] MEDS ORDERED: TRAVOPROST OP SCH (22:00)
[2021-02-05] MEDS: LATANOPROST 0.005% OPHTH SOLN 2.5ML BOTTLE OU SCH (22:35)
[2021-02-06] MEDS: ACETAMINOPHEN/CAFFEINE/BUTALBITAL 1 TAB PO PRN ×3 (03:31→22:02)
[2021-02-06] MEDS: TORSEMIDE 20 MG TABLET (FP) PO SCH ×2 (05:37→14:00)
[2021-02-06] MEDS ORDERED: LEVOTHYROXINE NA 25 MCG TABLET (FP) PO SCH (07:00)
[2021-02-06 08:05] LABS: MCH 32.2 pg (25.7-33.7); MCHC 33.4 g/dl (32.0-36.0); MEAN CELL VOLUME 96.1 fl (80-96); MEAN PLT VOLUME 7.8 fl (7.5-11.1); PLATELET COUNT 228 K/MM3 (134-434); RBC 3.75 M/mm3 (3.60-5.2); RDW 14.6 % (11.6-15.6); WHITE BLOOD COUNT 5.3 K/mm3 (4.0-10.0)
[2021-02-06 08:35] LABS: CALCIUM 8.6 mg/dL (8.5-10.1)
[2021-02-06 08:36] LABS: BLOOD UREA NITROGEN 20.3 mg/dL (7-18); MAGNESIUM 2.2 mg/dL (1.8-2.4)
[2021-02-06 08:39] LABS: CREATININE 0.8 mg/dL (0.55-1.3); PHOSPHOROUS 3.7 mg/dL (2.5-4.9)
[2021-02-06 08:40] LABS: BILIRUBIN,TOTAL 0.4 mg/dL (0.2-1)
[2021-02-06 08:41] LABS: TOT PROT 5.4 g/dl (6.4-8.2)
[2021-02-06] MEDS: AMIODARONE HCL 200 MG TABLET PO SCH (09:16)
[2021-02-06] MEDS: FLUTICASONE/SALMETEROL 100 MCG/50 MCG DISKUS IH SCH ×2 (09:16→22:05)
[2021-02-06] MEDS: MULTIVITAMINS THER W-MINERALS COMBO TABLET (FP) PO SCH (09:16)
[2021-02-06] MEDS: ALPRAZolam 0.25 MG TABLET PO PRN ×3 (09:16→22:03)
[2021-02-06] MEDS: METOPROLOL TARTRATE 25 MG TABLET (FP) PO SCH ×2 (09:16→22:01)
[2021-02-06] MEDS ORDERED: METOPROLOL TARTRATE 50 MG TABLET (FP) PO SCH (10:00)
[2021-02-06] MEDS: RIVAROXABAN 20 MG TABLET PO SCH (17:40)
[2021-02-06] MEDS: FLAXSEED PO SCH (19:12)
[2021-02-06] MEDS: [UNRECOGNIZED DRUG - OTHER] PO SCH (19:12)
[2021-02-06] MEDS: BILBERRY PO SCH (19:12)
[2021-02-06] MEDS: LATANOPROST 0.005% OPHTH SOLN 2.5ML BOTTLE OU SCH (22:04)
[2021-02-07] MEDS: ALPRAZolam 0.25 MG TABLET PO PRN ×2 (05:02→09:05)
[2021-02-07] MEDS: TORSEMIDE 20 MG TABLET (FP) PO SCH (05:37)
[2021-02-07] MEDS: ACETAMINOPHEN/CAFFEINE/BUTALBITAL 1 TAB PO PRN (05:38)
[2021-02-07] MEDS ORDERED: LEVOTHYROXINE NA 50 MCG TABLET (FP) PO SCH (07:00)
[2021-02-07 07:45] LABS: CALCIUM 8.8 mg/dL (8.5-10.1)
[2021-02-07 07:46] LABS: BLOOD UREA NITROGEN 21.8 mg/dL (7-18)
[2021-02-07 07:49] LABS: CREATININE 0.8 mg/dL (0.55-1.3)
[2021-02-07 08:05] VITALS: TEMP 97.5
[2021-02-07] MEDS: ACETAMINOPHEN 325 MG TABLET (FP) PO PRN (08:22)
[2021-02-07] MEDS: METOPROLOL TARTRATE 25 MG TABLET (FP) PO SCH (09:05)
[2021-02-07] MEDS: AMIODARONE HCL 200 MG TABLET PO SCH (09:05)
[2021-02-07] MEDS: FLUTICASONE/SALMETEROL 100 MCG/50 MCG DISKUS IH SCH (09:06)
[2021-02-07] MEDS: MULTIVITAMINS THER W-MINERALS COMBO TABLET (FP) PO SCH (09:06)
[2021-02-07 09:41] VITALS: BP 111/80; PULSE 66
[2021-02-09] MEDS ORDERED: LEVOTHYROXINE NA 25 MCG TABLET (FP) PO SCH (07:00)
== END 2021-02-07 13:37 | disposition home health service (06) ==
LOC: JER 19:46 → INTOOBSV 22:23 → JERBED 22:23 → J7W 02-05 01:56
PROVIDERS: ADMIT Hospitalist; ATTEND Internal Medicine
DX: I25.10 Atherosclerotic heart disease of native coronary artery without angina pectoris (principal); I11.0 Hypertensive heart disease with heart failure; J44.9 Chronic obstructive pulmonary disease, unspecified; L08.9 Local infection of the skin and subcutaneous tissue, unspecified; I34.0 Nonrheumatic mitral (valve) insufficiency; R60.9 Edema, unspecified; I48.91 Unspecified atrial fibrillation; Z79.01 Long term (current) use of anticoagulants; I27.20 Pulmonary hypertension, unspecified; F41.9 Anxiety disorder, unspecified; Z91.09 Other allergy status, other than to drugs and biological substances; Z87.891 Personal history of nicotine dependence; Z88.0 Allergy status to penicillin; Z88.8 Allergy status to other drugs, medicaments and biological substances
CPT/HCPCS: 36415; 80048; 80053; 83735; 83880; 84100; 85025; 85027; 85610; 85730; 87070; 87186; 87205; 96365; 96375; 97116-GP; 97161-GP; 99285-25; C9803; G0378; U0003; U0005

== ENCOUNTER 2021-06-20 16:48 | Inpatient (IN) | payer OTHER, BC ==
[2021-06-20] MEDS ORDERED: VANCOMYCIN 1 GM in D5W (PRE-DOCKED) 1,000 MG/250 ML IVPB ONE (18:47)
[2021-06-20] MEDS ORDERED: ALPRAZolam 1 MG TABLET PO ONE (18:47)
[2021-06-20] MEDS ORDERED: ALPRAZolam 0.25 MG TABLET ONE (19:01)
[2021-06-20] MEDS ORDERED: CEFTRIAXONE 1 GM/50 ML BAG ONE (19:01)
[2021-06-20] MEDS ORDERED: VANCOMYCIN 1 GRAM (PRE-DOCKED) 1,000 MG/250 ML BAG IVPB ONE (19:07)
[2021-06-20 20:36] LABS: BASO % 0.6 % (0-2.0); EOS % 2.3 % (0-4.5); HEMATOCRIT 40.5 % (32.4-45.2); HEMOGLOBIN 13.6 GM/dL (10.7-15.3); LYMPH % 19.6 % (8-40); MCH 32.7 pg (25.7-33.7); MCHC 33.6 g/dl (32.0-36.0); MEAN CELL VOLUME 97.3 fl (80-96); MEAN PLT VOLUME 8.5 fl (7.5-11.1); MONO % 18.2 % (3.8-10.2); NEUT % 59.3 % (42.8-82.8); PLATELET COUNT 205 10^3/uL (134-434); RBC 4.17 M/mm3 (3.60-5.2); RDW 15.5 % (11.6-15.6); WHITE BLOOD COUNT 7.3 K/mm3 (4.0-10.0)
[2021-06-20 20:47] LABS: BLOOD UREA NITROGEN 27.5 mg/dL (7-18); CALCIUM 9.2 mg/dL (8.5-10.1)
[2021-06-20 20:48] LABS: ALBUMIN 3.2 g/dl (3.4-5.0); MAGNESIUM 2.1 mg/dL (1.8-2.4)
[2021-06-20 20:51] LABS: CREATININE 0.9 mg/dL (0.55-1.3); PHOSPHOROUS 3.3 mg/dL (2.5-4.9)
[2021-06-20 20:52] LABS: BILIRUBIN,TOTAL 0.4 mg/dL (0.2-1)
[2021-06-20 20:53] LABS: TOT PROT 6.8 g/dl (6.4-8.2)
[2021-06-20] MEDS ORDERED: ALBUTEROL SO4 HFA INHALER IH PRN (23:42)
[2021-06-21] MEDS ORDERED: ACETAMINOPHEN 325 MG TABLET (FP) ONE (00:02)
[2021-06-21] MEDS: ACETAMINOPHEN 325 MG TABLET (FP) PO PRN (00:05)
[2021-06-21] MEDS ORDERED: ALPRAZolam 0.25 MG TABLET PO ONE (03:30)
[2021-06-21] MEDS ORDERED: MELATONIN 5 MG TABLETS PO ONE (03:30)
[2021-06-21 07:32] LABS: BASO % 0.5 % (0-2.0); EOS % 3.2 % (0-4.5); HEMATOCRIT 36.2 % (32.4-45.2); HEMOGLOBIN 12.3 GM/dL (10.7-15.3); LYMPH % 19.9 % (8-40); MCHC 34.1 g/dl (32.0-36.0); MEAN CELL VOLUME 96.8 fl (80-96); MEAN PLT VOLUME 9.2 fl (7.5-11.1); MONO % 21.6 % (3.8-10.2); NEUT % 54.8 % (42.8-82.8); PLATELET COUNT 204 10^3/uL (134-434); RBC 3.74 M/mm3 (3.60-5.2); RDW 15.4 % (11.6-15.6); WHITE BLOOD COUNT 6.8 K/mm3 (4.0-10.0)
[2021-06-21] MEDS ORDERED: ACETAMINOPHEN INJECTION 100 ML IVPB ONE (07:51)
[2021-06-21 07:53] LABS: BLOOD UREA NITROGEN 20.5 mg/dL (7-18); CALCIUM 8.8 mg/dL (8.5-10.1)
[2021-06-21 07:56] LABS: CREATININE 0.7 mg/dL (0.55-1.3); TOT PROT 5.5 g/dl (6.4-8.2)
[2021-06-21 07:59] LABS: BILIRUBIN,TOTAL 0.5 mg/dL (0.2-1)
[2021-06-21 08:01] LABS: ALBUMIN 2.6 g/dl (3.4-5.0)
[2021-06-21] MEDS: AMIODARONE HCL 200 MG TABLET PO SCH (10:34)
[2021-06-21] MEDS: LEVOTHYROXINE NA 50 MCG TABLET (FP) PO SCH (10:34)
[2021-06-21] MEDS: METOPROLOL TARTRATE 50 MG TABLET (FP) PO SCH ×2 (10:34→21:35)
[2021-06-21 10:51] LABS: ANISOCYTOSIS 0; MACROCYTOSIS 0; PLATELET ESTIMATE NORMAL
[2021-06-21 15:15] LABS: EPI CELLS 3 /uL (0-25.1); HYALINE CASTS 0 /uL (0-3.1); PH,URINE 7.5 (5.0-8.0); URINE APPEARANCE CLEAR; URINE BACTERIA 3 /uL (0-1359); URINE BILIRUBIN NEGATIVE (NEGATIVE); URINE COLOR YELLOW; URINE GLUCOSE (UA) NEGATIVE (NEGATIVE); URINE KETONE NEGATIVE (NEGATIVE); URINE LEUK ESTERASE TRACE (NEGATIVE); URINE NITRITE NEGATIVE (NEGATIVE); URINE PROTEIN NEGATIVE (NEGATIVE); URINE RBC 17 /uL (0-23.9); URINE WBC 1 /uL (0-25.8)
[2021-06-21] MEDS ORDERED: CEFEPIME HCL 1 GM VIAL (RESTRICTED TO ID) ONE (15:29)
[2021-06-21] MEDS ORDERED: DEXTROSE 5%-WATER 100 ML IVPB ONE (15:29)
[2021-06-21] MEDS: ACETAMINOPHEN/CAFFEINE/BUTALBITAL 1 TAB PO PRN ×2 (15:42→21:35)
[2021-06-21] MEDS: CEFEPIME 1 GM in DEXTROSE 5%-WATER 100 ML IVPB SCH ×2 (15:43→17:33)
[2021-06-21] MEDS: ALPRAZolam 0.25 MG TABLET PO PRN (16:42)
[2021-06-21] MEDS: FLUTICASONE/SALMETEROL 100 MCG/50 MCG DISKUS IH SCH ×2 (16:44→21:37)
[2021-06-21] MEDS: ZINC OXIDE/PANTHENOL/VITAMIN E 56 GM TUBE TP SCH (16:44)
[2021-06-21] MEDS: RIVAROXABAN 20 MG TABLET PO SCH (17:35)
[2021-06-21] MEDS ORDERED: VANCOMYCIN 1 GM in D5W (PRE-DOCKED) 1,000 MG/250 ML IVPB ONE (19:00)
[2021-06-22] MEDS ORDERED: DEXTROSE 50%-WATER 25 GM/50 ML DISP.SYRIN ONE (00:08)
[2021-06-22] MEDS ORDERED: DEXTROSE 5%-WATER 100 ML IVPB ONE ×3 (02:59→17:53)
[2021-06-22] MEDS ORDERED: CEFEPIME HCL 1 GM VIAL (RESTRICTED TO ID) ONE ×3 (02:59→17:53)
[2021-06-22] MEDS: CEFEPIME 1 GM in DEXTROSE 5%-WATER 100 ML IVPB SCH ×3 (03:00→17:57)
[2021-06-22] MEDS: ALPRAZolam 0.25 MG TABLET PO PRN ×3 (05:06→17:18)
[2021-06-22] MEDS: ACETAMINOPHEN/CAFFEINE/BUTALBITAL 1 TAB PO PRN ×2 (06:05→11:11)
[2021-06-22] MEDS: LEVOTHYROXINE NA 50 MCG TABLET (FP) PO SCH (06:05)
[2021-06-22 09:11] LABS: BASO % 0.3 % (0-2.0); EOS % 3.5 % (0-4.5); HEMATOCRIT 35.4 % (32.4-45.2); HEMOGLOBIN 11.9 GM/dL (10.7-15.3); LYMPH % 16.3 % (8-40); MCH 33.1 pg (25.7-33.7); MCHC 33.7 g/dl (32.0-36.0); MEAN CELL VOLUME 98.2 fl (80-96); MEAN PLT VOLUME 8.7 fl (7.5-11.1); MONO % 18.5 % (3.8-10.2); NEUT % 61.4 % (42.8-82.8); PLATELET COUNT 178 10^3/uL (134-434); RDW 15.3 % (11.6-15.6); WHITE BLOOD COUNT 6.3 K/mm3 (4.0-10.0)
[2021-06-22] MEDS: TORSEMIDE 20 MG TABLET (FP) PO SCH (09:23)
[2021-06-22] MEDS: FLUTICASONE/SALMETEROL 100 MCG/50 MCG DISKUS IH SCH ×2 (09:24→22:24)
[2021-06-22] MEDS: METOPROLOL TARTRATE 50 MG TABLET (FP) PO SCH ×2 (09:24→22:24)
[2021-06-22] MEDS: AMIODARONE HCL 200 MG TABLET PO SCH (09:24)
[2021-06-22 09:44] LABS: ALBUMIN 2.4 g/dl (3.4-5.0)
[2021-06-22 09:45] LABS: CALCIUM 8.3 mg/dL (8.5-10.1)
[2021-06-22 09:46] LABS: BLOOD UREA NITROGEN 14.8 mg/dL (7-18)
[2021-06-22 09:47] LABS: MAGNESIUM 2.2 mg/dL (1.8-2.4)
[2021-06-22 09:48] LABS: CREATININE 0.6 mg/dL (0.55-1.3)
[2021-06-22 09:50] LABS: BILIRUBIN,TOTAL 0.4 mg/dL (0.2-1); TOT PROT 5.2 g/dl (6.4-8.2)
[2021-06-22] MEDS ORDERED: PNEUMOC 13-VAL CONJ-DIP CRM/PF 0.5 ML DISP.SYRIN IM ONE (10:00)
[2021-06-22] MEDS ORDERED: FLU VACC QS2021-22(6MOS UP)/PF 60 MCG/0.5 ML SYRINGE IM ONE (10:00)
[2021-06-22] MEDS ORDERED: ACETAMINOPHEN/CAFFEINE/BUTALBITAL 1 TAB PO ONE ×2 (11:07→21:49)
[2021-06-22] MEDS: ZINC OXIDE/PANTHENOL/VITAMIN E 56 GM TUBE TP SCH (15:13)
[2021-06-22] MEDS: MINERAL OIL/PET HY-PHL TOPICAL OINTMENT 454 GM JAR TP SCH (15:43)
[2021-06-22] MEDS: RIVAROXABAN 20 MG TABLET PO SCH (17:57)
[2021-06-22 18:32] VITALS: BMI 20.2
[2021-06-23] MEDS ORDERED: DEXTROSE 5%-WATER 100 ML IVPB ONE ×3 (01:09→18:42)
[2021-06-23] MEDS ORDERED: CEFEPIME HCL 1 GM VIAL (RESTRICTED TO ID) ONE ×3 (01:09→18:41)
[2021-06-23] MEDS: CEFEPIME 1 GM in DEXTROSE 5%-WATER 100 ML IVPB SCH ×3 (02:01→18:45)
[2021-06-23] MEDS: ACETAMINOPHEN/CAFFEINE/BUTALBITAL 1 TAB PO PRN ×4 (03:49→21:57)
[2021-06-23] MEDS: LEVOTHYROXINE NA 50 MCG TABLET (FP) PO SCH (06:11)
[2021-06-23] MEDS: ALPRAZolam 0.25 MG TABLET PO PRN ×3 (06:20→18:45)
[2021-06-23] MEDS: ACETAMINOPHEN 325 MG TABLET (FP) PO PRN (08:12)
[2021-06-23 08:55] LABS: BASO % 0.6 % (0-2.0); EOS % 5.8 % (0-4.5); HEMATOCRIT 35.1 % (32.4-45.2); HEMOGLOBIN 12.1 GM/dL (10.7-15.3); LYMPH % 20.7 % (8-40); MCH 33.2 pg (25.7-33.7); MCHC 34.3 g/dl (32.0-36.0); MEAN CELL VOLUME 96.8 fl (80-96); MEAN PLT VOLUME 8.9 fl (7.5-11.1); MONO % 17.8 % (3.8-10.2); NEUT % 55.1 % (42.8-82.8); PLATELET COUNT 205 10^3/uL (134-434); RBC 3.63 M/mm3 (3.60-5.2); RDW 15.1 % (11.6-15.6); WHITE BLOOD COUNT 5.6 K/mm3 (4.0-10.0)
[2021-06-23 09:24] LABS: ALBUMIN 2.4 g/dl (3.4-5.0); BLOOD UREA NITROGEN 22.7 mg/dL (7-18); CALCIUM 8.2 mg/dL (8.5-10.1); MAGNESIUM 2.1 mg/dL (1.8-2.4)
[2021-06-23 09:27] LABS: CREATININE 0.8 mg/dL (0.55-1.3); PHOSPHOROUS 3.8 mg/dL (2.5-4.9)
[2021-06-23 09:28] LABS: BILIRUBIN,TOTAL 0.3 mg/dL (0.2-1); TOT PROT 5.3 g/dl (6.4-8.2)
[2021-06-23] MEDS ORDERED: PT OWN MED DRAWER 7, Y5N ONE (10:13)
[2021-06-23] MEDS: METOPROLOL TARTRATE 50 MG TABLET (FP) PO SCH ×2 (10:24→21:58)
[2021-06-23] MEDS: AMIODARONE HCL 200 MG TABLET PO SCH (10:24)
[2021-06-23] MEDS: TORSEMIDE 20 MG TABLET (FP) PO SCH (10:24)
[2021-06-23] MEDS: FLUTICASONE/SALMETEROL 100 MCG/50 MCG DISKUS IH SCH ×2 (10:25→21:58)
[2021-06-23] MEDS: MINERAL OIL/PET HY-PHL TOPICAL OINTMENT 454 GM JAR TP SCH (10:25)
[2021-06-23] MEDS: RIVAROXABAN 20 MG TABLET PO SCH (18:45)
[2021-06-24] MEDS ORDERED: CEFEPIME HCL 1 GM VIAL (RESTRICTED TO ID) ONE ×2 (02:18→09:44)
[2021-06-24] MEDS ORDERED: DEXTROSE 5%-WATER 100 ML IVPB ONE ×2 (02:18→09:44)
[2021-06-24] MEDS: CEFEPIME 1 GM in DEXTROSE 5%-WATER 100 ML IVPB SCH ×2 (02:27→09:55)
[2021-06-24] MEDS: ACETAMINOPHEN/CAFFEINE/BUTALBITAL 1 TAB PO PRN ×2 (02:30→10:00)
[2021-06-24] MEDS: LEVOTHYROXINE NA 50 MCG TABLET (FP) PO SCH (06:57)
[2021-06-24 08:37] LABS: HEMOGLOBIN 13.1 GM/dL (10.7-15.3); MCH 33.4 pg (25.7-33.7); MCHC 34.5 g/dl (32.0-36.0); MEAN CELL VOLUME 96.8 fl (80-96); MEAN PLT VOLUME 8.4 fl (7.5-11.1); PLATELET COUNT 189 10^3/uL (134-434); RBC 3.93 M/mm3 (3.60-5.2); RDW 15.2 % (11.6-15.6); WHITE BLOOD COUNT 5.8 K/mm3 (4.0-10.0)
[2021-06-24 09:18] LABS: ALBUMIN 2.7 g/dl (3.4-5.0)
[2021-06-24 09:19] LABS: BLOOD UREA NITROGEN 29.2 mg/dL (7-18); MAGNESIUM 1.6 mg/dL (1.8-2.4)
[2021-06-24 09:21] LABS: CREATININE 0.9 mg/dL (0.55-1.3)
[2021-06-24 09:22] LABS: BILIRUBIN,TOTAL 0.3 mg/dL (0.2-1)
[2021-06-24 09:23] LABS: TOT PROT 6.2 g/dl (6.4-8.2)
[2021-06-24] MEDS ORDERED: PT OWN MED DRAWER 7, Y5N ONE (09:44)
[2021-06-24] MEDS: MINERAL OIL/PET HY-PHL TOPICAL OINTMENT 454 GM JAR TP SCH (09:54)
[2021-06-24] MEDS: FLUTICASONE/SALMETEROL 100 MCG/50 MCG DISKUS IH SCH (09:54)
[2021-06-24] MEDS: AMIODARONE HCL 200 MG TABLET PO SCH (09:55)
[2021-06-24] MEDS: METOPROLOL TARTRATE 50 MG TABLET (FP) PO SCH (09:55)
[2021-06-24] MEDS: TORSEMIDE 20 MG TABLET (FP) PO SCH (09:55)
[2021-06-24 11:03] LABS: ANISOCYTOSIS 1+; MACROCYTOSIS 1+; PLATELET ESTIMATE NORMAL
[2021-06-24] MEDS ORDERED: ALPRAZolam 0.25 MG TABLET PO PRN ×2 (11:46→11:56)
[2021-06-24 19:34] VITALS: BP 124/58; PULSE 62; TEMP 98
[2021-06-26] MEDS ORDERED: LEVOTHYROXINE NA 25 MCG TABLET (FP) PO SCH (07:00)
== END 2021-06-24 15:32 | disposition home health service (06) | DRG 603 ==
LOC: SUPCPDRO 16:48 → JER 16:48 → JERBED 19:13 → J8W 06-21 08:25
PROVIDERS: ADMIT Internal Medicine
DX: L03.115 Cellulitis of right lower limb (principal); L97.818 Non-pressure chronic ulcer of other part of right lower leg with other specified severity; I13.0 Hypertensive heart and chronic kidney disease with heart failure and stage 1 through stage 4 chronic kidney disease, or unspecified chronic kidney disease; I50.42 Chronic combined systolic (congestive) and diastolic (congestive) heart failure; I25.10 Atherosclerotic heart disease of native coronary artery without angina pectoris; J44.9 Chronic obstructive pulmonary disease, unspecified; I48.0 Paroxysmal atrial fibrillation; I27.20 Pulmonary hypertension, unspecified; L89.152 Pressure ulcer of sacral region, stage 2; E03.9 Hypothyroidism, unspecified; I08.1 Rheumatic disorders of both mitral and tricuspid valves; M41.9 Scoliosis, unspecified; G43.909 Migraine, unspecified, not intractable, without status migrainosus; M54.50 Low back pain, unspecified; F41.0 Panic disorder [episodic paroxysmal anxiety]; I25.119 Atherosclerotic heart disease of native coronary artery with unspecified angina pectoris; N18.9 Chronic kidney disease, unspecified; L89.301 Pressure ulcer of unspecified buttock, stage 1; I65.29 Occlusion and stenosis of unspecified carotid artery
CPT/HCPCS: 36415; 71046-TC-FY; 73590-TC-RT-FY; 80053; 81003; 83735; 84100; 85025; 87040; 93005; 93010; 97116-GP; 97161-GP; 99285-25; C9803; U0003; U0005

== ENCOUNTER 2022-04-26 10:32 | Inpatient (IN) | payer OTHER, BC ==
[2022-04-26 10:50] VITALS: BMI 20.3
[2022-04-26] MEDS ORDERED: SODIUM CHLORIDE 500 ML IV STA (11:13)
[2022-04-26] MEDS ORDERED: dilTIAZem HCL 50 MG/10 ML - 10 ML VIAL IVPUSH ONE (11:13)
[2022-04-26] MEDS ORDERED: dilTIAZem HCL 125 MG/25 ML - 25 ML VIAL ONE ×2 (11:38→19:46)
[2022-04-26 11:50] LABS: BASO % 0.3 % (0-2.0); EOS % 0.8 % (0-4.5); HEMATOCRIT 37.1 % (32.4-45.2); HEMOGLOBIN 12.5 GM/dL (10.7-15.3); LYMPH % 10.1 % (8-40); MCH 33.5 pg (25.7-33.7); MCHC 33.8 g/dl (32.0-36.0); MEAN CELL VOLUME 99.1 fl (80-96); MEAN PLT VOLUME 7.8 fl (7.5-11.1); MONO % 14.1 % (3.8-10.2); NEUT % 74.7 % (42.8-82.8); PLATELET COUNT 195 10^3/uL (134-434); RBC 3.74 M/mm3 (3.60-5.2); RDW 14.6 % (11.6-15.6); WHITE BLOOD COUNT 11.2 K/mm3 (4.0-10.0)
[2022-04-26 12:10] LABS: URINE APPEARANCE CLEAR; URINE BILIRUBIN NEGATIVE (NEGATIVE); URINE COLOR YELLOW; URINE GLUCOSE (UA) NEGATIVE (NEGATIVE); URINE KETONE NEGATIVE (NEGATIVE); URINE LEUK ESTERASE NEGATIVE (NEGATIVE); URINE NITRITE NEGATIVE (NEGATIVE); URINE PROTEIN NEGATIVE (NEGATIVE); URINE UROBILINOGEN 0.2 mg/dL (0.2-1.0)
[2022-04-26 12:23] LABS: CALCIUM 8.7 mg/dL (8.5-10.1)
[2022-04-26 12:24] LABS: ALBUMIN 3.5 g/dl (3.4-5.0)
[2022-04-26 12:28] LABS: BILIRUBIN,TOTAL 0.4 mg/dL (0.2-1); CREATININE 0.9 mg/dL (0.55-1.3); TOT PROT 6.7 g/dl (6.4-8.2)
[2022-04-26 12:33] LABS: INR 1.15 (0.83-1.09); PROTHROMBIN TIME (PATIENT) 13.3 SEC (9.7-13.0)
[2022-04-26] MEDS ORDERED: ACETAMINOPHEN 1000 MG/100 ML BAG IVPB ONE ×2 (13:46→20:55)
[2022-04-26] MEDS ORDERED: ACETAMINOPHEN INJECTION 100 ML IVPB ONE ×2 (13:59→21:03)
[2022-04-26] MEDS ORDERED: dilTIAZem HCL 30 MG TABLET PO ONE (14:46)
[2022-04-26] MEDS ORDERED: dilTIAZem HCL 30 MG TABLET ONE (15:01)
[2022-04-26] MEDS ORDERED: METOPROLOL TARTRATE 25 MG TABLET (FP) ONE ×2 (16:27→21:02)
[2022-04-26] MEDS: METOPROLOL TARTRATE 25 MG TABLET (FP) PO SCH ×2 (16:31→21:08)
[2022-04-26] MEDS ORDERED: RIVAROXABAN 20 MG TABLET PO SCH (18:00)
[2022-04-26] MEDS: dilTIAZem HCL 50 MG/10 ML - 10 ML VIAL IVPUSH PRN (19:48)
[2022-04-26] MEDS ORDERED: ALPRAZolam 0.25 MG TABLET ONE (20:19)
[2022-04-26] MEDS: ALPRAZolam 0.25 MG TABLET PO PRN (20:27)
[2022-04-26] MEDS ORDERED: TORSEMIDE 20 MG TABLET (FP) PO SCH (22:00)
[2022-04-27] MEDS: ALPRAZolam 0.25 MG TABLET PO PRN ×2 (01:32→15:15)
[2022-04-27] MEDS ORDERED: oxyCODONE HCL 5 MG TABLET PO ONE (02:40)
[2022-04-27] MEDS: TORSEMIDE 20 MG TABLET (FP) PO SCH ×2 (05:47→14:19)
[2022-04-27] MEDS: dilTIAZem HCL 50 MG/10 ML - 10 ML VIAL IVPUSH PRN (06:02)
[2022-04-27] MEDS: LEVOTHYROXINE NA 50 MCG TABLET (FP) PO SCH (06:44)
[2022-04-27 07:51] LABS: BASO % 0.4 % (0-2.0); HEMATOCRIT 39.5 % (32.4-45.2); HEMOGLOBIN 12.6 GM/dL (10.7-15.3); LYMPH % 8.7 % (8-40); MCH 32.1 pg (25.7-33.7); MCHC 31.9 g/dl (32.0-36.0); MEAN CELL VOLUME 100.5 fl (80-96); MEAN PLT VOLUME 8.8 fl (7.5-11.1); MONO % 13.3 % (3.8-10.2); NEUT % 76.6 % (42.8-82.8); PLATELET COUNT 176 10^3/uL (134-434); RBC 3.93 M/mm3 (3.60-5.2); RDW 14.5 % (11.6-15.6); WHITE BLOOD COUNT 11.4 K/mm3 (4.0-10.0)
[2022-04-27 07:52] LABS: INR 1.34 (0.83-1.09); PROTHROMBIN TIME (PATIENT) 15.5 SEC (9.7-13.0)
[2022-04-27 07:55] LABS: ACTIVATED PTT 29.9 SECONDS (25.2-36.5)
[2022-04-27 07:56] LABS: BLOOD UREA NITROGEN 27.2 mg/dL (7-18); CALCIUM 8.7 mg/dL (8.5-10.1); MAGNESIUM 2.5 mg/dL (1.8-2.4)
[2022-04-27 07:57] LABS: ALBUMIN 3.3 g/dl (3.4-5.0)
[2022-04-27 07:58] LABS: PHOSPHOROUS 3.9 mg/dL (2.5-4.9)
[2022-04-27 07:59] LABS: CREATININE 0.8 mg/dL (0.55-1.3)
[2022-04-27 08:00] LABS: BILIRUBIN,TOTAL 0.4 mg/dL (0.2-1); TOT PROT 6.4 g/dl (6.4-8.2)
[2022-04-27] MEDS: AMIODARONE HCL 200 MG TABLET PO SCH (09:22)
[2022-04-27] MEDS: METOPROLOL TARTRATE 25 MG TABLET (FP) PO SCH (09:22)
[2022-04-27] MEDS ORDERED: RIVAROXABAN 20 MG TABLET PO SCH (10:00)
[2022-04-27] MEDS ORDERED: LEVOTHYROXINE NA 50 MCG TABLET (FP) PO SCH (10:00)
[2022-04-27] MEDS ORDERED: dilTIAZem HCL 50 MG/10 ML - 10 ML VIAL IVPUSH ONE (11:35)
[2022-04-27] MEDS ORDERED: METOPROLOL TARTRATE 5 MG/5 ML VIAL IVPUSH ONE ×2 (11:40→12:31)
[2022-04-27] MEDS ORDERED: METOPROLOL TARTRATE 25 MG TABLET (FP) PO ONE (12:32)
[2022-04-27] MEDS ORDERED: ENOXAPARIN NA (PORCINE) 40 MG/0.4 ML DISP.SYRIN SQ SCH (15:00)
[2022-04-27] MEDS ORDERED: HEPARIN NA (PORCINE) 5,000 UNITS/ML 1ML VIAL SQ SCH (22:00)
[2022-04-27] MEDS ORDERED: METOPROLOL TARTRATE 50 MG TABLET (FP) PO SCH (22:00)
[2022-04-27] MEDS ORDERED: HEPARIN NA (PORCINE) 5,000 UNITS/ML 1ML VIAL SQ ONE (22:00)
[2022-04-28] MEDS: ALPRAZolam 0.25 MG TABLET PO PRN ×3 (01:36→21:11)
[2022-04-28] MEDS ORDERED: KETOROLAC TROMETHAMINE 15 MG/ML VIAL IVPUSH ONE (02:29)
[2022-04-28] MEDS: TORSEMIDE 20 MG TABLET (FP) PO SCH (05:44)
[2022-04-28] MEDS: LEVOTHYROXINE NA 50 MCG TABLET (FP) PO SCH (06:05)
[2022-04-28] MEDS: AMIODARONE HCL 200 MG TABLET PO SCH (10:00)
[2022-04-28] MEDS ORDERED: ENOXAPARIN NA (PORCINE) 40 MG/0.4 ML DISP.SYRIN SQ SCH ×2 (10:00)
[2022-04-28] MEDS: ENOXAPARIN NA (PORCINE) 60 MG/0.6 ML DISP.SYRIN SQ SCH ×2 (10:00→21:11)
[2022-04-28] MEDS: METOPROLOL TARTRATE 50 MG TABLET (FP) PO SCH ×3 (10:01→21:11)
[2022-04-28] MEDS: FUROSEMIDE 40 MG/4 ML INJECTABLE VIAL IVPUSH SCH (10:01)
[2022-04-28] MEDS: dilTIAZem HCL 50 MG/10 ML - 10 ML VIAL IVPUSH PRN ×2 (11:31→23:00)
[2022-04-28 13:01] LABS: BASO % 0.4 % (0-2.0); EOS % 0.6 % (0-4.5); HEMATOCRIT 36.6 % (32.4-45.2); HEMOGLOBIN 12.2 GM/dL (10.7-15.3); LYMPH % 8.7 % (8-40); MCH 33.6 pg (25.7-33.7); MCHC 33.2 g/dl (32.0-36.0); MEAN CELL VOLUME 101.1 fl (80-96); MEAN PLT VOLUME 8.7 fl (7.5-11.1); MONO % 12.3 % (3.8-10.2); PLATELET COUNT 154 10^3/uL (134-434); RBC 3.62 M/mm3 (3.60-5.2); RDW 14.8 % (11.6-15.6); WHITE BLOOD COUNT 10.2 K/mm3 (4.0-10.0)
[2022-04-28 13:24] LABS: ALBUMIN 3.1 g/dl (3.4-5.0); CALCIUM 8.6 mg/dL (8.5-10.1)
[2022-04-28 13:25] LABS: BLOOD UREA NITROGEN 44.6 mg/dL (7-18)
[2022-04-28 13:27] LABS: CREATININE 1.3 mg/dL (0.55-1.3)
[2022-04-28 13:29] LABS: BILIRUBIN,TOTAL 0.5 mg/dL (0.2-1); TOT PROT 6.3 g/dl (6.4-8.2)
[2022-04-29] MEDS: ALPRAZolam 0.25 MG TABLET PO PRN (03:29)
[2022-04-29] MEDS: METOPROLOL TARTRATE 50 MG TABLET (FP) PO SCH ×3 (06:26→21:56)
[2022-04-29] MEDS: LEVOTHYROXINE NA 50 MCG TABLET (FP) PO SCH (06:26)
[2022-04-29] MEDS: ENOXAPARIN NA (PORCINE) 60 MG/0.6 ML DISP.SYRIN SQ SCH (09:04)
[2022-04-29] MEDS: AMIODARONE HCL 200 MG TABLET PO SCH (09:05)
[2022-04-29] MEDS: FUROSEMIDE 40 MG/4 ML INJECTABLE VIAL IVPUSH SCH (09:05)
[2022-04-29 17:30] LABS: BASO % 0.3 % (0-2.0); EOS % 0.2 % (0-4.5); HEMATOCRIT 37.2 % (32.4-45.2); LYMPH % 7.1 % (8-40); MCH 32.2 pg (25.7-33.7); MCHC 32.2 g/dl (32.0-36.0); MEAN CELL VOLUME 100.1 fl (80-96); MEAN PLT VOLUME 9.1 fl (7.5-11.1); NEUT % 79.4 % (42.8-82.8); PLATELET COUNT 169 10^3/uL (134-434); RBC 3.71 M/mm3 (3.60-5.2); RDW 14.5 % (11.6-15.6); WHITE BLOOD COUNT 9.8 K/mm3 (4.0-10.0)
[2022-04-29 17:59] LABS: BLOOD UREA NITROGEN 45.5 mg/dL (7-18); CALCIUM 8.5 mg/dL (8.5-10.1)
[2022-04-29 18:07] LABS: N-TERMINAL BNP 7736.2 pg/ml (5-450)
[2022-04-30] MEDS: METOPROLOL TARTRATE 50 MG TABLET (FP) PO SCH ×3 (05:50→21:44)
[2022-04-30] MEDS: TORSEMIDE 10 MG TABLET PO SCH ×2 (05:51→14:31)
[2022-04-30] MEDS: LEVOTHYROXINE NA 50 MCG TABLET (FP) PO SCH (06:04)
[2022-04-30] MEDS: dilTIAZem HCL 50 MG/10 ML - 10 ML VIAL IVPUSH PRN (06:53)
[2022-04-30 08:06] LABS: HEMATOCRIT 37.2 % (32.4-45.2); HEMOGLOBIN 12.4 GM/dL (10.7-15.3); MCH 33.2 pg (25.7-33.7); MCHC 33.2 g/dl (32.0-36.0); MEAN CELL VOLUME 100.1 fl (80-96); MEAN PLT VOLUME 7.7 fl (7.5-11.1); PLATELET COUNT 160 10^3/uL (134-434); RBC 3.72 M/mm3 (3.60-5.2); RDW 14.3 % (11.6-15.6); WHITE BLOOD COUNT 8.8 K/mm3 (4.0-10.0)
[2022-04-30 08:52] LABS: ALBUMIN 3.1 g/dl (3.4-5.0); BILIRUBIN,TOTAL 0.8 mg/dL (0.2-1); BLOOD UREA NITROGEN 48.5 mg/dL (7-18); CALCIUM 8.5 mg/dL (8.5-10.1); CREATININE 0.9 mg/dL (0.55-1.3); MAGNESIUM 2.6 mg/dL (1.8-2.4); TOT PROT 6.2 g/dl (6.4-8.2)
[2022-04-30] MEDS: AMIODARONE HCL 200 MG TABLET PO SCH (09:18)
[2022-05-01] MEDS: dilTIAZem HCL 50 MG/10 ML - 10 ML VIAL IVPUSH PRN (00:39)
[2022-05-01] MEDS: METOPROLOL TARTRATE 50 MG TABLET (FP) PO SCH ×3 (05:32→21:16)
[2022-05-01] MEDS: TORSEMIDE 10 MG TABLET PO SCH ×2 (05:32→13:31)
[2022-05-01] MEDS: LEVOTHYROXINE NA 50 MCG TABLET (FP) PO SCH (06:18)
[2022-05-01 07:58] LABS: HEMATOCRIT 38.1 % (32.4-45.2); HEMOGLOBIN 12.6 GM/dL (10.7-15.3); MCH 33.5 pg (25.7-33.7); MEAN CELL VOLUME 101.4 fl (80-96); MEAN PLT VOLUME 8.5 fl (7.5-11.1); PLATELET COUNT 162 10^3/uL (134-434); RBC 3.76 M/mm3 (3.60-5.2); RDW 14.5 % (11.6-15.6); WHITE BLOOD COUNT 10.5 K/mm3 (4.0-10.0)
[2022-05-01 08:48] LABS: CALCIUM 8.8 mg/dL (8.5-10.1)
[2022-05-01 08:49] LABS: ALBUMIN 3.3 g/dl (3.4-5.0); BLOOD UREA NITROGEN 54.3 mg/dL (7-18)
[2022-05-01 08:53] LABS: BILIRUBIN,TOTAL 0.9 mg/dL (0.2-1); TOT PROT 6.4 g/dl (6.4-8.2)
[2022-05-01] MEDS: AMIODARONE HCL 200 MG TABLET PO SCH (09:25)
[2022-05-01] MEDS ORDERED: SODIUM CHLORIDE 0.45% 500 ML IV STA (10:06)
[2022-05-01] MEDS: ENOXAPARIN NA (PORCINE) 60 MG/0.6 ML DISP.SYRIN SQ SCH ×2 (10:43→21:16)
[2022-05-01] MEDS: CEFTRIAXONE 1 GM in DEXTROSE 5%-WATER - 50 ML IVPB SCH (10:43)
[2022-05-01] MEDS: SODIUM CHLORIDE 0.45% 1,000 ML IV SCH ×2 (11:45→22:50)
[2022-05-01 12:17] LABS: EPI CELLS 22 /uL (0-25.1); HYALINE CASTS 3 /uL (0-3.1); URINE APPEARANCE TURBID; URINE BACTERIA >9,000 /uL (0-1359); URINE BILIRUBIN NEGATIVE (NEGATIVE); URINE COLOR YELLOW; URINE GLUCOSE (UA) NEGATIVE (NEGATIVE); URINE KETONE NEGATIVE (NEGATIVE); URINE LEUK ESTERASE 3+ (NEGATIVE); URINE NITRITE POSITIVE (NEGATIVE); URINE PROTEIN TRACE (NEGATIVE); URINE WBC 8627 /uL (0-25.8)
[2022-05-01] MEDS ORDERED: ACETAMINOPHEN 1000 MG/100 ML BAG IVPB PRN (13:37)
[2022-05-01] MEDS: ACETAMINOPHEN 325 MG TABLET (FP) PO PRN ×2 (13:42→22:30)
[2022-05-01] MEDS: dilTIAZem HCL 30 MG TABLET PO SCH ×2 (13:44→21:16)
[2022-05-01 14:56] LABS: URINE RBC 177.4 /uL (0-23.9)
[2022-05-01 14:58] LABS: YEAST NONE SEEN (NEGATIVE)
[2022-05-02] MEDS: LEVOTHYROXINE NA 50 MCG TABLET (FP) PO SCH (06:07)
[2022-05-02] MEDS: dilTIAZem HCL 30 MG TABLET PO SCH ×3 (06:07→21:06)
[2022-05-02] MEDS: TORSEMIDE 10 MG TABLET PO SCH ×2 (06:07→13:21)
[2022-05-02] MEDS: METOPROLOL TARTRATE 50 MG TABLET (FP) PO SCH ×3 (06:07→21:06)
[2022-05-02 09:02] LABS: HEMATOCRIT 39.5 % (32.4-45.2); HEMOGLOBIN 12.6 GM/dL (10.7-15.3); MCH 32.8 pg (25.7-33.7); MCHC 31.9 g/dl (32.0-36.0); MEAN CELL VOLUME 102.6 fl (80-96); MEAN PLT VOLUME 9.4 fl (7.5-11.1); PLATELET COUNT 183 10^3/uL (134-434); RBC 3.85 M/mm3 (3.60-5.2); RDW 15.1 % (11.6-15.6); WHITE BLOOD COUNT 10.7 K/mm3 (4.0-10.0)
[2022-05-02 09:30] LABS: CALCIUM 8.3 mg/dL (8.5-10.1)
[2022-05-02 09:31] LABS: ALBUMIN 3.1 g/dl (3.4-5.0); BILIRUBIN,TOTAL 0.7 mg/dL (0.2-1); BLOOD UREA NITROGEN 58.8 mg/dL (7-18)
[2022-05-02 09:35] LABS: TOT PROT 6.3 g/dl (6.4-8.2)
[2022-05-02] MEDS: ENOXAPARIN NA (PORCINE) 60 MG/0.6 ML DISP.SYRIN SQ SCH (09:55)
[2022-05-02] MEDS: CEFTRIAXONE 1 GM in DEXTROSE 5%-WATER - 50 ML IVPB SCH (09:55)
[2022-05-02] MEDS: AMIODARONE HCL 200 MG TABLET PO SCH (09:55)
[2022-05-02] MEDS ORDERED: SODIUM CHLORIDE 0.45% 1,000 ML IV SCH (16:45)
[2022-05-02] MEDS: RIVAROXABAN 20 MG TABLET PO SCH (18:15)
[2022-05-03] MEDS: dilTIAZem HCL 30 MG TABLET PO SCH ×2 (05:54→13:50)
[2022-05-03] MEDS: METOPROLOL TARTRATE 50 MG TABLET (FP) PO SCH ×2 (05:54→13:50)
[2022-05-03] MEDS: LEVOTHYROXINE NA 50 MCG TABLET (FP) PO SCH (06:15)
[2022-05-03] MEDS: CEFTRIAXONE 1 GM in DEXTROSE 5%-WATER - 50 ML IVPB SCH (09:00)
[2022-05-03] MEDS: AMIODARONE HCL 200 MG TABLET PO SCH (09:00)
[2022-05-03] MEDS: guaiFENesin 600 MG TABLET.ER (FP) PO SCH ×2 (09:28→22:09)
[2022-05-03 10:05] LABS: ARTERIAL BLOOD GAS BASE EXCESS 7.4 mmol/L (-2-2); ARTERIAL BLOOD GAS PO2 77.6 mmHg (80-100); ARTERIAL BLOOD GAS pH 7.226 (7.350-7.450)
[2022-05-03 10:12] LABS: ALLENS TEST POSITIVE
[2022-05-03 11:09] LABS: HEMATOCRIT 40.1 % (32.4-45.2); HEMOGLOBIN 12.6 GM/dL (10.7-15.3); MCH 32.6 pg (25.7-33.7); MCHC 31.4 g/dl (32.0-36.0); MEAN CELL VOLUME 103.7 fl (80-96); MEAN PLT VOLUME 8.8 fl (7.5-11.1); PLATELET COUNT 172 10^3/uL (134-434); RBC 3.87 M/mm3 (3.60-5.2); RDW 15.1 % (11.6-15.6); WHITE BLOOD COUNT 12.2 K/mm3 (4.0-10.0)
[2022-05-03 11:32] LABS: CALCIUM 8.6 mg/dL (8.5-10.1)
[2022-05-03 11:33] LABS: ALBUMIN 3.2 g/dl (3.4-5.0); BLOOD UREA NITROGEN 67.4 mg/dL (7-18)
[2022-05-03 11:36] LABS: CREATININE 1.2 mg/dL (0.55-1.3)
[2022-05-03 11:37] LABS: BILIRUBIN,TOTAL 0.8 mg/dL (0.2-1)
[2022-05-03 11:38] LABS: TOT PROT 6.4 g/dl (6.4-8.2)
[2022-05-03 14:12] LABS: ARTERIAL BLD GAS O2 SATURATION 98.1 % (95-98); ARTERIAL BLOOD GAS BASE EXCESS 6.2 mmol/L (-2-2); ARTERIAL BLOOD GAS PO2 135.3 mmHg (80-100); ARTERIAL BLOOD GAS pH 7.245 (7.350-7.450)
[2022-05-03 14:14] LABS: ALLENS TEST POSITIVE; VENT MODE S/T; VENT RATE 14
[2022-05-03 16:00] LABS: N-TERMINAL BNP 10188.2 pg/ml (5-450)
[2022-05-03] MEDS ORDERED: FUROSEMIDE 40 MG/4 ML INJECTABLE VIAL IVPUSH ONE (16:57)
[2022-05-03 17:16] LABS: ARTERIAL BLD GAS O2 SATURATION 95.6 % (95-98); ARTERIAL BLOOD GAS BASE EXCESS 10.2 mmol/L (-2-2); ARTERIAL BLOOD GAS PO2 89.1 mmHg (80-100)
[2022-05-03 17:22] LABS: ALLENS TEST POSITIVE; VENT MODE S/T
[2022-05-03] MEDS: ERTAPENEM SODIUM 1 GM in SODIUM CHLORIDE 50 ML IVPB SCH (17:24)
[2022-05-03] MEDS ORDERED: LACTATED RINGERS SOLUTION 1,000 ML/1,000 ML INFUS.BAG IV SCH (17:45)
[2022-05-03] MEDS: RIVAROXABAN 20 MG TABLET PO SCH (17:51)
[2022-05-03] MEDS: SODIUM ZIRCONIUM CYCLOSILICATE (LOKELMA) 5 GM PACKET PO SCH (17:55)
[2022-05-03] MEDS ORDERED: METOPROLOL TARTRATE 5 MG/5 ML VIAL IVPUSH PRN ×2 (18:30→18:46)
[2022-05-03] MEDS ORDERED: dilTIAZem HCL 50 MG/10 ML - 10 ML VIAL IVPUSH PRN (18:45)
[2022-05-03] MEDS: dilTIAZem HCL 50 MG/10 ML - 10 ML VIAL IVPUSH SCH (22:17)
[2022-05-04 04:56] LABS: ARTERIAL BLD GAS O2 SATURATION 93.2 % (95-98); ARTERIAL BLOOD GAS PO2 70.5 mmHg (80-100)
[2022-05-04 05:03] LABS: ALLENS TEST POSITIVE
[2022-05-04 05:04] LABS: VENT MODE PSV; VENT RATE 20
[2022-05-04] MEDS: LEVOTHYROXINE NA 50 MCG TABLET (FP) PO SCH (06:19)
[2022-05-04 07:48] LABS: HEMATOCRIT 38.9 % (32.4-45.2); HEMOGLOBIN 12.6 GM/dL (10.7-15.3); MCHC 32.4 g/dl (32.0-36.0); MEAN CELL VOLUME 101.8 fl (80-96); PLATELET COUNT 203 10^3/uL (134-434); RBC 3.82 M/mm3 (3.60-5.2); RDW 14.7 % (11.6-15.6); WHITE BLOOD COUNT 10.7 K/mm3 (4.0-10.0)
[2022-05-04 07:52] LABS: INR 1.32 (0.83-1.09); PROTHROMBIN TIME (PATIENT) 15.2 SEC (9.7-13.0)
[2022-05-04 07:54] LABS: ACTIVATED PTT 26.9 SECONDS (25.2-36.5)
[2022-05-04 08:06] LABS: ALBUMIN 3.2 g/dl (3.4-5.0); BLOOD UREA NITROGEN 62.6 mg/dL (7-18); CALCIUM 8.9 mg/dL (8.5-10.1); MAGNESIUM 2.8 mg/dL (1.8-2.4)
[2022-05-04 08:10] LABS: BILIRUBIN,TOTAL 0.6 mg/dL (0.2-1)
[2022-05-04] MEDS: ERTAPENEM SODIUM 1 GM in SODIUM CHLORIDE 50 ML IVPB SCH (09:56)
[2022-05-04] MEDS: SODIUM ZIRCONIUM CYCLOSILICATE (LOKELMA) 5 GM PACKET PO SCH (09:56)
[2022-05-04] MEDS: AMIODARONE HCL 200 MG TABLET PO SCH ×2 (09:56→10:09)
[2022-05-04] MEDS: dilTIAZem HCL 50 MG/10 ML - 10 ML VIAL IVPUSH SCH ×2 (09:56→21:33)
[2022-05-04] MEDS: guaiFENesin 600 MG TABLET.ER (FP) PO SCH ×2 (09:57→21:33)
[2022-05-04 12:23] LABS: HEMATOCRIT 38.9 % (32.4-45.2); HEMOGLOBIN 11.8 GM/dL (10.7-15.3); MCH 32.5 pg (25.7-33.7); MCHC 30.4 g/dl (32.0-36.0); MEAN PLT VOLUME 8.4 fl (7.5-11.1); PLATELET COUNT 162 10^3/uL (134-434); RBC 3.64 M/mm3 (3.60-5.2); RDW 16.4 % (11.6-15.6); WHITE BLOOD COUNT 9.8 K/mm3 (4.0-10.0)
[2022-05-04 12:46] LABS: ALBUMIN 2.9 g/dl (3.4-5.0); BLOOD UREA NITROGEN 61.5 mg/dL (7-18); CALCIUM 8.5 mg/dL (8.5-10.1)
[2022-05-04 12:49] LABS: CREATININE 0.9 mg/dL (0.55-1.3)
[2022-05-04 12:51] LABS: BILIRUBIN,TOTAL 0.6 mg/dL (0.2-1); TOT PROT 5.6 g/dl (6.4-8.2)
[2022-05-04] MEDS: RIVAROXABAN 20 MG TABLET PO SCH (17:42)
[2022-05-04] MEDS: DEXTROSE 5%-0.45% SALINE 1,000 ML IV SCH (20:00)
[2022-05-04] MEDS: FLUTICASONE/SALMETEROL 100 MCG/50 MCG DISKUS IH SCH (22:30)
[2022-05-05] MEDS: LEVOTHYROXINE NA 50 MCG TABLET (FP) PO SCH (06:50)
[2022-05-05 09:01] LABS: INR 1.97 (0.83-1.09); PROTHROMBIN TIME (PATIENT) 22.8 SEC (9.7-13.0)
[2022-05-05 09:04] LABS: ACTIVATED PTT 31.2 SECONDS (25.2-36.5)
[2022-05-05 09:13] LABS: HEMATOCRIT 38.6 % (32.4-45.2); HEMOGLOBIN 12.4 GM/dL (10.7-15.3); MCH 33.8 pg (25.7-33.7); MCHC 32.1 g/dl (32.0-36.0); MEAN CELL VOLUME 105.4 fl (80-96); MEAN PLT VOLUME 8.3 fl (7.5-11.1); PLATELET COUNT 143 10^3/uL (134-434); RBC 3.66 M/mm3 (3.60-5.2); RDW 15.9 % (11.6-15.6); WHITE BLOOD COUNT 9.6 K/mm3 (4.0-10.0)
[2022-05-05 09:15] LABS: CHLORIDE 110 mmol/L (98-107); SODIUM 155 mmol/L (136-145)
[2022-05-05 09:26] LABS: PHOSPHOROUS 3.9 mg/dL (2.5-4.9)
[2022-05-05 09:27] LABS: BILIRUBIN,TOTAL 0.5 mg/dL (0.2-1); CALCIUM 8.8 mg/dL (8.5-10.1); GLUCOSE,RANDOM 146 mg/dL (74-106)
[2022-05-05 09:28] LABS: ALK PHOS 130 U/L (45-117); TOT PROT 5.9 g/dl (6.4-8.2)
[2022-05-05 09:29] LABS: BLOOD UREA NITROGEN 49.5 mg/dL (7-18); CREATININE 0.9 mg/dL (0.55-1.3)
[2022-05-05 09:31] LABS: SGOT/AST 107 U/L (15-37); SGPT/ALT 269 U/L (13-61)
[2022-05-05 09:35] LABS: ANION GAP 0 MMOL/L (8-16); CO2 > 45 mmol/L (21-32)
[2022-05-05] MEDS: guaiFENesin 600 MG TABLET.ER (FP) PO SCH ×2 (10:13→21:10)
[2022-05-05] MEDS: ERTAPENEM SODIUM 1 GM in SODIUM CHLORIDE 50 ML IVPB SCH (10:13)
[2022-05-05] MEDS: AMIODARONE HCL 200 MG TABLET PO SCH (10:14)
[2022-05-05] MEDS: FLUTICASONE/SALMETEROL 100 MCG/50 MCG DISKUS IH SCH ×2 (10:14→21:09)
[2022-05-05] MEDS: SODIUM ZIRCONIUM CYCLOSILICATE (LOKELMA) 5 GM PACKET PO SCH (10:16)
[2022-05-05] MEDS: dilTIAZem HCL 50 MG/10 ML - 10 ML VIAL IVPUSH SCH ×2 (11:29→21:09)
[2022-05-05] MEDS ORDERED: ALBUTEROL SO4 0.083% IH SOL 2.5 MG/3 ML VIAL.NEB. NEB PRN (11:41)
[2022-05-05] MEDS: ALBUTEROL SO4 2.5/IPRATROPIUM 0.5 INH SOL 3 ML VIAL.NEB. NEB SCH ×3 (12:12→21:05)
[2022-05-05 14:57] LABS: ARTERIAL BLD GAS O2 SATURATION 94.6 % (95-98); ARTERIAL BLOOD GAS BASE EXCESS 13.6 mmol/L (-2-2); ARTERIAL BLOOD GAS PO2 89.5 mmHg (80-100); ARTERIAL BLOOD GAS pH 7.248 (7.350-7.450)
[2022-05-05 15:06] LABS: ALLENS TEST POSITIVE
[2022-05-05] MEDS: METOPROLOL TARTRATE 5 MG/5 ML VIAL IVPUSH PRN (15:43)
[2022-05-05] MEDS: RIVAROXABAN 20 MG TABLET PO SCH (17:33)
[2022-05-05] MEDS: DEXTROSE 5%-0.45% SALINE 1,000 ML IV SCH (17:33)
[2022-05-05] MEDS: ACETAMINOPHEN 325 MG TABLET (FP) PO PRN (17:50)
[2022-05-06] MEDS: LEVOTHYROXINE NA 50 MCG TABLET (FP) PO SCH (06:30)
[2022-05-06 08:10] LABS: HEMATOCRIT 40.4 % (32.4-45.2); HEMOGLOBIN 12.4 GM/dL (10.7-15.3); MCH 32.8 pg (25.7-33.7); MCHC 30.8 g/dl (32.0-36.0); MEAN CELL VOLUME 106.6 fl (80-96); MEAN PLT VOLUME 8.6 fl (7.5-11.1); PLATELET COUNT 206 10^3/uL (134-434); RDW 15.7 % (11.6-15.6); WHITE BLOOD COUNT 10.9 K/mm3 (4.0-10.0)
[2022-05-06] MEDS: ALBUTEROL SO4 2.5/IPRATROPIUM 0.5 INH SOL 3 ML VIAL.NEB. NEB SCH ×4 (08:10→20:56)
[2022-05-06 08:15] LABS: INR 2.11 (0.83-1.09); PROTHROMBIN TIME (PATIENT) 24.5 SEC (9.7-13.0)
[2022-05-06 08:18] LABS: ACTIVATED PTT 31.9 SECONDS (25.2-36.5)
[2022-05-06] MEDS: METOPROLOL TARTRATE 5 MG/5 ML VIAL IVPUSH PRN ×4 (08:34→23:09)
[2022-05-06 08:48] LABS: ALBUMIN 3.1 g/dl (3.4-5.0)
[2022-05-06 08:50] LABS: CALCIUM 9.2 mg/dL (8.5-10.1)
[2022-05-06 08:51] LABS: CREATININE 0.7 mg/dL (0.55-1.3)
[2022-05-06 08:52] LABS: BILIRUBIN,TOTAL 0.5 mg/dL (0.2-1)
[2022-05-06 08:56] LABS: PHOSPHOROUS 3.6 mg/dL (2.5-4.9)
[2022-05-06 09:29] LABS: BLOOD UREA NITROGEN 35.3 mg/dL (7-18)
[2022-05-06] MEDS: guaiFENesin 600 MG TABLET.ER (FP) PO SCH ×2 (09:51→22:03)
[2022-05-06] MEDS: AMIODARONE HCL 200 MG TABLET PO SCH (09:51)
[2022-05-06] MEDS: FLUTICASONE/SALMETEROL 100 MCG/50 MCG DISKUS IH SCH ×2 (09:52→22:03)
[2022-05-06] MEDS: ERTAPENEM SODIUM 1 GM in SODIUM CHLORIDE 50 ML IVPB SCH (09:52)
[2022-05-06] MEDS: dilTIAZem HCL 50 MG/10 ML - 10 ML VIAL IVPUSH SCH ×2 (09:57→21:15)
[2022-05-06] MEDS: ACETAMINOPHEN 325 MG TABLET (FP) PO PRN (14:35)
[2022-05-06] MEDS: DEXTROSE 5%-0.45% SALINE 1,000 ML IV SCH (15:52)
[2022-05-06] MEDS: ALPRAZolam 0.25 MG TABLET PO PRN ×2 (16:49→21:57)
[2022-05-06] MEDS: RIVAROXABAN 20 MG TABLET PO SCH (17:20)
[2022-05-06] MEDS: METOPROLOL TARTRATE 25 MG TABLET (FP) PO SCH (21:55)
[2022-05-07] MEDS: LEVOTHYROXINE NA 50 MCG TABLET (FP) PO SCH (06:26)
[2022-05-07] MEDS: DEXTROSE 5%-0.45% SALINE 1,000 ML IV SCH ×2 (06:27→17:11)
[2022-05-07 07:24] LABS: HEMATOCRIT 39.6 % (32.4-45.2); HEMOGLOBIN 12.2 GM/dL (10.7-15.3); MCH 32.8 pg (25.7-33.7); MCHC 30.9 g/dl (32.0-36.0); MEAN CELL VOLUME 106.1 fl (80-96); MEAN PLT VOLUME 9.1 fl (7.5-11.1); PLATELET COUNT 205 10^3/uL (134-434); RBC 3.73 M/mm3 (3.60-5.2); RDW 16.7 % (11.6-15.6); WHITE BLOOD COUNT 11.1 K/mm3 (4.0-10.0)
[2022-05-07] MEDS: ALBUTEROL SO4 2.5/IPRATROPIUM 0.5 INH SOL 3 ML VIAL.NEB. NEB SCH ×3 (07:30→15:42)
[2022-05-07 07:57] LABS: CALCIUM 8.9 mg/dL (8.5-10.1)
[2022-05-07 07:58] LABS: BLOOD UREA NITROGEN 34.4 mg/dL (7-18)
[2022-05-07 08:01] LABS: CREATININE 0.7 mg/dL (0.55-1.3)
[2022-05-07 09:53] LABS: ANISOCYTOSIS 0; MACROCYTOSIS 1+
[2022-05-07] MEDS: AMIODARONE HCL 200 MG TABLET PO SCH (10:50)
[2022-05-07] MEDS: METOPROLOL TARTRATE 25 MG TABLET (FP) PO SCH (10:56)
[2022-05-07] MEDS: FLUTICASONE/SALMETEROL 100 MCG/50 MCG DISKUS IH SCH (10:57)
[2022-05-07] MEDS: guaiFENesin 600 MG TABLET.ER (FP) PO SCH (11:06)
[2022-05-07] MEDS: ERTAPENEM SODIUM 1 GM in SODIUM CHLORIDE 50 ML IVPB SCH (11:21)
[2022-05-07] MEDS: dilTIAZem HCL 50 MG/10 ML - 10 ML VIAL IVPUSH SCH (11:22)
[2022-05-07] MEDS: METOPROLOL TARTRATE 5 MG/5 ML VIAL IVPUSH PRN (12:12)
[2022-05-07 15:41] VITALS: RESP 22
[2022-05-07] MEDS ORDERED: METOPROLOL TARTRATE 5 MG/5 ML VIAL IVPUSH PRN ×4 (16:32→16:38)
[2022-05-07] MEDS ORDERED: dilTIAZem HCL 50 MG/10 ML - 10 ML VIAL IVPUSH SCH (16:35)
[2022-05-07] MEDS ORDERED: FUROSEMIDE 40 MG/4 ML INJECTABLE VIAL IVPUSH ONE (17:32)
[2022-05-07] MEDS ORDERED: MORPHINE SULFATE/0.9% NACL/PF 100 MG/100 ML BAG IVPB SCH (18:30)
[2022-05-07] MEDS ORDERED: SCOPOLAMINE HYDROBROMIDE 1 PATCH PATCH.TD72 TD SCH (19:00)
[2022-05-07 21:39] VITALS: BP 69/47
[2022-05-07 21:51] VITALS: PULSE 60; TEMP 98.6
== END 2022-05-07 22:15 | disposition expired | DRG 291 ==
LOC: JER 10:32 → JERBED 14:06 → J4W 21:33
PROVIDERS: ADMIT Internal Medicine; ATTEND Internal Medicine
DX: I13.0 Hypertensive heart and chronic kidney disease with heart failure and stage 1 through stage 4 chronic kidney disease, or unspecified chronic kidney disease (principal); A41.9 Sepsis, unspecified organism; G92.8 Other toxic encephalopathy; I50.33 Acute on chronic diastolic (congestive) heart failure; S72.002A Fracture of unspecified part of neck of left femur, initial encounter for closed fracture; J96.22 Acute and chronic respiratory failure with hypercapnia; J96.01 Acute respiratory failure with hypoxia; F05 Delirium due to known physiological condition; N39.0 Urinary tract infection, site not specified; M87.052 Idiopathic aseptic necrosis of left femur; E87.3 Alkalosis; K56.7 Ileus, unspecified; J98.11 Atelectasis; I25.10 Atherosclerotic heart disease of native coronary artery without angina pectoris; Z79.01 Long term (current) use of anticoagulants; J44.9 Chronic obstructive pulmonary disease, unspecified; I27.20 Pulmonary hypertension, unspecified; F41.9 Anxiety disorder, unspecified; I48.0 Paroxysmal atrial fibrillation; I11.0 Hypertensive heart disease with heart failure; E03.9 Hypothyroidism, unspecified; R29.6 Repeated falls; I89.0 Lymphedema, not elsewhere classified; I34.0 Nonrheumatic mitral (valve) insufficiency; I34.1 Nonrheumatic mitral (valve) prolapse; E78.00 Pure hypercholesterolemia, unspecified; W01.0XXA Fall on same level from slipping, tripping and stumbling without subsequent striking against object, initial encounter; Y93.89 Activity, other specified; Y92.008 Other place in unspecified non-institutional (private) residence as the place of occurrence of the external cause; Y99.8 Other external cause status; R74.01 Elevation of levels of liver transaminase levels; G43.909 Migraine, unspecified, not intractable, without status migrainosus; E87.5 Hyperkalemia; R31.0 Gross hematuria; N18.9 Chronic kidney disease, unspecified; R79.89 Other specified abnormal findings of blood chemistry; K76.1 Chronic passive congestion of liver; I35.0 Nonrheumatic aortic (valve) stenosis; E86.1 Hypovolemia; R91.8 Other nonspecific abnormal finding of lung field
CPT/HCPCS: 36415; 36600; 70450-TC; 70551-TC; 71045-TC-FY; 72125-TC; 72170-TC-FY; 72192-TC; 73030-TC-RT-FY; 73502-TC-RT-FY; 73560-TC-RT-FY; 73718-TC-LT; 74018-TC-FY; 76705-TC; 80048; 80053; 81003; 82140; 82803; 82962; 83605; 83615; 83735; 83880; 84100; 84439; 84443; 84484; 85025; 85027; 85610; 85730; 87040; 87086; 93005; 93010; 93306-TC; 94640; 94660; 97162-GP; 99285-25; C9803-CS; J1644; U0003; U0005